=== PATIENT | male | born 1950 | race Caucasian/White ===

== ENCOUNTER 2016-11-10 18:47 | Emergency (ER) | payer MEDICARE, OTHER ==
[~2016-11-10] VITALS: Ht 177.8 cm; Wt 74.8 kg
[2016-11-10] MEDS ORDERED: MYCO500T PO (19:01)
[2016-11-10] MEDS ORDERED: VITA20008 PO (19:01)
[2016-11-10] MEDS ORDERED: GABA-283 PO (19:01)
[2016-11-10] MEDS ORDERED: AMAN100T PO (19:01)
[2016-11-10] MEDS ORDERED: VITA200025 PO (19:01)
[2016-11-10] MEDS ORDERED: BACL10TA2 PO (19:01)
[2016-11-10] MEDS ORDERED: NS 1,000 ML IV ONE (19:45)
[2016-11-10 20:31] LABS: BASO % 0.2 % (0.0-1.0); EOS % 0.6 % (0.0-3.0); LARGE UNSTAINED CELL # 0.1 K/mm3 (0.0-0.4); LARGE UNSTAINED CELL % 1.1 % (0.0-4.0); LYMPH % 12.4 % (24.0-44.0); MEAN CORPUSCULAR HEMOGLOBIN 30.8 pg (27.0-33.0); MEAN CORPUSCULAR HGB CONC 34.1 g/dl (32.0-36.5); MEAN CORPUSCULAR VOLUME 90.2 fl (80.0-96.0); MONO # 0.3 K/mm3 (0.0-0.8); MONO % 3.4 % (0.0-5.0); NEUTROPHILS # 6.8 K/mm3 (1.8-7.7); NEUTROPHILS % 82.3 % (36.0-66.0); PLATELET COUNT, AUTOMATED 226 k/mm3 (150-450); RED CELL DISTRIBUTION WIDTH 13.4 % (11.5-14.5); WHITE BLOOD COUNT 8.3 K/mm3 (4.0-10.0)
[2016-11-10 20:57] LABS: ALBUMIN 3.9 GM/DL (3.2-5.2); ALKALINE PHOSPHATASE 246 U/L (45-117); ALT/SGPT 59 U/L (12-78); ANION GAP 6 MEQ/L (8-16); AST/SGOT 35 U/L (15-37); BILIRUBIN,DIRECT 0.2 MG/DL (0.0-0.2); BLOOD UREA NITROGEN 19 MG/DL (7-18); CARBON DIOXIDE LEVEL 33 MEQ/L (21-32); CHLORIDE LEVEL 103 MEQ/L (98-107); CREATININE FOR GFR 0.98 MG/DL (0.70-1.30); GLOMERULAR FILTRATION RATE > 60.0 (>49); GLUCOSE, FASTING 115 MG/DL (80-110); POTASSIUM SERUM 4.1 MEQ/L (3.5-5.1); SODIUM LEVEL 142 MEQ/L (136-145); TOTAL PROTEIN 6.5 GM/DL (6.4-8.2)
[2016-11-10] MEDS ORDERED: ACETAMINOPHEN TAB 650MG DOSE (2X325MG) PO ONE (22:00)
[2016-11-10 23:30] VITALS: BP 154/94
--- NOTE | 2016-11-11 07:19 | REP ---
Clinical: Altered mental status . Findings: Age-related atrophy, periventricular leukomalacia and microvascular ischemic changes are appreciated. The ventricles and sulci are symmetric. Vick-white differentiation is maintained. There is no evidence for acute intracranial hemorrhage, mass/mass effect, pathology or infarction. No extra-axial fluid collection. Calvarium is intact. Paranasal sinuses and mastoid air cells are clear. Impression: Age related atrophy and microvascular ischemic changes. No acute intracranial hemorrhage, infarction, or mass/mass effect. Signed by Russ Dave MD 11/11/2016 07:10 A
--- NOTE | 2016-11-12 08:38 | ECGEPIP ---
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
== END 2016-11-10 23:32 | disposition home or self-care (01) ==
LOC: M ED 20:15
DX: G40.909 Epilepsy, unspecified, not intractable, without status epilepticus (principal); G35 Multiple sclerosis; Z79.899 Other long term (current) drug therapy; Z88.0 Allergy status to penicillin
CPT/HCPCS: 36415; 70450; 80048; 80076; 82550; 82553; 83605; 84443; 84484; 85025; 93005; 93041; 94760; 99285; G0480

== ENCOUNTER → 2016-11-29 | Outpatient (REF) | payer MEDICARE ==
[~2016-11-29] MED LIST: AMAN100T PO; BACL10TA2 PO; GABA-283 PO; MYCO500T PO; VITA200025 PO; VITA20008 PO
== END ==
LOC: M LAB REF 16:45
PROVIDERS: ATTEND Internal Medicine
DX: G40.309 Generalized idiopathic epilepsy and epileptic syndromes, not intractable, without status epilepticus (principal)

== ENCOUNTER → 2016-12-15 | Outpatient (REF) | payer MEDICARE ==
[~2016-12-15] MED LIST changes: +BACL5TA PO; +BACT800T5 PO; +FLOM5CAP PO; +KEPP250T5 PO; +LEVO25TA5 PO; +MIRA33504 PO; +MYCO1SUS PO; +VITA200015 PO
[2016-12-15 15:57] LABS: BASO % 0.2 % (0.0-1.0); EOS # 0.2 K/mm3 (0.0-0.50); EOS % 1.3 % (0.0-3.0); LARGE UNSTAINED CELL # 0.1 K/mm3 (0.0-0.4); LARGE UNSTAINED CELL % 1.1 % (0.0-4.0); LYMPH # 1.3 K/mm3 (1.5-4.5); LYMPH % 10.2 % (24.0-44.0); MEAN CORPUSCULAR HEMOGLOBIN 30.1 pg (27.0-33.0); MEAN CORPUSCULAR HGB CONC 32.7 g/dl (32.0-36.5); MEAN CORPUSCULAR VOLUME 91.9 fl (80.0-96.0); MONO # 0.6 K/mm3 (0.0-0.8); MONO % 4.5 % (0.0-5.0); NEUTROPHILS # 10.6 K/mm3 (1.8-7.7); NEUTROPHILS % 82.7 % (36.0-66.0); PLATELET COUNT, AUTOMATED 192 k/mm3 (150-450); WHITE BLOOD COUNT 12.8 K/mm3 (4.0-10.0)
[2016-12-15 16:07] LABS: ALBUMIN 3.5 GM/DL (3.2-5.2); ALBUMIN/GLOBULIN RATIO 1.17 (1.00-1.93); ALKALINE PHOSPHATASE 281 U/L (45-117); ALT/SGPT 47 U/L (12-78); ANION GAP 10 MEQ/L (8-16); AST/SGOT 27 U/L (15-37); BILIRUBIN,TOTAL 0.6 MG/DL (0.2-1.0); BLOOD UREA NITROGEN 20 MG/DL (7-18); CALCIUM LEVEL 9.2 MG/DL (8.8-10.2); CARBON DIOXIDE LEVEL 28 MEQ/L (21-32); CHLORIDE LEVEL 101 MEQ/L (98-107); CREATININE FOR GFR 1.31 MG/DL (0.70-1.30); GLOMERULAR FILTRATION RATE 58.3 (>49); GLUCOSE, FASTING 139 MG/DL (80-110); POTASSIUM SERUM 4.7 MEQ/L (3.5-5.1); SODIUM LEVEL 139 MEQ/L (136-145); TOTAL PROTEIN 6.5 GM/DL (6.4-8.2)
[2016-12-15 16:13] LABS: ERYTHROCYTE SEDIMENTATION RATE 13 mm/hr (0-20)
== END ==
LOC: M LABDRAW1 15:31
PROVIDERS: ATTEND Psychiatry & Neurology Neurology
DX: G35 Multiple sclerosis (principal); R56.9 Unspecified convulsions

== ENCOUNTER 2016-12-22 09:23 | Inpatient (IN) | payer MEDICARE ==
[~2016-12-22] VITALS: Ht 177.8 cm; Wt 84.6 kg
[~2016-12-22 09:23] MED LIST changes: -BACL5TA PO; -BACT800T5 PO; -FLOM5CAP PO; -KEPP250T5 PO; -LEVO25TA5 PO; -MIRA33504 PO; -MYCO1SUS PO; -VITA200015 PO
[2016-12-22] MEDS ORDERED: FLOM5CAP PO (09:40)
[2016-12-22] MEDS ORDERED: LEVO25TA5 PO (09:40)
[2016-12-22] MEDS ORDERED: KEPP250T5 PO (09:40)
[2016-12-22] MEDS ORDERED: GABA-283 PO (09:40)
[2016-12-22] MEDS ORDERED: MYCO1SUS PO (09:40)
[2016-12-22 10:18] LABS: BASO % 0.1 % (0.0-1.0); EOS % 0.4 % (0.0-3.0); LARGE UNSTAINED CELL # 0.1 K/mm3 (0.0-0.4); LARGE UNSTAINED CELL % 0.8 % (0.0-4.0); LYMPH # 1.2 K/mm3 (1.5-4.5); LYMPH % 10.5 % (24.0-44.0); MEAN CORPUSCULAR HEMOGLOBIN 29.3 pg (27.0-33.0); MEAN CORPUSCULAR HGB CONC 32.4 g/dl (32.0-36.5); MEAN CORPUSCULAR VOLUME 90.4 fl (80.0-96.0); MONO # 0.4 K/mm3 (0.0-0.8); MONO % 3.9 % (0.0-5.0); NEUTROPHILS # 8.9 K/mm3 (1.8-7.7); NEUTROPHILS % 84.3 % (36.0-66.0); PLATELET COUNT, AUTOMATED 257 k/mm3 (150-450); RED CELL DISTRIBUTION WIDTH 14.3 % (11.5-14.5); WHITE BLOOD COUNT 10.5 K/mm3 (4.0-10.0)
[2016-12-22] MEDS ORDERED: MORPHINE 2 MG/ML 1ML SYRINGE IV ONE ×3 (11:00→13:30)
[2016-12-22] MEDS: NS 1,000 ML IV SCH ×2 (11:04→20:57)
[2016-12-22 11:10] LABS: ANION GAP 6 MEQ/L (8-16); BLOOD UREA NITROGEN 26 MG/DL (7-18); CARBON DIOXIDE LEVEL 29 MEQ/L (21-32); CHLORIDE LEVEL 103 MEQ/L (98-107); CREATININE FOR GFR 1.38 MG/DL (0.70-1.30); GLOMERULAR FILTRATION RATE 54.9 (>49); GLUCOSE, FASTING 112 MG/DL (80-110); POTASSIUM SERUM 4.5 MEQ/L (3.5-5.1); SODIUM LEVEL 138 MEQ/L (136-145)
[2016-12-22 11:11] LABS: ALBUMIN 3.6 GM/DL (3.2-5.2); ALBUMIN/GLOBULIN RATIO 1.06 (1.00-1.93); ALKALINE PHOSPHATASE 252 U/L (45-117); ALT/SGPT 47 U/L (12-78); AST/SGOT 31 U/L (15-37); BILIRUBIN,DIRECT 0.1 MG/DL (0.0-0.2); BILIRUBIN,TOTAL 0.5 MG/DL (0.2-1.0); CALCIUM LEVEL 9.5 MG/DL (8.8-10.2)
--- NOTE | 2016-12-22 11:14 | REP ---
CHEST, TWO VIEWS: HISTORY: Left side pain. A linear density is present in the left lower lobe consistent with atelectasis or scar. The right lung is clear. The heart is normal in size. The pulmonary vasculature is normal in appearance. The bony structure is intact. IMPRESSION: Left lower lobe atelectasis or scar. Signed by Yovany Parsons MD 12/22/2016 11:29 A
[2016-12-22] MEDS ORDERED: ISOVUE-370 76% 100ML VIAL (Q9967) As Ordered ONE (12:25)
--- NOTE | 2016-12-22 13:18 | REP ---
CT pulmonary angiogram: With IV contrast. History: Left chest pain. Comparison studies: Comparison chest x-ray is from this date. Contrast dose: 100 cc's of Isovue [address] technique: Helical scanning is acquired and overlapping 1.5 mm and contiguous 3 mm axial images are reformatted. In addition, a 3-D work station is deployed to generate thick slab maximum intensity projection images in sagittal and coronal imaging projections. CT pulmonary angiographic findings: There is good opacification of the pulmonary arterial tree and there is no CT evidence of pulmonary embolism. The thoracic aorta enhances homogeneously and is normal in course and caliber. Maximal intensity projection images show no evidence of vessel cutoff or filling defect in the pulmonary arterial tree. There is bilateral lower lobe plate-like atelectasis mild in degree. No pleural effusion is seen. No pericardial effusion is seen. No hilar or mediastinal mass or adenopathy is observed. No adrenal lesion is seen. The visualized upper abdominal structures are unremarkable. Bone window settings show no bony destructive lesion. Impression: No CT evidence of pulmonary embolism. No active disease. Signed by Tucker Lopez MD 12/22/2016 03:08 P
--- NOTE | 2016-12-22 13:23 | REP ---
CT abdomen and pelvis with IV but without oral contrast: History: Left-sided pain. CT contrast dose: 100 ml of Isovue [address] findings: There is a small hypervascular liver lesion in the central portion of the posterior segment of the right lobe of the liver. This measures approximately 17 mm in greatest diameter. It is compatible with a hemangioma. No other focal liver lesion is appreciated. Gallbladder shows a focal area of calcification in the anterior wall of the gallbladder. No mass lesion is seen. No adrenal lesion is observed on either side. Spleen is unremarkable. No pancreatic abnormality is observed. The kidneys enhance symmetrically and are morphologically intact. A normal caliber aorta is seen. No retroperitoneal mass or adenopathy is observed. A normal appendix is seen. There is moderate stool throughout the colon proximal to the splenic flexure. No obstructive lesion is seen. Urinary bladder, seminal vesicles, and prostate are unremarkable. No abdominal wall defect is seen. No bony destructive lesion is observed. Impression: Small hepatic hemangioma. Tiny mural calcification in the gallbladder wall. Moderate stool in the proximal colon. Otherwise negative. Signed by Tucker Lopez MD 12/22/2016 03:08 P
[2016-12-22] MEDS ORDERED: KETOROLAC 30 MG/ML VIAL (J1885) IV ONE (14:00)
--- NOTE | 2016-12-22 14:41 | HPEPDOC ---
Medical History and Physical Date of Admission 12/22/16 History and Physical ATTENDING: PCP: CC: abdominal pain HPI: 66yoM with a past medical history significant for progressive MS, seizure disorder. History is taken from . He was seen in ED 11/10/16 for grand mal seizure associated with LOC, jerking movements and urinary incontinence. Following that he was seen by PCP and Keppra 500mg BID was added. He was referred to [facility] for further mgmt and evaluation. Keppra caused sedation and was reduced to 250mg BID. [facility] had requested EEG which was scheduled today and MRI brain. He also experienced an episode of gross hematuria and was seen at with corbett placed. UC neg per . He was started on po Bactrim for prostatitis as per PCP. Corbett was removed 12/16/16 as per [facility] urology. The pt's states that since the seizure he has been weak and fatigued, no seizure activity reported. He has not had urinary complaints. She noticed over the past week or so that he is hallucinating- seeing things that aren't there. This Am he c/o LLQ abdominal pain and had episode of vomitting last PM. He came to ED for evaluation today related to persistent pain. He remained very weak and fatigued. Denies any fevers, chills, VO, CP, SOB, cough, palpitations, Diarrhea. reports has not had a BM in past 4-5 days. Upon presentation to the hospital the patient was found to have abdominal pain, thus the hospitalist team was consulted. PMHx: Seizure disorder. Dr Vanessa Rubio Vitamin D Def Primary progressive MS. Dr Vanessa Rubio GENNY. CPAP Venous insufficiency Urinary retention. [facility] Urology hypothyroid PSHX: denies SOCHX: Resides in: [place]. Uses Power chair. Marital Status: Kids:4 Employment: retired from [employer] Tobacco use: denies ETOH: denies Illicit Drugs: Denies Recent travel: denies Advanced directives: none FAMHX: Mother: Alive, HTN Father: Lung Ca Siblings: 1 brother, 1 sister Alive, well. 1 brother MS Children: Alive, well Unexpected deaths due to medical reasons: None. ROS: As noted in HPI, otherwise 11pt ROS of systems reviewed and unremarkable. PE: GEN: 66yoM, appears stated age. Well-nourished, well developed. No acute distress. Alert and oriented x 3. Pt tired/sleeping, but aroused to voice. HEENT: Normocephalic, atraumatic. Pupils are equal, round, and reactive to light. Extraocular movements are intact. No nystagmus appreciated. Sclera are nonicteric. Conjunctiva without injection. Nose midline. Nasal turbinates without bogginess. EACs both patent BL. TMs both visualized and mcfadden with good cone of light, no bulging or erythema. No facial asymmetry. Moist mucous membranes. Dentition fair. Pharynx pink and moist, no cobblestoning. Neck supple , trachea midline. No lymphadenopathy or thyromegaly appreciated. CHEST: Regular rate and rhythm, +S1, +S2 LUNGS: Clear to auscultation bilaterally. No wheezes, rales, or rhonchi. Breathing appears symmetric and easy. No accessory muscle use. ABD: Round, soft, non-tender, non-distended. +Bowel sounds throughout. No rebound or guarding. No costovertebral angle tenderness. no spine TTP. EXT: Pulses 2+ bilaterally dorsalis pedis and radial. 1-2mm lower extremity edema appreciated. SKIN: [place], dry, warm. Capillary refill <2sec. No rashes. NEURO: Alert and oriented x 3. Cranial nerves III-XII grossly intact. Generalized weakness UE/LEs. CXR: Left lower lobe atelectasis or scar CT: AP. Small hepatic hemangioma. Tiny mural calcification in the gallbladder wall. Moderate stool in the proximal colon. Otherwise negative. CTA No CT evidence of pulmonary embolism. No active disease EKG: SB, NST abn, 56 bpm. BLOOD CULTURES: pending UA/UC pending CT Brain 11/10/16 Age related atrophy and microvascular ischemic changes. No acute intracranial hemorrhage, infarction, or mass/mass effect. LA 1.4. A&P: 66yoM with a past medical history significant for progressive MS, seizure disorder. History is taken from . He was seen in ED 11/10/16 for grand mal seizure associated with LOC, jerking movements and urinary incontinence. Following that he was seen by PCP and Keppra 500mg BID was added. He was referred to [facility] for further mgmt and evaluation. Keppra caused sedation and was reduced to 250mg BID. [facility] had requested EEG which was scheduled today and MRI brain. He also experienced an episode of gross hematuria and was seen at with corbett placed. UC neg per . He was started on po Bactrim for prostatitis as per PCP. Corbett was removed 12/16/16 as per [facility] urology. The pt's states that since the seizure he has been weak and fatigued, no seizure activity reported. He has not had urinary complaints. She noticed over the past week or so that he is hallucinating- seeing things that aren't there. This Am he c/o LLQ abdominal pain and had episode of vomitting last PM. He came to ED for evaluation today related to persistent pain. The patient will be admitted to /S for at least [address] Martinez's service. Pt is discussed with Dr Richardson. 1. Abdominal pain. CT with moderate stool. Bowel care ordered. Zofran prn. S/P IVF 1 liter in ED. UA/UC pending. BC pending. 2. Recent treatment for prostatitis/H/O Urinary retention. Follows with [facility] Urology as outpt. D/Cd Bactrim related to renal function. Add IV Rocephin. UA.UC pending. Monitor for urinary retention, Cont Flomax. Bladder scan. 3. Seizure d/o. HOLD Keppra temporarily and see if this improves status. Seizure precautions. Clt [facility] for any further recommendations- Spoke with Dr Melton. He agrees with holding Keppra. He states Pt can F/U outpt. Discuss with neurology if further concern for abnormal neurological workup. EEG/MRI brain requested and pending. 4. Hallucinations. MRI brain/EEG pending as above. TFT/Ammonia level pending as well. 5. Primary Progressive MS. Continue outpt Baclofen/Amantadine/Gabapentin/ Cellcept. Supportive care. 6. Hypothyroid. Cont supplement. TFT pending. 7. LE edema. Pt with reported h/o chronic venous insufficiency. Pt states this is unchanged. CTA with no PE. CXR no acute changes. SCD/TEDS. Will add LE U /S. 8. JA. 1.31-1.38 from 0.98. Possibly related to po Bactrim. IVF x 1 liter given in ED. D/C bactrim, IV Rocephin added. Monitor labs. DVT prophylaxis. Lovenox. The patient is a Full code. Vital Signs Vital Signs Date Time Temp Pulse Resp B/P (MAP) Pulse Ox O2 Delivery O2 Flow Rate FiO2 12/22/16 14:24 115/68 (84) 12/22/16 14:23 56 99 12/22/16 14:04 16 Room Air 12/22/16 09:24 96.4 Laboratory Data Labs 24H Laboratory Tests 2 12/22/16 10:05: White Blood Count 10.5H, Red Blood Count 5.18, Hemoglobin 15.2, Hematocrit 46.8 , Mean Corpuscular Volume 90.4, Mean Corpuscular Hemoglobin 29.3, Mean Corpuscular Hemoglobin Concent 32.4, Red Cell Distribution Width 14.3, Platelet Count 257, Neutrophils (%) (Auto) 84.3H, Lymphocytes (%) (Auto) 10.5L, Monocytes (%) (Auto) 3.9, Eosinophils (%) (Auto) 0.4, Basophils (%) (Auto) 0.1, Neutrophils # (Auto) 8.9H, Lymphocytes # (Auto) 1.2L, Monocytes # (Auto) 0.4, Eosinophils # (Auto) 0.0, Basophils # (Auto) 0.0, Large Unclassified Cells % 0.8 , Large Unclassified Cells # 0.1, Anion Gap 6L, Glomerular Filtration Rate 54.9 , Calcium Level 9.5, Aspartate Amino Transf (AST/SGOT) 31, Alanine Aminotransferase (ALT/SGPT) 47, Alkaline Phosphatase 252H, Total Bilirubin 0.5, Direct Bilirubin 0.1, Total Creatine Kinase 77, Creatine Kinase MB 5.3H, Creatine Kinase MB Relative Index 6.88H, Troponin I < 0.02, Total Protein 7.0, Albumin 3.6, Albumin/Globulin Ratio 1.06, Lipase 101 12/22/16 10:06: Lactic Acid Level 1.4 CBC/BMP Laboratory Tests 12/22/16 10:05 Red Blood Count 5.18, Mean Corpuscular Volume 90.4, Mean Corpuscular Hemoglobin 29.3, Mean Corpuscular Hemoglobin Concent 32.4, Red Cell Distribution Width 14.3 , Neutrophils (%) (Auto) 84.3 H, Lymphocytes (%) (Auto) 10.5 L, Monocytes (%) ( Auto) 3.9, Eosinophils (%) (Auto) 0.4, Basophils (%) (Auto) 0.1, Neutrophils # ( Auto) 8.9 H, Lymphocytes # (Auto) 1.2 L, Monocytes # (Auto) 0.4, Eosinophils # ( Auto) 0.0, Basophils # (Auto) 0.0 Home Medications Scheduled Amantadine HCl (Amantadine HCl) 100 Mg Tab, 200 MG PO QAM Amantadine HCl (Amantadine HCl) 100 Mg Tab, 100 MG PO QPM Baclofen (Baclofen) 10 Mg Tab, 10 MG PO QAM Baclofen (Baclofen) 10 Mg Tab, 5 MG PO BID TAKES DINNERTIME AND BEDTIME Cholecalciferol (Vitamin D3) 2,000 Unit Tab, 2,000 UNIT PO DAILY Gabapentin (Gabapentin) 400 Mg Cap, 800 MG PO TID Levetiracetam (Keppra) 250 Mg Tab, 250 MG PO BID Levothyroxine Sodium (Synthroid) 25 Mcg Tab, 25 MCG PO DAILY Mycophenolate Mofetil (Mycophenolate Mofetil) 500 Mg Tab, 1,000 MG PO BID Tamsulosin Hydrochloride (Flomax) 0.4 Mg Cap, 0.4 MG PO QHS Trimethoprim/Sulfamethoxazole (Bactrim Ds 800-160 mg) 1 Tab Tab, 1 TAB PO BID ON DAY 17 OF SECOND 10 DAY COURSE Scheduled PRN Polyethylene Glycol (Miralax) 1 Pow Pow, 17 GM PO DAILY PRN for CONSTIPATION Allergies Coded Allergies: Penicillins (Verified Allergy, Unknown, 11/10/16) Nahomy Hsieh Dec 22, 2016 14:41
[2016-12-22] MEDS ORDERED: AMAN100T PO ×2 (15:06)
[2016-12-22] MEDS ORDERED: BACL5TA PO (15:06)
[2016-12-22] MEDS ORDERED: BACL10TA2 PO (15:06)
[2016-12-22] MEDS ORDERED: VITA200015 PO (15:08)
[2016-12-22] MEDS ORDERED: MYCO500T PO (15:11)
[2016-12-22] MEDS ORDERED: BACT800T5 PO (15:11)
[2016-12-22] MEDS ORDERED: MIRA33504 PO (15:12)
[2016-12-22] MEDS ORDERED: MIRALAX *UNIT DOSE* 17GM PACKET PO PRN (15:15)
[2016-12-22 16:28] LABS: THYROXINE (T4) 11.5 UG/DL (4.5-12.0)
--- NOTE | 2016-12-22 17:26 | REP ---
Bilateral lower extremity Duplex Doppler venous ultrasound: Real time compression and duplex Doppler interrogation of the bilateral lower extremity deep venous system is performed. Bilaterally, the common femoral, superficial femoral and popliteal veins are fully compressible with transducer pressure and demonstrate normal spontaneous and phasic flow, without evidence of deep venous thrombosis. Impression: No evidence of deep venous thrombosis of the bilateral lower extremity femoral popliteal venous system. Signed by Micah Vick MD 12/22/2016 05:18 P
--- NOTE | 2016-12-22 17:30 | REP ---
MR BRAIN WITHOUT AND WITH CONTRAST: HISTORY: Confusion. COMPARISON: CT 11/10/2016 Multiple areas of increased signal intensity on T2-weighted images are present in the periventricular and subcortical white matter. Additional areas of increased signal intensity are present in the corpus callosum. There is no intraparenchymal hemorrhage, infarct, mass or midline shift. There is no abnormal enhancement. The ventricular system and cortical sulci as well as subarachnoid space and the posterior fossa are dilated consistent with mild volume loss. There is no extracerebral collection. The sinuses are clear. IMPRESSION: 1. There are multiple areas of increased signal intensity in the periventricular and subcortical white matter and corpus callosum. This represents a combination of demyelinating disease and small vessel ischemic disease. 2. Mild volume loss. Signed by Yovany Parsons MD 12/23/2016 08:23 A
[2016-12-22] MEDS: cefTRIAXone SOD 1 GM in D5W MINI-BAG PLUS 50 ML IV SCH (17:56)
[2016-12-22] MEDS: VITAMIN D 1,000 INTERNATIONAL UNITS TABLET PO SCH (17:57)
[2016-12-22] MEDS: GABAPENTIN 400 MG CAP PO SCH ×2 (17:57→21:00)
[2016-12-22] MEDS: ENOXAPARIN 40 MG/0.4 ML SYRINGE (J1650) SC SCH (17:58)
[2016-12-22] MEDS: ONDANSETRON 4MG/2ML VIAL (J2405) IV PRN (19:58)
[2016-12-22] MEDS ORDERED: KETOROLAC 30 MG/ML VIAL (J1885) IV PRN (20:15)
[2016-12-22] MEDS ORDERED: FLEET ENEMA PR PRN (20:15)
[2016-12-22] MEDS: BACLOFEN 5MG PER 1/2 TABLET PO SCH (20:59)
[2016-12-22] MEDS ORDERED: BISACODYL 10 MG SUPP PR PRN (21:00)
[2016-12-22] MEDS ORDERED: BACTRIM 160MG/800MG DS TAB PO SCH (21:00)
[2016-12-22] MEDS: AMANTADINE 100 MG CAP PO SCH (21:01)
[2016-12-22] MEDS: TAMSULOSIN 0.4 MG CAP PO SCH (21:01)
[2016-12-22] MEDS: MYCOPHENOLATE MOFETIL 250 MG CAP (J7517) PO SCH (21:02)
[2016-12-22 22:00] VITALS: BP 129/76
[2016-12-23 06:00] VITALS: BP 154/80
[2016-12-23] MEDS: LEVOTHYROXINE 25MCG TABLET (0.025MG) PO SCH (06:15)
[2016-12-23] MEDS: NS 1,000 ML IV SCH ×2 (06:17→15:58)
[2016-12-23 06:42] LABS: BASO % 0.2 % (0.0-1.0); EOS # 0.1 K/mm3 (0.0-0.50); EOS % 0.8 % (0.0-3.0); LARGE UNSTAINED CELL # 0.1 K/mm3 (0.0-0.4); LYMPH # 1.3 K/mm3 (1.5-4.5); LYMPH % 8.9 % (24.0-44.0); MEAN CORPUSCULAR HEMOGLOBIN 29.6 pg (27.0-33.0); MEAN CORPUSCULAR HGB CONC 32.4 g/dl (32.0-36.5); MEAN CORPUSCULAR VOLUME 91.5 fl (80.0-96.0); MONO # 0.5 K/mm3 (0.0-0.8); MONO % 3.9 % (0.0-5.0); NEUTROPHILS # 11.4 K/mm3 (1.8-7.7); NEUTROPHILS % 85.2 % (36.0-66.0); PLATELET COUNT, AUTOMATED 197 k/mm3 (150-450); RED CELL DISTRIBUTION WIDTH 14.3 % (11.5-14.5); WHITE BLOOD COUNT 13.4 K/mm3 (4.0-10.0)
[2016-12-23 06:51] LABS: ALBUMIN 3.4 GM/DL (3.2-5.2); ALBUMIN/GLOBULIN RATIO 1.17 (1.00-1.93); BILIRUBIN,TOTAL 0.7 MG/DL (0.2-1.0); CALCIUM LEVEL 8.7 MG/DL (8.8-10.2); CREATININE FOR GFR 1.35 MG/DL (0.70-1.30); GLOMERULAR FILTRATION RATE 56.3 (>49); POTASSIUM SERUM 4.6 MEQ/L (3.5-5.1); TOTAL PROTEIN 6.3 GM/DL (6.4-8.2)
[2016-12-23] MEDS: BACLOFEN 10 MG TAB PO SCH (08:13)
[2016-12-23] MEDS: VITAMIN D 1,000 INTERNATIONAL UNITS TABLET PO SCH (08:13)
[2016-12-23] MEDS: MYCOPHENOLATE MOFETIL 250 MG CAP (J7517) PO SCH ×2 (08:13→21:39)
[2016-12-23] MEDS: AMANTADINE 100 MG CAP PO SCH ×2 (08:13→21:40)
[2016-12-23] MEDS: GABAPENTIN 400 MG CAP PO SCH ×3 (08:13→21:39)
--- NOTE | 2016-12-23 11:49 | ECGEPIP ---
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
[2016-12-23] MEDS ORDERED: MAGNESIUM CITRATE 300 ML BTL PO ONE ×2 (12:30→15:30)
[2016-12-23 14:00] VITALS: BP 130/80
--- NOTE | 2016-12-23 14:55 | IPNPDOC ---
Subjective Date Seen The patient was seen on 12/23/16. Subjective Chief Complaint/HPI The patient is a 66-year-old male admitted with a reason for visit of Abdominal Pain. Events since last encounter pt seen and examined, was sitting in bed still having abd pain, no nausea or vomiting, his was at bedside and she states that he is a lot more sleepy than his baseline, he still had no bowel movements. Objective Physical Examination General Exam: Positive: No Acute Distress Eye Exam: Positive: PERRLA Neck Exam: Positive: Supple, Negative: JVD, thyromegaly Chest Exam: Positive: Clear to auscultation, Normal air movement Heart Exam: Positive: Rate Normal Abdomen Exam: Positive: Normal bowel sounds, Soft, Negative: Tenderness, Hepatospenomegaly Extremity Exam: Negative: Clubbing, Cyanosis, Edema Neuro Exam: Positive: Cranial Nerves 3-12 NL Assessment /Plan Problems (1) Multiple sclerosis Status: Chronic Problem Text: * pt has history of multiple sclerosis, he follows up with dr Rubio * he is on amantadine and cellcept * at baseline per his , he can walk with a waker, give himself a bath, but has been able to do so over the last few weeks and worsened over the last week * had a seizure a few weeks agao and was started on keppra, but he didn't tolerate it well and it was discontinued * it was that his change in mentation was related to his keppra (2) Encephalopathy Status: Acute Problem Text: * maybe due to Keppra but can't rule out other causes including worsening MS vs infection * currently pt is awake oriented X3 but per the pt has been more sleeping and unable to carry a conversation * he has also been having visual hallucinations, states he has been seeing snakes on the bed (3) Constipation Status: Acute Problem Text: * last bowel movement was 6 days ago * pt had a similar event 2 weeks ago and ended up giving him 2 bottles of mag citrate * will start pt on mag citrate now (4) Urinary retention Status: Acute Problem Text: * pt was diagnosed with parostitis per urology, he was started on Bactrim * now on Rocephin * urine culture pending * will continue bladder scan and straight cath if volume is more than 400 (5) Acute prostatitis Status: Acute (6) Seizure Status: Acute Problem Text: * pt had a seizure a few weeks ago and he was started on Keppra * he was taken off of keppra because it was thought that his change in mentation is related to that medication (7) Abdominal pain Status: Acute Problem Text: * likely secondary to constipation * CT abd and pelvis showed moderate stool * will start pt on mag citrate Plan/VTE VTE Prophylaxis Ordered?: Yes VS, I&O, 24H, Fishbone Vital Signs/I&O Vital Signs Date Time Temp Pulse Resp B/P (MAP) Pulse Ox O2 Delivery O2 Flow Rate FiO2 12/23/16 10:41 BIPAP/CPAP 12/23/16 06:00 96.0 63 18 154/80 (104) 94 I&O- Last 24 Hours up to 6 AM 12/23/16 05:59 Intake Total 960 ml Output Total 300 ml Balance 660 ml Laboratory Data 24H LABS Laboratory Tests 2 12/22/16 15:39: Ammonia 18, Thyroid Stimulating Hormone (TSH) 6.000H, Free Thyroxine Index 3.8, Thyroxine (T4) 11.5, Triiodothyronine (T3) Uptake 33 12/22/16 20:03: Urine Appearance CLEAR, Urine Color YELLOW, Urine pH 5.0, Urine Specific [place] >1.060H, Urine Protein NEGATIVE, Urine Glucose (UA) NEGATIVE, Urine Ketones NEGATIVE, Urine Urobilinogen 0.2, Urine Bilirubin NEGATIVE, Urine Leukocyte Esterase NEGATIVE, Urine Blood NEGATIVE, Urine Nitrite NEGATIVE, Urine WBC (Auto) 2, Urine RBC (Auto) 3, Urine Hyaline Casts (Auto) 3, Urine Bacteria (Auto) NEGATIVE, Urine Squamous Epithelial Cells 0, Urine Mucus (Auto) SMALL, Urine Sperm (Auto) 12/23/16 05:57: White Blood Count 13.4H, Red Blood Count 4.77, Hemoglobin 14.1, Hematocrit 43.6 , Mean Corpuscular Volume 91.5, Mean Corpuscular Hemoglobin 29.6, Mean Corpuscular Hemoglobin Concent 32.4, Red Cell Distribution Width 14.3, Platelet Count 197, Neutrophils (%) (Auto) 85.2H, Lymphocytes (%) (Auto) 8.9L, Monocytes (%) (Auto) 3.9, Eosinophils (%) (Auto) 0.8, Basophils (%) (Auto) 0.2, Neutrophils # (Auto) 11.4H, Lymphocytes # (Auto) 1.3L, Monocytes # (Auto) 0.5, Eosinophils # (Auto) 0.1, Basophils # (Auto) 0.0, Large Unclassified Cells % 1.0 , Large Unclassified Cells # 0.1, Anion Gap 7L, Glomerular Filtration Rate 56.3 , Blood Urea Nitrogen 26H, Creatinine 1.35H, Sodium Level 140, Potassium Level 4.6, Chloride Level 105, Carbon Dioxide Level 28, Calcium Level 8.7L, Aspartate Amino Transf (AST/SGOT) 28, Alanine Aminotransferase (ALT/SGPT) 42, Alkaline Phosphatase 220H, Total Bilirubin 0.7, Total Protein 6.3L, Albumin 3.4, Albumin/ Globulin Ratio 1.17 CBC/BMP Laboratory Tests 12/23/16 05:57 Red Blood Count 4.77, Mean Corpuscular Volume 91.5, Mean Corpuscular Hemoglobin 29.6, Mean Corpuscular Hemoglobin Concent 32.4, Red Cell Distribution Width 14.3 , Neutrophils (%) (Auto) 85.2 H, Lymphocytes (%) (Auto) 8.9 L, Monocytes (%) ( Auto) 3.9, Eosinophils (%) (Auto) 0.8, Basophils (%) (Auto) 0.2, Neutrophils # ( Auto) 11.4 H, Lymphocytes # (Auto) 1.3 L, Monocytes # (Auto) 0.5, Eosinophils # (Auto) 0.1, Basophils # (Auto) 0.0, Calcium Level 8.7 L, Aspartate Amino Transf (AST/SGOT) 28, Alanine Aminotransferase (ALT/SGPT) 42, Alkaline Phosphatase 220 H, Total Bilirubin 0.7, Total Protein 6.3 L, Albumin 3.4 Microbiology Microbiology 12/22/16 Blood Culture, Received Pending 12/23/16 Urine Culture, Received Pending MADELYN AGUILERA DO Dec 23, 2016 14:55
[2016-12-23] MEDS: BACLOFEN 5MG PER 1/2 TABLET PO SCH ×2 (17:43→21:39)
[2016-12-23] MEDS: cefTRIAXone SOD 1 GM in D5W MINI-BAG PLUS 50 ML IV SCH (17:43)
[2016-12-23] MEDS: ENOXAPARIN 40 MG/0.4 ML SYRINGE (J1650) SC SCH (17:44)
[2016-12-23] MEDS: TAMSULOSIN 0.4 MG CAP PO SCH (21:39)
[2016-12-23 22:00] VITALS: BP 150/82
[2016-12-24] MEDS ORDERED: PREPARATION H OINTMENT (HEMORRHOID) PR PRN (00:15)
[2016-12-24] MEDS: ACETAMINOPHEN TAB 650MG DOSE (2X325MG) PO PRN (01:06)
[2016-12-24] MEDS: LEVOTHYROXINE 25MCG TABLET (0.025MG) PO SCH (06:06)
[2016-12-24 06:31] LABS: BASO % 0.2 % (0.0-1.0); EOS # 0.2 K/mm3 (0.0-0.50); EOS % 1.1 % (0.0-3.0); LARGE UNSTAINED CELL # 0.1 K/mm3 (0.0-0.4); LARGE UNSTAINED CELL % 0.8 % (0.0-4.0); MEAN CORPUSCULAR HEMOGLOBIN 29.9 pg (27.0-33.0); MEAN CORPUSCULAR HGB CONC 32.5 g/dl (32.0-36.5); MEAN CORPUSCULAR VOLUME 91.8 fl (80.0-96.0); MONO # 0.5 K/mm3 (0.0-0.8); MONO % 3.4 % (0.0-5.0); NEUTROPHILS # 11.7 K/mm3 (1.8-7.7); NEUTROPHILS % 87.5 % (36.0-66.0); PLATELET COUNT, AUTOMATED 185 k/mm3 (150-450); RED CELL DISTRIBUTION WIDTH 14.3 % (11.5-14.5); WHITE BLOOD COUNT 13.3 K/mm3 (4.0-10.0)
[2016-12-24 06:44] LABS: ALBUMIN 3.5 GM/DL (3.2-5.2); ALKALINE PHOSPHATASE 281 U/L (45-117); ALT/SGPT 49 U/L (12-78); ANION GAP 7 MEQ/L (8-16); AST/SGOT 43 U/L (15-37); BLOOD UREA NITROGEN 23 MG/DL (7-18); CARBON DIOXIDE LEVEL 30 MEQ/L (21-32); CHLORIDE LEVEL 103 MEQ/L (98-107); CREATININE FOR GFR 1.02 MG/DL (0.70-1.30); GLOMERULAR FILTRATION RATE > 60.0 (>49); GLUCOSE, FASTING 76 MG/DL (80-110); POTASSIUM SERUM 4.5 MEQ/L (3.5-5.1); SODIUM LEVEL 140 MEQ/L (136-145); TOTAL PROTEIN 6.2 GM/DL (6.4-8.2)
[2016-12-24] MEDS: GABAPENTIN 400 MG CAP PO SCH ×3 (08:37→20:13)
[2016-12-24] MEDS: MYCOPHENOLATE MOFETIL 250 MG CAP (J7517) PO SCH ×2 (08:37→20:12)
[2016-12-24] MEDS: BACLOFEN 10 MG TAB PO SCH (08:37)
[2016-12-24] MEDS: VITAMIN D 1,000 INTERNATIONAL UNITS TABLET PO SCH (08:37)
[2016-12-24] MEDS: AMANTADINE 100 MG CAP PO SCH ×2 (08:37→20:12)
--- NOTE | 2016-12-24 09:43 | EEG ---
DATE OF PROCEDURE: 12/23/2016 REFERRING PHYSICIAN: Dr. Reba Martinez DIAGNOSIS: Seizures. EEG NUMBER: [id number] HISTORY: The patient is a 66-year-old man who was admitted at [facility] with abdominal pain. He has history of progressive multiple sclerosis and seizures. He is currently on amantadine, baclofen, gabapentin, Flomax, morphine, etc. TECHNICAL DESCRIPTION: This digital EEG was recorded by 21 scalp, ear and two EKG electrodes and was reviewed in bipolar and referential montages following reformatting in 10-20 international electrode placement system. INTERPRETATION: The patient was noted to be in awake and drowsy states during this EEG. Resting awake background rhythm consisted of 15 Hz beta activity measuring 10-20 microvolts in amplitude. No sleep was achieved. The patient became drowsy during this EEG. Hyperventilation could not be performed. Photic stimulation remained unremarkable. Electrocardiogram (EKG) revealed normal sinus rhythm. No focal, lateralizing or epileptiform abnormalities were seen. CONCLUSION: This EEG in awake and drowsy states is within normal limits. Excessive beta activity is due to medication effect.
[2016-12-24] MEDS: risperiDONE 0.25 MG TAB PO SCH ×2 (12:00→20:13)
--- NOTE | 2016-12-24 13:36 | IPNPDOC ---
Subjective Date Seen The patient was seen on 12/24/16. Subjective Chief Complaint/HPI The patient is a 66-year-old male admitted with a reason for visit of Abdominal Pain. Events since last encounter pt seen and examined, was responsive early in the morning, but i was called later by nurse stating that pt was agitated, went to see pt, he had his eyes shut wouldn't open them, wouldn't cooperate with exam or answer questions Objective Physical Examination General Exam: Positive: No Acute Distress Eye Exam: Positive: PERRLA Neck Exam: Positive: Supple, Negative: JVD, thyromegaly Chest Exam: Positive: Clear to auscultation, Normal air movement Heart Exam: Positive: Rate Normal Abdomen Exam: Positive: Normal bowel sounds, Soft, Negative: Tenderness, Hepatospenomegaly Extremity Exam: Negative: Clubbing, Cyanosis, Edema Assessment /Plan Problems (1) Encephalopathy Status: Acute Problem Text: * maybe due to Keppra vs other medication but can't rule out other causes including worsening MS such as constipation or infection * pt now uncooperative with exam * he was seen by Neurology who recommended to change some of his medication and start risperidone bid * will continue to monitor pt (2) Multiple sclerosis Status: Chronic Problem Text: * pt has history of multiple sclerosis, he follows up with dr Rubio * he is on amantadine and cellcept for many years * at baseline per his , jocelyn transfer from wheelchair with a walker give himself a bath, but has been able to do so over the last few weeks and worsened over the last week * had a seizure a few weeks ago and was started on keppra, but he didn't tolerate it well and it was discontinued * it was thought that his change in mentation was related to his keppra * MRI of his head showed no acute finding * will order MRI of cervical and thoracic spine per neurology recommendation (3) Constipation Status: Resolved Problem Text: * had 2 bowel movements overnight (4) Urinary retention Status: Acute Problem Text: * pt was diagnosed with parostitis per urology, he was started on Bactrim * Bactrim was discontinued here and he was started on rocephin, received 2 doses * urine culture negative, will d/c antibiotics now * corbett cath was ordered since pt continues to have urinary retention, will need to f/u with urology after discharge (5) Acute prostatitis Status: Acute (6) Seizure Status: Acute Problem Text: * pt had a seizure a few weeks ago and he was started on Keppra * he was taken off of keppra because it was thought that his change in mentation is related to that medication (7) Abdominal pain Status: Resolved Problem Text: * likely secondary to constipation * had resolved after bm last night Plan/VTE VTE Prophylaxis Ordered?: Yes VS, I&O, 24H, Fishbone Vital Signs/I&O Vital Signs Date Time Temp Pulse Resp B/P (MAP) Pulse Ox O2 Delivery O2 Flow Rate FiO2 12/24/16 09:00 BIPAP/CPAP 12/23/16 22:00 96.1 58 18 150/82 (104) 95 I&O- Last 24 Hours up to 6 AM 12/24/16 05:59 Intake Total 1600 ml Output Total 975 ml Balance 625 ml Laboratory Data 24H LABS Laboratory Tests 2 12/24/16 05:50: White Blood Count 13.3H, Red Blood Count 4.99, Hemoglobin 14.9, Hematocrit 45.8 , Mean Corpuscular Volume 91.8, Mean Corpuscular Hemoglobin 29.9, Mean Corpuscular Hemoglobin Concent 32.5, Red Cell Distribution Width 14.3, Platelet Count 185, Neutrophils (%) (Auto) 87.5H, Lymphocytes (%) (Auto) 7.0L, Monocytes (%) (Auto) 3.4, Eosinophils (%) (Auto) 1.1, Basophils (%) (Auto) 0.2, Neutrophils # (Auto) 11.7H, Lymphocytes # (Auto) 1.0L, Monocytes # (Auto) 0.5, Eosinophils # (Auto) 0.2, Basophils # (Auto) 0.0, Large Unclassified Cells % 0.8 , Large Unclassified Cells # 0.1, Anion Gap 7L, Glomerular Filtration Rate > 60.0, Blood Urea Nitrogen 23H, Creatinine 1.02, Sodium Level 140, Potassium Level 4.5, Chloride Level 103, Carbon Dioxide Level 30, Calcium Level 9.0, Aspartate Amino Transf (AST/SGOT) 43H, Alanine Aminotransferase (ALT/SGPT) 49, Alkaline Phosphatase 281H, Total Bilirubin 1.0, Total Protein 6.2L, Albumin 3.5 , Albumin/Globulin Ratio 1.30 CBC/BMP Laboratory Tests 12/24/16 05:50 Red Blood Count 4.99, Mean Corpuscular Volume 91.8, Mean Corpuscular Hemoglobin 29.9, Mean Corpuscular Hemoglobin Concent 32.5, Red Cell Distribution Width 14.3 , Neutrophils (%) (Auto) 87.5 H, Lymphocytes (%) (Auto) 7.0 L, Monocytes (%) ( Auto) 3.4, Eosinophils (%) (Auto) 1.1, Basophils (%) (Auto) 0.2, Neutrophils # ( Auto) 11.7 H, Lymphocytes # (Auto) 1.0 L, Monocytes # (Auto) 0.5, Eosinophils # (Auto) 0.2, Basophils # (Auto) 0.0, Calcium Level 9.0, Aspartate Amino Transf ( AST/SGOT) 43 H, Alanine Aminotransferase (ALT/SGPT) 49, Alkaline Phosphatase 281 H, Total Bilirubin 1.0, Total Protein 6.2 L, Albumin 3.5 Microbiology Microbiology 12/22/16 Blood Culture - Preliminary, Resulted No growth after 24 hours . All specim... 12/23/16 Urine Culture - Final, Complete MADELYN AGUILERA DO Dec 24, 2016 13:36
[2016-12-24 14:00] VITALS: BP 130/75
[2016-12-24] MEDS: BACLOFEN 5MG PER 1/2 TABLET PO SCH ×2 (18:23→20:12)
[2016-12-24] MEDS: ENOXAPARIN 40 MG/0.4 ML SYRINGE (J1650) SC SCH (18:23)
[2016-12-24] MEDS: TAMSULOSIN 0.4 MG CAP PO SCH (20:13)
[2016-12-24 22:00] VITALS: BP 131/67
[2016-12-25 06:00] VITALS: BP 120/67
[2016-12-25] MEDS: LEVOTHYROXINE 25MCG TABLET (0.025MG) PO SCH (06:09)
[2016-12-25 06:30] LABS: BASO % 0.1 % (0.0-1.0); EOS # 0.1 K/mm3 (0.0-0.50); EOS % 1.5 % (0.0-3.0); LARGE UNSTAINED CELL # 0.1 K/mm3 (0.0-0.4); LARGE UNSTAINED CELL % 1.1 % (0.0-4.0); LYMPH # 0.9 K/mm3 (1.5-4.5); LYMPH % 9.2 % (24.0-44.0); MEAN CORPUSCULAR HEMOGLOBIN 30.9 pg (27.0-33.0); MEAN CORPUSCULAR HGB CONC 33.7 g/dl (32.0-36.5); MEAN CORPUSCULAR VOLUME 91.8 fl (80.0-96.0); MONO # 0.5 K/mm3 (0.0-0.8); MONO % 4.9 % (0.0-5.0); NEUTROPHILS # 7.9 K/mm3 (1.8-7.7); NEUTROPHILS % 83.1 % (36.0-66.0); PLATELET COUNT, AUTOMATED 157 k/mm3 (150-450); RED CELL DISTRIBUTION WIDTH 14.1 % (11.5-14.5); WHITE BLOOD COUNT 9.5 K/mm3 (4.0-10.0)
[2016-12-25 06:44] LABS: ALBUMIN 3.1 GM/DL (3.2-5.2); ALBUMIN/GLOBULIN RATIO 0.94 (1.00-1.93); ALKALINE PHOSPHATASE 252 U/L (45-117); ALT/SGPT 44 U/L (12-78); ANION GAP 10 MEQ/L (8-16); AST/SGOT 39 U/L (15-37); BLOOD UREA NITROGEN 19 MG/DL (7-18); CALCIUM LEVEL 8.9 MG/DL (8.8-10.2); CARBON DIOXIDE LEVEL 28 MEQ/L (21-32); CHLORIDE LEVEL 102 MEQ/L (98-107); CREATININE FOR GFR 0.97 MG/DL (0.70-1.30); GLOMERULAR FILTRATION RATE > 60.0 (>49); GLUCOSE, FASTING 75 MG/DL (80-110); POTASSIUM SERUM 4.2 MEQ/L (3.5-5.1); SODIUM LEVEL 140 MEQ/L (136-145); TOTAL PROTEIN 6.4 GM/DL (6.4-8.2)
--- NOTE | 2016-12-25 07:13 | REP ---
MR CERVICAL SPINE WITHOUT AND WITH CONTRAST: HISTORY: Bladder retention. CONTRAST: ProHance 16 mL The examination is limited secondary to motion. Axial postcontrast T1-weighted images were not obtained. A disc bulge is present at the C2-3 level. There is minimal effacement of the thecal sac without spinal cord compression. The C2 neural foramina are ___patent . A disc bulge is present at the C3-4 level. There is minimal effacement of the thecal sac without spinal cord compression. Bilateral uncinate process and left facet hypertrophy are present. These findings produce mild and moderate narrowing of the right and left C3 neural foramina respectively. A disc bulge is present at the C4-5 level. There is minimal effacement of the thecal without spinal cord compression. Bilateral uncinate process and facet hypertrophy are present. These findings produce moderate narrowing of the C4 neural foramina. A disc bulge is present at the C5-6 level. There is minimal effacement of the thecal sac without spinal cord compression. The C5 neural foramina are patent. A disc bulge is present at the C6-7 level. There is minimal effacement of the thecal sac without spinal cord compression. The C6 neural foramina are patent. There is no other disc bulge or herniation. The remaining neural foramina are patent. The spinal cord is normal in signal intensity. There is no definite enhancement with contrast. Normal signal intensity is present in the cervical vertebral bodies. IMPRESSION: There is cervical spondylosis at the C2-3 through C6-7 levels without spinal cord compression. Signed by Yovany Parsons MD 12/26/2016 08:33 A
--- NOTE | 2016-12-25 07:20 | REP ---
MR THORACIC SPINE WITHOUT AND WITH CONTRAST: HISTORY: Bladder retention. CONTRAST: ProHance 16 mL. The examination is limited secondary to motion. There is an increase in amount of epidural fat. This extends from the T2-3 level inferior to the T12-L1 level. There is mild to moderate effacement of the thecal sac without spinal cord compression. A small right paracentral disc protrusion is present at T7-8. There is moderate effacement of the thecal sac secondary to the disc protrusion and epidural fat. A small central disc protrusion is present at the T8-9 level. There is moderate effacement of the thecal sac secondary to the disc protrusion and epidural fat. There is no other disc bulge or herniation. The remaining neural foramina are patent. The spinal cord is normal in signal intensity. There is no definite enhancement with contrast. Normal signal intensity is present in the thoracic or vertebral bodies. IMPRESSION: 1. There is epidural lipomatosis at the T2-3 through T12-L1 levels. There is mild to moderate effacement of the thecal sac without spinal cord compression. 2. Small disc protrusions at the T7-8 and T8-9 levels. Signed by Yovany Parsons MD 12/26/2016 08:33 A
[2016-12-25] MEDS: BACLOFEN 10 MG TAB PO SCH (09:45)
[2016-12-25] MEDS: MYCOPHENOLATE MOFETIL 250 MG CAP (J7517) PO SCH ×2 (09:45→21:56)
[2016-12-25] MEDS: VITAMIN D 1,000 INTERNATIONAL UNITS TABLET PO SCH (09:45)
[2016-12-25] MEDS: AMANTADINE 100 MG CAP PO SCH ×2 (09:45→21:56)
[2016-12-25] MEDS: GABAPENTIN 400 MG CAP PO SCH ×3 (09:46→21:55)
[2016-12-25] MEDS: risperiDONE 0.25 MG TAB PO SCH ×2 (09:46→21:57)
[2016-12-25] MEDS: ONDANSETRON 4MG/2ML VIAL (J2405) IV PRN (12:49)
[2016-12-25] MEDS: ACETAMINOPHEN TAB 650MG DOSE (2X325MG) PO PRN (13:57)
--- NOTE | 2016-12-25 13:59 | IPNPDOC ---
Subjective Date Seen The patient was seen on 12/25/16. Subjective Chief Complaint/HPI The patient is a 66-year-old male admitted with a reason for visit of Abdominal Pain. Events since last encounter pt seen and examined, appears comfortable in bed, per nursing staff pt was awake and talking yesterday after MRI he recognized all his family members, but was still having hallucinations Objective Physical Examination General Exam: Positive: No Acute Distress Eye Exam: Positive: PERRLA Neck Exam: Positive: Supple, Negative: JVD, thyromegaly Chest Exam: Positive: Clear to auscultation, Normal air movement Heart Exam: Positive: Rate Normal Abdomen Exam: Positive: Normal bowel sounds, Soft, Negative: Tenderness, Hepatospenomegaly Extremity Exam: Negative: Clubbing, Cyanosis, Edema Assessment /Plan Problems (1) Encephalopathy Status: Acute Problem Text: * maybe due to Keppra vs other medication but can't rule out other causes including worsening MS or infection * he was seen by Neurology who recommended to change some of his medication and start risperidone bid * will continue to monitor pt * MRI cervical and thorasic spine ordered (2) Multiple sclerosis Status: Chronic Problem Text: * pt has history of multiple sclerosis, he follows up with dr Rubio * he is on amantadine and cellcept for many years * at baseline per his , he can transfer from wheelchair with a walker give himself a bath, but has been able to do so over the last few weeks and worsened over the last week * had a seizure a few weeks ago and was started on keppra, but he didn't tolerate it well and it was discontinued * it was thought that his change in mentation was related to his keppra * MRI of his head showed no acute finding * MRI of cervical and thoracic spine per neurology recommendation (3) Constipation Status: Resolved Problem Text: * had 2 bowel movements 12/23 (4) Urinary retention Status: Acute Problem Text: * pt was diagnosed with parostitis per urology, he was started on Bactrim * Bactrim was discontinued here and he was started on rocephin, received 2 doses * urine culture negative, antibiotics were discontinued * corbett cath was ordered since pt continues to have urinary retention, will need to f/u with urology after discharge (5) Acute prostatitis Status: Acute (6) Seizure Status: Acute Problem Text: * pt had a seizure a few weeks ago and he was started on Keppra * he was taken off of keppra because it was thought that his change in mentation is related to that medication (7) Abdominal pain Status: Resolved Problem Text: * likely secondary to constipation * had resolved after bm Plan/VTE VTE Prophylaxis Ordered?: Yes Plan/Urinary Catheter Reason for insertion/continuin: Acute obstruct/retention VS, I&O, 24H, Fishbone Vital Signs/I&O Vital Signs Date Time Temp Pulse Resp B/P (MAP) Pulse Ox O2 Delivery O2 Flow Rate FiO2 12/25/16 09:00 BIPAP/CPAP 12/25/16 06:00 97.0 66 18 120/67 (84) 97 I&O- Last 24 Hours up to 6 AM 12/25/16 06:00 Intake Total 1020 ml Output Total 1400 ml Balance -380 ml Laboratory Data 24H LABS Laboratory Tests 2 12/25/16 05:46: White Blood Count 9.5, Red Blood Count 4.60, Hemoglobin 14.2, Hematocrit 42.2, Mean Corpuscular Volume 91.8, Mean Corpuscular Hemoglobin 30.9, Mean Corpuscular Hemoglobin Concent 33.7, Red Cell Distribution Width 14.1, Platelet Count 157, Neutrophils (%) (Auto) 83.1H, Lymphocytes (%) (Auto) 9.2L, Monocytes (%) (Auto) 4.9, Eosinophils (%) (Auto) 1.5, Basophils (%) (Auto) 0.1, Neutrophils # (Auto) 7.9H, Lymphocytes # (Auto) 0.9L, Monocytes # (Auto) 0.5, Eosinophils # (Auto) 0.1, Basophils # (Auto) 0.0, Large Unclassified Cells % 1.1 , Large Unclassified Cells # 0.1, Anion Gap 10, Glomerular Filtration Rate > 60.0, Blood Urea Nitrogen 19H, Creatinine 0.97, Sodium Level 140, Potassium Level 4.2, Chloride Level 102, Carbon Dioxide Level 28, Calcium Level 8.9, Aspartate Amino Transf (AST/SGOT) 39H, Alanine Aminotransferase (ALT/SGPT) 44, Alkaline Phosphatase 252H, Total Bilirubin 1.0, Total Protein 6.4, Albumin 3.1L , Albumin/Globulin Ratio 0.94L CBC/BMP Laboratory Tests 12/25/16 05:46 Red Blood Count 4.60, Mean Corpuscular Volume 91.8, Mean Corpuscular Hemoglobin 30.9, Mean Corpuscular Hemoglobin Concent 33.7, Red Cell Distribution Width 14.1 , Neutrophils (%) (Auto) 83.1 H, Lymphocytes (%) (Auto) 9.2 L, Monocytes (%) ( Auto) 4.9, Eosinophils (%) (Auto) 1.5, Basophils (%) (Auto) 0.1, Neutrophils # ( Auto) 7.9 H, Lymphocytes # (Auto) 0.9 L, Monocytes # (Auto) 0.5, Eosinophils # ( Auto) 0.1, Basophils # (Auto) 0.0, Calcium Level 8.9, Aspartate Amino Transf ( AST/SGOT) 39 H, Alanine Aminotransferase (ALT/SGPT) 44, Alkaline Phosphatase 252 H, Total Bilirubin 1.0, Total Protein 6.4, Albumin 3.1 L Microbiology Microbiology 12/22/16 Blood Culture - Preliminary, Resulted No Growth after 48 hours. All Specime... 12/23/16 Urine Culture - Final, Complete MADELYN AGUILERA DO Dec 25, 2016 13:59
[2016-12-25 14:00] VITALS: BP 141/73
[2016-12-25] MEDS: BACLOFEN 5MG PER 1/2 TABLET PO SCH ×2 (18:07→21:57)
[2016-12-25] MEDS: ENOXAPARIN 40 MG/0.4 ML SYRINGE (J1650) SC SCH (18:08)
[2016-12-25 20:50] VITALS: BP 136/80
[2016-12-25] MEDS: TAMSULOSIN 0.4 MG CAP PO SCH (21:55)
[2016-12-25 22:00] VITALS: BP 166/90
[2016-12-26 00:06] VITALS: BP 140/86
[2016-12-26] MEDS: LEVOTHYROXINE 25MCG TABLET (0.025MG) PO SCH (05:36)
[2016-12-26 05:58] LABS: BASO % 0.4 % (0.0-1.0); EOS # 0.2 K/mm3 (0.0-0.50); LARGE UNSTAINED CELL # 0.1 K/mm3 (0.0-0.4); LARGE UNSTAINED CELL % 0.9 % (0.0-4.0); MEAN CORPUSCULAR HEMOGLOBIN 30.6 pg (27.0-33.0); MEAN CORPUSCULAR HGB CONC 34.1 g/dl (32.0-36.5); MEAN CORPUSCULAR VOLUME 89.7 fl (80.0-96.0); MONO # 0.5 K/mm3 (0.0-0.8); MONO % 5.4 % (0.0-5.0); NEUTROPHILS # 7.7 K/mm3 (1.8-7.7); NEUTROPHILS % 81.4 % (36.0-66.0); PLATELET COUNT, AUTOMATED 183 k/mm3 (150-450); RED CELL DISTRIBUTION WIDTH 14.1 % (11.5-14.5); WHITE BLOOD COUNT 9.4 K/mm3 (4.0-10.0)
[2016-12-26 06:00] VITALS: BP 150/98
[2016-12-26 06:33] LABS: ALBUMIN 3.1 GM/DL (3.2-5.2); ALBUMIN/GLOBULIN RATIO 0.86 (1.00-1.93); ALKALINE PHOSPHATASE 303 U/L (45-117); ALT/SGPT 45 U/L (12-78); ANION GAP 8 MEQ/L (8-16); AST/SGOT 46 U/L (15-37); BILIRUBIN,TOTAL 0.9 MG/DL (0.2-1.0); BLOOD UREA NITROGEN 17 MG/DL (7-18); CALCIUM LEVEL 9.5 MG/DL (8.8-10.2); CARBON DIOXIDE LEVEL 28 MEQ/L (21-32); CHLORIDE LEVEL 104 MEQ/L (98-107); CREATININE FOR GFR 0.96 MG/DL (0.70-1.30); GLOMERULAR FILTRATION RATE > 60.0 (>49); GLUCOSE, FASTING 93 MG/DL (80-110); SODIUM LEVEL 140 MEQ/L (136-145); TOTAL PROTEIN 6.7 GM/DL (6.4-8.2)
[2016-12-26 07:03] VITALS: BP 172/94
[2016-12-26] MEDS: risperiDONE 0.25 MG TAB PO SCH ×2 (08:14→20:06)
[2016-12-26] MEDS: GABAPENTIN 400 MG CAP PO SCH ×3 (08:14→20:06)
[2016-12-26] MEDS: VITAMIN D 1,000 INTERNATIONAL UNITS TABLET PO SCH (08:14)
[2016-12-26] MEDS: MYCOPHENOLATE MOFETIL 250 MG CAP (J7517) PO SCH ×2 (08:14→20:06)
[2016-12-26] MEDS: BACLOFEN 10 MG TAB PO SCH (08:14)
[2016-12-26] MEDS: AMANTADINE 100 MG CAP PO SCH ×2 (08:15→20:06)
[2016-12-26 08:19] VITALS: BP 152/88
[2016-12-26 14:00] VITALS: BP 160/82
--- NOTE | 2016-12-26 14:39 | IPNPDOC ---
Date Seen The patient was seen on 12/26/16. Progress Note SUBJECTIVE: Patient is awake oriented to person, year, month, day of the week, but not OBJECTIVE PHYSICAL EXAMINATION: VITAL SIGNS: Please see below. GENERAL: obese man, resting in bed nad HEENT: Face appears symmetric at this time, no elevation in CVP CARDIOVASCULAR: S1S2 regular. RESPIRATORY: CTA b/l. ABDOMINAL: BS+, soft, non tender EXTREMITIES: no clubbing cyanosis or edema NEUROLOGICAL: dorsiflexed b/l LE, spontaneously moves b/l UE LABORATORY DATA: Please see below. MICROBIOLOGY: Please see below. IMAGING: Cervical MRI: There is cervical spondylosis at the C2-3 through C6-7 levels without spinal cord compression Thoracic MRI: 1. There is epidural lipomatosis at the T2-3 through T12-L1 levels. There is mild to moderate effacement of the thecal sac without spinal cord compression. 2. Small disc protrusions at the T7-8 and T8-9 levels. DVT prophylaxis ordered?: Lovenox ASSESSMENT AND PLAN: This is a 66-year-old Man with MS and toxic metabolic encephalopathy. PROBLEMS: (1) Encephalopathy Status: Acute Problem Text: Likely medication adverse effect, neurologies help is greatly appreciated. Pt appears to be improving quite well at this time. Maybe due to Keppra vs other medication will continue to monitor pt. Will need to follow up with Neurology outpatient. (2) Multiple sclerosis Status: Chronic Problem Text: Patient has history of multiple sclerosis, he follows up with dr Rubio.He is on amantadine and cellcept. encephalopathy improving at this time, continue to work with PT until at baseline. MRI of his head, cervical and thoracic spine showed no acute finding.Pt on Neurontin, risperdal, amantadine, baclofen,cellcept (3) Constipation Status: Resolved Problem Text: (4) Urinary retention Status: Acute Problem Text: pt was diagnosed with proctitis per urology, he was started on Bactrim, urine culture here is negative. antibiotics were discontinued. Patient with persistent retention, previously had corbett cath and has been replaced will need to f/u with urology after discharge. Continue with flomax (6) Seizure Status: Acute Problem Text: s/p breakthrough seizure several weeks ago, was on Keppra but taken off of because of concern for toxic metabolic encephalopathy (7) Abdominal pain Status: Resolved Problem Text: secondary to constipation, resolved (8) Hypothyroidism c/w Synthroid DISPOSITION: Clinically improving, suspect d/c within next 24-48 hrs. VS, I&O, 24H, Fishbone Vital Signs/I&O Vital Signs Date Time Temp Pulse Resp B/P (MAP) Pulse Ox O2 Delivery O2 Flow Rate FiO2 12/26/16 08:19 152/88 (109) 12/26/16 08:00 BIPAP/CPAP 12/26/16 06:00 97.3 69 16 95 I&O- Last 24 Hours up to 6 AM 12/26/16 06:00 Intake Total 480 ml Output Total 850 ml Balance -370 ml Laboratory Data 24H LABS Laboratory Tests 2 12/26/16 05:36: White Blood Count 9.4, Red Blood Count 4.76, Hemoglobin 14.6, Hematocrit 42.8, Mean Corpuscular Volume 89.7, Mean Corpuscular Hemoglobin 30.6, Mean Corpuscular Hemoglobin Concent 34.1, Red Cell Distribution Width 14.1, Platelet Count 183, Neutrophils (%) (Auto) 81.4H, Lymphocytes (%) (Auto) 10.0L, Monocytes (%) (Auto) 5.4H, Eosinophils (%) (Auto) 2.0, Basophils (%) (Auto) 0.4 , Neutrophils # (Auto) 7.7, Lymphocytes # (Auto) 1.0L, Monocytes # (Auto) 0.5, Eosinophils # (Auto) 0.2, Basophils # (Auto) 0.0, Large Unclassified Cells % 0.9 , Large Unclassified Cells # 0.1, Anion Gap 8, Glomerular Filtration Rate > 60.0 , Blood Urea Nitrogen 17, Creatinine 0.96, Sodium Level 140, Potassium Level 4.0 , Chloride Level 104, Carbon Dioxide Level 28, Calcium Level 9.5, Aspartate Amino Transf (AST/SGOT) 46H, Alanine Aminotransferase (ALT/SGPT) 45, Alkaline Phosphatase 303H, Total Bilirubin 0.9, Total Protein 6.7, Albumin 3.1L, Albumin/ Globulin Ratio 0.86L CBC/BMP Laboratory Tests 12/26/16 05:36 Red Blood Count 4.76, Mean Corpuscular Volume 89.7, Mean Corpuscular Hemoglobin 30.6, Mean Corpuscular Hemoglobin Concent 34.1, Red Cell Distribution Width 14.1 , Neutrophils (%) (Auto) 81.4 H, Lymphocytes (%) (Auto) 10.0 L, Monocytes (%) ( Auto) 5.4 H, Eosinophils (%) (Auto) 2.0, Basophils (%) (Auto) 0.4, Neutrophils # (Auto) 7.7, Lymphocytes # (Auto) 1.0 L, Monocytes # (Auto) 0.5, Eosinophils # (Auto) 0.2, Basophils # (Auto) 0.0, Calcium Level 9.5, Aspartate Amino Transf ( AST/SGOT) 46 H, Alanine Aminotransferase (ALT/SGPT) 45, Alkaline Phosphatase 303 H, Total Bilirubin 0.9, Total Protein 6.7, Albumin 3.1 L Microbiology Microbiology 12/22/16 Blood Culture - Preliminary, Resulted No Growth after 72 hours. All specime... 12/23/16 Urine Culture - Final, Complete TG MANNING MD Dec 26, 2016 14:39
[2016-12-26] MEDS: ENOXAPARIN 40 MG/0.4 ML SYRINGE (J1650) SC SCH (17:19)
[2016-12-26] MEDS: BACLOFEN 5MG PER 1/2 TABLET PO SCH ×2 (17:19→20:06)
[2016-12-26] MEDS: TAMSULOSIN 0.4 MG CAP PO SCH (20:05)
[2016-12-26 22:00] VITALS: BP 170/86
[2016-12-27] MEDS: LEVOTHYROXINE 25MCG TABLET (0.025MG) PO SCH (05:42)
[2016-12-27 06:00] VITALS: BP 160/78
[2016-12-27 06:34] LABS: BASO % 0.4 % (0.0-1.0); EOS # 0.2 K/mm3 (0.0-0.50); EOS % 1.7 % (0.0-3.0); LARGE UNSTAINED CELL # 0.1 K/mm3 (0.0-0.4); LARGE UNSTAINED CELL % 1.4 % (0.0-4.0); LYMPH # 1.1 K/mm3 (1.5-4.5); MEAN CORPUSCULAR HEMOGLOBIN 30.6 pg (27.0-33.0); MEAN CORPUSCULAR HGB CONC 33.8 g/dl (32.0-36.5); MEAN CORPUSCULAR VOLUME 90.4 fl (80.0-96.0); MONO # 0.5 K/mm3 (0.0-0.8); MONO % 5.6 % (0.0-5.0); NEUTROPHILS # 7.6 K/mm3 (1.8-7.7); NEUTROPHILS % 80.9 % (36.0-66.0); PLATELET COUNT, AUTOMATED 223 k/mm3 (150-450); RED CELL DISTRIBUTION WIDTH 14.2 % (11.5-14.5); WHITE BLOOD COUNT 9.4 K/mm3 (4.0-10.0)
[2016-12-27 07:08] LABS: ALBUMIN 3.1 GM/DL (3.2-5.2); ALBUMIN/GLOBULIN RATIO 1.07 (1.00-1.93); ALKALINE PHOSPHATASE 385 U/L (45-117); ALT/SGPT 90 U/L (12-78); ANION GAP 10 MEQ/L (8-16); AST/SGOT 96 U/L (15-37); BILIRUBIN,TOTAL 0.9 MG/DL (0.2-1.0); BLOOD UREA NITROGEN 20 MG/DL (7-18); CALCIUM LEVEL 8.9 MG/DL (8.8-10.2); CARBON DIOXIDE LEVEL 28 MEQ/L (21-32); CHLORIDE LEVEL 105 MEQ/L (98-107); CREATININE FOR GFR 0.84 MG/DL (0.70-1.30); GAMMA GLUTAMYLTRANSPEPTIDASE 205 U/L (15-85); GLOMERULAR FILTRATION RATE > 60.0 (>49); GLUCOSE, FASTING 89 MG/DL (80-110); POTASSIUM SERUM 4.1 MEQ/L (3.5-5.1); SODIUM LEVEL 143 MEQ/L (136-145)
[2016-12-27] MEDS: MYCOPHENOLATE MOFETIL 250 MG CAP (J7517) PO SCH ×2 (08:58→22:41)
[2016-12-27] MEDS: VITAMIN D 1,000 INTERNATIONAL UNITS TABLET PO SCH (08:58)
[2016-12-27] MEDS: GABAPENTIN 400 MG CAP PO SCH ×3 (08:59→22:42)
[2016-12-27] MEDS: BACLOFEN 10 MG TAB PO SCH (08:59)
[2016-12-27] MEDS: AMANTADINE 100 MG CAP PO SCH ×2 (08:59→22:42)
[2016-12-27] MEDS: risperiDONE 0.25 MG TAB PO SCH ×2 (08:59→22:42)
[2016-12-27 14:00] VITALS: BP 135/65
--- NOTE | 2016-12-27 14:42 | IPNPDOC ---
Date Seen The patient was seen on 12/27/16. Progress Note SUBJECTIVE: Patient is awake oriented to person, year, month, day of the week, but not to location. He is not aware he is in hospital. He denies complaints at this time OBJECTIVE PHYSICAL EXAMINATION: VITAL SIGNS: Please see below. GENERAL: obese man, resting in recliner HEENT: Face appears assymmetric which is chronic I understand, no elevation in CVP CARDIOVASCULAR: S1S2 regular. RESPIRATORY: CTA b/l. ABDOMINAL: BS+, soft, non tender EXTREMITIES: no clubbing cyanosis or edema NEUROLOGICAL: dorsiflexed b/l LE, spontaneously moves b/l UE LABORATORY DATA: Elevated LFTs Please see below. MICROBIOLOGY: Please see below. IMAGING: Cervical MRI: There is cervical spondylosis at the C2-3 through C6-7 levels without spinal cord compression Thoracic MRI: 1. There is epidural lipomatosis at the T2-3 through T12-L1 levels. There is mild to moderate effacement of the thecal sac without spinal cord compression. 2. Small disc protrusions at the T7-8 and T8-9 levels. DVT prophylaxis ordered?: Lovenox to be discontinued and switching to heparin please see below ASSESSMENT AND PLAN: This is a 66-year-old Man with MS and toxic metabolic encephalopathy. PROBLEMS: (1) Encephalopathy Status: Acute Problem Text: Likely medication adverse effect, neurologies help is greatly appreciated. Pt appears to be improving quite well at this time although it is slow progress. This may have been due to Keppra vs other medication will continue to monitor pt. Will need to follow up with Neurology outpatient. Until the patient returns dysfunction baseline he may require subacute rehabilitation placement if this is working on finding this (2) Multiple sclerosis Status: Chronic Problem Text: Patient has history of multiple sclerosis, he follows up with dr Rubio. MRI of his head, cervical and thoracic spine showed no acute finding. Pt on Neurontin, risperdal, amantadine, baclofen,cellcept (3) Constipation Status: Resolved Problem Text: (4) Urinary retention Status: Acute Problem Text: pt was diagnosed with proctitis per urology, he was started on Bactrim, urine culture here is negative. antibiotics were discontinued. Patient with persistent retention, previously had corbett cath and has been replaced will need to f/u with urology after discharge. Continue with flomax (6) Seizure Status: Acute Problem Text: s/p breakthrough seizure several weeks ago, was on Keppra but taken off of because of concern for toxic metabolic encephalopathy no seizure activity during the stay (7) Abdominal pain Status: Resolved Problem Text: secondary to constipation, resolved (8) Hypothyroidism c/w Synthroid (9) abnormal liver function tests may be related Lovenox discontinued this medication and continue to monitor closely DISPOSITION: Clinically improving, DC when medically stable for subacute rehabilitation versus home VS, I&O, 24H, [facility] Vital Signs/I&O Vital Signs Date Time Temp Pulse Resp B/P (MAP) Pulse Ox O2 Delivery O2 Flow Rate FiO2 12/27/16 08:00 BIPAP/CPAP 12/27/16 06:00 97.5 78 21 160/78 (105) 93 I&O- Last 24 Hours up to 6 AM 12/27/16 05:59 Intake Total 1680 ml Output Total 1750 ml Balance -70 ml Laboratory Data 24H LABS Laboratory Tests 2 12/27/16 05:35: White Blood Count 9.4, Red Blood Count 4.64, Hemoglobin 14.2, Hematocrit 41.9L, Mean Corpuscular Volume 90.4, Mean Corpuscular Hemoglobin 30.6, Mean Corpuscular Hemoglobin Concent 33.8, Red Cell Distribution Width 14.2, Platelet Count 223, Neutrophils (%) (Auto) 80.9H, Lymphocytes (%) (Auto) 10.0L, Monocytes (%) (Auto) 5.6H, Eosinophils (%) (Auto) 1.7, Basophils (%) (Auto) 0.4 , Neutrophils # (Auto) 7.6, Lymphocytes # (Auto) 1.1L, Monocytes # (Auto) 0.5, Eosinophils # (Auto) 0.2, Basophils # (Auto) 0.0, Large Unclassified Cells % 1.4 , Large Unclassified Cells # 0.1, Anion Gap 10, Glomerular Filtration Rate > 60.0, Blood Urea Nitrogen 20H, Creatinine 0.84, Sodium Level 143, Potassium Level 4.1, Chloride Level 105, Carbon Dioxide Level 28, Calcium Level 8.9, Aspartate Amino Transf (AST/SGOT) 96H, Alanine Aminotransferase (ALT/SGPT) 90H, Gamma Glutamyl Transpeptidase 205H, Alkaline Phosphatase 385H, Total Bilirubin 0.9, Total Protein 6.0L, Albumin 3.1L, Albumin/Globulin Ratio 1.07 CBC/BMP Laboratory Tests 12/27/16 05:35 Red Blood Count 4.64, Mean Corpuscular Volume 90.4, Mean Corpuscular Hemoglobin 30.6, Mean Corpuscular Hemoglobin Concent 33.8, Red Cell Distribution Width 14.2 , Neutrophils (%) (Auto) 80.9 H, Lymphocytes (%) (Auto) 10.0 L, Monocytes (%) ( Auto) 5.6 H, Eosinophils (%) (Auto) 1.7, Basophils (%) (Auto) 0.4, Neutrophils # (Auto) 7.6, Lymphocytes # (Auto) 1.1 L, Monocytes # (Auto) 0.5, Eosinophils # (Auto) 0.2, Basophils # (Auto) 0.0, Calcium Level 8.9, Aspartate Amino Transf ( AST/SGOT) 96 H, Alanine Aminotransferase (ALT/SGPT) 90 H, Gamma Glutamyl Transpeptidase 205 H, Alkaline Phosphatase 385 H, Total Bilirubin 0.9, Total Protein 6.0 L, Albumin 3.1 L Microbiology Microbiology 12/22/16 Blood Culture - Preliminary, Resulted No Growth after 72 hours. All specime... 12/23/16 Urine Culture - Final, Complete TG MANNING MD Dec 27, 2016 14:42
[2016-12-27] MEDS: HEPARIN SOD (PORCINE) 5000 UNITS/ML VIAL SQ SCH ×2 (15:15→22:42)
[2016-12-27] MEDS: BACLOFEN 5MG PER 1/2 TABLET PO SCH ×2 (16:52→22:41)
[2016-12-27 22:00] VITALS: BP 147/71
[2016-12-27] MEDS: TAMSULOSIN 0.4 MG CAP PO SCH (22:42)
[2016-12-28 06:00] VITALS: BP 136/67
[2016-12-28] MEDS: HEPARIN SOD (PORCINE) 5000 UNITS/ML VIAL SQ SCH ×3 (06:00→22:37)
[2016-12-28] MEDS: LEVOTHYROXINE 25MCG TABLET (0.025MG) PO SCH (06:05)
[2016-12-28 07:14] LABS: BASO % 0.6 % (0.0-1.0); EOS # 0.3 K/mm3 (0.0-0.50); EOS % 3.5 % (0.0-3.0); LARGE UNSTAINED CELL # 0.1 K/mm3 (0.0-0.4); LARGE UNSTAINED CELL % 1.8 % (0.0-4.0); LYMPH # 1.4 K/mm3 (1.5-4.5); MEAN CORPUSCULAR HEMOGLOBIN 29.6 pg (27.0-33.0); MEAN CORPUSCULAR HGB CONC 32.5 g/dl (32.0-36.5); MEAN CORPUSCULAR VOLUME 91.1 fl (80.0-96.0); MONO # 0.5 K/mm3 (0.0-0.8); MONO % 6.3 % (0.0-5.0); NEUTROPHILS # 5.4 K/mm3 (1.8-7.7); NEUTROPHILS % 70.7 % (36.0-66.0); PLATELET COUNT, AUTOMATED 263 k/mm3 (150-450); RED CELL DISTRIBUTION WIDTH 14.1 % (11.5-14.5); WHITE BLOOD COUNT 7.6 K/mm3 (4.0-10.0)
[2016-12-28 07:39] LABS: ALBUMIN 2.8 GM/DL (3.2-5.2); ALBUMIN/GLOBULIN RATIO 0.82 (1.00-1.93); ALKALINE PHOSPHATASE 426 U/L (45-117); ALT/SGPT 101 U/L (12-78); ANION GAP 7 MEQ/L (8-16); AST/SGOT 103 U/L (15-37); BILIRUBIN,TOTAL 0.6 MG/DL (0.2-1.0); BLOOD UREA NITROGEN 22 MG/DL (7-18); CALCIUM LEVEL 9.1 MG/DL (8.8-10.2); CARBON DIOXIDE LEVEL 30 MEQ/L (21-32); CHLORIDE LEVEL 107 MEQ/L (98-107); CREATININE FOR GFR 0.86 MG/DL (0.70-1.30); GLOMERULAR FILTRATION RATE > 60.0 (>49); GLUCOSE, FASTING 83 MG/DL (80-110); POTASSIUM SERUM 4.1 MEQ/L (3.5-5.1); SODIUM LEVEL 144 MEQ/L (136-145); TOTAL PROTEIN 6.2 GM/DL (6.4-8.2)
[2016-12-28] MEDS: BACLOFEN 10 MG TAB PO SCH (08:33)
[2016-12-28] MEDS: GABAPENTIN 400 MG CAP PO SCH ×3 (08:33→20:09)
[2016-12-28] MEDS: risperiDONE 0.25 MG TAB PO SCH ×2 (08:33→20:10)
[2016-12-28] MEDS: AMANTADINE 100 MG CAP PO SCH ×2 (08:33→20:10)
[2016-12-28] MEDS: MYCOPHENOLATE MOFETIL 250 MG CAP (J7517) PO SCH ×2 (08:34→20:08)
[2016-12-28] MEDS: VITAMIN D 1,000 INTERNATIONAL UNITS TABLET PO SCH (08:34)
[2016-12-28 14:00] VITALS: BP 132/61
--- NOTE | 2016-12-28 15:03 | IPNPDOC ---
Date Seen The patient was seen on 12/28/16. Progress Note SUBJECTIVE: Patient is awake oriented to person, year, month, day of the week, and today at least for the first time with me he is oriented to location and situation l. He denies complaints at this time OBJECTIVE PHYSICAL EXAMINATION: VITAL SIGNS: Please see below. GENERAL: obese man, resting in recliner HEENT: Face appears assymmetric which is chronic I understand, no elevation in CVP CARDIOVASCULAR: S1S2 regular. RESPIRATORY: CTA b/l. ABDOMINAL: BS+, soft, non tender EXTREMITIES: no clubbing cyanosis or edema NEUROLOGICAL: dorsiflexed b/l LE, spontaneously moves b/l UE LABORATORY DATA: Elevated LFTs Please see below. MICROBIOLOGY: Please see below. IMAGING: Cervical MRI: There is cervical spondylosis at the C2-3 through C6-7 levels without spinal cord compression Thoracic MRI: 1. There is epidural lipomatosis at the T2-3 through T12-L1 levels. There is mild to moderate effacement of the thecal sac without spinal cord compression. 2. Small disc protrusions at the T7-8 and T8-9 levels. DVT prophylaxis ordered?: Lovenox to be discontinued and switching to heparin please see below ASSESSMENT AND PLAN: This is a 66-year-old Man with MS and toxic metabolic encephalopathy. PROBLEMS: (1) Encephalopathy Status: Acute Problem Text: Likely medication adverse effect, neurologies help is greatly appreciated. Pt appears to be improving quite well at this time although it is slow progress. This may have been due to Keppra vs other medication will continue to monitor pt. Will need to follow up with Neurology outpatient. Until the patient returns to baseline functional status he may require subacute rehabilitation placement if this is working on finding this (2) Multiple sclerosis Status: Chronic Problem Text: Patient has history of multiple sclerosis, he follows up with dr Rubio. MRI of his head, cervical and thoracic spine showed no acute finding. Pt on Neurontin, risperdal, amantadine, baclofen,cellcept (3) Constipation Status: Resolved Problem Text: (4) Urinary retention Status: Acute Problem Text: pt was diagnosed with proctitis per urology, he was started on Bactrim, urine culture here is negative. antibiotics were discontinued. Patient with persistent retention, previously had corbett cath and has been replaced will need to f/u with urology after discharge. Continue with flomax (6) Seizure Status: Acute Problem Text: s/p breakthrough seizure several weeks ago, was on Keppra but taken off of because of concern for toxic metabolic encephalopathy no seizure activity during the stay (7) Abdominal pain Status: Resolved Problem Text: secondary to constipation, resolved (8) Hypothyroidism c/w Synthroid (9) abnormal liver function tests may be related Lovenox discontinued this medication and appears to have plateaued today we'll continue to follow his labs daily DISPOSITION: Clinically improving, DC when medically stable for subacute rehabilitation versus home VS, I&O, 24H, [facility] Vital Signs/I&O Vital Signs Date Time Temp Pulse Resp B/P (MAP) Pulse Ox O2 Delivery O2 Flow Rate FiO2 12/28/16 06:00 96.8 71 19 136/67 (90) 95 Room Air I&O- Last 24 Hours up to 6 AM 12/28/16 06:00 Intake Total 1435 ml Output Total 850 ml Balance 585 ml Laboratory Data 24H LABS Laboratory Tests 2 12/28/16 06:45: White Blood Count 7.6, Red Blood Count 4.78, Hemoglobin 14.2, Hematocrit 43.6, Mean Corpuscular Volume 91.1, Mean Corpuscular Hemoglobin 29.6, Mean Corpuscular Hemoglobin Concent 32.5, Red Cell Distribution Width 14.1, Platelet Count 263, Neutrophils (%) (Auto) 70.7H, Lymphocytes (%) (Auto) 17.0L, Monocytes (%) (Auto) 6.3H, Eosinophils (%) (Auto) 3.5H, Basophils (%) (Auto) 0.6 , Neutrophils # (Auto) 5.4, Lymphocytes # (Auto) 1.4L, Monocytes # (Auto) 0.5, Eosinophils # (Auto) 0.3, Basophils # (Auto) 0.0, Large Unclassified Cells % 1.8 , Large Unclassified Cells # 0.1, Anion Gap 7L, Glomerular Filtration Rate > 60.0, Blood Urea Nitrogen 22H, Creatinine 0.86, Sodium Level 144, Potassium Level 4.1, Chloride Level 107, Carbon Dioxide Level 30, Calcium Level 9.1, Aspartate Amino Transf (AST/SGOT) 103H, Alanine Aminotransferase (ALT/SGPT) 101H , Alkaline Phosphatase 426H, Total Bilirubin 0.6, Total Protein 6.2L, Albumin 2.8L, Albumin/Globulin Ratio 0.82L CBC/BMP Laboratory Tests 12/28/16 06:45 Red Blood Count 4.78, Mean Corpuscular Volume 91.1, Mean Corpuscular Hemoglobin 29.6, Mean Corpuscular Hemoglobin Concent 32.5, Red Cell Distribution Width 14.1 , Neutrophils (%) (Auto) 70.7 H, Lymphocytes (%) (Auto) 17.0 L, Monocytes (%) ( Auto) 6.3 H, Eosinophils (%) (Auto) 3.5 H, Basophils (%) (Auto) 0.6, Neutrophils # (Auto) 5.4, Lymphocytes # (Auto) 1.4 L, Monocytes # (Auto) 0.5, Eosinophils # (Auto) 0.3, Basophils # (Auto) 0.0, Calcium Level 9.1, Aspartate Amino Transf (AST/SGOT) 103 H, Alanine Aminotransferase (ALT/SGPT) 101 H, Alkaline Phosphatase 426 H, Total Bilirubin 0.6, Total Protein 6.2 L, Albumin 2.8 L Microbiology Microbiology 12/22/16 Blood Culture - Final, Complete NO GROWTH AFTER 5 DAYS 12/23/16 Urine Culture - Final, Complete TG MANNING MD Dec 28, 2016 15:02
[2016-12-28] MEDS: BACLOFEN 5MG PER 1/2 TABLET PO SCH ×2 (18:19→20:09)
[2016-12-28] MEDS: TAMSULOSIN 0.4 MG CAP PO SCH (20:09)
[2016-12-28 22:00] VITALS: BP 152/66
[2016-12-29 06:00] VITALS: BP 162/86
[2016-12-29] MEDS: HEPARIN SOD (PORCINE) 5000 UNITS/ML VIAL SQ SCH ×3 (06:04→21:51)
[2016-12-29] MEDS: LEVOTHYROXINE 25MCG TABLET (0.025MG) PO SCH (06:04)
[2016-12-29 06:42] LABS: BASO % 0.4 % (0.0-1.0); EOS # 0.3 K/mm3 (0.0-0.50); EOS % 3.4 % (0.0-3.0); LARGE UNSTAINED CELL # 0.2 K/mm3 (0.0-0.4); LARGE UNSTAINED CELL % 2.5 % (0.0-4.0); LYMPH # 1.4 K/mm3 (1.5-4.5); LYMPH % 17.1 % (24.0-44.0); MEAN CORPUSCULAR HEMOGLOBIN 29.8 pg (27.0-33.0); MEAN CORPUSCULAR HGB CONC 32.8 g/dl (32.0-36.5); MEAN CORPUSCULAR VOLUME 90.6 fl (80.0-96.0); MONO # 0.5 K/mm3 (0.0-0.8); MONO % 6.1 % (0.0-5.0); NEUTROPHILS # 5.8 K/mm3 (1.8-7.7); NEUTROPHILS % 70.4 % (36.0-66.0); PLATELET COUNT, AUTOMATED 267 k/mm3 (150-450); RED CELL DISTRIBUTION WIDTH 13.8 % (11.5-14.5); WHITE BLOOD COUNT 8.3 K/mm3 (4.0-10.0)
[2016-12-29 06:53] LABS: ALBUMIN 2.9 GM/DL (3.2-5.2); ALBUMIN/GLOBULIN RATIO 0.78 (1.00-1.93); ALKALINE PHOSPHATASE 450 U/L (45-117); ALT/SGPT 105 U/L (12-78); ANION GAP 6 MEQ/L (8-16); AST/SGOT 85 U/L (15-37); BILIRUBIN,TOTAL 0.6 MG/DL (0.2-1.0); BLOOD UREA NITROGEN 23 MG/DL (7-18); CALCIUM LEVEL 8.9 MG/DL (8.8-10.2); CARBON DIOXIDE LEVEL 29 MEQ/L (21-32); CHLORIDE LEVEL 104 MEQ/L (98-107); CREATININE FOR GFR 0.84 MG/DL (0.70-1.30); GLOMERULAR FILTRATION RATE > 60.0 (>49); GLUCOSE, FASTING 87 MG/DL (80-110); POTASSIUM SERUM 3.8 MEQ/L (3.5-5.1); SODIUM LEVEL 139 MEQ/L (136-145); TOTAL PROTEIN 6.6 GM/DL (6.4-8.2)
[2016-12-29] MEDS: VITAMIN D 1,000 INTERNATIONAL UNITS TABLET PO SCH (10:15)
[2016-12-29] MEDS: risperiDONE 0.25 MG TAB PO SCH ×2 (10:15→21:51)
[2016-12-29] MEDS: GABAPENTIN 400 MG CAP PO SCH ×3 (10:15→21:51)
[2016-12-29] MEDS: BACLOFEN 10 MG TAB PO SCH (10:15)
[2016-12-29] MEDS: MYCOPHENOLATE MOFETIL 250 MG CAP (J7517) PO SCH ×2 (10:16→21:50)
[2016-12-29] MEDS: AMANTADINE 100 MG CAP PO SCH ×2 (10:16→21:50)
--- NOTE | 2016-12-29 12:21 | IPNPDOC ---
Date Seen The patient was seen on 12/29/16. Progress Note SUBJECTIVE: Patient is awake denies any complaints, recognized me from previous days exams OBJECTIVE PHYSICAL EXAMINATION: VITAL SIGNS: Please see below. GENERAL: obese man, resting in recliner HEENT: Face appears asymmetric which is chronic I understand, no elevation in CVP CARDIOVASCULAR: S1S2 regular. RESPIRATORY: CTA b/l. ABDOMINAL: BS+, soft, non tender EXTREMITIES: no clubbing cyanosis or edema NEUROLOGICAL: dorsiflexed b/l LE, spontaneously moves b/l UE LABORATORY DATA: Elevated LFTs Please see below. MICROBIOLOGY: Please see below. IMAGING: Cervical MRI: There is cervical spondylosis at the C2-3 through C6-7 levels without spinal cord compression Thoracic MRI: 1. There is epidural lipomatosis at the T2-3 through T12-L1 levels. There is mild to moderate effacement of the thecal sac without spinal cord compression. 2. Small disc protrusions at the T7-8 and T8-9 levels. DVT prophylaxis ordered?: Lovenox to be discontinued and switching to heparin please see below ASSESSMENT AND PLAN: This is a 66-year-old Man with MS and toxic metabolic encephalopathy. PROBLEMS: (1) Encephalopathy Status: Acute Problem Text: Likely medication adverse effect, neurologies help is greatly appreciated. Pt appears to be improving quite well at this time although it is slow progress. This may have been due to Keppra vs other medication will continue to monitor pt. Will need to follow up with Neurology outpatient. Until the patient returns to baseline functional status likely requires subacute rehabilitation placement [facility] is working on finding this (2) Multiple sclerosis Status: Chronic Problem Text: Patient has history of multiple sclerosis, he follows up with dr Rubio. MRI of his head, cervical and thoracic spine showed no acute finding. Pt on Neurontin, risperdal, amantadine, baclofen,cellcept (3) Constipation Status: Resolved Problem Text: (4) Urinary retention Status: Acute Problem Text: pt was diagnosed with proctitis per urology, he was started on Bactrim, urine culture here is negative. antibiotics were discontinued. Patient with persistent retention, previously had corbett cath and has been replaced will need to f/u with urology after discharge. Continue with flomax (6) Seizure Status: Acute Problem Text: s/p breakthrough seizure several weeks ago, was on Keppra but taken off of because of concern for toxic metabolic encephalopathy no seizure activity during the stay (7) Abdominal pain Status: Resolved Problem Text: secondary to constipation, resolved (8) Hypothyroidism c/w Synthroid (9) abnormal liver function tests may be related Lovenox discontinued this medication and appears to have plateauedwe'll continue to follow his labs daily DISPOSITION: Clinically improving, DC when medically stable for subacute rehabilitation versus home VS, I&O, [facility] Vital Signs/I&O Vital Signs Date Time Temp Pulse Resp B/P (MAP) Pulse Ox O2 Delivery O2 Flow Rate FiO2 12/29/16 09:00 BIPAP/CPAP 12/29/16 06:00 96.8 71 18 162/86 (111) 93 I&O- Last 24 Hours up to 6 AM 12/29/16 06:00 Intake Total 1180 ml Output Total 1225 ml Balance -45 ml Laboratory Data 24H LABS Laboratory Tests 2 12/29/16 06:16: White Blood Count 8.3, Red Blood Count 4.98, Hemoglobin 14.8, Hematocrit 45.1, Mean Corpuscular Volume 90.6, Mean Corpuscular Hemoglobin 29.8, Mean Corpuscular Hemoglobin Concent 32.8, Red Cell Distribution Width 13.8, Platelet Count 267, Neutrophils (%) (Auto) 70.4H, Lymphocytes (%) (Auto) 17.1L, Monocytes (%) (Auto) 6.1H, Eosinophils (%) (Auto) 3.4H, Basophils (%) (Auto) 0.4 , Neutrophils # (Auto) 5.8, Lymphocytes # (Auto) 1.4L, Monocytes # (Auto) 0.5, Eosinophils # (Auto) 0.3, Basophils # (Auto) 0.0, Large Unclassified Cells % 2.5 , Large Unclassified Cells # 0.2, Anion Gap 6L, Glomerular Filtration Rate > 60.0, Blood Urea Nitrogen 23H, Creatinine 0.84, Sodium Level 139, Potassium Level 3.8, Chloride Level 104, Carbon Dioxide Level 29, Calcium Level 8.9, Aspartate Amino Transf (AST/SGOT) 85H, Alanine Aminotransferase (ALT/SGPT) 105H , Alkaline Phosphatase 450H, Total Bilirubin 0.6, Total Protein 6.6, Albumin 2.9L, Albumin/Globulin Ratio 0.78L CBC/BMP Laboratory Tests 12/29/16 06:16 Red Blood Count 4.98, Mean Corpuscular Volume 90.6, Mean Corpuscular Hemoglobin 29.8, Mean Corpuscular Hemoglobin Concent 32.8, Red Cell Distribution Width 13.8 , Neutrophils (%) (Auto) 70.4 H, Lymphocytes (%) (Auto) 17.1 L, Monocytes (%) ( Auto) 6.1 H, Eosinophils (%) (Auto) 3.4 H, Basophils (%) (Auto) 0.4, Neutrophils # (Auto) 5.8, Lymphocytes # (Auto) 1.4 L, Monocytes # (Auto) 0.5, Eosinophils # (Auto) 0.3, Basophils # (Auto) 0.0, Calcium Level 8.9, Aspartate Amino Transf (AST/SGOT) 85 H, Alanine Aminotransferase (ALT/SGPT) 105 H, Alkaline Phosphatase 450 H, Total Bilirubin 0.6, Total Protein 6.6, Albumin 2.9 L Microbiology Microbiology 12/22/16 Blood Culture - Final, Complete NO GROWTH AFTER 5 DAYS 12/23/16 Urine Culture - Final, Complete TG MANNING MD Dec 29, 2016 12:21
[2016-12-29 14:00] VITALS: BP 172/80
[2016-12-29] MEDS: BACLOFEN 5MG PER 1/2 TABLET PO SCH ×2 (17:29→21:51)
[2016-12-29] MEDS: TAMSULOSIN 0.4 MG CAP PO SCH (21:51)
[2016-12-29 22:00] VITALS: BP 172/86
[2016-12-30 06:00] VITALS: BP 143/72
[2016-12-30] MEDS: LEVOTHYROXINE 25MCG TABLET (0.025MG) PO SCH (06:22)
[2016-12-30] MEDS: HEPARIN SOD (PORCINE) 5000 UNITS/ML VIAL SQ SCH (06:23)
[2016-12-30 07:37] LABS: MEAN CORPUSCULAR HEMOGLOBIN 29.7 pg (27.0-33.0); MEAN CORPUSCULAR HGB CONC 32.9 g/dl (32.0-36.5); MEAN CORPUSCULAR VOLUME 90.1 fl (80.0-96.0); RED CELL DISTRIBUTION WIDTH 13.9 % (11.5-14.5); WHITE BLOOD COUNT 7.3 K/mm3 (4.0-10.0)
[2016-12-30 07:45] LABS: ALBUMIN 2.9 GM/DL (3.2-5.2); ALBUMIN/GLOBULIN RATIO 0.88 (1.00-1.93); ALKALINE PHOSPHATASE 527 U/L (45-117); ALT/SGPT 100 U/L (12-78); ANION GAP 3 MEQ/L (8-16); AST/SGOT 76 U/L (15-37); BILIRUBIN,TOTAL 0.7 MG/DL (0.2-1.0); BLOOD UREA NITROGEN 23 MG/DL (7-18); CALCIUM LEVEL 8.9 MG/DL (8.8-10.2); CARBON DIOXIDE LEVEL 31 MEQ/L (21-32); CHLORIDE LEVEL 104 MEQ/L (98-107); CREATININE FOR GFR 0.82 MG/DL (0.70-1.30); GLOMERULAR FILTRATION RATE > 60.0 (>49); GLUCOSE, FASTING 96 MG/DL (80-110); POTASSIUM SERUM 3.8 MEQ/L (3.5-5.1); SODIUM LEVEL 138 MEQ/L (136-145); TOTAL PROTEIN 6.2 GM/DL (6.4-8.2)
[2016-12-30] MEDS ORDERED: GABA-283 PO (08:48)
[2016-12-30] MEDS ORDERED: RISP0.2515 PO (08:48)
[2016-12-30] MEDS: AMANTADINE 100 MG CAP PO SCH (09:23)
[2016-12-30] MEDS: VITAMIN D 1,000 INTERNATIONAL UNITS TABLET PO SCH (09:23)
[2016-12-30] MEDS: GABAPENTIN 400 MG CAP PO SCH (09:23)
[2016-12-30] MEDS: BACLOFEN 10 MG TAB PO SCH (09:23)
[2016-12-30] MEDS: risperiDONE 0.25 MG TAB PO SCH (09:23)
[2016-12-30] MEDS: MYCOPHENOLATE MOFETIL 250 MG CAP (J7517) PO SCH (10:26)
--- NOTE | 2016-12-31 12:08 | DSES ---
DATE OF ADMISSION: 12/23/2016 DATE OF DISCHARGE: 12/30/2016 DISCHARGE DIAGNOSIS: Toxic metabolic encephalopathy. SECONDARY DIAGNOSES: Multiple sclerosis. Constipation. Urinary retention. Seizure disorder. Hypothyroidism. HOSPITAL COURSE: Patient is a 66-year-old man with a known history of multiple sclerosis who follows with [facility] Neurology presented with confusion, hallucinations, neurology consulted due to hallucinations and mental status changes, encephalopathy secondary to possibly either recent Bactrim use versus Keppra which was recently started for seizure the patient had one month ago. Both of these medications were discontinued and the patient did progressive improve although it was very slowly. The patient was noted to have urinary retention. He has had difficulty with this in the past and had a Valencia catheter in the past. It was replaced at this time. He normally follows with urology and he is being discharged with Valencia catheter in place. During his stay, the patient also was noted to have abnormal liver function tests which progressively worsened while in the hospital. This may have been related to Lovenox use. Upon discontinuation, they appeared to have plateaued and be improving. Subjectively today, the patient reports that he feels well. He is oriented to person. He knows the year, the month, the date, who the president is but he was not aware that he was in the hospital. The previous days, he was unaware that his mental status waxes and wanes. OBJECTIVE: Vital signs: Temperature 96.8, pulse 65, respiratory rate 18, blood pressure 143/72, oxygen saturation 96% on room air. General: He is a pleasant, man sitting up in bed peacefully watching television in no distress. HEENT: Extraocular movements are intact. He has moist mucous membranes. He has a flat affect. Cardiovascular exam: S1, S2. Regular Respiratory exam: Clear. Abdominal exam: Obese. The abdomen is soft. Extremities: He has dorsiflex bilateral lower extremities, spontaneously moves bilateral upper extremities. LABORATORY STUDIES: WBC 7.3, hemoglobin 14, platelet count 305. Chemistry panel 138, potassium 3.8, chloride 104, bicarbonate 31, BUN 23, creatinine 0.8. AST is trending down 76 down from a peak of 103. ALT is 100 trending down from 105. Alkaline phosphatase is still elevated at 527. Urine culture was negative. Blood cultures were negative. Imaging: The patient did have a cervical MRI that revealed spondylosis at C2-3 through C6-7 without cord compression. He also had a thoracic MRI that revealed epidural lipomatosis at the T2-3 through T12-L1 levels. Mild to moderate effacement of the thecal sac without spinal cord compression. Patient also had an MRI of the brain which revealed mild volume loss, multiple areas of increased signal intensity in the periventricular and subcortical white matter in corpus callosum that represents a combination of demyelinating disease and small vessel ischemic disease. Patient did have a vascular ultrasound that revealed no evidence of deep venous thrombosis (DVT) in the bilateral lower extremities. He had a CT of the abdomen and pelvis that revealed moderate stool in the proximal colon. ASSESSMENT AND PLAN: This is a 56-year-old man with resolving toxic metabolic encephalopathy. PROBLEMS: 1. Toxic metabolic encephalopathy likely medication related. Dr. Brand's help is greatly appreciated. He is slowly improving at this time. He continues to work with physical therapy but he is not at his baseline yet and would benefit from subacute rehabilitation where he is being discharged to today. Will need to followup with neurology within 2 weeks. 2. Multiple sclerosis. He follows with Dr. Rubio at [facility]. He is on Neurontin, Risperdal, amantidine, baclofen, , followup with neurology. 3. Constipation, resolved. bowel regimen. 4. Urinary retention. Patient was diagnosed with proctitis as per urology and was started on Bactrim. Cultures here have all been negative and antibiotics have been discontinued. He has had persistent urinary retention. Valencia catheter has been placed and will remain in place. He is to followup with urology in 2 weeks. Continue on Flomax. 5. Seizure disorder. The patient had a seizure several weeks ago and was briefly on Keppra, however this has been discontinued secondary to toxic metabolic encephalopathy. He has had no seizure activity during this stay. 6. Hypothyroidism. Patient is on Synthroid. 7. Abnormal liver function tests likely secondary to Lovenox. Could consider rechecking liver function tests in 1 week. Follow closely with his primary care provider. DISPOSITION: The patient is being discharged to subacute rehabilitation at [facility]. He is to followup with neurology in 2 weeks, followup with urology within 2 weeks along with his primary care physician in 7 days. His activity is as prior to admission. His diet is regular. He is to return to the ER if his symptoms worsen. MEDICATIONS AT THE TIME OF DISCHARGE: - gabapentin 400 mg three times a day - Risperdal 0.25 mg twice a day - amantadine 200 mg every morning, 100 mg every evening - baclofen 10 mg every morning, 5 mg twice a day, dinner time and bedtime - vitamin D3 2000 units daily - Synthroid 25 mcg daily - methylphenidate 1 gram twice a day - MiraLax 17 gram daily as needed for constipation - Flomax 0.4 mg daily at bedtime Greater than 30 minutes spent organizing disposition.
== END 2016-12-30 12:30 | DRG 682 ==
LOC: M ED 10:09 → M ED INP 15:15 → M MSPAV 17:19 → OBSVTOIN 12-23 14:21
PROVIDERS: ADMIT Internal Medicine; ATTEND Internal Medicine
DX: N17.9 Acute kidney failure, unspecified (principal); G93.40 Encephalopathy, unspecified; G35 Multiple sclerosis; K59.00 Constipation, unspecified; E03.9 Hypothyroidism, unspecified; G40.909 Epilepsy, unspecified, not intractable, without status epilepticus; K62.89 Other specified diseases of anus and rectum; R79.89 Other specified abnormal findings of blood chemistry; R33.9 Retention of urine, unspecified; I87.2 Venous insufficiency (chronic) (peripheral); G47.33 Obstructive sleep apnea (adult) (pediatric); Z99.3 Dependence on wheelchair; Z82.8 Family history of other disabilities and chronic diseases leading to disablement, not elsewhere classified; Z88.0 Allergy status to penicillin; Z79.899 Other long term (current) drug therapy; Z99.89 Dependence on other enabling machines and devices

== ENCOUNTER → 2017-01-02 | Outpatient (REF) ==
[~2017-01-02] MED LIST changes: +BACL5TA PO; +BACT800T5 PO; +FLOM5CAP PO; +KEPP250T5 PO; +LEVO25TA5 PO; +MIRA33504 PO; +MYCO1SUS PO; +RISP0.2515 PO; +VITA200015 PO
[2017-01-02 09:26] LABS: MEAN CORPUSCULAR HEMOGLOBIN 29.6 pg (27.0-33.0); MEAN CORPUSCULAR HGB CONC 32.6 g/dl (32.0-36.5); MEAN CORPUSCULAR VOLUME 90.7 fl (80.0-96.0); RED CELL DISTRIBUTION WIDTH 13.6 % (11.5-14.5); WHITE BLOOD COUNT 9.1 K/mm3 (4.0-10.0)
[2017-01-02 10:38] LABS: ANION GAP 9 MEQ/L (8-16); BLOOD UREA NITROGEN 29 MG/DL (7-18); CARBON DIOXIDE LEVEL 28 MEQ/L (21-32); CHLORIDE LEVEL 105 MEQ/L (98-107); CREATININE FOR GFR 0.97 MG/DL (0.70-1.30); GLOMERULAR FILTRATION RATE > 60.0 (>49); GLUCOSE, FASTING 88 MG/DL (80-110); POTASSIUM SERUM 4.1 MEQ/L (3.5-5.1); SODIUM LEVEL 142 MEQ/L (136-145)
== END ==
LOC: SKLAB2 08:00
PROVIDERS: ATTEND Internal Medicine
DX: G35 Multiple sclerosis (principal)

== ENCOUNTER → 2017-01-13 | Outpatient (REF) | payer MEDICARE ==
[~2017-01-13] MED LIST changes: +BACL10TA5 PO; -BACL5TA PO; -RISP0.2515 PO; +RISP0.2516 PO
== END ==
LOC: M LAB REF 16:56
PROVIDERS: ATTEND Urology
DX: R33.9 Retention of urine, unspecified (principal)

== ENCOUNTER → 2017-02-10 | Outpatient (REF) | payer MEDICARE | LOC: M SMT 13:10 | PROVIDERS: ATTEND Nurse Practitioner Women's Health | DX: R35.0 Frequency of micturition (principal) ==

== ENCOUNTER → 2017-10-17 | Outpatient (REF) | payer MEDICARE ==
[2017-10-17 13:26] LABS: BASO % 0.4 % (0.0-1.0); EOS # 0.1 10^3/uL (0.0-0.50); EOS % 1.4 % (0.0-3.0); HEMATOCRIT 47.9 % (42.0-52.0); IMMATURE GRANULOCYTE % 0.7 % (0-3.0); LYMPH # 1.4 10^3/uL (1.5-4.5); LYMPH % 16.7 % (24.0-44.0); MEAN CORPUSCULAR HEMOGLOBIN 27.9 pg (27.0-33.0); MEAN CORPUSCULAR HGB CONC 31.3 g/dl (32.0-36.5); MONO # 0.5 10^3/uL (0.0-0.8); MONO % 6.1 % (0.0-5.0); NEUTROPHILS # 6.4 10^3/uL (1.8-7.7); NEUTROPHILS % 74.7 % (36.0-66.0); PLATELET COUNT, AUTOMATED 246 10^3/uL (150-450); RED BLOOD COUNT 5.38 10^6/uL (4.30-6.10); RED CELL DISTRIBUTION WIDTH 13.7 % (11.5-14.5); WHITE BLOOD COUNT 8.5 10^3/uL (4.0-10.0)
[2017-10-17 13:45] LABS: ALBUMIN 3.7 GM/DL (3.2-5.2); ALBUMIN/GLOBULIN RATIO 1.28 (1.00-1.93); ALKALINE PHOSPHATASE 288 U/L (45-117); ALT/SGPT 43 U/L (12-78); ANION GAP 5 MEQ/L (8-16); AST/SGOT 28 U/L (7-37); BILIRUBIN,TOTAL 0.8 MG/DL (0.2-1.0); BLOOD UREA NITROGEN 22 MG/DL (7-18); CARBON DIOXIDE LEVEL 30 MEQ/L (21-32); CHLORIDE LEVEL 108 MEQ/L (98-107); GLOMERULAR FILTRATION RATE > 60.0 (>49); GLUCOSE, FASTING 104 MG/DL (70-100); POTASSIUM SERUM 4.3 MEQ/L (3.5-5.1); RHEUMATOID FACTOR QUANT < 10.0 IU/ML (<15.0); SODIUM LEVEL 143 MEQ/L (136-145); TOTAL PROTEIN 6.6 GM/DL (6.4-8.2)
[2017-10-17 14:05] LABS: ERYTHROCYTE SEDIMENTATION RATE 5 mm/hr (0-20)
[2017-10-18 14:13] LABS: ANTINUCLEAR ANTIBODIES DIRECT Negative (Negative)
== END ==
LOC: M LABDRAW1 12:06
DX: G35 Multiple sclerosis (principal); R56.9 Unspecified convulsions
CPT/HCPCS: 84443

== ENCOUNTER 2017-10-30 15:03 | Inpatient (IN) | payer MEDICARE ==
[2017-10-30 16:26] LABS: BASO # 0.1 10^3/uL (0.0-0.2); BASO % 0.2 % (0.0-1.0); HEMATOCRIT 51.8 % (42.0-52.0); HEMOGLOBIN 16.8 g/dl (13.5-17.5); IMMATURE GRANULOCYTE % 0.8 % (0-3.0); LYMPH # 0.7 10^3/uL (1.5-4.5); LYMPH % 2.8 % (24.0-44.0); MEAN CORPUSCULAR HEMOGLOBIN 28.9 pg (27.0-33.0); MEAN CORPUSCULAR HGB CONC 32.4 g/dl (32.0-36.5); MEAN CORPUSCULAR VOLUME 89.2 fl (80.0-96.0); MONO # 1.3 10^3/uL (0.0-0.8); MONO % 5.1 % (0.0-5.0); NEUTROPHILS # 23.7 10^3/uL (1.8-7.7); NEUTROPHILS % 91.1 % (36.0-66.0); PLATELET COUNT, AUTOMATED 318 10^3/uL (150-450); RED BLOOD COUNT 5.81 10^6/uL (4.30-6.10); RED CELL DISTRIBUTION WIDTH 13.4 % (11.5-14.5)
[2017-10-30 16:27] LABS: SUSPECT SAMPLE POS FLAG
[2017-10-30 16:37] LABS: INR 0.92; PROTHROMBIN TIME 12.4 SECONDS (12.4-14.5)
[2017-10-30 16:49] LABS: ALBUMIN 4.4 GM/DL (3.2-5.2); ALBUMIN/GLOBULIN RATIO 1.16 (1.00-1.93); ALKALINE PHOSPHATASE 306 U/L (45-117); ALT/SGPT 39 U/L (12-78); AMYLASE 43 U/L (25-115); ANION GAP 7 MEQ/L (8-16); AST/SGOT 28 U/L (7-37); BILIRUBIN,DIRECT 0.2 MG/DL (0.0-0.2); BILIRUBIN,TOTAL 0.7 MG/DL (0.2-1.0); BLOOD UREA NITROGEN 26 MG/DL (7-18); CALCIUM LEVEL 9.7 MG/DL (8.8-10.2); CARBON DIOXIDE LEVEL 30 MEQ/L (21-32); CHLORIDE LEVEL 104 MEQ/L (98-107); CK-MB VALUE MASS 2.7 NG/ML (<3.6); CPK CREATINE PHOSPHOKINASE 81 U/L (39-308); CREATININE FOR GFR 1.18 MG/DL (0.70-1.30); GLOMERULAR FILTRATION RATE > 60.0 (>49); GLUCOSE, FASTING 160 MG/DL (70-100); LIPASE 55 U/L (73-393); MB/CK RELATIVE INDEX 3.33 (< OR =4); POTASSIUM SERUM 4.3 MEQ/L (3.5-5.1); SODIUM LEVEL 141 MEQ/L (136-145); TOTAL PROTEIN 8.2 GM/DL (6.4-8.2); TROPONIN I < 0.02 NG/ML (< 0.10)
[2017-10-30] MEDS: ONDANSETRON 4MG/2ML VIAL (J2405) IV (16:53)
[2017-10-30] MEDS: MORPHINE 4 MG/ML 1ML VIAL/SYRINGE (J2270) IV ×2 (16:53→21:09)
[2017-10-30] MEDS: GASTROGRAFIN SOLUTION 30ML PO ×2 (17:30→18:00)
[2017-10-30] MEDS ORDERED: ISOVUE-370 76% 100ML VIAL (Q9967) As Ordered (18:33)
[2017-10-30 19:58] LABS: KETONE, URINE AUTO RFX TRACE mg/dL (NEGATIVE); MUCUS, URINE RFX SMALL (NEGATIVE); RBC, URINE AUTO RFX 7 /HPF (0-3); SPECIFIC GRAVITY UR AUTO RFX 1.048 (1.002-1.035); SQUAM EPITHELIAL CELL UR AURFX 0 /HPF (0-6); TRANSITIONAL EPITHELIAL AU RFX 2 /HPF
[2017-10-30 20:02] LABS: LEUKOCYTE ESTERASE UR AUTO RFX 3+ (NEGATIVE); NITRITE, URINE AUTO RFX POSITIVE (NEGATIVE); WBC, URINE AUTO RFX TNTC /HPF (0-3)
[2017-10-30] MEDS: KETOROLAC 30 MG/ML VIAL (J1885) IV (20:51)
[2017-10-30] MEDS ORDERED: ACETAMINOPHEN TAB 650MG DOSE (2X325MG) PO (22:45)
[2017-10-30] MEDS ORDERED: MORPHINE 4 MG/ML 1ML VIAL/SYRINGE (J2270) IV ×2 (22:45→23:45)
[2017-10-30] MEDS ORDERED: ONDANSETRON 4MG/2ML VIAL (J2405) IV (22:45)
[2017-10-31 01:13] LABS: LACTIC ACID SEPSIS PROTOCOL 3.1 MMOL/L (0.4-2.0)
[2017-10-31 01:24] LABS: ALKALINE PHOSPHATASE 299 U/L (45-117); GAMMA GLUTAMYLTRANSPEPTIDASE 159 U/L (15-85); STABLE ALKPHOS 130 U/L
[2017-10-31 01:25] LABS: LABILE ALKPHOS 169 U/L
[2017-10-31 01:27] LABS: % LABILE ALKALINE PHOSPHATASE 56.5 %
[2017-10-31] MEDS: MEROPENEM INJ 1 GM in APPROPRIATE DILUENT 1 EA IV ×3 (02:38→17:42)
[2017-10-31] MEDS: GABAPENTIN 400 MG CAP PO ×4 (02:38→21:11)
[2017-10-31] MEDS: AMANTADINE 100 MG CAP PO ×3 (02:38→21:15)
[2017-10-31] MEDS: TAMSULOSIN 0.4 MG CAP PO ×2 (02:38→21:11)
[2017-10-31] MEDS: oxyBUTYnin *DITROPAN XL* 5 MG TABCR PO ×2 (02:38→21:11)
[2017-10-31] MEDS: BACLOFEN 10 MG TAB PO ×4 (02:38→21:11)
[2017-10-31] MEDS: PERCOCET 5MG/325MG TAB PO (02:39)
[2017-10-31] MEDS: SODIUM CHLORIDE 0.9% 1000 ML IV ×2 (04:34→06:37)
[2017-10-31 05:05] LABS: HEMATOCRIT 49.7 % (42.0-52.0); MEAN CORPUSCULAR HEMOGLOBIN 28.5 pg (27.0-33.0); MEAN CORPUSCULAR HGB CONC 32.2 g/dl (32.0-36.5); MEAN CORPUSCULAR VOLUME 88.6 fl (80.0-96.0); PLATELET COUNT, AUTOMATED 264 10^3/uL (150-450); RED BLOOD COUNT 5.61 10^6/uL (4.30-6.10); RED CELL DISTRIBUTION WIDTH 13.7 % (11.5-14.5); WHITE BLOOD COUNT 25.5 10^3/uL (4.0-10.0)
[2017-10-31 05:24] LABS: ALBUMIN 3.5 GM/DL (3.2-5.2); ALBUMIN/GLOBULIN RATIO 0.97 (1.00-1.93); ALKALINE PHOSPHATASE 247 U/L (45-117); ALT/SGPT 43 U/L (12-78); ANION GAP 4 MEQ/L (8-16); AST/SGOT 45 U/L (7-37); BILIRUBIN,TOTAL 0.9 MG/DL (0.2-1.0); BLOOD UREA NITROGEN 26 MG/DL (7-18); CARBON DIOXIDE LEVEL 31 MEQ/L (21-32); CHLORIDE LEVEL 106 MEQ/L (98-107); CREATININE FOR GFR 1.08 MG/DL (0.70-1.30); GLOMERULAR FILTRATION RATE > 60.0 (>49); GLUCOSE, FASTING 115 MG/DL (70-100); SODIUM LEVEL 141 MEQ/L (136-145); TOTAL PROTEIN 7.1 GM/DL (6.4-8.2)
[2017-10-31] MEDS: KETOROLAC 30 MG/ML VIAL (J1885) IV ×2 (06:01→11:03)
[2017-10-31] MEDS: LEVOTHYROXINE 25MCG TABLET (0.025MG) PO (06:02)
[2017-10-31] MEDS: HEPARIN SOD (PORCINE) 5000 UNITS/ML VIAL SC ×3 (06:02→21:11)
[2017-10-31] MEDS: MULTIVITAMINS/MINERALS THERAP 1 TAB PO (08:33)
[2017-10-31] MEDS: VITAMIN D 1,000 INTERNATIONAL UNITS TABLET PO (08:37)
[2017-10-31 09:29] LABS: LACTIC ACID SEPSIS PROTOCOL 1.9 MMOL/L (0.4-2.0)
[2017-10-31] MEDS: SENOKOT S TAB PO ×2 (12:56→21:11)
[2017-10-31] MEDS: MIRALAX *UNIT DOSE* 17GM PACKET PO (15:46)
[2017-10-31] MEDS: FLEET ENEMA PR (16:12)
[2017-10-31] MEDS: MAGNESIUM CITRATE 300 ML BTL PO (19:38)
[2017-11-01] MEDS: LACTULOSE 20 GM/30 ML SYRUP UD PO (00:55)
[2017-11-01] MEDS: MEROPENEM INJ 1 GM in APPROPRIATE DILUENT 1 EA IV ×3 (00:58→17:11)
[2017-11-01 05:20] LABS: HEMATOCRIT 47.9 % (42.0-52.0); HEMOGLOBIN 15.3 g/dl (13.5-17.5); MEAN CORPUSCULAR HEMOGLOBIN 28.3 pg (27.0-33.0); MEAN CORPUSCULAR HGB CONC 31.9 g/dl (32.0-36.5); MEAN CORPUSCULAR VOLUME 88.5 fl (80.0-96.0); PLATELET COUNT, AUTOMATED 225 10^3/uL (150-450); RED BLOOD COUNT 5.41 10^6/uL (4.30-6.10); WHITE BLOOD COUNT 28.4 10^3/uL (4.0-10.0)
[2017-11-01 05:42] LABS: ALBUMIN 3.1 GM/DL (3.2-5.2); ALBUMIN/GLOBULIN RATIO 0.86 (1.00-1.93); ALKALINE PHOSPHATASE 384 U/L (45-117); ALT/SGPT 94 U/L (12-78); ANION GAP 9 MEQ/L (8-16); AST/SGOT 112 U/L (7-37); BILIRUBIN,TOTAL 1.7 MG/DL (0.2-1.0); BLOOD UREA NITROGEN 23 MG/DL (7-18); CALCIUM LEVEL 8.8 MG/DL (8.8-10.2); CARBON DIOXIDE LEVEL 29 MEQ/L (21-32); CHLORIDE LEVEL 107 MEQ/L (98-107); CREATININE FOR GFR 1.07 MG/DL (0.70-1.30); GLOMERULAR FILTRATION RATE > 60.0 (>49); GLUCOSE, FASTING 100 MG/DL (70-100); SODIUM LEVEL 145 MEQ/L (136-145); TOTAL PROTEIN 6.7 GM/DL (6.4-8.2)
[2017-11-01] MEDS: HEPARIN SOD (PORCINE) 5000 UNITS/ML VIAL SC ×3 (06:14→21:21)
[2017-11-01] MEDS: LEVOTHYROXINE 25MCG TABLET (0.025MG) PO (06:15)
[2017-11-01] MEDS: GABAPENTIN 400 MG CAP PO ×3 (08:24→20:30)
[2017-11-01] MEDS: SENOKOT S TAB PO ×2 (08:24→20:30)
[2017-11-01] MEDS: VITAMIN D 1,000 INTERNATIONAL UNITS TABLET PO (08:24)
[2017-11-01] MEDS: MULTIVITAMINS/MINERALS THERAP 1 TAB PO (08:24)
[2017-11-01] MEDS: BACLOFEN 10 MG TAB PO ×3 (08:25→20:26)
[2017-11-01] MEDS: AMANTADINE 100 MG CAP PO ×2 (08:25→20:30)
[2017-11-01] MEDS: KETOROLAC 30 MG/ML VIAL (J1885) IV (10:06)
[2017-11-01] MEDS: MIRALAX *UNIT DOSE* 17GM PACKET PO (20:26)
[2017-11-01] MEDS: oxyBUTYnin *DITROPAN XL* 5 MG TABCR PO (20:30)
[2017-11-01] MEDS: TAMSULOSIN 0.4 MG CAP PO (20:30)
[2017-11-02] MEDS: MEROPENEM INJ 1 GM in APPROPRIATE DILUENT 1 EA IV ×3 (02:29→17:56)
[2017-11-02] MEDS: KETOROLAC 30 MG/ML VIAL (J1885) IV ×2 (04:15→15:01)
[2017-11-02 04:42] LABS: BASO # 0.1 10^3/uL (0.0-0.2); BASO % 0.3 % (0.0-1.0); EOS # 0.2 10^3/uL (0.0-0.50); EOS % 1.1 % (0.0-3.0); HEMATOCRIT 43.8 % (42.0-52.0); HEMOGLOBIN 13.9 g/dl (13.5-17.5); LYMPH # 1.3 10^3/uL (1.5-4.5); LYMPH % 7.8 % (24.0-44.0); MEAN CORPUSCULAR HEMOGLOBIN 28.6 pg (27.0-33.0); MEAN CORPUSCULAR HGB CONC 31.7 g/dl (32.0-36.5); MEAN CORPUSCULAR VOLUME 90.1 fl (80.0-96.0); MONO # 0.8 10^3/uL (0.0-0.8); MONO % 4.5 % (0.0-5.0); NEUTROPHILS # 14.6 10^3/uL (1.8-7.7); NEUTROPHILS % 85.3 % (36.0-66.0); PLATELET COUNT, AUTOMATED 202 10^3/uL (150-450); RED BLOOD COUNT 4.86 10^6/uL (4.30-6.10); RED CELL DISTRIBUTION WIDTH 13.9 % (11.5-14.5); WHITE BLOOD COUNT 17.1 10^3/uL (4.0-10.0)
[2017-11-02 05:01] LABS: ALBUMIN 2.6 GM/DL (3.2-5.2); ALBUMIN/GLOBULIN RATIO 0.74 (1.00-1.93); ALKALINE PHOSPHATASE 443 U/L (45-117); ALT/SGPT 102 U/L (12-78); ANION GAP 5 MEQ/L (8-16); AST/SGOT 110 U/L (7-37); BILIRUBIN,TOTAL 1.6 MG/DL (0.2-1.0); BLOOD UREA NITROGEN 21 MG/DL (7-18); CALCIUM LEVEL 8.7 MG/DL (8.8-10.2); CARBON DIOXIDE LEVEL 30 MEQ/L (21-32); CHLORIDE LEVEL 109 MEQ/L (98-107); CREATININE FOR GFR 1.02 MG/DL (0.70-1.30); GLOMERULAR FILTRATION RATE > 60.0 (>49); GLUCOSE, FASTING 97 MG/DL (70-100); POTASSIUM SERUM 3.9 MEQ/L (3.5-5.1); SODIUM LEVEL 144 MEQ/L (136-145); TOTAL PROTEIN 6.1 GM/DL (6.4-8.2)
[2017-11-02] MEDS: LEVOTHYROXINE 25MCG TABLET (0.025MG) PO (06:31)
[2017-11-02] MEDS: HEPARIN SOD (PORCINE) 5000 UNITS/ML VIAL SC ×3 (06:31→21:05)
[2017-11-02] MEDS ORDERED: PROPOFOL 200 MG/20 ML VIAL As Ordered (08:27)
[2017-11-02] MEDS ORDERED: ROCURONIUM BROMIDE 50 MG/5 ML VIAL As Ordered (08:27)
[2017-11-02] MEDS ORDERED: fentaNYL 100 MCG/2 ML INJECTION (J3010) As Ordered (08:28)
[2017-11-02] MEDS ORDERED: MIDAZOLAM INJ 2 MG/2 ML VIAL (J2250) As Ordered (08:28)
[2017-11-02] MEDS ORDERED: LIDOCAINE 2% INJ 100 MG/5 ML SDV (FOR ANES.) As Ordered (08:29)
[2017-11-02] MEDS ORDERED: GLYCOPYRROLATE INJ 0.2 MG/ML 2 ML VIAL As Ordered (10:18)
[2017-11-02] MEDS ORDERED: NEOSTIGMINE 10 MG/10 ML VIAL (J2710) As Ordered (10:18)
[2017-11-02] MEDS: BUPIVACAINE HCL 0.25% 30 ML VIAL As Ordered (10:30)
[2017-11-02] MEDS ORDERED: METOCLOPRAMIDE INJ 10MG/2ML VIAL (J2765) IV (13:00)
[2017-11-02] MEDS ORDERED: PERCOCET 5MG/325MG TAB PO (13:00)
[2017-11-02] MEDS ORDERED: MEPERIDINE INJ 25 MG/ML VIAL (J2175) IV (13:00)
[2017-11-02] MEDS ORDERED: fentaNYL 100 MCG/2 ML INJECTION (J3010) IV (13:00)
[2017-11-02] MEDS ORDERED: ONDANSETRON 4MG/2ML VIAL (J2405) IV (13:00)
[2017-11-02] MEDS: MIRALAX *UNIT DOSE* 17GM PACKET PO (15:02)
[2017-11-02] MEDS: AMANTADINE 100 MG CAP PO ×2 (15:03→20:15)
[2017-11-02] MEDS: GABAPENTIN 400 MG CAP PO ×3 (15:04→20:15)
[2017-11-02] MEDS: BACLOFEN 10 MG TAB PO ×3 (15:04→20:15)
[2017-11-02] MEDS: VITAMIN D 1,000 INTERNATIONAL UNITS TABLET PO (15:04)
[2017-11-02] MEDS: SENOKOT S TAB PO ×2 (15:04→20:15)
[2017-11-02] MEDS: MULTIVITAMINS/MINERALS THERAP 1 TAB PO (15:05)
[2017-11-02] MEDS: LR 1,000 ML IV (15:05)
[2017-11-02] MEDS: TAMSULOSIN 0.4 MG CAP PO (20:15)
[2017-11-02] MEDS: oxyBUTYnin *DITROPAN XL* 5 MG TABCR PO (20:15)
[2017-11-03] MEDS: MEROPENEM INJ 1 GM in APPROPRIATE DILUENT 1 EA IV ×3 (02:03→19:00)
[2017-11-03] MEDS: LEVOTHYROXINE 25MCG TABLET (0.025MG) PO (05:44)
[2017-11-03] MEDS: HEPARIN SOD (PORCINE) 5000 UNITS/ML VIAL SC ×3 (05:45→21:16)
[2017-11-03 05:53] LABS: HEMATOCRIT 40.3 % (42.0-52.0); HEMOGLOBIN 12.6 g/dl (13.5-17.5); MEAN CORPUSCULAR HEMOGLOBIN 28.2 pg (27.0-33.0); MEAN CORPUSCULAR HGB CONC 31.3 g/dl (32.0-36.5); MEAN CORPUSCULAR VOLUME 90.2 fl (80.0-96.0); PLATELET COUNT, AUTOMATED 184 10^3/uL (150-450); RED BLOOD COUNT 4.47 10^6/uL (4.30-6.10); WHITE BLOOD COUNT 9.3 10^3/uL (4.0-10.0)
[2017-11-03 06:09] LABS: ALBUMIN 2.4 GM/DL (3.2-5.2); ALBUMIN/GLOBULIN RATIO 0.71 (1.00-1.93); ALKALINE PHOSPHATASE 456 U/L (45-117); ALT/SGPT 83 U/L (12-78); ANION GAP 5 MEQ/L (8-16); AST/SGOT 76 U/L (7-37); BILIRUBIN,TOTAL 0.9 MG/DL (0.2-1.0); BLOOD UREA NITROGEN 26 MG/DL (7-18); CALCIUM LEVEL 8.4 MG/DL (8.8-10.2); CARBON DIOXIDE LEVEL 31 MEQ/L (21-32); CHLORIDE LEVEL 107 MEQ/L (98-107); CREATININE FOR GFR 1.03 MG/DL (0.70-1.30); GLOMERULAR FILTRATION RATE > 60.0 (>49); GLUCOSE, FASTING 89 MG/DL (70-100); POTASSIUM SERUM 3.9 MEQ/L (3.5-5.1); SODIUM LEVEL 143 MEQ/L (136-145); TOTAL PROTEIN 5.8 GM/DL (6.4-8.2)
[2017-11-03] MEDS: MULTIVITAMINS/MINERALS THERAP 1 TAB PO (09:25)
[2017-11-03] MEDS: SENOKOT S TAB PO ×2 (09:25→20:12)
[2017-11-03] MEDS: AMANTADINE 100 MG CAP PO ×2 (09:25→20:12)
[2017-11-03] MEDS: VITAMIN D 1,000 INTERNATIONAL UNITS TABLET PO (09:25)
[2017-11-03] MEDS: GABAPENTIN 400 MG CAP PO ×3 (09:26→20:12)
[2017-11-03] MEDS: BACLOFEN 10 MG TAB PO ×3 (09:26→20:12)
[2017-11-03] MEDS: MIRALAX *UNIT DOSE* 17GM PACKET PO (09:26)
[2017-11-03] MEDS: FLEET ENEMA PR (09:26)
[2017-11-03] MEDS: MAGNESIUM CITRATE 300 ML BTL PO (14:20)
[2017-11-03] MEDS: SLF 3 ML SYR IV ×2 (15:11→20:12)
[2017-11-03] MEDS: TAMSULOSIN 0.4 MG CAP PO (20:12)
[2017-11-03] MEDS: oxyBUTYnin *DITROPAN XL* 5 MG TABCR PO (20:12)
[2017-11-04] MEDS: MEROPENEM INJ 1 GM in APPROPRIATE DILUENT 1 EA IV ×3 (01:06→17:25)
[2017-11-04] MEDS: HEPARIN SOD (PORCINE) 5000 UNITS/ML VIAL SC ×3 (05:09→20:46)
[2017-11-04] MEDS: SLF 3 ML SYR IV ×3 (05:09→20:47)
[2017-11-04] MEDS: LEVOTHYROXINE 25MCG TABLET (0.025MG) PO (05:09)
[2017-11-04 05:22] LABS: HEMATOCRIT 41.7 % (42.0-52.0); HEMOGLOBIN 13.3 g/dl (13.5-17.5); MEAN CORPUSCULAR HEMOGLOBIN 28.6 pg (27.0-33.0); MEAN CORPUSCULAR HGB CONC 31.9 g/dl (32.0-36.5); MEAN CORPUSCULAR VOLUME 89.7 fl (80.0-96.0); PLATELET COUNT, AUTOMATED 225 10^3/uL (150-450); RED BLOOD COUNT 4.65 10^6/uL (4.30-6.10); RED CELL DISTRIBUTION WIDTH 13.8 % (11.5-14.5); WHITE BLOOD COUNT 9.5 10^3/uL (4.0-10.0)
[2017-11-04 05:39] LABS: ALBUMIN 2.5 GM/DL (3.2-5.2); ALBUMIN/GLOBULIN RATIO 0.71 (1.00-1.93); ALKALINE PHOSPHATASE 469 U/L (45-117); ALT/SGPT 70 U/L (12-78); ANION GAP 5 MEQ/L (8-16); AST/SGOT 53 U/L (7-37); BILIRUBIN,TOTAL 0.5 MG/DL (0.2-1.0); BLOOD UREA NITROGEN 22 MG/DL (7-18); CALCIUM LEVEL 8.6 MG/DL (8.8-10.2); CARBON DIOXIDE LEVEL 32 MEQ/L (21-32); CHLORIDE LEVEL 110 MEQ/L (98-107); GLOMERULAR FILTRATION RATE > 60.0 (>49); GLUCOSE, FASTING 100 MG/DL (70-100); POTASSIUM SERUM 3.7 MEQ/L (3.5-5.1); SODIUM LEVEL 147 MEQ/L (136-145)
[2017-11-04] MEDS: SENOKOT S TAB PO ×2 (09:00→20:47)
[2017-11-04] MEDS: VITAMIN D 1,000 INTERNATIONAL UNITS TABLET PO (09:00)
[2017-11-04] MEDS: BACLOFEN 10 MG TAB PO ×3 (09:01→20:47)
[2017-11-04] MEDS: GABAPENTIN 400 MG CAP PO ×3 (09:01→20:47)
[2017-11-04] MEDS: AMANTADINE 100 MG CAP PO ×2 (09:01→20:46)
[2017-11-04] MEDS: MULTIVITAMINS/MINERALS THERAP 1 TAB PO (09:01)
[2017-11-04] MEDS ORDERED: NORCO, ANEXSIA 5/325MG TABLET (HYDROcodone/ACETAMINOPHEN) PO (15:30)
[2017-11-04] MEDS: amLODIPine 10 MG TAB PO (17:33)
[2017-11-04] MEDS: oxyBUTYnin *DITROPAN XL* 5 MG TABCR PO (20:47)
[2017-11-04] MEDS: TAMSULOSIN 0.4 MG CAP PO (20:47)
[2017-11-05] MEDS: MEROPENEM INJ 1 GM in APPROPRIATE DILUENT 1 EA IV ×3 (02:11→18:04)
[2017-11-05] MEDS: HEPARIN SOD (PORCINE) 5000 UNITS/ML VIAL SC ×3 (05:55→21:10)
[2017-11-05] MEDS: SLF 3 ML SYR IV ×3 (05:55→21:10)
[2017-11-05] MEDS: LEVOTHYROXINE 25MCG TABLET (0.025MG) PO (05:55)
[2017-11-05 06:58] LABS: HEMATOCRIT 43.7 % (42.0-52.0); HEMOGLOBIN 14.1 g/dl (13.5-17.5); MEAN CORPUSCULAR HEMOGLOBIN 28.3 pg (27.0-33.0); MEAN CORPUSCULAR HGB CONC 32.3 g/dl (32.0-36.5); MEAN CORPUSCULAR VOLUME 87.8 fl (80.0-96.0); PLATELET COUNT, AUTOMATED 220 10^3/uL (150-450); RED BLOOD COUNT 4.98 10^6/uL (4.30-6.10); RED CELL DISTRIBUTION WIDTH 13.9 % (11.5-14.5); WHITE BLOOD COUNT 11.8 10^3/uL (4.0-10.0)
[2017-11-05 07:00] LABS: ADD MANUAL DIFFER YES; DIFF SLIDE NUMBER 53; POS COUNT POS FLAG; POSITIVE MORPH POS FLAG
[2017-11-05 07:12] LABS: ALBUMIN 2.5 GM/DL (3.2-5.2); ALBUMIN/GLOBULIN RATIO 0.66 (1.00-1.93); ALKALINE PHOSPHATASE 501 U/L (45-117); ALT/SGPT 73 U/L (12-78); ANION GAP 7 MEQ/L (8-16); AST/SGOT 59 U/L (7-37); BILIRUBIN,TOTAL 0.6 MG/DL (0.2-1.0); BLOOD UREA NITROGEN 15 MG/DL (7-18); CALCIUM LEVEL 8.3 MG/DL (8.8-10.2); CARBON DIOXIDE LEVEL 28 MEQ/L (21-32); CHLORIDE LEVEL 110 MEQ/L (98-107); CREATININE FOR GFR 0.76 MG/DL (0.70-1.30); GLOMERULAR FILTRATION RATE > 60.0 (>49); GLUCOSE, FASTING 91 MG/DL (70-100); POTASSIUM SERUM 3.6 MEQ/L (3.5-5.1); SODIUM LEVEL 145 MEQ/L (136-145); TOTAL PROTEIN 6.3 GM/DL (6.4-8.2)
[2017-11-05 07:28] LABS: ATYPICAL LYMPH 2 % (0-5); EOSINOPHILS 4 % (0-5); LYMPHOCYTES 12 % (16-52); METAMYELOCYTES 3 % (0-0); MONOCYTES 5 % (0-8); MYELOCYTES 2 % (0-0); NEUTROPHILS 72 % (35-75)
[2017-11-05 07:29] LABS: PLATELET ESTIMATE NORMAL (NORMAL)
[2017-11-05] MEDS: SENOKOT S TAB PO ×2 (09:00→21:12)
[2017-11-05] MEDS: BACLOFEN 10 MG TAB PO ×3 (09:20→21:09)
[2017-11-05] MEDS: MULTIVITAMINS/MINERALS THERAP 1 TAB PO (09:20)
[2017-11-05] MEDS: GABAPENTIN 400 MG CAP PO ×3 (09:20→21:08)
[2017-11-05] MEDS: VITAMIN D 1,000 INTERNATIONAL UNITS TABLET PO (09:21)
[2017-11-05] MEDS: AMANTADINE 100 MG CAP PO ×2 (09:21→21:09)
[2017-11-05] MEDS: oxyBUTYnin *DITROPAN XL* 5 MG TABCR PO (21:09)
[2017-11-05] MEDS: TAMSULOSIN 0.4 MG CAP PO (21:09)
[2017-11-06] MEDS: MEROPENEM INJ 1 GM in APPROPRIATE DILUENT 1 EA IV ×3 (02:26→17:26)
[2017-11-06] MEDS: LEVOTHYROXINE 25MCG TABLET (0.025MG) PO (06:08)
[2017-11-06] MEDS: SLF 3 ML SYR IV ×3 (06:09→21:43)
[2017-11-06] MEDS: HEPARIN SOD (PORCINE) 5000 UNITS/ML VIAL SC ×3 (06:09→21:42)
[2017-11-06 06:39] LABS: HEMATOCRIT 46.1 % (42.0-52.0); HEMOGLOBIN 14.8 g/dl (13.5-17.5); MEAN CORPUSCULAR HEMOGLOBIN 28.4 pg (27.0-33.0); MEAN CORPUSCULAR HGB CONC 32.1 g/dl (32.0-36.5); MEAN CORPUSCULAR VOLUME 88.3 fl (80.0-96.0); PLATELET COUNT, AUTOMATED 229 10^3/uL (150-450); RED BLOOD COUNT 5.22 10^6/uL (4.30-6.10); WHITE BLOOD COUNT 16.8 10^3/uL (4.0-10.0)
[2017-11-06 07:15] LABS: BLOOD UREA NITROGEN 20 MG/DL (7-18); CREATININE FOR GFR 0.87 MG/DL (0.70-1.30); GLOMERULAR FILTRATION RATE > 60.0 (>49); GLUCOSE, FASTING 93 MG/DL (70-100); SODIUM LEVEL 146 MEQ/L (136-145)
[2017-11-06 07:16] LABS: ALBUMIN 2.7 GM/DL (3.2-5.2); ALBUMIN/GLOBULIN RATIO 0.71 (1.00-1.93); ALKALINE PHOSPHATASE 487 U/L (45-117); ALT/SGPT 82 U/L (12-78); ANION GAP 7 MEQ/L (8-16); AST/SGOT 77 U/L (7-37); BILIRUBIN,TOTAL 0.5 MG/DL (0.2-1.0); CALCIUM LEVEL 8.7 MG/DL (8.8-10.2); CARBON DIOXIDE LEVEL 28 MEQ/L (21-32); CHLORIDE LEVEL 111 MEQ/L (98-107); POTASSIUM SERUM 3.8 MEQ/L (3.5-5.1); TOTAL PROTEIN 6.5 GM/DL (6.4-8.2)
[2017-11-06 08:02] LABS: C REACTIVE PROTEIN QUANTITATIV 4.47 MG/DL (0.00-0.30)
[2017-11-06 08:06] LABS: DIFF SLIDE NUMBER 9
[2017-11-06] MEDS: GABAPENTIN 400 MG CAP PO ×3 (09:49→21:42)
[2017-11-06] MEDS: SENOKOT S TAB PO ×2 (09:49→21:42)
[2017-11-06] MEDS: MULTIVITAMINS/MINERALS THERAP 1 TAB PO (09:49)
[2017-11-06] MEDS: AMANTADINE 100 MG CAP PO ×2 (09:49→21:42)
[2017-11-06] MEDS: VITAMIN D 1,000 INTERNATIONAL UNITS TABLET PO (09:49)
[2017-11-06] MEDS: BACLOFEN 10 MG TAB PO ×3 (09:49→21:42)
[2017-11-06 09:54] LABS: BANDS 1 % (< 11); EOSINOPHILS 4 % (0-5); LYMPHOCYTES 15 % (16-52); METAMYELOCYTES 3 % (0-0); MONOCYTES 7 % (0-8); MYELOCYTES 10 % (0-0); NEUTROPHILS 60 % (35-75); PLATELET ESTIMATE NORMAL (NORMAL)
[2017-11-06] MEDS: TAMSULOSIN 0.4 MG CAP PO (21:42)
[2017-11-06] MEDS: oxyBUTYnin *DITROPAN XL* 5 MG TABCR PO (21:42)
[2017-11-07] MEDS: MEROPENEM INJ 1 GM in APPROPRIATE DILUENT 1 EA IV ×3 (02:38→17:13)
[2017-11-07] MEDS: HEPARIN SOD (PORCINE) 5000 UNITS/ML VIAL SC ×3 (06:34→23:27)
[2017-11-07] MEDS: SLF 3 ML SYR IV ×3 (06:34→23:31)
[2017-11-07] MEDS: LEVOTHYROXINE 25MCG TABLET (0.025MG) PO (06:34)
[2017-11-07 06:53] LABS: HEMOGLOBIN 14.1 g/dl (13.5-17.5); MEAN CORPUSCULAR HEMOGLOBIN 28.4 pg (27.0-33.0); MEAN CORPUSCULAR VOLUME 88.7 fl (80.0-96.0); PLATELET COUNT, AUTOMATED 276 10^3/uL (150-450); RED BLOOD COUNT 4.96 10^6/uL (4.30-6.10); RED CELL DISTRIBUTION WIDTH 14.3 % (11.5-14.5); WHITE BLOOD COUNT 15.9 10^3/uL (4.0-10.0)
[2017-11-07 06:55] LABS: ADD MANUAL DIFFER YES; DIFF SLIDE NUMBER 115; POS COUNT POS FLAG; POSITIVE MORPH POS FLAG
[2017-11-07 07:23] LABS: ATYPICAL LYMPH 2 % (0-5); EOSINOPHILS 3 % (0-5); LYMPHOCYTES 15 % (16-52); METAMYELOCYTES 2 % (0-0); MONOCYTES 6 % (0-8); MYELOCYTES 3 % (0-0); NEUTROPHILS 69 % (35-75); PLATELET ESTIMATE NORMAL (NORMAL)
[2017-11-07] MEDS: GABAPENTIN 400 MG CAP PO ×3 (08:40→23:26)
[2017-11-07] MEDS: BACLOFEN 10 MG TAB PO ×3 (08:40→23:26)
[2017-11-07] MEDS: MULTIVITAMINS/MINERALS THERAP 1 TAB PO (08:40)
[2017-11-07] MEDS: VITAMIN D 1,000 INTERNATIONAL UNITS TABLET PO (08:41)
[2017-11-07] MEDS: SENOKOT S TAB PO ×2 (08:41→23:25)
[2017-11-07] MEDS: AMANTADINE 100 MG CAP PO ×2 (08:41→23:25)
[2017-11-07] MEDS: MYCOPHENOLATE MOFETIL 250 MG CAP (J7517) PO (23:25)
[2017-11-07] MEDS: oxyBUTYnin *DITROPAN XL* 5 MG TABCR PO (23:26)
[2017-11-07] MEDS: TAMSULOSIN 0.4 MG CAP PO (23:26)
[2017-11-08] MEDS: MEROPENEM INJ 1 GM in APPROPRIATE DILUENT 1 EA IV ×3 (02:36→17:34)
[2017-11-08] MEDS: LEVOTHYROXINE 25MCG TABLET (0.025MG) PO (06:26)
[2017-11-08] MEDS: SLF 3 ML SYR IV ×4 (06:27→20:15)
[2017-11-08] MEDS: HEPARIN SOD (PORCINE) 5000 UNITS/ML VIAL SC ×3 (06:27→20:14)
[2017-11-08 07:56] LABS: HEMOGLOBIN 13.8 g/dl (13.5-17.5); MEAN CORPUSCULAR HEMOGLOBIN 28.6 pg (27.0-33.0); MEAN CORPUSCULAR HGB CONC 32.1 g/dl (32.0-36.5); MEAN CORPUSCULAR VOLUME 89.2 fl (80.0-96.0); PLATELET COUNT, AUTOMATED 265 10^3/uL (150-450); RED BLOOD COUNT 4.82 10^6/uL (4.30-6.10); RED CELL DISTRIBUTION WIDTH 14.3 % (11.5-14.5); WHITE BLOOD COUNT 12.6 10^3/uL (4.0-10.0)
[2017-11-08 08:09] LABS: ADD MANUAL DIFFER YES; DIFF SLIDE NUMBER 109; POS COUNT POS FLAG; POSITIVE MORPH POS FLAG
[2017-11-08 08:25] LABS: C REACTIVE PROTEIN QUANTITATIV 3.16 MG/DL (0.00-0.30)
[2017-11-08 08:26] LABS: ALBUMIN 2.6 GM/DL (3.2-5.2); ALBUMIN/GLOBULIN RATIO 0.72 (1.00-1.93); ALKALINE PHOSPHATASE 502 U/L (45-117); ALT/SGPT 85 U/L (12-78); ANION GAP 5 MEQ/L (8-16); AST/SGOT 70 U/L (7-37); BILIRUBIN,TOTAL 0.5 MG/DL (0.2-1.0); BLOOD UREA NITROGEN 25 MG/DL (7-18); CALCIUM LEVEL 8.4 MG/DL (8.8-10.2); CARBON DIOXIDE LEVEL 27 MEQ/L (21-32); CHLORIDE LEVEL 111 MEQ/L (98-107); CREATININE FOR GFR 0.79 MG/DL (0.70-1.30); GLOMERULAR FILTRATION RATE > 60.0 (>49); GLUCOSE, FASTING 92 MG/DL (70-100); MAGNESIUM LEVEL 2.2 MG/DL (1.8-2.4); POTASSIUM SERUM 3.9 MEQ/L (3.5-5.1); SODIUM LEVEL 143 MEQ/L (136-145); TOTAL PROTEIN 6.2 GM/DL (6.4-8.2)
[2017-11-08 09:43] LABS: ATYPICAL LYMPH 3 % (0-5); EOSINOPHILS 2 % (0-5); LYMPHOCYTES 15 % (16-52); METAMYELOCYTES 2 % (0-0); MONOCYTES 7 % (0-8); MYELOCYTES 2 % (0-0); NEUTROPHILS 69 % (35-75); PLATELET ESTIMATE NORMAL (NORMAL)
[2017-11-08 09:44] LABS: ANISOCYTOSIS 1+
[2017-11-08] MEDS: GABAPENTIN 400 MG CAP PO ×3 (10:03→20:14)
[2017-11-08] MEDS: VITAMIN D 1,000 INTERNATIONAL UNITS TABLET PO (10:03)
[2017-11-08] MEDS: BACLOFEN 10 MG TAB PO ×3 (10:04→20:14)
[2017-11-08] MEDS: SENOKOT S TAB PO ×2 (10:04→20:14)
[2017-11-08] MEDS: MULTIVITAMINS/MINERALS THERAP 1 TAB PO (10:05)
[2017-11-08] MEDS: AMANTADINE 100 MG CAP PO ×2 (10:05→20:13)
[2017-11-08] MEDS: MYCOPHENOLATE MOFETIL 250 MG CAP (J7517) PO ×2 (10:06→20:14)
[2017-11-08] MEDS: TAMSULOSIN 0.4 MG CAP PO (20:14)
[2017-11-08] MEDS: oxyBUTYnin *DITROPAN XL* 5 MG TABCR PO (20:14)
[2017-11-09] MEDS: MEROPENEM INJ 1 GM in APPROPRIATE DILUENT 1 EA IV ×2 (02:38→09:51)
[2017-11-09] MEDS: LEVOTHYROXINE 25MCG TABLET (0.025MG) PO (05:54)
[2017-11-09] MEDS: SLF 3 ML SYR IV ×3 (05:55→20:43)
[2017-11-09] MEDS: HEPARIN SOD (PORCINE) 5000 UNITS/ML VIAL SC ×3 (05:55→20:42)
[2017-11-09 06:38] LABS: HEMATOCRIT 42.1 % (42.0-52.0); HEMOGLOBIN 13.2 g/dl (13.5-17.5); MEAN CORPUSCULAR HEMOGLOBIN 28.2 pg (27.0-33.0); MEAN CORPUSCULAR HGB CONC 31.4 g/dl (32.0-36.5); PLATELET COUNT, AUTOMATED 283 10^3/uL (150-450); RED BLOOD COUNT 4.68 10^6/uL (4.30-6.10); RED CELL DISTRIBUTION WIDTH 14.1 % (11.5-14.5); WHITE BLOOD COUNT 10.4 10^3/uL (4.0-10.0)
[2017-11-09 06:41] LABS: ADD MANUAL DIFFER YES; DIFF SLIDE NUMBER 63; POS COUNT POS FLAG; POSITIVE MORPH POS FLAG
[2017-11-09 07:00] LABS: ALBUMIN 2.6 GM/DL (3.2-5.2); ALBUMIN/GLOBULIN RATIO 0.74 (1.00-1.93); ALKALINE PHOSPHATASE 506 U/L (45-117); ALT/SGPT 75 U/L (12-78); ANION GAP 6 MEQ/L (8-16); AST/SGOT 54 U/L (7-37); BILIRUBIN,TOTAL 0.5 MG/DL (0.2-1.0); BLOOD UREA NITROGEN 24 MG/DL (7-18); C REACTIVE PROTEIN QUANTITATIV 2.11 MG/DL (0.00-0.30); CALCIUM LEVEL 8.4 MG/DL (8.8-10.2); CARBON DIOXIDE LEVEL 27 MEQ/L (21-32); CHLORIDE LEVEL 112 MEQ/L (98-107); CREATININE FOR GFR 0.75 MG/DL (0.70-1.30); GLOMERULAR FILTRATION RATE > 60.0 (>49); GLUCOSE, FASTING 94 MG/DL (70-100); MAGNESIUM LEVEL 2.2 MG/DL (1.8-2.4); POTASSIUM SERUM 3.9 MEQ/L (3.5-5.1); SODIUM LEVEL 145 MEQ/L (136-145); TOTAL PROTEIN 6.1 GM/DL (6.4-8.2)
[2017-11-09 07:19] LABS: ATYPICAL LYMPH 5 % (0-5); BASOPHILS 2 % (0-4); EOSINOPHILS 2 % (0-5); LYMPHOCYTES 21 % (16-52); METAMYELOCYTES 1 % (0-0); MONOCYTES 4 % (0-8); NEUTROPHILS 65 % (35-75)
[2017-11-09 07:20] LABS: PLATELET ESTIMATE NORMAL (NORMAL)
[2017-11-09] MEDS: SENOKOT S TAB PO ×2 (09:00→20:42)
[2017-11-09] MEDS: MYCOPHENOLATE MOFETIL 250 MG CAP (J7517) PO ×2 (09:49→20:41)
[2017-11-09] MEDS: VITAMIN D 1,000 INTERNATIONAL UNITS TABLET PO (09:49)
[2017-11-09] MEDS: BACLOFEN 10 MG TAB PO ×3 (09:50→20:42)
[2017-11-09] MEDS: GABAPENTIN 400 MG CAP PO ×3 (09:50→20:41)
[2017-11-09] MEDS: MULTIVITAMINS/MINERALS THERAP 1 TAB PO (09:50)
[2017-11-09] MEDS: AMANTADINE 100 MG CAP PO ×2 (09:50→20:42)
[2017-11-09] MEDS: oxyBUTYnin *DITROPAN XL* 5 MG TABCR PO (20:42)
[2017-11-09] MEDS: TAMSULOSIN 0.4 MG CAP PO (20:42)
[2017-11-10 06:05] LABS: BASO # 0.1 10^3/uL (0.0-0.2); BASO % 0.8 % (0.0-1.0); EOS # 0.3 10^3/uL (0.0-0.50); EOS % 2.7 % (0.0-3.0); HEMATOCRIT 41.4 % (42.0-52.0); HEMOGLOBIN 13.1 g/dl (13.5-17.5); IMMATURE GRANULOCYTE % 2.9 % (0-3.0); LYMPH # 2.8 10^3/uL (1.5-4.5); LYMPH % 27.1 % (24.0-44.0); MEAN CORPUSCULAR HEMOGLOBIN 28.5 pg (27.0-33.0); MEAN CORPUSCULAR HGB CONC 31.6 g/dl (32.0-36.5); MONO # 0.7 10^3/uL (0.0-0.8); MONO % 6.9 % (0.0-5.0); NEUTROPHILS # 6.2 10^3/uL (1.8-7.7); NEUTROPHILS % 59.6 % (36.0-66.0); PLATELET COUNT, AUTOMATED 309 10^3/uL (150-450); WHITE BLOOD COUNT 10.3 10^3/uL (4.0-10.0)
[2017-11-10] MEDS: LEVOTHYROXINE 25MCG TABLET (0.025MG) PO (06:18)
[2017-11-10] MEDS: HEPARIN SOD (PORCINE) 5000 UNITS/ML VIAL SC (06:19)
[2017-11-10] MEDS: SLF 3 ML SYR IV (06:19)
[2017-11-10 06:28] LABS: ALBUMIN 2.6 GM/DL (3.2-5.2); ALBUMIN/GLOBULIN RATIO 0.76 (1.00-1.93); ALKALINE PHOSPHATASE 498 U/L (45-117); ALT/SGPT 65 U/L (12-78); ANION GAP 6 MEQ/L (8-16); AST/SGOT 50 U/L (7-37); BILIRUBIN,TOTAL 0.6 MG/DL (0.2-1.0); BLOOD UREA NITROGEN 22 MG/DL (7-18); C REACTIVE PROTEIN QUANTITATIV 1.18 MG/DL (0.00-0.30); CALCIUM LEVEL 8.4 MG/DL (8.8-10.2); CARBON DIOXIDE LEVEL 27 MEQ/L (21-32); CHLORIDE LEVEL 111 MEQ/L (98-107); CREATININE FOR GFR 0.75 MG/DL (0.70-1.30); GLOMERULAR FILTRATION RATE > 60.0 (>49); GLUCOSE, FASTING 88 MG/DL (70-100); MAGNESIUM LEVEL 2.3 MG/DL (1.8-2.4); POTASSIUM SERUM 3.9 MEQ/L (3.5-5.1); SODIUM LEVEL 144 MEQ/L (136-145)
[2017-11-10] MEDS: SENOKOT S TAB PO (09:00)
[2017-11-10] MEDS: AMANTADINE 100 MG CAP PO (09:56)
[2017-11-10] MEDS: BACLOFEN 10 MG TAB PO (09:56)
[2017-11-10] MEDS: MYCOPHENOLATE MOFETIL 250 MG CAP (J7517) PO (09:56)
[2017-11-10] MEDS: VITAMIN D 1,000 INTERNATIONAL UNITS TABLET PO (09:56)
[2017-11-10] MEDS: GABAPENTIN 400 MG CAP PO (09:57)
[2017-11-10] MEDS: MULTIVITAMINS/MINERALS THERAP 1 TAB PO (09:57)
== END 2017-11-10 13:13 | disposition other institution (70) | DRG 854 ==
LOC: M ICU 10-31 04:20 → M PCU 11-02 16:43 → M MS5PR 11-04 18:31 → M ED 15:03 → M ED INP 22:38
PROC: 0FT44ZZ Resection of Gallbladder, Percutaneous Endoscopic Approach (ICD-10-PCS; principal; 2017-11-02 09:58)
DX: A41.9 Sepsis, unspecified organism (principal); N39.0 Urinary tract infection, site not specified; K81.0 Acute cholecystitis; E87.2 Acidosis; G35 Multiple sclerosis; G40.909 Epilepsy, unspecified, not intractable, without status epilepticus; K59.00 Constipation, unspecified; G47.33 Obstructive sleep apnea (adult) (pediatric); Z99.89 Dependence on other enabling machines and devices; E03.9 Hypothyroidism, unspecified; I87.2 Venous insufficiency (chronic) (peripheral); R33.9 Retention of urine, unspecified; Z79.899 Other long term (current) drug therapy; Z88.0 Allergy status to penicillin

== ENCOUNTER → 2017-12-05 | Outpatient (REF) | payer MEDICARE ==
[2017-12-05 18:50] LABS: BASO % 0.2 % (0.0-1.0); EOS # 0.1 10^3/uL (0.0-0.50); EOS % 1.4 % (0.0-3.0); HEMATOCRIT 47.3 % (42.0-52.0); HEMOGLOBIN 15.2 g/dl (13.5-17.5); IMMATURE GRANULOCYTE % 0.5 % (0-3.0); LYMPH # 1.6 10^3/uL (1.5-4.5); LYMPH % 16.8 % (24.0-44.0); MEAN CORPUSCULAR HEMOGLOBIN 29.2 pg (27.0-33.0); MEAN CORPUSCULAR HGB CONC 32.1 g/dl (32.0-36.5); MEAN CORPUSCULAR VOLUME 90.8 fl (80.0-96.0); MONO # 0.6 10^3/uL (0.0-0.8); MONO % 6.4 % (0.0-5.0); NEUTROPHILS # 6.9 10^3/uL (1.8-7.7); NEUTROPHILS % 74.7 % (36.0-66.0); PLATELET COUNT, AUTOMATED 224 10^3/uL (150-450); RED BLOOD COUNT 5.21 10^6/uL (4.30-6.10); WHITE BLOOD COUNT 9.3 10^3/uL (4.0-10.0)
[2017-12-05 19:06] LABS: ALBUMIN 3.5 GM/DL (3.2-5.2); ALKALINE PHOSPHATASE 367 U/L (45-117); ALT/SGPT 69 U/L (12-78); ANION GAP 8 MEQ/L (8-16); AST/SGOT 44 U/L (7-37); BILIRUBIN,TOTAL 0.6 MG/DL (0.2-1.0); BLOOD UREA NITROGEN 21 MG/DL (7-18); CALCIUM LEVEL 8.4 MG/DL (8.8-10.2); CARBON DIOXIDE LEVEL 28 MEQ/L (21-32); CHLORIDE LEVEL 108 MEQ/L (98-107); CREATININE FOR GFR 0.82 MG/DL (0.70-1.30); GLOMERULAR FILTRATION RATE > 60.0 (>49); GLUCOSE, FASTING 140 MG/DL (70-100); POTASSIUM SERUM 3.9 MEQ/L (3.5-5.1); SODIUM LEVEL 144 MEQ/L (136-145); TOTAL PROTEIN 6.2 GM/DL (6.4-8.2)
== END ==
LOC: M LABNEURO 12:55
DX: M62.81 Muscle weakness (generalized) (principal)
CPT/HCPCS: 80053

== ENCOUNTER → 2017-12-06 | Outpatient (REF) | payer MEDICARE ==
[2017-12-06 11:38] LABS: APPEARANCE, URINE CLEAR (CLEAR); BACTERIA, URINE AUTO NEGATIVE (NEGATIVE); BILIRUBIN, URINE AUTO NEGATIVE (NEGATIVE); BLOOD, URINE BLOOD NEGATIVE (NEGATIVE); COLOR, URINE YELLOW (YELLOW); GLUCOSE, URINE (UA) AUTO NEGATIVE (NEGATIVE); KETONE, URINE AUTO NEGATIVE (NEGATIVE); LEUKOCYTE ESTERASE, URINE AUTO NEGATIVE (NEGATIVE); MUCUS, URINE SMALL (NEGATIVE); NITRITE, URINE AUTO NEGATIVE (NEGATIVE); PROTEIN, URINE AUTO NEGATIVE (NEGATIVE); RBC, URINE AUTO 0 /HPF (0-3); SPECIFIC GRAVITY URINE AUTO 1.018 (1.002-1.035); SQUAMOUS EPITHELIAL CELL UR AU 0 /HPF (0-6); UROBILINOGEN, URINE AUTO 0.2 mg/dL (0.0-2.0); WBC, URINE AUTO 0 /HPF (0-3)
== END ==
LOC: M LAB REF 11:07
DX: G35 Multiple sclerosis (principal)
CPT/HCPCS: 81001

== ENCOUNTER → 2018-05-15 | Outpatient (REF) | payer MEDICARE ==
[2018-05-15 18:23] LABS: ESTIMATED AVERAGE GLUCOSE 103 MG/DL (60-110); HEMOGLOBIN A1c 5.2 %
[2018-05-15 18:51] LABS: ALBUMIN 3.6 GM/DL (3.2-5.2); ALBUMIN/GLOBULIN RATIO 1.33 (1.00-1.93); ALKALINE PHOSPHATASE 301 U/L (45-117); ALT/SGPT 49 U/L (12-78); ANION GAP 9 MEQ/L (8-16); AST/SGOT 33 U/L (7-37); BLOOD UREA NITROGEN 18 MG/DL (7-18); CALCIUM LEVEL 8.6 MG/DL (8.8-10.2); CARBON DIOXIDE LEVEL 27 MEQ/L (21-32); CHLORIDE LEVEL 104 MEQ/L (98-107); CREATININE FOR GFR 0.87 MG/DL (0.70-1.30); GLOMERULAR FILTRATION RATE > 60.0 (>49); GLUCOSE, FASTING 57 MG/DL (70-100); POTASSIUM SERUM 4.5 MEQ/L (3.5-5.1); RHEUMATOID FACTOR QUANT < 10.0 IU/ML (<15.0); SODIUM LEVEL 140 MEQ/L (136-145); TOTAL PROTEIN 6.3 GM/DL (6.4-8.2)
[2018-05-15 18:52] LABS: FOLATE 21.8 NG/ML (>5.4); TOTAL 25(OH) VITAMIN D 42.2 NG/ML (30.0-100.0)
[2018-05-15 19:23] LABS: ERYTHROCYTE SEDIMENTATION RATE 2 mm/hr (0-20)
[2018-05-16 11:14] LABS: DRVV SCREEN 46.5 SEC
[2018-05-16 11:17] LABS: PTT LUPUS TYPE ANTICOAG SCREEN 1.1 (0-1.2)
[2018-05-17 11:07] LABS: ALBUMIN % 63.5 % (55.8-66.1); ALPHA-1-GLOBULIN % 3.9 % (2.9-4.9); ALPHA-1-GLOBULINS 0.25 GM/DL (0.17-0.41); ALPHA-2-GLOBULINS 0.68 GM/DL (0.42-0.99); ALPHA-2-GLOBULINS % 10.8 % (7.1-11.8); BETA-1-GLOBULINS % 6.3 % (4.7-7.2); BETA-2-GLOBULINS % 4.7 % (3.2-6.5); GAMMA GLOBULIN % 10.8 % (11.1-18.8); GAMMA GLOBULINS 0.68 GM/DL (0.65-1.58)
[2018-05-19 08:06] LABS: ANCA-ATYPICAL <1:20 titer (Neg:<1:20); ANTI DOUBLE STRAND-DNA AB <1 IU/mL (0-9); ANTINUCLEAR ANTIBODIES DIRECT Negative (Negative); CERULOPLASMIN 25.6 mg/dL (16.0-31.0); COPPER PLASMA 111 ug/dL (72-166); CYTOPLASMIC NEUTROP AB ANCA-C <1:20 titer (Neg:<1:20); LEAD BLOOD ADULT 1 ug/dL (0-4); MERCURY LEVEL None Detected ug/L (0.0-14.9); PERINUCLEAR AB ANCA-P <1:20 titer (Neg:<1:20); SJOGREN'S ANTI SS-A <0.2 AI (0.0-0.9); SJOGREN'S ANTI SS-B <0.2 AI (0.0-0.9); VITAMIN B1 LEVEL WHOLE BLOOD 155.7 nmol/L (66.5-200.0); VITAMIN B6,PYRIDOXAL PHOSPHATE 8.3 ug/L (5.3-46.7); VITAMIN E(ALPHA TOCOPHEROL) 9.1 mg/L (9.0-29.0); VITAMIN E(GAMMA TOCOPHEROL) 0.5 mg/L (0.5-4.9)
== END ==
LOC: M LABNEURO 15:08
DX: G35 Multiple sclerosis (principal); G62.9 Polyneuropathy, unspecified
CPT/HCPCS: 82525

== ENCOUNTER 2018-08-12 17:13 | Emergency (ER) | payer MEDICARE ==
[~2018-08-12] VITALS: Ht 177.8 cm; Wt 84.1 kg
[~2018-08-12 17:13] MED LIST changes: -BACL10TA5 PO; +BACL10TA8 PO; +BACL1TAB8; +FLOM0.4C39 PO; -FLOM5CAP PO; -GABA-283 PO; +GABA-845 PO; +OXYB10TA PO; +SENN1TAB2 PO; +VITMTA PO
[2018-08-12 17:40] LABS: BASO % 0.3 % (0.0-1.0); EOS # 0.1 10^3/uL (0.0-0.50); EOS % 0.9 % (0.0-3.0); HEMATOCRIT 47.8 % (42.0-52.0); HEMOGLOBIN 15.6 g/dl (13.5-17.5); LYMPH # 1.4 10^3/uL (1.5-4.5); MEAN CORPUSCULAR HEMOGLOBIN 28.9 pg (27.0-33.0); MEAN CORPUSCULAR HGB CONC 32.6 g/dl (32.0-36.5); MEAN CORPUSCULAR VOLUME 88.7 fl (80.0-96.0); MONO # 0.4 10^3/uL (0.0-0.8); MONO % 5.1 % (0.0-5.0); NEUTROPHILS # 5.8 10^3/uL (1.8-7.7); NEUTROPHILS % 74.8 % (36.0-66.0); PLATELET COUNT, AUTOMATED 231 10^3/uL (150-450); RED BLOOD COUNT 5.39 10^6/uL (4.30-6.10); WHITE BLOOD COUNT 7.7 10^3/uL (4.0-10.0)
--- NOTE | 2018-08-12 17:46 | REP ---
Clinical: Seizures. Comparison: 11/10/2016 Findings: Age-related atrophy and microvascular ischemic changes are appreciated. The ventricles and sulci are symmetric. Vick-white differentiation is maintained. There is no evidence for acute intracranial hemorrhage, mass/mass effect, pathology or infarction. No extra-axial fluid collection. Calvarium is intact. Paranasal sinuses and mastoid air cells are clear. Impression: Age related atrophy and microvascular ischemic changes. No acute intracranial hemorrhage, infarction, or mass/mass effect. Electronically Signed by Russ Dave MD 08/12/2018 05:37 P
--- NOTE | 2018-08-12 17:54 | REP ---
Clinical: Altered mental status. Comparison: 12/22/2016 . Findings: The mediastinum and cardiac silhouette are stable and within normal limits for portable technique. The lung parrish are clear without acute consolidation, effusion, or pneumothorax. Skeletal structures are intact. Impression: No acute cardiopulmonary process appreciated. Electronically Signed by Russ Dave MD 08/12/2018 05:46 P
[2018-08-12 18:16] LABS: ALBUMIN 3.6 GM/DL (3.2-5.2); ALT/SGPT 56 U/L (12-78); BILIRUBIN,DIRECT 0.2 MG/DL (0.0-0.2); BILIRUBIN,TOTAL 0.8 MG/DL (0.2-1.0); BLOOD UREA NITROGEN 16 MG/DL (7-18); CALCIUM LEVEL 8.7 MG/DL (8.8-10.2); CARBON DIOXIDE LEVEL 28 MEQ/L (21-32); CHLORIDE LEVEL 105 MEQ/L (98-107); CPK CREATINE PHOSPHOKINASE 88 U/L (39-308); CREATININE FOR GFR 1.17 MG/DL (0.70-1.30); GLOMERULAR FILTRATION RATE > 60.0 (>49); GLUCOSE, FASTING 161 MG/DL (70-100); MB/CK RELATIVE INDEX 2.73 (< OR =4); POTASSIUM SERUM 4.6 MEQ/L (3.5-5.1); SODIUM LEVEL 142 MEQ/L (136-145); TOTAL PROTEIN 6.3 GM/DL (6.4-8.2); TROPONIN I < 0.02 NG/ML (< 0.10)
--- NOTE | 2018-08-12 18:26 | ECGEPIP ---
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
[2018-08-12] MEDS ORDERED: IBUPROFEN 400 MG TAB PO ONE (19:15)
[2018-08-12 20:17] LABS: FREE T4 1.31 NG/DL (0.76-1.46)
[2018-08-12] MEDS ORDERED: DEPA500T2 PO (20:18)
[2018-08-12] MEDS ORDERED: VALPROATE SOD INJ 1,000 MG in D5W 50 ML IV ONE (20:30)
[2018-08-12 21:45] VITALS: BP 168/90
== END 2018-08-12 22:01 | disposition home or self-care (01) ==
LOC: EDBD 17:13 → M ED 17:13
DX: R56.9 Unspecified convulsions (principal); G47.33 Obstructive sleep apnea (adult) (pediatric)

== ENCOUNTER → 2018-08-17 | Outpatient (REF) | payer MEDICARE ==
[~2018-08-17] MED LIST changes: +DEPA500T2 PO
== END ==
LOC: M LAB REF 16:28
PROVIDERS: ATTEND Internal Medicine
DX: G40.309 Generalized idiopathic epilepsy and epileptic syndromes, not intractable, without status epilepticus (principal)

== ENCOUNTER → 2018-09-03 | Outpatient (CLI) | payer MEDICARE | LOC: M LAB 16:30 | PROVIDERS: ATTEND Psychiatry & Neurology Neurology | DX: R56.9 Unspecified convulsions (principal); Z51.81 Encounter for therapeutic drug level monitoring ==

== ENCOUNTER → 2018-09-03 | Outpatient (CLI) | payer MEDICARE | LOC: M LAB 16:37 | PROVIDERS: ATTEND Nurse Practitioner Women's Health | DX: Z12.5 Encounter for screening for malignant neoplasm of prostate (principal); R56.9 Unspecified convulsions; Z51.81 Encounter for therapeutic drug level monitoring | CPT/HCPCS: 36415; 80164; G0103 ==

== ENCOUNTER → 2018-09-24 | Outpatient (CLI) | payer MEDICARE ==
[2018-09-24 15:57] LABS: BASO % 0.5 % (0.0-1.0); EOS # 0.2 10^3/uL (0.0-0.50); EOS % 2.8 % (0.0-3.0); HEMATOCRIT 50.5 % (42.0-52.0); HEMOGLOBIN 16.3 g/dl (13.5-17.5); LYMPH # 1.5 10^3/uL (1.5-4.5); LYMPH % 19.3 % (24.0-44.0); MEAN CORPUSCULAR HEMOGLOBIN 29.3 pg (27.0-33.0); MEAN CORPUSCULAR HGB CONC 32.3 g/dl (32.0-36.5); MEAN CORPUSCULAR VOLUME 90.8 fl (80.0-96.0); MONO # 0.7 10^3/uL (0.0-0.8); MONO % 8.3 % (0.0-5.0); NEUTROPHILS # 5.4 10^3/uL (1.8-7.7); NEUTROPHILS % 68.6 % (36.0-66.0); PLATELET COUNT, AUTOMATED 191 10^3/uL (150-450); RED BLOOD COUNT 5.56 10^6/uL (4.30-6.10); WHITE BLOOD COUNT 7.8 10^3/uL (4.0-10.0)
[2018-09-24 16:25] LABS: ALBUMIN 3.7 GM/DL (3.2-5.2); ALT/SGPT 73 U/L (12-78); BILIRUBIN,TOTAL 0.8 MG/DL (0.2-1.0); BLOOD UREA NITROGEN 22 MG/DL (7-18); CARBON DIOXIDE LEVEL 31 MEQ/L (21-32); CHLORIDE LEVEL 105 MEQ/L (98-107); CREATININE FOR GFR 0.91 MG/DL (0.70-1.30); GLOMERULAR FILTRATION RATE > 60.0 (>49); GLUCOSE, FASTING 88 MG/DL (70-100); POTASSIUM SERUM 4.2 MEQ/L (3.5-5.1); SODIUM LEVEL 143 MEQ/L (136-145); TOTAL PROTEIN 6.6 GM/DL (6.4-8.2); VALPROIC ACID (DEPAKOTE) 57.8 UG/ML (50.0-100.0)
== END ==
LOC: M LAB 15:20
PROVIDERS: ATTEND Psychiatry & Neurology Neurology
DX: R56.9 Unspecified convulsions (principal); Z51.81 Encounter for therapeutic drug level monitoring

== ENCOUNTER 2018-10-03 20:25 | Emergency (ER) | payer MEDICARE ==
[2018-10-03] MEDS ORDERED: DIVA500T9 (20:38)
[2018-10-03] MEDS ORDERED: NS 1,000 ML IV SCH (21:00)
[2018-10-03 21:04] LABS: BASO % 0.3 % (0.0-1.0); EOS # 0.2 10^3/uL (0.0-0.50); EOS % 2.3 % (0.0-3.0); HEMATOCRIT 48.7 % (42.0-52.0); HEMOGLOBIN 15.6 g/dl (13.5-17.5); LYMPH # 1.4 10^3/uL (1.5-4.5); LYMPH % 20.8 % (24.0-44.0); MEAN CORPUSCULAR HEMOGLOBIN 29.4 pg (27.0-33.0); MEAN CORPUSCULAR VOLUME 91.7 fl (80.0-96.0); MONO # 0.4 10^3/uL (0.0-0.8); MONO % 5.2 % (0.0-5.0); NEUTROPHILS # 4.9 10^3/uL (1.8-7.7); NEUTROPHILS % 70.8 % (36.0-66.0); PLATELET COUNT, AUTOMATED 209 10^3/uL (150-450); RED BLOOD COUNT 5.31 10^6/uL (4.30-6.10); WHITE BLOOD COUNT 6.9 10^3/uL (4.0-10.0)
--- NOTE | 2018-10-03 21:29 | ECGEPIP ---
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
[2018-10-03 21:37] LABS: ALBUMIN 3.5 GM/DL (3.2-5.2); ALT/SGPT 63 U/L (12-78); BILIRUBIN,DIRECT 0.1 MG/DL (0.0-0.2); BILIRUBIN,TOTAL 0.4 MG/DL (0.2-1.0); BLOOD UREA NITROGEN 26 MG/DL (7-18); CALCIUM LEVEL 8.8 MG/DL (8.8-10.2); CARBON DIOXIDE LEVEL 30 MEQ/L (21-32); CHLORIDE LEVEL 103 MEQ/L (98-107); CPK CREATINE PHOSPHOKINASE 71 U/L (39-308); CREATININE FOR GFR 1.24 MG/DL (0.70-1.30); GLOMERULAR FILTRATION RATE > 60.0 (>49); GLUCOSE, FASTING 112 MG/DL (70-100); MB/CK RELATIVE INDEX 4.79 (< OR =4); POTASSIUM SERUM 4.2 MEQ/L (3.5-5.1); SODIUM LEVEL 141 MEQ/L (136-145); TOTAL PROTEIN 6.7 GM/DL (6.4-8.2); TROPONIN I < 0.02 NG/ML (< 0.10)
[2018-10-03 21:57] LABS: INFLUENZA A AMPLIFICATION NEGATIVE (NEGATIVE); INFLUENZA B AMPLIFICATION NEGATIVE (NEGATIVE)
--- NOTE | 2018-10-03 22:07 | REPVR ---
EXAM: CT Head Without Contrast EXAM DATE/TIME: 10/03/2018 9:15 PM CLINICAL HISTORY: 67 years old, male; Signs and symptoms; Altered mental status/memory loss; Additional info: Altered mentation TECHNIQUE: Imaging protocol: Axial computed tomography images of the head/brain without contrast. Radiation optimization: All CT scans at this facility use at least one of these dose optimization techniques: automated exposure control; mA and/or kV adjustment per patient size (includes targeted exams where dose is matched to clinical indication); or iterative reconstruction. COMPARISON: CT Head without contrast 08/12/2018 5:23 PM FINDINGS: Brain: There is minimal patchy low attenuation of deep white matter. There is mild prominence of the peripheral sulci. Ventricles: There is slight prominence of the central ventricular system. Bones/joints: Unremarkable. No acute fracture. Sinuses: Visualized sinuses are unremarkable. No acute sinusitis. Mastoid air cells: Visualized mastoid air cells are unremarkable. No mastoid effusion. Soft tissues: Unremarkable. IMPRESSION: 1. There has been no change since 08/12/2018. No acute interval intracranial process is identified. 2. Minimal chronic ischemic white matter change and mild atrophy for age. Electronically signed by: Seymour Valdez On 10/03/2018 22:07:34 PM
[2018-10-03] MEDS ORDERED: ACETAMINOPHEN TAB 650MG DOSE (2X325MG) As Ordered ONE (22:08)
[2018-10-03] MEDS ORDERED: ACETAMINOPHEN TAB 650MG DOSE (2X325MG) PO ONE (22:15)
[2018-10-03] MEDS ORDERED: DEPA250T2 PO (22:43)
[2018-10-03] MEDS ORDERED: DIVALPROEX 250MG *ER* TAB PO ONE (22:45)
[2018-10-03 23:00] VITALS: BP 148/86
--- NOTE | 2018-10-04 08:57 | REP ---
CHEST: Single view. There is no evidence of acute infiltrate. No pleural effusion is seen. The heart is normal in size. The mediastinal silhouette is unremarkable. The visualized osseous structures are intact. IMPRESSION: No acute pulmonary disease. Electronically Signed by Micah Vick MD 10/04/2018 03:54 P
== END 2018-10-03 23:26 | disposition home or self-care (01) ==
LOC: M ED 20:25
DX: G40.909 Epilepsy, unspecified, not intractable, without status epilepticus (principal); Z79.899 Other long term (current) drug therapy; Z79.890 Hormone replacement therapy; Z88.0 Allergy status to penicillin

== ENCOUNTER → 2018-10-19 | Outpatient (CLI) | payer MEDICARE ==
[~2018-10-19] MED LIST changes: +CENTCHW3 PO; +CIPR-249 PO; +D200CAP2 PO; +DEPA250T2 PO; +DIVA500T9; +DIVA500T9 PO; +LAMO25TA4 PO; -SENN1TAB2 PO; +SENN1TAB40 PO; +SYNT50TA PO
== END ==
LOC: M LABDRWSH 11:00
PROVIDERS: ATTEND Psychiatry & Neurology Neurology
DX: R56.9 Unspecified convulsions (principal); Z51.81 Encounter for therapeutic drug level monitoring

== ENCOUNTER 2018-11-05 20:09 | Inpatient (IN) | payer MEDICARE ==
[~2018-11-05] VITALS: Ht 180.3 cm; Wt 86.2 kg
[~2018-11-05 20:09] MED LIST changes: -CENTCHW3 PO; -CIPR-249 PO; -D200CAP2 PO; -DIVA500T9 PO; -LAMO25TA4 PO; -SYNT50TA PO
[2018-11-05 22:07] LABS: BASO % 0.3 % (0.0-1.0); EOS # 0.1 10^3/uL (0.0-0.50); EOS % 0.8 % (0.0-3.0); HEMATOCRIT 48.1 % (42.0-52.0); HEMOGLOBIN 15.5 g/dl (13.5-17.5); LYMPH # 1.7 10^3/uL (1.5-4.5); LYMPH % 12.9 % (24.0-44.0); MEAN CORPUSCULAR HEMOGLOBIN 29.5 pg (27.0-33.0); MEAN CORPUSCULAR HGB CONC 32.2 g/dl (32.0-36.5); MEAN CORPUSCULAR VOLUME 91.6 fl (80.0-96.0); MONO # 1.2 10^3/uL (0.0-0.8); MONO % 9.3 % (0.0-5.0); NEUTROPHILS # 9.9 10^3/uL (1.8-7.7); NEUTROPHILS % 75.7 % (36.0-66.0); PLATELET COUNT, AUTOMATED 190 10^3/uL (150-450); RED BLOOD COUNT 5.25 10^6/uL (4.30-6.10); WHITE BLOOD COUNT 13.1 10^3/uL (4.0-10.0)
[2018-11-05 22:35] LABS: VALPROIC ACID (DEPAKOTE) 50.2 UG/ML (50.0-100.0)
[2018-11-05 22:39] LABS: CPK CREATINE PHOSPHOKINASE 69 U/L (39-308); MB/CK RELATIVE INDEX 6.52 (< OR =4); TROPONIN I < 0.02 NG/ML (< 0.10)
[2018-11-05 22:44] LABS: ALBUMIN 3.6 GM/DL (3.2-5.2); ALT/SGPT 92 U/L (12-78); BILIRUBIN,DIRECT 0.2 MG/DL (0.0-0.2); BILIRUBIN,TOTAL 0.7 MG/DL (0.2-1.0); BLOOD UREA NITROGEN 25 MG/DL (7-18); CALCIUM LEVEL 9.2 MG/DL (8.8-10.2); CARBON DIOXIDE LEVEL 28 MEQ/L (21-32); CHLORIDE LEVEL 104 MEQ/L (98-107); CREATININE FOR GFR 0.94 MG/DL (0.70-1.30); GLOMERULAR FILTRATION RATE > 60.0 (>49); GLUCOSE, FASTING 90 MG/DL (70-100); POTASSIUM SERUM 4.3 MEQ/L (3.5-5.1); SODIUM LEVEL 140 MEQ/L (136-145); TOTAL PROTEIN 6.6 GM/DL (6.4-8.2)
[2018-11-05] MEDS ORDERED: CIPROFLOXACIN 400 MG in APPROPRIATE DILUENT 1 EA IV ONE (23:00)
[2018-11-06] MEDS ORDERED: CENTCHW3 PO (00:25)
[2018-11-06] MEDS ORDERED: D200CAP2 PO (00:25)
[2018-11-06] MEDS ORDERED: LAMO25TA4 PO (00:25)
[2018-11-06] MEDS ORDERED: SYNT50TA PO (00:25)
[2018-11-06] MEDS ORDERED: GABA-845 PO (00:25)
[2018-11-06] MEDS ORDERED: DIVA500T9 PO (00:25)
[2018-11-06] MEDS ORDERED: MOM 30ML SUSPENSION UDC PO PRN (00:30)
[2018-11-06] MEDS ORDERED: ACETAMINOPHEN TAB 650MG DOSE (2X325MG) PO PRN (00:30)
--- NOTE | 2018-11-06 00:30 | REPVR ---
EXAM: CT Abdomen and Pelvis Without Contrast EXAM DATE/TIME: 11/05/2018 10:30 PM CLINICAL HISTORY: 67 years old, male; Abdominal pain; Generalized; Patient HX: Urinary symptoms; Additional info: Pyelonephritis TECHNIQUE: Imaging protocol: Axial computed tomography images of the abdomen and pelvis without contrast. Coronal and sagittal reformatted images were created and reviewed. Radiation optimization: All CT scans at this facility use at least one of these dose optimization techniques: automated exposure control; mA and/or kV adjustment per patient size (includes targeted exams where dose is matched to clinical indication); or iterative reconstruction. COMPARISON: CT ABD/PEL W/IV ORAL CONTRAS 10/30/2017 6:46 PM FINDINGS: ABDOMEN: Liver: Normal. No mass. Gallbladder and bile ducts: Surgical clips noted in the gallbladder fossa. The gallbladder is absent. Pancreas: Normal. No ductal dilation. Spleen: Normal. No splenomegaly. Adrenals: Normal. No mass. Kidneys and ureters: 8mm hyperdense cyst in the midportion of the left kidney. No hydronephrosis in either kidney. The most drain in noted in the perinephric fat unchanged from previous. Stomach and bowel: Large amount of stool noted within the transverse, descending and rectosigmoid colon. Appendix: No evidence of appendicitis. PELVIS: Bladder: Unremarkable as visualized. Reproductive: The left testicle is positioned low in the left inguinal canal. ABDOMEN and PELVIS: Intraperitoneal space: Normal. No free air. No significant fluid collection. Bones/joints: No acute fracture. No dislocation. Degenerative changes noted in the thoracolumbar spine. Soft tissues: There is a left inguinal hernia containing fat. Vasculature: Normal. No abdominal aortic aneurysm. Lymph nodes: Normal. No enlarged lymph nodes. IMPRESSION: 1. Left inguinal hernia containing fat. The left testicle is positioned low in the left inguinal canal. 2. Large amount of stool in the transverse, descending and rectosigmoid colon. 3. No acute findings noted in either kidney. No hydronephrosis 4. Subcentimeter hemorrhagic cyst in the midportion of the left kidney without change from previous. COMMENT: Consistent with the [employer]'s Incidental Findings Committee Report (J Am Everett Radiol 2010): Unless the patient's specific circumstances suggest otherwise, any liver lesion 0.5 cm or less, any cystic kidney lesion less than 1.0 cm, and/or any adrenal lesion 1.0 cm or less not otherwise characterized in this report as possessing suspicious or indeterminate imaging features is/are highly likely to be benign and do not require follow-up imaging or biopsy. Electronically signed by: Annmarie Patel On 11/06/2018 00:30:04 AM
[2018-11-06 01:02] LABS: FREE T4 1.69 NG/DL (0.76-1.46)
--- NOTE | 2018-11-06 01:45 | ECGEPIP ---
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
[2018-11-06] MEDS: ENOXAPARIN 40 MG/0.4 ML SYRINGE (J1650) SC SCH ×2 (03:43→21:07)
[2018-11-06] MEDS ORDERED: NS 1,000 ML IV SCH (05:15)
--- NOTE | 2018-11-06 05:40 | HPEPDOC ---
General Date of Admission Nov 06, 2018 at 01:00 Primary Care Physician: Jr Singh Collins Other Providers Neuro: Dr. Yady Rubio Urologist: Vicky Finch NP Pulm: "on the hill" Derm: in [place] Chief Complaint The patient is a 68-year-old male admitted with a reason for visit of Pyelonephritis. History of Present Illness 68-year-old male, with past medical history notable for progressively worsening Multiple Sclerosis and seizure disorder 2/2 MS, presents with after she noticed he was having increased incontinence and brown cloudy urine with pus with urgency and frequency over the past 1-2 weeks. Denies any other sx, including f/c/n/v/abd pain/flank pain. Also, she states normally he is able to take care of himself. He used to ambulate with rolling chair alternating with a walker, and able to go the bathroom and shower himself. However after October 19, he has gradually been declining to the point where he is requiring assistance with his day-to-day a ctivity and now is requiring bed baths. She states she is unable to care for him currently, and is also worried as he has now started to choke on his medications. She notes he had a seizure in July, and again in September despite being on antiepileptics. Since then, he has been more fatigued as his n eurologist has been up-titrating his medications. In the ER, he was noted to have a positive UA. Given concern for acute urinary infection and decline in conditioning, he will be admitted for further management. Home Medications Scheduled Amantadine HCl (Amantadine) 100 Mg Tab, 200 MG PO DAILY, (Reported) Amantadine HCl (Amantadine) 100 Mg Tab, 100 MG PO QHS, (Reported) Baclofen (Baclofen) 10 Mg Tab, 10 MG PO BID, (Reported) Cholecalciferol (Vitamin D3) (Vitamin D3) 2,000 Unit Capsule, 2,000 UNIT PO DAILY, (Reported) Divalproex Sodium (Divalproex Sodium ER) 500 Mg Tab.er.24h, 500 MG PO QHS, (Reported) Folic Acid/Multivit-Min/Lutein (Centrum Silver Chewable Tablet) 1 Each Tab.chew, 1 CHW PO DAILY, (Reported) Gabapentin (Gabapentin) 400 Mg Capsule, 400 MG PO TID, (Reported) Lamotrigine (Lamotrigine) 25 Mg Tablet, 25 MG PO ASDIRECTED, (Reported) 1 TABLET EVERY OTHER DAY FOR A WEEK, THEN 1 TABLET EVERY DAY FOR A WEEK, THEN 1 TABLET TWICE A DAY FOR A WEEK Levothyroxine Sodium (Synthroid) 50 Mcg Tablet, 50 MCG PO DAILY, (Reported) Mycophenolate Mofetil (Mycophenolate Mofetil) 500 Mg Tab, 1,000 MG PO BID, (Reported) Oxybutynin Chloride (Oxybutynin Chloride ER) 10 Mg Tab, 10 MG PO QHS, (Reported) Tamsulosin HCl (Flomax) 0.4 Mg Cap, 0.4 MG PO QHS, (Reported) Allergies Coded Allergies: Penicillins (Verified Allergy, Unknown, 11/05/18) Past Medical History Medical History Multiple sclerosis, diagnosed age 40 Seizure disorder 2/2 MS GENNY on CPAP 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 Socially drink quite decades ago. Currently on disability and lives at home with Review of Systems Other systems Constitutional: Denies fever, chills, weight loss HEENT: Denies headaches, dysphagia. Admits to choking on food Skin: Denies any rashes or lesions Pulmonary: Denies dyspnea, cough, wheezing Cardiac: Denies chest pain, palpitations, edema, lightheadedness GI: Denies nausea, vomiting, abdominal pain, changes in bowels : Admits urgency, frequency, increasing urinary incontinence, brown cloudy urine MSK: Admits worsening weakness throughout over the past few weeks. Denies new aches Neurologic: Admits baseline MS, denies new paresthesias or loss of motor/sensation Physical Examination Other physical findings Vitals: see below General: NAD, A&O, resting comfortably HEENT: NCAT, EOMI, anicteric sclera, Dry membranes CV: RRR, no murmurs, normal S1S2 RESP: CTAB, no w/r/r/ ABD: soft, NT, ND. Benign. Negative CVA tenderness or flank pain/tenderness EXTREMITIES: 2+ radial pulses b/l, able to move all extremities NEURO: baseline weakness from MS: 5/5 UE and 3-4/5 LE b/l Vital Signs Vital Signs Date Time Temp Pulse Resp B/P (MAP) Pulse Ox O2 Delivery O2 Flow Rate FiO2 11/06/18 03:45 154/65 (94) 11/06/18 03:39 56 18 96 Room Air 11/05/18 21:19 95.0 Laboratory Data Labs 24H Laboratory Tests 2 11/05/18 20:34: Urine Color TEDDY, Urine Appearance TURBIDH, Urine pH 5.0, Urine Specific [place] 1.025, Urine Protein 2+H, Urine Glucose (UA) NEGATIVE, Urine Ketones 1+H, Urine Blood 2+H, Urine Nitrite NEGATIVE, Urine Bilirubin NEGATIVE, Urine Urobilinogen 0.2, Urine Leukocyte Esterase 3+H, Urine WBC (Auto) TNTCH, Urine RBC (Auto) 60H, Urine Hyaline Casts (Auto) 0, Urine Bacteria (Auto) 3+H, Urine Squamous Epithelial Cells 2, Urine Mucus (Auto) SMALL, Urine Sperm (Auto) 11/05/18 21:55: Immature Granulocyte % (Auto) 1.0, White Blood Count 13.1H, Red Blood Count 5.25, Hemoglobin 15.5, Hematocrit 48.1, Mean Corpuscular Volume 91.6, Mean Corpuscular Hemoglobin 29.5, Mean Corpuscular Hemoglobin Concent 32.2, Red Cell Distribution Width 14.6H, Platelet Count 190, Neutrophils (%) (Auto) 75.7H, Lymphocytes (%) (Auto) 12.9L, Monocytes (%) (Auto) 9.3H, Eosinophils (%) (Auto) 0.8, Basophils (%) (Auto) 0.3, Neutrophils # (Auto) 9.9H, Lymphocytes # (Auto) 1.7, Monocytes # (Auto) 1.2H, Eosinophils # (Auto) 0.1, Basophils # (Auto) 0.0, Nucleated Red Blood Cells % (auto) 0.0, Anion Gap 8, Glomerular Filtration Rate > 60.0, Lactic Acid Level 0.9, Calcium Level 9.2, Aspartate Amino Transf (AST/SGOT) 71H, Alanine Aminotransferase (ALT/SGPT) 92H, Alkaline Phosphatase 360H, Total Bilirubin 0.7, Direct Bilirubin 0.2, Total Creatine Kinase 69, Creatine Kinase MB 4.0H, Creatine Kinase MB Relative Index 6.52H, Troponin I < 0.02, Total Protein 6.6, Albumin 3.6, Albumin/Globulin Ratio 1.20, Thyroid Stimulating Hormone (TSH) 4.970H, Free Thyroxine 1.69H, Valproic Acid (Depakene) Level 50.2 CBC/BMP Laboratory Tests 11/05/18 21:55 Red Blood Count 5.25, Mean Corpuscular Volume 91.6, Mean Corpuscular Hemoglobin 29.5, Mean Corpuscular Hemoglobin Concent 32.2, Red Cell Distribution Width 14.6 H, Neutrophils (%) (Auto) 75.7 H, Lymphocytes (%) (Auto) 12.9 L, Monocytes (%) (Auto) 9.3 H, Eosinophils (%) (Auto) 0.8, Basophils (%) (Auto) 0.3, Neutrophils # (Auto) 9.9 H, Lymphocytes # (Auto) 1.7, Monocytes # (Auto) 1.2 H, Eosinophils # (Auto) 0.1, Basophils # (Auto) 0.0 Microbiology Microbiology 11/05/18 Blood Culture, Received Pending 11/05/18 Blood Culture, Received Pending 11/05/18 Urine Culture, Received Pending Assessment/Plan UTI Positive UA, urinary urgency & frequency Urine culture pending. Previous cultures have never grown specific organism Given allergy to penicillin, will continue with IV ciprofloxacin Appears dehydrated on exam. Will give gentle IVF for one bag. Reassess after Generalized weakness and deconditioning Likely related to his progressively worsening MS, with added component of acute infection states she is unable to take care of him for the past few weeks Patient has gone from managing his own ADLs to now fully-dependent on others for self-care PFS consulted to assist with home situation PT/OT for functional optimization Dysphagia Per , he has been starting to choke on his medications. This is new for him Placed on aspiration precautions and pending swallow eval Multiple sclerosis diagnosed age 40 Continue home Amantadine Patient follows with neurologist Dr. Yady Rubio. Per patient, she has been readjusting his regimen states titrating his meds has worsened his fatigue. Consider consulting neuro in a.m. Seizure disorder 2/ MS Place on seizure precautions Continue home Lamotrigine & Depakote, levels WNL on admission Started Lamotrigine 11/02 for q2 days for 1 week, then inc to daily for 1 week, then inc to bid after. Will continue per home up-titration GENNY on CPAP Placed on GENNY protocol and encouraged to bring in his CPAP History of basal cell skin cancer, Deal's Ds S/P MOHs Follows with [place] Hypothyroidism Continue home Synthroid TSH and free T4 noted. Will require outpatient follow-up currently stable BPH continue home Flomax & Oxybutynin Venous insufficiency DVT ppx: Lovenox DISPO: Will admit to hospitalist service. PT/OT/PFS. Consider neuro consult in a.m. Plan / VTE VTE Prophylaxis Ordered?: Yes GME ATTESTATION GME ATTESTATION My faculty preceptor for this patient encounter was physically present during the encounter and was fully available. All aspects of the patient interview, examination, medical decision making process, and medical care plan development were reviewed and approved by the faculty preceptor. The faculty preceptor is aware and concurs with the plan as stated in the body of this note and will attest to such by his/her cosignature. DANY CHRISTIE DO Nov 06, 2018 05:40
[2018-11-06] MEDS: LEVOTHYROXINE 50MCG TABLET (0.05MG) PO SCH (06:17)
[2018-11-06 07:26] LABS: HEMATOCRIT 46.5 % (42.0-52.0); MEAN CORPUSCULAR HEMOGLOBIN 30.1 pg (27.0-33.0); MEAN CORPUSCULAR HGB CONC 32.3 g/dl (32.0-36.5); MEAN CORPUSCULAR VOLUME 93.2 fl (80.0-96.0); PLATELET COUNT, AUTOMATED 173 10^3/uL (150-450); RED BLOOD COUNT 4.99 10^6/uL (4.30-6.10); WHITE BLOOD COUNT 13.1 10^3/uL (4.0-10.0)
[2018-11-06 07:57] LABS: BLOOD UREA NITROGEN 23 MG/DL (7-18); CARBON DIOXIDE LEVEL 29 MEQ/L (21-32); CHLORIDE LEVEL 104 MEQ/L (98-107); CREATININE FOR GFR 0.87 MG/DL (0.70-1.30); GLOMERULAR FILTRATION RATE > 60.0 (>49); GLUCOSE, FASTING 79 MG/DL (70-100); SODIUM LEVEL 141 MEQ/L (136-145)
[2018-11-06 07:58] LABS: ALBUMIN 3.2 GM/DL (3.2-5.2); ALT/SGPT 78 U/L (12-78); BILIRUBIN,TOTAL 0.7 MG/DL (0.2-1.0); TOTAL PROTEIN 6.4 GM/DL (6.4-8.2)
[2018-11-06 08:49] VITALS: BP 144/89
[2018-11-06] MEDS: MYCOPHENOLATE MOFETIL 250 MG CAP (J7517) PO SCH ×2 (09:06→21:07)
[2018-11-06] MEDS: AMANTADINE 100 MG CAP PO SCH ×2 (09:06→21:07)
[2018-11-06] MEDS: SENOKOT S TAB PO SCH ×2 (09:07→21:06)
[2018-11-06] MEDS: BACLOFEN 10 MG TAB PO SCH ×2 (09:07→21:06)
[2018-11-06] MEDS: MULTIVITAMINS/MINERALS THERAP 1 TAB PO SCH (09:07)
[2018-11-06] MEDS: GABAPENTIN 400 MG CAP PO SCH ×3 (09:07→21:06)
--- NOTE | 2018-11-06 09:11 | REP ---
CHEST X-RAY: SINGLE VIEW. HISTORY: Weakness. COMPARISON CHEST X-RAY: October 03, 2018 FINDINGS: Today's view is exposed at a lesser level of inspiration. There are increased linear markings in the left base consistent with subsegmental discoid atelectasis. No definite infiltrate is seen. Lung parrish are otherwise clear. Heart is not enlarged. The aorta is somewhat tortuous. IMPRESSION: Low level of inspiration. Atelectatic changes left base. Electronically Signed by Tucker Lopez MD 11/06/2018 08:23 P
--- NOTE | 2018-11-06 09:44 | NUR ---
Recommend continue regular diet, thin liquids. Assist pt for upright position & OOB for meals as tolerated. Please administer medications in applesauce prn. Pt requires full assistance from staff for meals. Dysphagia tx for compensatory strategy training & HEP resistance exercises. Addendum: 11/06/[address] [facility] Amended: Links added.
[2018-11-06] MEDS: CIPROFLOXACIN 400 MG in APPROPRIATE DILUENT 1 EA IV SCH (12:00)
[2018-11-06 14:10] VITALS: BP 144/68
--- NOTE | 2018-11-06 19:39 | IPNPDOC ---
Date Seen The patient was seen on 11/06/18. Progress Note SUBJECTIVE: Patient feeling better this morning and no active seizure activity today. We'll continue treatment for urinary tract infection. Patient states that he had his seizure medication adjusted by Dr. Roque and family had concern that this may have contributed to the weakness. Dr. Durham the neurologist was consulted and repeat appreciate his recommendation. OBJECTIVE Vitals: see below General: NAD, A&O, resting comfortably HEENT: NCAT, EOMI, anicteric sclera, Dry membranes CV: RRR, no murmurs, normal S1S2 RESP: CTAB, no w/r/r/ ABD: soft, NT, ND. Benign. Negative CVA tenderness or flank pain/tenderness EXTREMITIES: 2+ radial pulses b/l, able to move all extremities NEURO: baseline weakness from MS: 11/18 UE and 3-4/ LE b/l LABORATORY DATA, IMAGING STUDIES, MICROBIOLOGY: Please see below. 68-year-old male, with past medical history notable for progressively worsening Multiple Sclerosis and seizure disorder / MS, presented with after she noticed he was having increased incontinence and brown cloudy urine with pus with urgency and frequency over the past 1-2 weeks. Denies any other sx, including f/c/n/v/abd pain/flank pain. Also, she states normally he is able to take care of himself. He used to ambulate with rolling chair alternating with a walker, and able to go the bathroom and shower himself. However after October 19, he has gradually been declining to the point where he is requiring assistance with his day-to-day activity and now is requiring bed baths. She states she is unable to care for him currently, and is also worried as he has now started to choke on his medications. She notes he had a seizure in July, and again in September despite being on antiepileptics. Since then, he has been more fatigued as his neurologist has been up-titrating his medications. In the ER, he was noted to have a positive UA. Given concern for acute urinary infection and decline in conditioning, he will be admitted for further management. Assessment and plan: UTI Positive UA, urinary urgency & frequency Urine culture pending. Previous cultures have never grown specific organism Given allergy to penicillin, will continue with IV ciprofloxacin Stable with antibiotic fluid therapy Generalized weakness and deconditioning Likely related to his progressively worsening MS, with added component of acute infection states she is unable to take care of him for the past few weeks Patient has gone from managing his own ADLs to now fully-dependent on others for self-care PFS consulted to assist with home situation PT/OT for functional optimization Nml walk at home with walker and was able to do this 2 weeks ago Dysphagia Per , he has been starting to choke on his medications. This is new for him Placed on aspiration precautions and swallow eval(regular diet, thin liquids. Assist pt for upright position & OOB for meals as tolerated. Please administer medications in applesauce prn. Pt requires full assistance from staff for meals). Multiple sclerosis diagnosed age 40 Continue home Amantadine Patient follows with neurologist Dr. Yady Rubio. Per patient, she has been readjusting his regimen states titrating his meds has worsened his fatigue. Neuro consult with Dr. Mancera and continue to treat UTI. Seizure disorder / MS Place on seizure precautions Continue home Lamotrigine & Depakote, levels WNL on admission Started Lamotrigine 11/02 for q2 days for 1 week, then inc to daily for 1 week, then inc to bid after. Will continue per home up-titration GENNY on CPAP Placed on GENNY protocol and encouraged to bring in his CPAP History of basal cell skin cancer, Deal's Ds S/P MOHs Follows with [place] Hypothyroidism Continue home Synthroid TSH and free T4 noted. Will require outpatient follow-up currently stable BPH continue home Flomax & Oxybutynin Venous insufficiency DVT ppx: Lovenox VS, I&O, 24H, Fishbone Vital Signs/I&O Vital Signs Date Time Temp Pulse Resp B/P (MAP) Pulse Ox O2 Delivery O2 Flow Rate FiO2 11/06/18 14:10 96.4 56 14 144/68 (93) 96 11/06/18 06:15 Room Air Laboratory Data 24H LABS Laboratory Tests 2 11/05/18 20:34: Urine Color TEDDY, Urine Appearance TURBIDH, Urine pH 5.0, Urine Specific [place] 1.025, Urine Protein 2+H, Urine Glucose (UA) NEGATIVE, Urine Ketones 1+H, Urine Blood 2+H, Urine Nitrite NEGATIVE, Urine Bilirubin NEGATIVE, Urine Urobilinogen 0.2, Urine Leukocyte Esterase 3+H, Urine WBC (Auto) TNTCH, Urine RBC (Auto) 60H, Urine Hyaline Casts (Auto) 0, Urine Bacteria (Auto) 3+H, Urine Squamous Epithelial Cells 2, Urine Mucus (Auto) SMALL, Urine Sperm (Auto) 11/05/18 21:55: Immature Granulocyte % (Auto) 1.0, White Blood Count 13.1H, Red Blood Count 5.25, Hemoglobin 15.5, Hematocrit 48.1, Mean Corpuscular Volume 91.6, Mean Corpuscular Hemoglobin 29.5, Mean Corpuscular Hemoglobin Concent 32.2, Red Cell Distribution Width 14.6H, Platelet Count 190, Neutrophils (%) (Auto) 75.7H, Lymphocytes (%) (Auto) 12.9L, Monocytes (%) (Auto) 9.3H, Eosinophils (%) (Auto) 0.8, Basophils (%) (Auto) 0.3, Neutrophils # (Auto) 9.9H, Lymphocytes # (Auto) 1.7, Monocytes # (Auto) 1.2H, Eosinophils # (Auto) 0.1, Basophils # (Auto) 0.0, Nucleated Red Blood Cells % (auto) 0.0, Anion Gap 8, Glomerular Filtration Rate > 60.0, Lactic Acid Level 0.9, Calcium Level 9.2, Aspartate Amino Transf (AST/SGOT) 71H, Alanine Aminotransferase (ALT/SGPT) 92H, Alkaline Phosphatase 360H, Total Bilirubin 0.7, Direct Bilirubin 0.2, Total Creatine Kinase 69, Creatine Kinase MB 4.0H, Creatine Kinase MB Relative Index 6.52H, Troponin I < 0.02, Total Protein 6.6, Albumin 3.6, Albumin/Globulin Ratio 1.20, Thyroid Stimulating Hormone (TSH) 4.970H, Free Thyroxine 1.69H, Valproic Acid (Depakene) Level 50.2 11/06/18 06:30: Nucleated Red Blood Cells % (auto) 0.0, Anion Gap 8, Glomerular Filtration Rate > 60.0, Calcium Level 9.0, Aspartate Amino Transf (AST/SGOT) 62H, Alanine Aminotransferase (ALT/SGPT) 78, Alkaline Phosphatase 310H, Total Bilirubin 0.7, Total Protein 6.4, Albumin 3.2, Albumin/Globulin Ratio 1.00, Blood Urea Nitrogen 23H, Creatinine 0.87, Sodium Level 141, Potassium Level 4.0, Chloride Level 104, Carbon Dioxide Level 29 CBC/BMP Laboratory Tests 11/05/18 21:55 Red Blood Count 5.25, Mean Corpuscular Volume 91.6, Mean Corpuscular Hemoglobin 29.5, Mean Corpuscular Hemoglobin Concent 32.2, Red Cell Distribution Width 14.6 H, Neutrophils (%) (Auto) 75.7 H, Lymphocytes (%) (Auto) 12.9 L, Monocytes (%) (Auto) 9.3 H, Eosinophils (%) (Auto) 0.8, Basophils (%) (Auto) 0.3, Neutrophils # (Auto) 9.9 H, Lymphocytes # (Auto) 1.7, Monocytes # (Auto) 1.2 H, Eosinophils # (Auto) 0.1, Basophils # (Auto) 0.0 11/06/18 06:30 Red Blood Count 4.99, Mean Corpuscular Volume 93.2, Mean Corpuscular Hemoglobin 30.1, Mean Corpuscular Hemoglobin Concent 32.3, Red Cell Distribution Width 14.6 H, Calcium Level 9.0, Aspartate Amino Transf (AST/SGOT) 62 H, Alanine Aminot ransferase (ALT/SGPT) 78, Alkaline Phosphatase 310 H, Total Bilirubin 0.7, Total Protein 6.4, Albumin 3.2 Microbiology Microbiology 11/05/18 Blood Culture, Received Pending 11/05/18 Blood Culture, Received Pending 11/05/18 Urine Culture, Received Pending MARCIN DOHERTY MD Nov 06, 2018 19:39
[2018-11-06] MEDS: DIVALPROEX 500MG *ER* TAB PO SCH (21:06)
[2018-11-06] MEDS: TAMSULOSIN 0.4 MG CAP PO SCH (21:06)
[2018-11-06] MEDS: lamoTRIgine 25 MG TAB PO SCH (21:07)
[2018-11-06] MEDS: oxyBUTYnin *DITROPAN XL* 5 MG TABCR PO SCH (21:07)
[2018-11-06 22:00] VITALS: BP 150/71
[2018-11-07] MEDS: CIPROFLOXACIN 400 MG in APPROPRIATE DILUENT 1 EA IV SCH ×3 (01:02→23:33)
[2018-11-07 06:00] VITALS: BP 137/80
[2018-11-07] MEDS: LEVOTHYROXINE 50MCG TABLET (0.05MG) PO SCH (06:06)
[2018-11-07 06:07] LABS: HEMATOCRIT 42.6 % (42.0-52.0); HEMOGLOBIN 13.7 g/dl (13.5-17.5); MEAN CORPUSCULAR HEMOGLOBIN 29.5 pg (27.0-33.0); MEAN CORPUSCULAR HGB CONC 32.2 g/dl (32.0-36.5); MEAN CORPUSCULAR VOLUME 91.6 fl (80.0-96.0); PLATELET COUNT, AUTOMATED 183 10^3/uL (150-450); RED BLOOD COUNT 4.65 10^6/uL (4.30-6.10); WHITE BLOOD COUNT 11.5 10^3/uL (4.0-10.0)
[2018-11-07 06:40] LABS: ALBUMIN 3.1 GM/DL (3.2-5.2); ALT/SGPT 88 U/L (12-78); BILIRUBIN,TOTAL 0.6 MG/DL (0.2-1.0); BLOOD UREA NITROGEN 24 MG/DL (7-18); CALCIUM LEVEL 8.7 MG/DL (8.8-10.2); CARBON DIOXIDE LEVEL 30 MEQ/L (21-32); CHLORIDE LEVEL 106 MEQ/L (98-107); CREATININE FOR GFR 0.85 MG/DL (0.70-1.30); GLOMERULAR FILTRATION RATE > 60.0 (>49); GLUCOSE, FASTING 108 MG/DL (70-100); POTASSIUM SERUM 3.6 MEQ/L (3.5-5.1); SODIUM LEVEL 142 MEQ/L (136-145); TOTAL PROTEIN 6.3 GM/DL (6.4-8.2)
[2018-11-07] MEDS: AMANTADINE 100 MG CAP PO SCH ×2 (10:03→20:03)
[2018-11-07] MEDS: BACLOFEN 10 MG TAB PO SCH ×2 (10:03→20:03)
[2018-11-07] MEDS: GABAPENTIN 400 MG CAP PO SCH ×3 (10:03→20:03)
[2018-11-07] MEDS: MULTIVITAMINS/MINERALS THERAP 1 TAB PO SCH (10:03)
[2018-11-07] MEDS: MYCOPHENOLATE MOFETIL 250 MG CAP (J7517) PO SCH ×2 (10:04→20:02)
[2018-11-07] MEDS: SENOKOT S TAB PO SCH ×2 (10:04→20:03)
[2018-11-07 14:00] VITALS: BP 133/67
--- NOTE | 2018-11-07 15:52 | CR ---
DATE OF CONSULTATION: 11/07/2018 REFERRING PROVIDER: Dr. Johnson REASON FOR CONSULTATION: Worsening multiple sclerosis (MS) symptoms, progressive weakness in the legs. Jean Marie Miraomntes is a 68-year-old male with a past medical history significant for primary progressive multiple sclerosis as well as seizure disorder. The patient has been experiencing a 3-4 week decline in overall motor function. He has also been experiencing some visual hallucinations. The patient was diagnosed with significant urinary tract infection (UTI). The patient has been on mycophenolate for immunosuppression for the treatment of his multiple sclerosis at the discretion of [facility]. The patient is currently on divalproex as well as gabapentin for seizure disorder with recent titration of lamotrigine. He is tolerating lamotrigine well without any side effects, he states. Overall the patient states that since being in the hospital and being treated with antibiotics, he is getting better. He has improved strength in his arms and legs. He is able to now swallow well. He was experiencing some dysphagia while at home. REVIEW OF SYSTEMS: A 14-point review of systems obtained and is negative except as per history of present illness (HPI). The patient continues to have significant weakness in the lower extremities with bilateral foot drops. He has a difficult time ambulating and stays in a rolling chair for the most part. He can sometimes use a walker. HOME MEDICATIONS: - amantadine 200 mg by mouth daily, 100 mg by mouth at bedtime - baclofen 10 mg by mouth twice a day - vitamin D3 at 2000 international units (IU) by mouth daily - divalproex sodium ER 500 mg by mouth at bedtime - folic acid one tablet by mouth daily care - gabapentin 400 mg by mouth three times a day - lamotrigine 25 mg by mouth daily. Take as directed. - levothyroxine 50 mcg by mouth daily - mycophenolate 1000 mg by mouth twice a day - oxybutynin 10 mg by mouth at bedtime - tamsulosin 0.4 mg by mouth at bedtime ALLERGIES: PENICILLIN. PAST MEDICAL HISTORY 1. Primary progressive MS. 2. Seizure disorder secondary to MS. 3. Obstructive sleep apnea, on continuous positive airway pressure (CPAP). 4. History of basal cell carcinoma. 5. Deal's disease. 6. Venous insufficiency. 7. Hypothyroidism. 8. BPH. PAST SURGICAL HISTORY: Cholecystectomy 2018. FAMILY HISTORY: Noncontributory. SOCIAL HISTORY: The patient does not use tobacco, alcohol, or illicit drugs. He is stable. Lives at home with his . PHYSICAL EXAMINATION: Blood pressure is 144/89, pulse rate 66, respiratory rate is 18, oxygenation 97% on room air. Temperature is 96.3 degrees Fahrenheit. The patient is alert, oriented to person, place, and time. Speech, language, comprehension, repetition are intact without any aphasia or dysarthria. The patient does have vertical upbeating nystagmus, which is his baseline. He denies any diplopia presently. The patient has reasonable strength in biceps, triceps, deltoid, handgrip. He has weakness in bilateral iliopsoas, grade 2/5, and quadriceps appear to be 5-. Tibialis anterior are present with foot drops in a sustained extension position. Babinski sign is positive on the left, equivocal on the right. Sensory is intact to light touch in all four extremities. Coordination does not reveal any gross ataxia, [id number]. Gait deferred. ASSESSMENT: A 68-year-old male with primary progressive multiple sclerosis and seizure disorder with recent worsening symptoms of weakness, inability to care for self secondary to pseudoexacerbation of multiple sclerosis (MS) secondary to a urinary tract infection. Agree with continuing all antiseizure medications as directed and immunosuppression. Recommend continuing to treat urinary tract infection (UTI) with antibiotics. The patient is already improving. Recommend physical therapy (PT)/occupational therapy (OT) evaluation prior to discharge home. The patient can followup as scheduled with Dr. Yady Rubio within the next 2 weeks. [facility]
--- NOTE | 2018-11-07 18:36 | IPNPDOC ---
Date Seen The patient was seen on 11/07/18. Progress Note SUBJECTIVE: Patient overnight had an episode of confusion with resolution in a.m. Patient's urinary tract infection is being treated with antibiotic with good result. As patient's mentation is awake alert oriented 3. Possibility of delirium is also present. Family was concerned of patient's [place] and confusion was secondary due to medication change. We'll defer further recommendation and assistance to neurology. Patient most likely will require rehabilitation and possible assisted assistance if family is unable to care for patient safely. Patient still weak and unable to ambulate like his previous baseline. OBJECTIVE Vitals: see below General: NAD, A&O, resting comfortably HEENT: NCAT, EOMI, anicteric sclera, Dry membranes CV: RRR, no murmurs, normal S1S2 RESP: CTAB, no w/r/r/ ABD: soft, NT, ND. Benign. Negative CVA tenderness or flank pain/tenderness EXTREMITIES: 2+ radial pulses b/l, able to move all extremities NEURO: baseline weakness from MS: / UE and 3-4/5 LE b/l LABORATORY DATA, IMAGING STUDIES, MICROBIOLOGY: Please see below. 68-year-old male, with past medical history notable for progressively worsening Multiple Sclerosis and seizure disorder 2/2 MS, presented with after she noticed he was having increased incontinence and brown cloudy urine with pus with urgency and frequency over the past 1-2 weeks. Denies any other sx, including f/c/n/v/abd pain/flank pain. Also, she states normally he is able to take care of himself. He used to ambul ate with rolling chair alternating with a walker, and able to go the bathroom and shower himself. However after October 19, he has gradually been declining to the point where he is requiring assistance with his day-to-day activity and now is requiring bed baths. She states she is unable to care for him currently, and is also worried as he has now started to choke on his medications. She notes he had a seizure in July, and again in September despite being on antiepileptics. Since then, he has been more fatigued as his neurologist has been up-titrating his medications. In the ER, he was noted to have a positive UA. Given concern for acute urinary infection and decline in conditioning, he will be admitted for further management. Assessment and plan: UTI Positive UA, urinary urgency & frequency Urine culture showed enterococcus faecalis sensitive to ciprofloxacin, patient currently on ciprofloxacin Stable with antibiotic fluid therapy Generalized weakness and deconditioning Likely related to his progressively worsening MS, with added component of acute infection states she is unable to take care of him for the past few weeks Patient has gone from managing his own ADLs to now fully-dependent on others for self-care PFS consulted to assist with home situation PT/OT for functional optimization Nml walk at home with walker and was able to do this 2 weeks ago Dysphagia Per , he has been starting to choke on his medications. This is new for him Placed on aspiration precautions and swallow eval(regular diet, thin liquids. Assist pt for upright position & OOB for meals as tolerated. Please administer medications in applesauce prn. Pt requires full assistance from staff for meals). Multiple sclerosis diagnosed age 40 Continue home Amantadine Patient follows with neurologist Dr. Yady Rubio. Per patient, she has been readjusting his regimen states titrating his meds has worsened his fatigue. Neuro consult with Dr. Mancera and continue to treat UTI. Can followup as scheduled with Dr. Yady Rubio within the next 2 weeks. ? Delirium and confusion overnight -Treat infection -Reorientation -Neurology on board -Valproic acid level obtained 46.7. Seizure disorder 2/[address] on seizure precautions Continue home Lamotrigine & Depakote, levels WNL on admission Started Lamotrigine 11/02 for q2 days for 1 week, then inc to daily for 1 week, then inc to bid after. Will continue per home up-titration GENNY on CPAP Placed on GENNY protocol and encouraged to bring in his CPAP History of basal cell skin cancer, Deal's Ds S/P MOHs Follows with [facility] Hypothyroidism Continue home Synthroid TSH and free T4 noted. Will require outpatient follow-up currently stable BPH continue home Flomax & Oxybutynin Venous insufficiency DVT ppx: Lovenox VS, I&O, 24H, Fishbone Vital Signs/I&O Vital Signs Date Time Temp Pulse Resp B/P (MAP) Pulse Ox O2 Delivery O2 Flow Rate FiO2 11/07/18 14:00 99.0 99 17 133/67 (89) 96 11/06/18 20:00 Room Air I&O- Last 24 Hours up to 6 AM 11/07/18 06:00 Intake Total 1850 ml Output Total 275 ml Balance 1575 ml Laboratory Data 24H LABS Laboratory Tests 2 11/07/18 05:27: Nucleated Red Blood Cells % (auto) 0.0, Anion Gap 6L, Glomerular Filtration Rate > 60.0, Blood Urea Nitrogen 24H, Creatinine 0.85, Sodium Level 142, Potassium Level 3.6, Chloride Level 106, Carbon Dioxide Level 30, Calcium Level 8.7L, Aspartate Amino Transf (AST/SGOT) 68H, Alanine Aminotransferase (ALT/SGPT) 88H, Alkaline Phosphatase 351H, Total Bilirubin 0.6, Total Protein 6.3L, Albumin 3.1L, Albumin/Globulin Ratio 0.97L 11/07/18 11:54: Valproic Acid (Depakene) Level 46.7L CBC/BMP Laboratory Tests 11/07/18 05:27 Red Blood Count 4.65, Mean Corpuscular Volume 91.6, Mean Corpuscular Hemoglobin 29.5, Mean Corpuscular Hemoglobin Concent 32.2, Red Cell Distribution Width 14.5, Calcium Level 8.7 L, Aspartate Amino Transf (AST/SGOT) 68 H, Alanine Aminotransferase (ALT/SGPT) 88 H, Alkaline Phosphatase 351 H, Total Bilirubin 0.6, Total Protein 6.3 L, Albumin 3.1 L Microbiology Microbiology 11/05/18 Blood Culture - Preliminary, Resulted No growth after 24 hours . All specim... 11/05/18 Blood Culture - Preliminary, Resulted No growth after 24 hours . All specim... 11/05/18 Urine Culture - Final, Complete Enterococcus Faecalis MARCIN DOHERTY MD Nov 07, 2018 18:36
[2018-11-07] MEDS: oxyBUTYnin *DITROPAN XL* 5 MG TABCR PO SCH (20:02)
[2018-11-07] MEDS: DIVALPROEX 500MG *ER* TAB PO SCH (20:03)
[2018-11-07] MEDS: TAMSULOSIN 0.4 MG CAP PO SCH (20:03)
[2018-11-07] MEDS: ENOXAPARIN 40 MG/0.4 ML SYRINGE (J1650) SC SCH (20:04)
[2018-11-07 22:00] VITALS: BP 159/85
[2018-11-08] MEDS: LEVOTHYROXINE 50MCG TABLET (0.05MG) PO SCH (05:36)
[2018-11-08 06:00] VITALS: BP 144/73
[2018-11-08 06:24] LABS: HEMATOCRIT 43.2 % (42.0-52.0); HEMOGLOBIN 13.9 g/dl (13.5-17.5); MEAN CORPUSCULAR HGB CONC 32.2 g/dl (32.0-36.5); MEAN CORPUSCULAR VOLUME 93.1 fl (80.0-96.0); PLATELET COUNT, AUTOMATED 181 10^3/uL (150-450); RED BLOOD COUNT 4.64 10^6/uL (4.30-6.10); WHITE BLOOD COUNT 10.5 10^3/uL (4.0-10.0)
[2018-11-08 06:45] LABS: ALBUMIN 2.9 GM/DL (3.2-5.2); ALT/SGPT 104 U/L (12-78); BILIRUBIN,TOTAL 0.5 MG/DL (0.2-1.0); BLOOD UREA NITROGEN 20 MG/DL (7-18); CALCIUM LEVEL 8.6 MG/DL (8.8-10.2); CARBON DIOXIDE LEVEL 32 MEQ/L (21-32); CHLORIDE LEVEL 106 MEQ/L (98-107); CREATININE FOR GFR 0.88 MG/DL (0.70-1.30); GLOMERULAR FILTRATION RATE > 60.0 (>49); GLUCOSE, FASTING 88 MG/DL (70-100); POTASSIUM SERUM 3.7 MEQ/L (3.5-5.1); SODIUM LEVEL 143 MEQ/L (136-145); TOTAL PROTEIN 6.5 GM/DL (6.4-8.2)
[2018-11-08] MEDS: SENOKOT S TAB PO SCH ×2 (09:10→23:33)
[2018-11-08] MEDS: BACLOFEN 10 MG TAB PO SCH ×2 (09:10→23:35)
[2018-11-08] MEDS: MYCOPHENOLATE MOFETIL 250 MG CAP (J7517) PO SCH ×2 (09:11→23:32)
[2018-11-08] MEDS: AMANTADINE 100 MG CAP PO SCH ×2 (09:11→23:34)
[2018-11-08] MEDS: MULTIVITAMINS/MINERALS THERAP 1 TAB PO SCH (09:12)
[2018-11-08] MEDS: GABAPENTIN 400 MG CAP PO SCH ×3 (09:13→23:34)
--- NOTE | 2018-11-08 12:03 | IPNPDOC ---
Date Seen The patient was seen on 11/08/18. Progress Note SUBJECTIVE: Patient back to baseline in the morning without any confusion. But still overnight as per staff patient had hallucinations. Patient UTI being treated at accordingly to his culture sensitivity. Confusion may be related to delirium and if so would need frequent reorientation. Patients still concerned that it may be related to adjustment of patients seizure medication. Neurology on the case and will await further recommendation. Possible discharge to rehabilitation once medically stabilized and cause for confusion at night evaluated. OBJECTIVE Vitals: see below General: NAD, A&O, resting comfortably HEENT: NCAT, EOMI, anicteric sclera, Dry membranes CV: RRR, no murmurs, normal S1S2 RESP: CTAB, no w/r/r/ ABD: soft, NT, ND. Benign. Negative CVA tenderness or flank pain/tenderness EXTREMITIES: 2+ radial pulses b/l, able to move all extremities NEURO: baseline weakness from MS: 5/5 UE and 3-4/5 LE b/l LABORATORY DATA, IMAGING STUDIES, MICROBIOLOGY: Please see below. 68-year-old male, with past medical history notable for progressively worsening Multiple Sclerosis and seizure disorder 2/ MS, presented with after she noticed he was having increased incontinence and brown cloudy urine with pus with urgency and frequency over the past 1-2 weeks. Denies any other sx, including f/c/n/v/abd pain/flank pain. Also, she states normally he is able to take care of himself. He used to ambulate with rolling chair alternating with a walker, and able to go the bat hroom and shower himself. However after October 19, he has gradually been declining to the point where he is requiring assistance with his day-to-day activity and now is requiring bed baths. She states she is unable to care for him currently, and is also worried as he has now started to choke on his medications. She notes he had a seizure in July, and again in September despite being on antiepileptics. Since then, he has been more fatigued as his neurologist has been up-titrating his medications. In the ER, he was noted to have a positive UA. Given concern for acute urinary infection and decline in conditioning, he will be admitted for further management. Assessment and plan: 68-year-old male, with past medical history notable for progressively worsening Multiple Sclerosis and seizure disorder 2/2 MS, presented with after she noticed he was having increased incontinence and brown cloudy urine with pus with urgency and frequency over the past 1-2 weeks. Patient treated for UTI. Con fusion at night, concern may be related to medication adjustment for seizure. Patient evaluated by Neurology. UTI - Positive UA, urinary urgency & frequency -Urine culture showed enterococcus faecalis sensitive to ciprofloxacin, patient currently on ciprofloxacin -Stable with antibiotic fluid therapy Generalized weakness and deconditioning -Likely related to his progressively worsening MS, with added component of acute infection - states she is unable to take care of him for the past few weeks -Patient has gone from managing his own ADLs to now fully-dependent on others for self-care -PFS consulted to assist with home situation -PT/OT for functional optimization -Nml walk at home with walker and was able to do this 2 weeks ago Dysphagia -Per , he has been starting to choke on his medications. This is new for him -Placed on aspiration precautions and swallow eval(regular diet, thin liquids. Assist pt for upright position & OOB for meals as tolerated. Please administer medications in applesauce prn. Pt requires full assistance from staff for meals). Multiple sclerosis - diagnosed age 40 -Continue home Amantadine -Patient follows with neurologist Dr. Yady Rubio. Per patient, she has been readjusting his regimen - states titrating his meds has worsened his fatigue. -Neuro consult with Dr. Mancera and continue to treat UTI. Can followup as scheduled with Dr. Yady Rubio within the next 2 weeks. ? Delirium and confusion overnight -Treat infection -Reorientation -Neurology on board -Valproic acid level obtained 46.7. Seizure disorder 2/2 MS - Place on seizure precautions -Continue home Lamotrigine & Depakote, levels WNL on admission -Started Lamotrigine 11/02 for q2 days for 1 week, then inc to daily for 1 week, then inc to bid after. Will -continue per home up-titration GENNY on CPAP -Placed on GENNY protocol and encouraged to bring in his CPAP History of basal cell skin cancer, Deal's Ds -S/P MOHs -Follows with [facility] Hypothyroidism -Continue home Synthroid -TSH and free T4 noted. Will require outpatient follow-up -currently stable BPH -continue home Flomax & Oxybutynin Venous insufficiency DVT ppx: Lovenox DISPOSITION: [Rehabilitation once medically stabilized]. VS, I&O, 24H, Fishbone Vital Signs/I&O Vital Signs Date Time Temp Pulse Resp B/P (MAP) Pulse Ox O2 Delivery O2 Flow Rate FiO2 11/08/18 06:00 98.0 61 17 144/73 (96) 95 11/08/18 03:13 Room Air I&O- Last 24 Hours up to 6 AM 11/08/18 06:00 Intake Total 978 ml Output Total 375 ml Balance 603 ml Laboratory Data 24H LABS Laboratory Tests 2 11/08/18 05:57: Nucleated Red Blood Cells % (auto) 0.0, Anion Gap 5L, Glomerular Filtration Rate > 60.0, Blood Urea Nitrogen 20H, Creatinine 0.88, Sodium Level 143, Potassium Level 3.7, Chloride Level 106, Carbon Dioxide Level 32, Calcium Level 8.6L, Aspartate Amino Transf (AST/SGOT) 87H, Alanine Aminotransferase (ALT/SGPT) 104H, Alkaline Phosphatase 406H, Total Bilirubin 0.5, Total Protein 6.5, Albumin 2.9L, Albumin/Globulin Ratio 0.81L CBC/BMP Laboratory Tests 11/08/18 05:57 Red Blood Count 4.64, Mean Corpuscular Volume 93.1, Mean Corpuscular Hemoglobin 30.0, Mean Corpuscular Hemoglobin Concent 32.2, Red Cell Distribution Width 14.6 H, Calcium Level 8.6 L, Aspartate Amino Transf (AST/SGOT) 87 H, Alanine A minotransferase (ALT/SGPT) 104 H, Alkaline Phosphatase 406 H, Total Bilirubin 0.5, Total Protein 6.5, Albumin 2.9 L Microbiology Microbiology 11/05/18 Blood Culture - Preliminary, Resulted No Growth after 48 hours. All Specime... 11/05/18 Blood Culture - Preliminary, Resulted No Growth after 48 hours. All Specime... 11/05/18 Urine Culture - Final, Complete Enterococcus Faecalis MARCIN DOHERTY MD Nov 08, 2018 12:03
[2018-11-08 14:00] VITALS: BP 150/74
[2018-11-08] MEDS: CIPROFLOXACIN 500 MG TAB PO SCH (16:37)
[2018-11-08] MEDS: lamoTRIgine 25 MG TAB PO SCH (21:00)
[2018-11-08 22:00] VITALS: BP 160/75
[2018-11-08] MEDS: TAMSULOSIN 0.4 MG CAP PO SCH (23:34)
[2018-11-08] MEDS: DIVALPROEX 500MG *ER* TAB PO SCH (23:34)
[2018-11-08] MEDS: ENOXAPARIN 40 MG/0.4 ML SYRINGE (J1650) SC SCH (23:35)
[2018-11-08] MEDS: oxyBUTYnin *DITROPAN XL* 5 MG TABCR PO SCH (23:36)
[2018-11-09 06:00] VITALS: BP 152/82
[2018-11-09 06:02] LABS: HEMATOCRIT 42.2 % (42.0-52.0); HEMOGLOBIN 13.5 g/dl (13.5-17.5); MEAN CORPUSCULAR HEMOGLOBIN 29.7 pg (27.0-33.0); PLATELET COUNT, AUTOMATED 206 10^3/uL (150-450); RED BLOOD COUNT 4.54 10^6/uL (4.30-6.10); WHITE BLOOD COUNT 10.1 10^3/uL (4.0-10.0)
[2018-11-09] MEDS: LEVOTHYROXINE 50MCG TABLET (0.05MG) PO SCH (06:10)
[2018-11-09] MEDS: CIPROFLOXACIN 500 MG TAB PO SCH (06:10)
[2018-11-09 06:31] LABS: ALBUMIN 2.9 GM/DL (3.2-5.2); ALT/SGPT 94 U/L (12-78); BILIRUBIN,TOTAL 0.4 MG/DL (0.2-1.0); BLOOD UREA NITROGEN 21 MG/DL (7-18); CALCIUM LEVEL 8.8 MG/DL (8.8-10.2); CARBON DIOXIDE LEVEL 31 MEQ/L (21-32); CHLORIDE LEVEL 107 MEQ/L (98-107); CREATININE FOR GFR 0.84 MG/DL (0.70-1.30); GLOMERULAR FILTRATION RATE > 60.0 (>49); GLUCOSE, FASTING 78 MG/DL (70-100); POTASSIUM SERUM 3.7 MEQ/L (3.5-5.1); SODIUM LEVEL 143 MEQ/L (136-145); TOTAL PROTEIN 6.2 GM/DL (6.4-8.2)
[2018-11-09] MEDS ORDERED: IBUPROFEN 400 MG TAB PO PRN (08:15)
[2018-11-09] MEDS: BACLOFEN 10 MG TAB PO SCH (09:16)
[2018-11-09] MEDS: AMANTADINE 100 MG CAP PO SCH (09:16)
[2018-11-09] MEDS: MULTIVITAMINS/MINERALS THERAP 1 TAB PO SCH (09:16)
[2018-11-09] MEDS: MYCOPHENOLATE MOFETIL 250 MG CAP (J7517) PO SCH (09:16)
[2018-11-09] MEDS: GABAPENTIN 400 MG CAP PO SCH (09:16)
[2018-11-09] MEDS: SENOKOT S TAB PO SCH (09:16)
[2018-11-09] MEDS ORDERED: CIPR-249 PO ×2 (11:28→11:32)
--- NOTE | 2018-11-09 11:59 | DS.PDOC ---
Discharge Summary General Date of Admission Nov 06, 2018 at 01:00 Date of Discharge 11/09/18 Discharge Summary PROCEDURES PERFORMED DURING STAY: [None]. ADMITTING DIAGNOSES: UTI Generalized weakness and deconditioning Dysphagia Multiple sclerosis Delirium and confusion overnight Seizure disorder 2/2 MS History of basal cell skin cancer, Deal's Ds Hypothyroidism BPH DISCHARGE DIAGNOSES: UTI enterococcus faecalis COMPLICATIONS/CHIEF COMPLAINT: Pyelonephritis. HISTORY OF PRESENT ILLNESS: [68-year-old male, with past medical history notable for progressively worsening Multiple Sclerosis and seizure disorder 2/2 MS, presented with after she noticed he was having increased incontinence and brown cloudy urine with pus with urgency and frequency over the past 1-2 weeks. Denies any other sx, including f/c/n/v/abd pain/flank pain. Also, she states normally he is able to take care of himself. He used to ambulate with rolling chair alternating with a walker, and able to go the bathroom and shower himself. However after October 19, he has gradually been declining to the point where he is requiring assistance with his day-to-day activity and now is requiring bed baths. She states she is unable to care for him currently, and is also worried as he has now started to choke on his medications. She notes he had a seizure in July, and again in September despite being on antiepileptics. Since then, he has been more fatigued as his neurologist has been up-titrating his medications. In the ER, he was noted to have a positive UA. Given concern for acute urinary infection and decline in conditioning, he will be admitted for further management.]. HOSPITAL COURSE: [ 68-year-old male, with past medical history notable for progressively worsening Multiple Sclerosis and seizure disorder 2/2 MS, presented with after she noticed he was having increased incontinence and brown cloudy urine with pus with urgency and frequency over the past 1-2 weeks. Patient treated for UTI as mentioned below. Confusion at night, concern may be related to medication adjustment for seizure. Patient evaluated by Neurology, believed to be secondary due to infection. Patient's confusion resolved without any intervention nightly and severity has improved with progressing nights. Patient was admitted to acute rehabilitation unit today. I spoke to rehabilitation physician today who is aware the patient may need a neurology consult in [facility] if his delirium does not improve for possible medication induced or progression of MS confusion. Patient treated for the problems mentioned below. UTI - Positive UA, urinary urgency & frequency -Urine culture showed enterococcus faecalis sensitive to ciprofloxacin, patient currently on ciprofloxacin -Stable with antibiotic fluid therapy Generalized weakness and deconditioning -Likely related to his progressively worsening MS, with added component of acu te infection - states she is unable to take care of him for the past few weeks -Patient has gone from managing his own ADLs to now fully-dependent on others for self-care -PFS consulted to assist with home situation -PT/OT for functional optimization -Nml walk at home with walker and was able to do this 2 weeks ago Dysphagia -Per , he has been starting to choke on his medications. This is new for him -Placed on aspiration precautions and swallow eval(regular diet, thin liquids. Assist pt for upright position & OOB for meals as tolerated. Please administer medications in applesauce prn. Pt requires full assistance from staff for meals). Multiple sclerosis - diagnosed age 40 -Continue home Amantadine -Patient follows with neurologist Dr. Yady Rubio. Per patient, she has been readjusting his regimen - states titrating his meds has worsened his fatigue. -Neuro consult with Dr. Mancera and continue to treat UTI. Can followup as scheduled with Dr. Yady Rubio within the next 2 weeks. ? Delirium and confusion overnight -Treat infection -Reorientation -Neurology on board -Valproic acid level obtained 46.7. Seizure disorder 2/ MS - Place on seizure precautions -Continue home Lamotrigine & Depakote, levels WNL on admission -Started Lamotrigine 11/02 for q2 days for 1 week, then inc to daily for 1 week, then inc to bid after. Will -continue per home up-titration GENNY on CPAP -Placed on GENNY protocol and encouraged to bring in his CPAP History of basal cell skin cancer, Deal's Ds -S/P MOHs -Follows with [place] Hypothyroidism -Continue home Synthroid -TSH and free T4 noted. Will require outpatient follow-up -currently stable BPH -continue home Flomax & Oxybutynin Venous insufficiency ]. DISCHARGE MEDICATIONS: Please see below. ALLERGIES: Please see below. PHYSICAL EXAMINATION ON DISCHARGE: Vitals: see below General: NAD, A&O, resting comfortably HEENT: NCAT, EOMI, anicteric sclera, Dry membranes CV: RRR, no murmurs, normal S1S2 RESP: CTAB, no w/r/r/ ABD: soft, NT, ND. Benign. Negative CVA tenderness or flank pain/tenderness EXTREMITIES: 2+ radial pulses b/l, able to move all extremities NEURO: baseline weakness from MS: 5/5 UE and 3-4/5 LE b/l LABORATORY DATA: Please see below. IMAGING: [Chest x-ray:Low level of inspiration. Atelectatic changes left base. CT abdomen:1. Left inguinal hernia containing fat. The left testicle is positioned low in the left inguinal canal. 2. Large amount of stool in the transverse, descending and rectosigmoid colon. 3. No acute findings noted in either kidney. No hydronephrosis 4. Subcentimeter hemorrhagic cyst in the midportion of the left kidney without change from previous.] PROGNOSIS: [Improved] ACTIVITY: [As tolerated]. DIET: [Regular] DISCHARGE PLAN: [Please follow with recommendation by rehabilitation and consult neurology as needed.] DISPOSITION: Acute rehabilitation. DISCHARGE CONDITION: [Stable]. TIME SPENT ON DISCHARGE: Greater than [30 minutes] minutes. Vital Signs/I&Os Vital Signs Date Time Temp Pulse Resp B/P (MAP) Pulse Ox O2 Delivery O2 Flow Rate FiO2 11/09/18 06:00 97.9 63 17 152/82 (105) 96 11/08/18 03:13 Room Air I&O- Last 24 Hours up to 6 AM 11/09/18 06:00 Intake Total 1102 ml Balance 1102 ml Laboratory Data Labs 24H Laboratory Tests 2 11/09/18 05:34: Nucleated Red Blood Cells % (auto) 0.0, Anion Gap 5L, Glomerular Filtration Rate > 60.0, Blood Urea Nitrogen 21H, Creatinine 0.84, Sodium Level 143, Potassium Level 3.7, Chloride Level 107, Carbon Dioxide Level 31, Calcium Level 8.8, Aspartate Amino Transf (AST/SGOT) 69H, Alanine Aminotransferase (ALT/SGPT) 94H, Alkaline Phosphatase 393H, Total Bilirubin 0.4, Total Protein 6.2L, Albumin 2.9L, Albumin/Globulin Ratio 0.88L CBC/BMP Laboratory Tests 11/09/18 05:34 Red Blood Count 4.54, Mean Corpuscular Volume 93.0, Mean Corpuscular Hemoglobin 29.7, Mean Corpuscular Hemoglobin Concent 32.0, Red Cell Distribution Width 14.5, Calcium Level 8.8, Aspartate Amino Transf (AST/SGOT) 69 H, Alanine Aminotransferase (ALT/SGPT) 94 H, Alkaline Phosphatase 393 H, Total Bilirubin 0 .4, Total Protein 6.2 L, Albumin 2.9 L Microbiology Microbiology 11/05/18 Blood Culture - Preliminary, Resulted No Growth after 72 hours. All specime... 11/05/18 Blood Culture - Preliminary, Resulted No Growth after 72 hours. All specime... 11/05/18 Urine Culture - Final, Complete Enterococcus Faecalis Discharge Medications Scheduled Amantadine HCl (Amantadine) 100 Mg Tab, 200 MG PO DAILY, (Reported) Amantadine HCl (Amantadine) 100 Mg Tab, 100 MG PO QHS, (Reported) Baclofen (Baclofen) 10 Mg Tab, 10 MG PO BID, (Reported) Cholecalciferol (Vitamin D3) (Vitamin D3) 2,000 Unit Capsule, 2,000 UNIT PO DAILY, (Reported) Ciprofloxacin HCl (Cipro) 500 Mg Tablet, 500 MG PO BID@,18 Divalproex Sodium (Divalproex Sodium ER) 500 Mg Tab.er.24h, 500 MG PO QHS, (Reported) Folic Acid/Multivit-Min/Lutein (Centrum Silver Chewable Tablet) 1 Each Tab.chew, 1 CHW PO DAILY, (Reported) Gabapentin (Gabapentin) 400 Mg Capsule, 400 MG PO TID, (Reported) Lamotrigine (Lamotrigine) 25 Mg Tablet, 25 MG PO ASDIRECTED, (Reported) 1 TABLET EVERY OTHER DAY FOR A WEEK, THEN 1 TABLET EVERY DAY FOR A WEEK, THEN 1 TABLET TWICE A DAY FOR A WEEK Levothyroxine Sodium (Synthroid) 50 Mcg Tablet, 50 MCG PO DAILY, (Reported) Mycophenolate Mofetil (Mycophenolate Mofetil) 500 Mg Tab, 1,000 MG PO BID, (Reported) Oxybutynin Chloride (Oxybutynin Chloride ER) 10 Mg Tab, 10 MG PO QHS, (Reported) Tamsulosin HCl (Flomax) 0.4 Mg Cap, 0.4 MG PO QHS, (Reported) Allergies Coded Allergies: Penicillins (Verified Allergy, Unknown, 11/05/18) MARCIN DOEHRTY MD Nov 09, 2018 11:59
[2018-11-09] MEDS ORDERED: lamoTRIgine 25 MG TAB PO SCH (21:00)
== END 2018-11-09 14:02 | disposition home or self-care (01) | DRG 690 ==
LOC: M ED 20:09 → M ED INP 11-06 01:00 → M MSPAV 11-06 14:06
PROVIDERS: ADMIT Internal Medicine; ATTEND Internal Medicine
DX: N39.0 Urinary tract infection, site not specified (principal); G35 Multiple sclerosis; N40.0 Benign prostatic hyperplasia without lower urinary tract symptoms; E03.9 Hypothyroidism, unspecified; G40.909 Epilepsy, unspecified, not intractable, without status epilepticus; R13.10 Dysphagia, unspecified; Z85.828 Personal history of other malignant neoplasm of skin; Z79.899 Other long term (current) drug therapy; Z88.0 Allergy status to penicillin; G47.33 Obstructive sleep apnea (adult) (pediatric); I87.2 Venous insufficiency (chronic) (peripheral)

== ENCOUNTER 2018-11-09 09:03 | Inpatient (IN) | payer MEDICARE ==
[~2018-11-09] VITALS: Ht 180.3 cm; Wt 79.9 kg
[~2018-11-09 09:03] MED LIST changes: +CENTCHW3 PO; +D200CAP2 PO; +DIVA500T9 PO; +LAMO25TA4 PO; +SYNT50TA PO
[2018-11-09] MEDS ORDERED: CIPR-249 PO ×2 (11:28→11:32)
--- NOTE | 2018-11-09 12:07 | HPEPDOC ---
[facility] Medical History & Physical Date of Admission Nov 09, 2018 History and Physical CHIEF COMPLAINT: [Hospitalist consult for medical management] HISTORY OF PRESENT ILLNESS: [68-year-old male, with past medical history notable for progressively worsening Multiple Sclerosis and seizure disorder 2/2 MS, presented with after she noticed he was having increased incontinence and brown cloudy urine with pus with urgency and frequency over the past 1-2 weeks. Patient treated for UTI as mentioned below. Confusion at night, concern may be related to medication adjustment for seizure. Patient evaluated by Neurology, believed to be secondary due to infection. Patient's confusion resolved without any intervention nightly and severity has improved with progressing nights. Patient was admitted to acute rehabilitation unit. Hospital ist consulted for medical management.] PAST MEDICAL HISTORY: Multiple sclerosis, diagnosed age 40 Seizure disorder 2/2 MS GENNY on CPAP History of basal cell skin cancer s/p Mohs Deal's disease Venous insufficiency Hypothyroidism BPH PAST SURGICAL HISTORY: Cholecystectomy 2018 SOCIAL HISTORY: Denies ever smoking. Socially drink quite decades ago. Currently on disability and lives at home with FAMILY HISTORY: Both parents ALLERGIES: Please see below. REVIEW OF SYSTEMS: 12 point review systems negative than those described in HPI HOME MEDICATIONS: Please see below. PHYSICAL EXAMINATION: Vitals: see below General: NAD, A&O, resting comfortably HEENT: NCAT, EOMI, anicteric sclera, Dry membranes CV: RRR, no murmurs, normal S1S2 RESP: CTAB, no w/r/r/ ABD: soft, NT, ND. Benign. Negative CVA tenderness or flank pain/tenderness EXTREMITIES: 2+ radial pulses b/l, able to move all extremities NEURO: baseline weakness from MS: 5/5 UE and 3-4/5 LE b/l LABORATORY DATA: See below. MICROBIOLOGY: Please see below. Assessment and plan: 68-year-old male, with past medical history notable for progressively worsening Multiple Sclerosis and seizure disorder 2/2 MS, presented with after she noticed he was having increased incontinence and brown cloudy urine with pus with urgency and frequency over the past 1-2 weeks. Patient treated for UTI as mentioned below. Confusion at night, concern may be related to medication adjustment for seizure. Patient evaluated by Neurology, believed to be secondary due to infection. Patient's confusion resolved without any intervention nightly and severity has improved with progressing nights. Patient was admitted to acute rehabilitation unit. UTI - Positive UA, urinary urgency & frequency -Urine culture showed enterococcus faecalis sensitive to ciprofloxacin, patient currently on ciprofloxacin from 11/06/18 for total of 10 days. -Stable with antibiotic fluid therapy Generalized weakness and deconditioning -Likely related to his progressively worsening MS, with added component of acute infection -Patient has gone from managing his own ADLs to now fully-dependent on others for self-care -PT/OT for functional optimization -Nml walk at home with walker and was able to do this 2 weeks ago Dysphagia -Per , he has been starting to choke on his medications. This is new for him -Placed on aspiration precautions and swallow eval(regular diet, thin liquids. Assist pt for upright position & OOB for meals as tolerated. Please administer medications in applesauce prn. Pt requires full assistance from staff for meals). Multiple sclerosis - diagnosed age 40 -Continue home Amantadine -Patient follows with neurologist Dr. Yady Rubio. Per patient, she has been readjusting his regimen - states titrating his meds has worsened his fatigue. -Neuro consult with Dr. Mancera when necessary and continue to treat UTI. Can followup as scheduled with Dr. Yady Rubio within the next 2 weeks. Confusion overnight secondary due to infection versus delirium versus medication induced versus progression of MS -Continue to Treat infection -Reorientation -Neurology as needed per rehabilitation -Valproic acid level obtained 46.7. Seizure disorder 2/2 MS - Place on seizure precautions as needed at rehabilitation -Continue home Lamotrigine & Depakote, levels WNL on admission -Started Lamotrigine 11/02 for q2 days for 1 week, then inc to daily for 1 week, then inc to bid after. Will -continue per home up-titration GENNY on CPAP -Placed on GENNY protocol and encouraged to bring in his CPAP during hospitalization History of basal cell skin cancer, Deal's Ds -S/P MOHs -Follows with [place] Hypothyroidism -Continue home Synthroid -TSH and free T4 noted. Will require outpatient follow-up -currently stable BPH -continue home Flomax & Oxybutynin Venous insufficiency DVT prophylaxis as per rehabilitation Home Medications Scheduled Amantadine HCl (Amantadine) 100 Mg Tab, 200 MG PO DAILY Amantadine HCl (Amantadine) 100 Mg Tab, 100 MG PO QHS Baclofen (Baclofen) 10 Mg Tab, 10 MG PO BID Cholecalciferol (Vitamin D3) (Vitamin D3) 2,000 Unit Capsule, 2,000 UNIT PO DAILY Ciprofloxacin HCl (Cipro) 500 Mg Tablet, 500 MG PO BID@,18 Divalproex Sodium (Divalproex Sodium ER) 500 Mg Tab.er.24h, 500 MG PO QHS Folic Acid/Multivit-Min/Lutein (Centrum Silver Chewable Tablet) 1 Each Tab.chew, 1 CHW PO DAILY Gabapentin (Gabapentin) 400 Mg Capsule, 400 MG PO TID Lamotrigine (Lamotrigine) 25 Mg Tablet, 25 MG PO ASDIRECTED 1 TABLET EVERY OTHER DAY FOR A WEEK, THEN 1 TABLET EVERY DAY FOR A WEEK, THEN 1 TABLET TWICE A DAY FOR A WEEK Levothyroxine Sodium (Synthroid) 50 Mcg Tablet, 50 MCG PO DAILY Mycophenolate Mofetil (Mycophenolate Mofetil) 500 Mg Tab, 1,000 MG PO BID Oxybutynin Chloride (Oxybutynin Chloride ER) 10 Mg Tab, 10 MG PO QHS Tamsulosin HCl (Flomax) 0.4 Mg Cap, 0.4 MG PO QHS Allergies Coded Allergies: Penicillins (Verified Allergy, Unknown, 11/05/18) MARCIN DOHERTY MD Nov 09, 2018 12:07
[2018-11-09 14:10] VITALS: BP 158/80
[2018-11-09] MEDS ORDERED: MOM 30ML SUSPENSION UDC PO PRN (14:30)
[2018-11-09] MEDS ORDERED: MAALOX 30 ML SUSP *UDC PO PRN (14:30)
[2018-11-09] MEDS ORDERED: ONDANSETRON 4 MG TAB (S0181) PO PRN (14:30)
[2018-11-09] MEDS ORDERED: BISACODYL 10 MG SUPP PR PRN (14:30)
[2018-11-09] MEDS ORDERED: ACETAMINOPHEN TAB 650MG DOSE (2X325MG) PO PRN (14:30)
--- NOTE | 2018-11-09 14:56 | HPEPDOC ---
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 His Urine culture grew E. coli faecalis, blood cultures were negative, and he was evaluated by speech therapy for concerns regarding dysphagia. It was reported by patients that his MS and seizure mediations had recently been titrated up and that he was more lethargic possible as a result of these changes. Patients mentation and strength gradually improved on antibiotics, his swallowing weakness also improved. He was evaluated by therapy and found to have impairment in gait and ADLs compared to his baseline and deemed medically appropriate for discharge to ARU on 11/09/18. REVIEW OF SYSTEMS: The following is a completed review of systems and has been reviewed. Review of systems otherwise unremarkable. PAIN: Patient self reports no pain EYES: Negative for recent vision loss EARS, NOSE, & THROAT: recent dysphagia resolving with antibiotics, denies rhinorrhea or hearing loss CARDIOVASCULAR: denies chest pain or palpitations PULMONARY: Negative. Denies shortness of breath GASTROINTESTINAL: Negative for diarrhea or constipation GENITOURINARY: denies dysuria, +UTI MUSCULOSKELETAL: generalized weakness NEUROLOGICAL: +MS SKIN: intact, no rash PSYCHIATRIC: Unremarkable All other review of systems found to be negative. PAST MEDICAL HISTORY: as per HPI PAST SURGICAL HISTORY: Cholecystectomy 2018 ALLERGIES: Please see below. MEDICATIONS: Please see below. SOCIAL HISTORY: Lives with , retired, denies ETOH, smoking, or illicit drug use DIET: Regular PHYSICAL EXAMINATION: VITAL SIGNS: Please see below. GENERAL: Pleasant and cooperative. No acute distress. HEENT: PERRL. Extraocular movements intact. Clear conjunctiva CARDIOVASCULAR: Regular rate and rhythm. No murmurs, rubs, or gallops LUNGS: Clear to auscultation bilaterally. No wheezes. No rhonchi ABDOMEN: Soft, nontender, nondistended. Positive bowel sounds. Normal active bowel sounds NEUROLOGICAL: Alert and oriented times three. Cranial nerves II through XII grossly intact. Sensation grossly intact to light touch throughout all 4 limbs + 2 beats clonus right foot depressed reflexes throughout 1/4 MAS tone bilateral biceps EXTREMITIES: 4-\5 strength bilateral upper extremities. 3\5 strength bilateral hip flexion and knee extension, 1/5 ankle DF and EHL SKIN: intact IMAGING: Imaging documentation personally reviewed by record FUNCTIONAL STATUS: Premorbid: Independent with short distances, otherwise uses RW or scooter for community distances, receives assistance from for ADLs On Admission: Mod-Max Assist for functional transfer, standing balance CGx2 assist GOALS: Supervision for functional transfers, Contact Guard-Supervision for ambulation household distances with RW, caregiver training for dressing and bathing, assess for DME needs, medical optimization. ASSESSMENT:68-year-old M with past medical history of MS with seizure d/o who presents status post MS exacerbation in setting of UTI PLAN: 1. 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 Neuro: pmh MS with recent adjustment in medications and exacerbation ins setting of UTI- will need f/u with Dr. Alaniz on discharge, c/u Amantadine -c/u Cellcept for immunosuppression monitored by [facility] -seizure disorder, c/u Gabapentin, Depakote and Lamictal (titrating up eventually to 25mg BID per medicine recs) -recent delirium, monitor and avoid delirogenic medications, optimize sleep-wake cycle, treat infectious source -low tone secondary to chronic use of Baclofen, c/u 3. C[place]diac: no known cardiac hx 4. resp: encourage incentive spirometry and monitor for infection, CPAP at night for GENNY 5. ID: c/u Ciprofloxacin for E. faecalis UTI- medicine consulted 6. : pmh BPH c/u flomax, pmh overactive bladder related to MS c/u Oxybutynin 7. Endo: pmh hypothryoidism c/u Synthroid 8. DVT ppx: Lovenox and TEDs 9. GI ppx: c/u protonix 10. Dispo: TBD POST ADMISSION PHYSICIAN EVALUATION: Medical and functional status: Description of medical status, medical assessment: As above. Rehabilitation diagnosis and current and prior cold morbid medical conditions as above. Risk of complications and plans to mitigate them as above. Description of functional status current status is as above. Prior status as above. Status compared to preadmission: There are no clinically significant differences between the patient's current status and the information described on the preadmission screening document. Treatment plan anticipated: Treatment plan is as described above. Required disciplines including physical therapy, occupational therapy, others as noted above Intensity of services: 3 hours a day, 6 days a week. Special considerations: There are no specific special or safety considerations that would likely preclude immediate implementation of an intensive rehabilitation program or subsequently influence the plan of care. ATTESTATION: Considering all the information above, it is my best judgment that this patient requires intensive rehabilitation therapy as described above and an inpatient hospital environment due to the complexity of nursing, medical, and rehabilitation needs required by the patient. Furthermore, this patient can reasonably be expected to participate in an benefit from an inpatient rehabil itation stay with an interdisciplinary team approach to the delivery of rehabilitation care under the direction and supervision of rehabilitation physician. PROGNOSIS: Good ESTIMATED LENGTH OF STAY:18-21 days. PROJECTED DISCHARGE DESTINATION: Home with family support and any durable medical equipment required to increase functional safety and mobility TIME SPENT COUNSELING AND COORDINATING INITIAL CARE: Greater than 70 minutes. Vital Signs Vital Signs Date Time Temp Pulse Resp B/P (MAP) Pulse Ox O2 Delivery O2 Flow Rate FiO2 11/09/18 14:10 98.2 72 20 158/80 (106) 94 Home Medications Scheduled Amantadine HCl (Amantadine) 100 Mg Tab, 200 MG PO DAILY, (Reported) Amantadine HCl (Amantadine) 100 Mg Tab, 100 MG PO QHS, (Reported) Baclofen (Baclofen) 10 Mg Tab, 10 MG PO BID, (Reported) Cholecalciferol (Vitamin D3) (Vitamin D3) 2,000 Unit Capsule, 2,000 UNIT PO DAILY, (Reported) Ciprofloxacin HCl (Cipro) 500 Mg Tablet, 500 MG PO BID@18 Divalproex Sodium (Divalproex Sodium ER) 500 Mg Tab.er.24h, 500 MG PO QHS, (Reported) Folic Acid/Multivit-Min/Lutein (Centrum Silver Chewable Tablet) 1 Each Tab.chew, 1 CHW PO DAILY, (Reported) Gabapentin (Gabapentin) 400 Mg Capsule, 400 MG PO TID, (Reported) Lamotrigine (Lamotrigine) 25 Mg Tablet, 25 MG PO ASDIRECTED, (Reported) 1 TABLET EVERY OTHER DAY FOR A WEEK, THEN 1 TABLET EVERY DAY FOR A WEEK, THEN 1 TABLET TWICE A DAY FOR A WEEK Levothyroxine Sodium (Synthroid) 50 Mcg Tablet, 50 MCG PO DAILY, (Reported) Mycophenolate Mofetil (Mycophenolate Mofetil) 500 Mg Tab, 1,000 MG PO BID, (Reported) Oxybutynin Chloride (Oxybutynin Chloride ER) 10 Mg Tab, 10 MG PO QHS, (Reported) Tamsulosin HCl (Flomax) 0.4 Mg Cap, 0.4 MG PO QHS, (Reported) Allergies Coded Allergies: Penicillins (Verified Allergy, Unknown, 11/05/18) A-FIB/CHADSVASC A-FIB History Current/History of A-Fib/PAF?: No MALDONADO MIX MD Nov 09, 2018 14:56
[2018-11-09] MEDS: PANTOPRAZOLE 40MG TAB (PROTONIX) PO SCH (17:09)
[2018-11-09] MEDS: CIPROFLOXACIN 500 MG TAB PO SCH (17:09)
[2018-11-09] MEDS: GABAPENTIN 400 MG CAP PO SCH ×2 (17:09→20:24)
[2018-11-09 20:00] VITALS: BP 164/92
[2018-11-09] MEDS: oxyBUTYnin *DITROPAN XL* 5 MG TABCR PO SCH (20:23)
[2018-11-09] MEDS: ENOXAPARIN 40 MG/0.4 ML SYRINGE (J1650) SC SCH (20:23)
[2018-11-09] MEDS: AMANTADINE 100 MG CAP PO SCH (20:23)
[2018-11-09] MEDS: BACLOFEN 10 MG TAB PO SCH (20:23)
[2018-11-09] MEDS: MYCOPHENOLATE MOFETIL 250 MG CAP (J7517) PO SCH (20:23)
[2018-11-09] MEDS: TAMSULOSIN 0.4 MG CAP PO SCH (20:24)
[2018-11-09] MEDS: lamoTRIgine 25 MG TAB PO SCH (20:24)
[2018-11-09] MEDS: DIVALPROEX 500MG *ER* TAB PO SCH (20:24)
[2018-11-09] MEDS: SENOKOT S TAB PO SCH (20:24)
[2018-11-10] MEDS: CIPROFLOXACIN 500 MG TAB PO SCH ×2 (05:19→16:56)
[2018-11-10] MEDS: LEVOTHYROXINE 50MCG TABLET (0.05MG) PO SCH (05:19)
[2018-11-10 06:00] VITALS: BP_SYST 147; BP_SYST 174; BP_DIAS 90
[2018-11-10 06:40] VITALS: BP 160/84
[2018-11-10 06:46] LABS: BASO # 0.1 10^3/uL (0.0-0.2); BASO % 0.7 % (0.0-1.0); EOS # 0.2 10^3/uL (0.0-0.50); EOS % 1.9 % (0.0-3.0); HEMATOCRIT 45.3 % (42.0-52.0); HEMOGLOBIN 14.5 g/dl (13.5-17.5); LYMPH # 1.9 10^3/uL (1.5-4.5); LYMPH % 19.3 % (24.0-44.0); MEAN CORPUSCULAR HEMOGLOBIN 29.5 pg (27.0-33.0); MEAN CORPUSCULAR VOLUME 92.1 fl (80.0-96.0); MONO # 0.8 10^3/uL (0.0-0.8); MONO % 8.4 % (0.0-5.0); NEUTROPHILS # 6.7 10^3/uL (1.8-7.7); NEUTROPHILS % 66.8 % (36.0-66.0); PLATELET COUNT, AUTOMATED 202 10^3/uL (150-450); RED BLOOD COUNT 4.92 10^6/uL (4.30-6.10)
[2018-11-10 07:14] LABS: ALBUMIN 3.1 GM/DL (3.2-5.2); ALT/SGPT 89 U/L (12-78); BILIRUBIN,TOTAL 0.4 MG/DL (0.2-1.0); BLOOD UREA NITROGEN 22 MG/DL (7-18); CALCIUM LEVEL 8.9 MG/DL (8.8-10.2); CARBON DIOXIDE LEVEL 30 MEQ/L (21-32); CHLORIDE LEVEL 108 MEQ/L (98-107); CREATININE FOR GFR 0.88 MG/DL (0.70-1.30); GLOMERULAR FILTRATION RATE > 60.0 (>49); GLUCOSE, FASTING 86 MG/DL (70-100); POTASSIUM SERUM 3.9 MEQ/L (3.5-5.1); SODIUM LEVEL 144 MEQ/L (136-145); TOTAL PROTEIN 6.5 GM/DL (6.4-8.2)
[2018-11-10] MEDS: AMANTADINE 100 MG CAP PO SCH ×2 (09:16→20:40)
[2018-11-10] MEDS: GABAPENTIN 400 MG CAP PO SCH ×3 (09:17→20:39)
[2018-11-10] MEDS: MYCOPHENOLATE MOFETIL 250 MG CAP (J7517) PO SCH ×2 (09:17→20:41)
[2018-11-10] MEDS: SENOKOT S TAB PO SCH ×2 (09:17→20:44)
[2018-11-10] MEDS: BACLOFEN 10 MG TAB PO SCH ×2 (09:17→20:44)
[2018-11-10] MEDS: PANTOPRAZOLE 40MG TAB (PROTONIX) PO SCH (09:17)
[2018-11-10] MEDS: MULTIVITAMINS/MINERALS THERAP 1 TAB PO SCH (09:17)
[2018-11-10] MEDS: NYSTATIN 500,000 U/5 ML SUSP UDC SS SCH ×3 (10:59→20:44)
--- NOTE | 2018-11-10 12:37 | NUR ---
Recommend: Continue regular solids and liquids. Continue med administration as whole pills in applesauce (1 at a time). OOB and full assist. Small bites and sips. Built up utensils. Cup with lid and straw. Addendum: 11/10/18 at 1238 by STAS CHANG [facility] Amended: Links added.
--- NOTE | 2018-11-10 12:41 | NUR ---
Speech production assessed d/t dysarthric characteristics. Observed thrush and lingual tremors. Imprecise production of consonants and low volume. Intelligibility is variable. Please ask Pt to use a loud voice when talking and to use shorter phrases. Speech therapy to target speech production. Addendum: 11/10/18 at 1242 by STAS CHANG [facility] Amended: Links added.
[2018-11-10 14:02] VITALS: BP 157/98
--- NOTE | 2018-11-10 15:35 | IPNPDOC ---
Date Seen The patient was seen on 11/10/18. Progress Note SUBJECTIVE: Patient watch TV today. He's not in acute distress but his tongue showed thrush; thus, will offer nystatin SS. OBJECTIVE PHYSICAL EXAMINATION: Vitals: see below General: NAD, A&O, resting comfortably HEENT: NCAT, EOMI, anicteric sclera, no tracheal deviation CV: RRR, no murmurs, normal S1S2 RESP: CTAB, no w/r/r/ ABD: soft, NT, ND. Benign. Negative CVA tenderness or flank pain/tenderness EXTREMITIES: 2+ radial pulses b/l, able to move all extremities NEURO: baseline weakness from MS: 5/5 UE and 3-4/5 LE b/l LABORATORY DATA, IMAGING STUDIES, MICROBIOLOGY: Please see below. ASSESSMENT AND PLAN: 68-year-old male, with past medical history notable for progressively worsening Multiple Sclerosis and seizure disorder 2/ MS, presented with after she noticed he was having increased incontinence and brown cloudy urine with pus with urgency and frequency over the past 1-2 weeks. Patient treated for UTI as mentioned below. Confusion at night, concern may be related to medication adjustment for seizure. Patient evaluated by Neurology, believed to be secondary due to infection. Patient's confusion resolved without any intervention nightly and severity has improved with progressing nights. Patient was admitted to acute rehabilitation unit. Rehab as per primary team UTI - Positive UA, urinary urgency & frequency -Urine culture showed enterococcus faecalis sensitive to ciprofloxacin, patient currently on ciprofloxacin-for 6 more days -Stable with antibiotic fluid therapy Generalized weakness and deconditioning -as per Rehab team -Likely related to his progressively worsening MS with added component of acute infection -Patient has gone from managing his own ADLs to now fully-dependent on others for self-care -Nml walk at home with walker and was able to do this 2 weeks ago Dysphagia -Per , he has been starting to choke on his medications. This is new for him. -Placed on aspiration precautions and swallow eval rec (regular diet, thin liquids. Assist pt for upright position & OOB for meals as tolerated. Please administer medications in applesauce prn. Pt requires full assistance from staff for meals). Multiple sclerosis - diagnosed age 40 -Continue home Amantadine -Patient follows with neurologist Dr. Yady Rubio. Per patient, she has been readjusting his regimen - states titrating his meds has worsened his fatigue. -Neuro consult with Dr. Mancera when necessary and continue to treat UTI. Can followup as scheduled with Dr. Yady Rubio within the next 2 weeks. Confusion overnight secondary due to infection versus delirium versus medication induced versus progression of MS -Continue to Treat infection -Reorientation -Neurology as needed per rehabilitation -Valproic acid level obtained 46.7. Seizure disorder / MS - Place on seizure precautions as needed at rehabilitation -Continue home Lamotrigine & Depakote, levels WNL on admission -Started Lamotrigine 11/02 for q2 days for 1 week, then inc to daily for 1 week, then inc to bid after. Will -continue per home up-titration GENNY on CPAP -Placed on GENNY protocol and encouraged to bring in his CPAP during hospitalization History of basal cell skin cancer, Deal's Ds -S/P MOHs -Follows with [place] Hypothyroidism -Continue home Synthroid -TSH and free T4 noted. Will require outpatient follow-up -currently stable BPH -continue home Flomax & Oxybutynin Venous insufficiency DVT prophylaxis as per rehabilitation VS, I&O, 24H, Fishbone Vital Signs/I&O Vital Signs Date Time Temp Pulse Resp B/P (MAP) Pulse Ox O2 Delivery O2 Flow Rate FiO2 11/10/18 14:02 97.0 59 18 157/98 (117) 96 I&O- Last 24 Hours up to 6 AM 11/10/18 06:00 Intake Total 210 ml Output Total 350 ml Balance -140 ml Laboratory Data 24H LABS Laboratory Tests 2 11/10/18 06:35: Immature Granulocyte % (Auto) 2.9, White Blood Count 10.0, Red Blood Count 4.92, Hemoglobin 14.5, Hematocrit 45.3, Mean Corpuscular Volume 92.1, Mean Corpuscular Hemoglobin 29.5, Mean Corpuscular Hemoglobin Concent 32.0, Red Cell Distribution Width 14.5, Platelet Count 202, Neutrophils (%) (Auto) 66.8H, Lymphocytes (%) (Auto) 19.3L, Monocytes (%) (Auto) 8.4H, Eosinophils (%) (Auto) 1.9, Basophils (%) (Auto) 0.7, Neutrophils # (Auto) 6.7, Lymphocytes # (Auto) 1.9, Monocytes # (Auto) 0.8, Eosinophils # (Auto) 0.2, Basophils # (Auto) 0.1, Nucleated Red Blood Cells % (auto) 0.0, Anion Gap 6L, Glomerular Filtration Rate > 60.0, Blood Urea Nitrogen 22H, Creatinine 0.88, Sodium Level 144, Potassium Level 3.9, Chloride Level 108H, Carbon Dioxide Level 30, Calcium Level 8.9, Aspartate Amino Transf (AST/SGOT) 62H, Alanine Aminotransferase (ALT/SGPT) 89H, Alkaline Phosphatase 431H, Total Bilirubin 0.4, Total Protein 6.5, Albumin 3.1L, Albumin/Globulin Ratio 0.91L CBC/BMP Laboratory Tests 11/10/18 06:35 Red Blood Count 4.92, Mean Corpuscular Volume 92.1, Mean Corpuscular Hemoglobin 29.5, Mean Corpuscular Hemoglobin Concent 32.0, Red Cell Distribution Width 14.5, Neutrophils (%) (Auto) 66.8 H, Lymphocytes (%) (Auto) 19.3 L, Monocytes (%) (Auto) 8.4 H, Eosinophils (%) (Auto) 1.9, Basophils (%) (Auto) 0.7, Neutrophils # (Auto) 6.7, Lymphocytes # (Auto) 1.9, Monocytes # (Auto) 0.8, Eosinophils # (Auto) 0.2, Basophils # (Auto) 0.1, Calcium Level 8.9, Aspartate Amino Transf (AST/SGOT) 62 H, Alanine Aminotransferase (ALT/SGPT) 89 H, Alkaline Phosphatase 431 H, Total Bilirubin 0.4, Total Protein 6.5, Albumin 3.1 L MARCIN DOHERTY MD Nov 10, 2018 15:35
[2018-11-10 20:00] VITALS: BP 150/76
[2018-11-10] MEDS: DIVALPROEX 500MG *ER* TAB PO SCH (20:38)
[2018-11-10] MEDS: lamoTRIgine 25 MG TAB PO SCH (20:38)
[2018-11-10] MEDS: TAMSULOSIN 0.4 MG CAP PO SCH (20:41)
[2018-11-10] MEDS: oxyBUTYnin *DITROPAN XL* 5 MG TABCR PO SCH (20:44)
[2018-11-10] MEDS: ENOXAPARIN 40 MG/0.4 ML SYRINGE (J1650) SC SCH (20:45)
[2018-11-11] MEDS: CIPROFLOXACIN 500 MG TAB PO SCH ×2 (05:55→16:56)
[2018-11-11] MEDS: LEVOTHYROXINE 50MCG TABLET (0.05MG) PO SCH (05:55)
[2018-11-11 06:00] VITALS: BP 140/70
[2018-11-11] MEDS: NYSTATIN 500,000 U/5 ML SUSP UDC SS SCH ×3 (08:43→21:16)
[2018-11-11] MEDS: BACLOFEN 10 MG TAB PO SCH ×2 (08:43→21:16)
[2018-11-11] MEDS: MULTIVITAMINS/MINERALS THERAP 1 TAB PO SCH (08:43)
[2018-11-11] MEDS: GABAPENTIN 400 MG CAP PO SCH ×3 (08:44→21:16)
[2018-11-11] MEDS: PANTOPRAZOLE 40MG TAB (PROTONIX) PO SCH (08:44)
[2018-11-11] MEDS: AMANTADINE 100 MG CAP PO SCH ×2 (08:45→21:17)
[2018-11-11] MEDS: MYCOPHENOLATE MOFETIL 250 MG CAP (J7517) PO SCH ×2 (08:45→21:16)
[2018-11-11] MEDS: SENOKOT S TAB PO SCH ×2 (08:45→21:17)
[2018-11-11 14:00] VITALS: BP 125/71
--- NOTE | 2018-11-11 15:45 | IPNPDOC ---
Date Seen The patient was seen on 11/11/18. Progress Note SUBJECTIVE: Patient in bed. Patient denies of any acute pain or discomfort at this time. OBJECTIVE PHYSICAL EXAMINATION: Vitals: see below General: NAD, A&O, resting comfortably HEENT: NCAT, EOMI, anicteric sclera, no tracheal deviation CV: RRR, no murmurs, normal S1S2 RESP: CTAB, no w/r/r/ ABD: soft, NT, ND. Benign. Negative CVA tenderness or flank pain/tenderness EXTREMITIES: 2+ radial pulses b/l, able to move all extremities NEURO: baseline weakness from MS: 5/5 UE and 3-4/5 LE b/l LABORATORY DATA, IMAGING STUDIES, MICROBIOLOGY: Please see below. ASSESSMENT AND PLAN: 68-year-old male, with past medical history notable for progressively worsening Multiple Sclerosis and seizure disorder 2/ MS, presented with after she noticed he was having increased incontinence and brown cloudy urine with pus with urgency and frequency over the past 1-2 weeks. Patient treated for UTI as mentioned below. Confusion at night, concern may be related to medication adjustment for seizure. Patient evaluated by Neurology, believed to be secondary due to infection. Patient's confusion resolved without any intervention nightly and severity has improved with progressing nights. Patient was admitted to acute rehabilitation unit. Rehab as per primary team UTI - Positive UA, urinary urgency & frequency -Urine culture showed enterococcus faecalis sensitive to ciprofloxacin, patient currently on ciprofloxacin from 11/06/18 for total of 10 days. -Stable with antibiotic fluid therapy Generalized weakness and deconditioning -as per Rehab team -Likely related to his progressively worsening MS with added component of acute infection -Patient has gone from managing his own ADLs to now fully-dependent on others for self-care -Nml walk at home with walker and was able to do this 2 weeks ago Dysphagia -Per , he has been starting to choke on his medications. This is new for him. -Placed on aspiration precautions and swallow eval rec (regular diet, thin liquids. Assist pt for upright position & OOB for meals as tolerated. Please administer medications in applesauce prn. Pt requires full assistance from staff for meals). Multiple sclerosis - diagnosed age 40 -Continue home Amantadine -Patient follows with neurologist Dr. Yady Rubio. Per patient, she has been readjusting his regimen - states titrating his meds has worsened his fatigue. -Neuro consult with Dr. Mancera when necessary and continue to treat UTI. Can followup as scheduled with Dr. Yady Rubio within the next 2 weeks. Confusion overnight secondary due to infection versus delirium versus medication induced versus progression of MS -Continue to Treat infection -Reorientation -Neurology as needed per rehabilitation -Valproic acid level obtained 46.7. Seizure disorder 2/ MS - Place on seizure precautions as needed at rehabilitation -Continue home Lamotrigine & Depakote, levels WNL on admission -Started Lamotrigine 11/02 for q2 days for 1 week, then inc to daily for 1 week, then inc to bid after. Will -continue per home up-titration GENNY on CPAP -Placed on GENNY protocol and encouraged to bring in his CPAP during hospitalization History of basal cell skin cancer, Deal's Ds -S/P MOHs -Follows with [facility] Hypothyroidism -Continue home Synthroid -TSH and free T4 noted. Will require outpatient follow-up -currently stable BPH -continue home Flomax & Oxybutynin Venous insufficiency DVT prophylaxis as per rehabilitation A-FIB/CHADSVASC A-FIB History Current/History of A-Fib/PAF?: No VS, I&O, 24H, Fishbone Vital Signs/I&O Vital Signs Date Time Temp Pulse Resp B/P (MAP) Pulse Ox O2 Delivery O2 Flow Rate FiO2 11/11/18 14:00 97.0 95 18 125/71 (89) 93 I&O- Last 24 Hours up to 6 AM 11/11/18 06:00 Intake Total 120 ml Output Total 850 ml Balance -730 ml MARCIN DOHERTY MD Nov 11, 2018 15:45
[2018-11-11 20:00] VITALS: BP 158/82
[2018-11-11] MEDS: ENOXAPARIN 40 MG/0.4 ML SYRINGE (J1650) SC SCH (21:16)
[2018-11-11] MEDS: DIVALPROEX 500MG *ER* TAB PO SCH (21:17)
[2018-11-11] MEDS: lamoTRIgine 25 MG TAB PO SCH (21:17)
[2018-11-11] MEDS: TAMSULOSIN 0.4 MG CAP PO SCH (21:17)
[2018-11-11] MEDS: oxyBUTYnin *DITROPAN XL* 5 MG TABCR PO SCH (21:17)
[2018-11-12] MEDS: CIPROFLOXACIN 500 MG TAB PO SCH ×2 (05:30→17:34)
[2018-11-12] MEDS: LEVOTHYROXINE 50MCG TABLET (0.05MG) PO SCH (05:30)
[2018-11-12 06:00] VITALS: BP 142/67
[2018-11-12 06:42] LABS: HEMATOCRIT 43.1 % (42.0-52.0); HEMOGLOBIN 13.5 g/dl (13.5-17.5); MEAN CORPUSCULAR HEMOGLOBIN 29.3 pg (27.0-33.0); MEAN CORPUSCULAR HGB CONC 31.3 g/dl (32.0-36.5); MEAN CORPUSCULAR VOLUME 93.7 fl (80.0-96.0); PLATELET COUNT, AUTOMATED 215 10^3/uL (150-450); WHITE BLOOD COUNT 14.7 10^3/uL (4.0-10.0)
[2018-11-12 07:06] LABS: BLOOD UREA NITROGEN 31 MG/DL (7-18); CALCIUM LEVEL 8.6 MG/DL (8.8-10.2); CARBON DIOXIDE LEVEL 33 MEQ/L (21-32); CHLORIDE LEVEL 108 MEQ/L (98-107); CREATININE FOR GFR 0.86 MG/DL (0.70-1.30); GLOMERULAR FILTRATION RATE > 60.0 (>49); GLUCOSE, FASTING 82 MG/DL (70-100); POTASSIUM SERUM 3.7 MEQ/L (3.5-5.1); SODIUM LEVEL 144 MEQ/L (136-145)
[2018-11-12] MEDS: BACLOFEN 10 MG TAB PO SCH ×2 (09:33→21:26)
[2018-11-12] MEDS: NYSTATIN 500,000 U/5 ML SUSP UDC SS SCH ×3 (09:33→21:25)
[2018-11-12] MEDS: MULTIVITAMINS/MINERALS THERAP 1 TAB PO SCH (09:33)
[2018-11-12] MEDS: SENOKOT S TAB PO SCH ×2 (09:33→21:25)
[2018-11-12] MEDS: GABAPENTIN 400 MG CAP PO SCH ×3 (09:33→21:25)
[2018-11-12] MEDS: PANTOPRAZOLE 40MG TAB (PROTONIX) PO SCH (09:33)
[2018-11-12] MEDS: AMANTADINE 100 MG CAP PO SCH ×2 (09:33→21:26)
--- NOTE | 2018-11-12 10:27 | NUR ---
Cognitive assessment completed w/ CLQT this date. Assessment used informally as pt was unable to complete majority of written tasks d/t impaired fine motor skills. Noted increased processing time and decreased visual & auditory memory. Pt also experienced hallucinations during evaluation, aware. Discussed cognitive status w/ via phone, who states pt "is just not himself," requiring increased processing time and often not responding appropriately to her. She associates these cognitive changes w/ UTI and changes to medication. ELECTRICAL DESIGN TECHNOLOGIST will f/u cognitive tx as UTI clears and medication regimen is adjusted. Addendum: 11/12/[address] [facility] Amended: Links added.
[2018-11-12] MEDS: MYCOPHENOLATE MOFETIL 250 MG CAP (J7517) PO SCH ×2 (12:37→21:26)
[2018-11-12 14:00] VITALS: BP 123/69
--- NOTE | 2018-11-12 15:56 | IPNPDOC ---
Date Seen The patient was seen on 11/12/18. Progress Note SUBJECTIVE: Patient sitting a wheelchair. Actively using his upper extremity to move his lower extremity. Patient denies of any acute distress. No shortness of breath. Continue rehabilitation as per primary team. OBJECTIVE PHYSICAL EXAMINATION: Vitals: see below General: NAD, A&O, resting comfortably HEENT: NCAT, EOMI, anicteric sclera, no tracheal deviation CV: RRR, no murmurs, normal S1S2 RESP: CTAB, no w/r/r/ ABD: soft, NT, ND. Benign. Negative CVA tenderness or flank pain/tenderness EXTREMITIES: 2+ radial pulses b/l, able to move all extremities NEURO: baseline weakness from MS: 5/5 UE and 3-4/5 LE b/l LABORATORY DATA, IMAGING STUDIES, MICROBIOLOGY: Please see below. ASSESSMENT AND PLAN: 68-year-old male, with past medical history notable for progressively worsening Multiple Sclerosis and seizure disorder 2/ MS, presented with after she noticed he was having increased incontinence and brown cloudy urine with pus with urgency and frequency over the past 1-2 weeks. Patient treated for UTI as mentioned below. Confusion at night, concern may be related to medication adjustment for seizure. Patient evaluated by Neurology, believed to be secondary due to infection. Patient's confusion resolved without any intervention nightly and severity has improved with progressing nights. Patient was admitted to acute rehabilitation unit. Rehab as per primary team Leukocytosis, likely reactive from activity -no fever -continue UTI treatment as below UTI - Positive UA, urinary urgency & frequency -Urine culture showed enterococcus faecalis sensitive to ciprofloxacin, patient currently on ciprofloxacin from 11/06/18 for total of 10 days. -Stable with antibiotic fluid therapy Generalized weakness and deconditioning -as per Rehab team -Likely related to his progressively worsening MS with added component of acute infection -Patient has gone from managing his own ADLs to now fully-dependent on others for self-care -Nml walk at home with walker and was able to do this 2 weeks ago Dysphagia -Per , he has been starting to choke on his medications. This is new for him. -Placed on aspiration precautions and swallow eval rec (regular diet, thin liquids. Assist pt for upright position & OOB for meals as tolerated. Please administer medications in applesauce prn. Pt requires full assistance from staff for meals). Multiple sclerosis - diagnosed age 40 -Continue home Amantadine -Patient follows with neurologist Dr. Yady Rubio. Per patient, she has been readjusting his regimen - states titrating his meds has worsened his fatigue. -Neuro consult with Dr. Mancera when necessary and continue to treat UTI. Can followup as scheduled with Dr. Yady Rubio within the next 2 weeks. Confusion overnight secondary due to infection versus delirium versus medication induced versus progression of MS -Continue to Treat infection -Reorientation -Neurology as needed per rehabilitation -Valproic acid level obtained 46.7. Seizure disorder 08/18 MS - Place on seizure precautions as needed at rehabilitation -Continue home Lamotrigine & Depakote, levels WNL on admission -Started Lamotrigine 11/02 for q2 days for 1 week, then inc to daily for 1 week, then inc to bid after. Will -continue per home up-titration GENNY on CPAP -Placed on GENNY protocol and encouraged to bring in his CPAP during hospitalization History of basal cell skin cancer, Deal's Ds -S/P MOHs -Follows with [facility] Hypothyroidism -Continue home Synthroid -TSH and free T4 noted. Will require outpatient follow-up -currently stable BPH -continue home Flomax & Oxybutynin Venous insufficiency DVT prophylaxis as per rehabilitation. A-FIB/CHADSVASC A-FIB History Current/History of A-Fib/PAF?: No VS, I&O, 24H, Fishbone Vital Signs/I&O Vital Signs Date Time Temp Pulse Resp B/P (MAP) Pulse Ox O2 Delivery O2 Flow Rate FiO2 11/12/18 14:00 97.1 64 15 123/69 (87) 98 I&O- Last 24 Hours up to 6 AM 11/12/18 05:59 Intake Total 900 ml Output Total 430 ml Balance 470 ml Laboratory Data 24H LABS Laboratory Tests 2 11/12/18 06:19: Nucleated Red Blood Cells % (auto) 0.0, Anion Gap 3L, Glomerular Filtration Rate > 60.0, Blood Urea Nitrogen 31H, Creatinine 0.86, Sodium Level 144, Potassium Level 3.7, Chloride Level 108H, Carbon Dioxide Level 33H, Calcium Level 8.6L CBC/BMP Laboratory Tests 11/12/18 06:19 Red Blood Count 4.60, Mean Corpuscular Volume 93.7, Mean Corpuscular Hemoglobin 29.3, Mean Corpuscular Hemoglobin Concent 31.3 L, Red Cell Distribution Width 14.6 H, Calcium Level 8.6 L MARCIN DOHERTY MD Nov 12, 2018 15:55
[2018-11-12 20:00] VITALS: BP 151/78
[2018-11-12] MEDS: DIVALPROEX 500MG *ER* TAB PO SCH (21:25)
[2018-11-12] MEDS: lamoTRIgine 25 MG TAB PO SCH (21:25)
[2018-11-12] MEDS: ENOXAPARIN 40 MG/0.4 ML SYRINGE (J1650) SC SCH (21:25)
[2018-11-12] MEDS: TAMSULOSIN 0.4 MG CAP PO SCH (21:25)
[2018-11-12] MEDS: oxyBUTYnin *DITROPAN XL* 5 MG TABCR PO SCH (21:26)
[2018-11-13] MEDS: LEVOTHYROXINE 50MCG TABLET (0.05MG) PO SCH (05:32)
[2018-11-13] MEDS: CIPROFLOXACIN 500 MG TAB PO SCH ×2 (05:32→17:24)
[2018-11-13] MEDS: MYCOPHENOLATE MOFETIL 250 MG CAP (J7517) PO SCH ×2 (08:45→21:05)
[2018-11-13] MEDS: NYSTATIN 500,000 U/5 ML SUSP UDC SS SCH ×3 (08:45→21:08)
[2018-11-13] MEDS: AMANTADINE 100 MG CAP PO SCH (08:46)
[2018-11-13] MEDS: BACLOFEN 10 MG TAB PO SCH ×2 (08:46→21:05)
[2018-11-13] MEDS: PANTOPRAZOLE 40MG TAB (PROTONIX) PO SCH (08:46)
[2018-11-13] MEDS: MULTIVITAMINS/MINERALS THERAP 1 TAB PO SCH (08:46)
[2018-11-13] MEDS: GABAPENTIN 400 MG CAP PO SCH ×3 (08:46→21:05)
[2018-11-13] MEDS: SENOKOT S TAB PO SCH ×2 (08:46→21:05)
[2018-11-13 14:00] VITALS: BP 160/80
--- NOTE | 2018-11-13 14:21 | IPNPDOC ---
Subjective Date Seen The patient was seen on 11/13/18. Subjective Chief Complaint/HPI 68-year-old male, with past medical history notable for progressively worsening Multiple Sclerosis and seizure disorder 2/2 MS, presented with after she noticed he was having increased incontinence and brown cloudy urine with pus with urgency and frequency over the past 1-2 weeks. Events since last encounter Patient has no current complaints. at bedside, reports patient has been increasingly confused and she is also concerned about elevated white blood count of 14 noted yesterday. Concerned elevated white blood count and confusion are related to possibly new acute infectious process. Occupational therapist at bedside working with patient. She reports improvement in his progress.. Objective Physical Examination Other physical findings General: Ill-appearing elderly male with significant debility noted. NAD. Skin: Warm, dry, intact. Cardiovascular: Regular rate and rhythm, no MRG, no jugular venous distention, no edema. Respiratory:CTAB, no accessory muscle use noted. Abdomen: Bowel sounds +, no tenderness, no distention Musculoskeletal: Generalized weakness, unable to sit up without assistance Neurologic: Generalized weakness, alert and oriented to self and place Psychiatric: Appropriate mood and affect, no anxiety or agitation. A-FIB/CHADSVASC A-FIB History Current/History of A-Fib/PAF?: No Current Oral Anticoagulant The: No Age/Risk Factor Scoring CHADSVASC: CHADSVASC Response (Comments) Value Age Risk Factor Age < 65 years old 0 Gender Risk Factor Male 0 Hx of CHF No 0 Hx of HTN No 0 Hx of Stroke/TIA/or VTE No 0 Hx of Diabetes No 0 Hx of Vascular Disease No 0 Total 0 Assessment /Plan Problems (1) Multiple sclerosis Status: Chronic Response to Treatment: Improving Discussed With: Family with Pt Consent Problem Text: -Likely trigger for acute flare is Urinary tract infection -Currently in rehabilitation unit for mobilization and strengthening - diagnosed at age 40 and managed on Amantadine-continue on same -Outpatient follow-up with neurologist Dr. Yady Rubio. Per patient, she has been readjusting his regimen - states titrating his meds has worsened his fatigue. -Neuro consult with Dr. Mancera when necessary and continue to treat UTI. -Can followup as scheduled with Dr. Yady Rubio within the next 2 weeks. (2) Urinary tract infection Status: Acute Problem Text: - Positive UA, urinary urgency & frequency -Urine culture showed enterococcus faecalis sensitive to ciprofloxacin, patient currently on ciprofloxacin from 11/06/18 for total of 10 days. - reports confusion with concern for elevated white blood count. -. We'll Repeat urinalysis and culture -follow findings. -Patient has no signs or symptoms of systemic infectious process (3) Seizure disorder Status: Acute Problem Text: -Seizure disorder 2/2 MS -Continue seizure precautions -Continue home Lamotrigine & Depakote - levels within normal limits on admission -Started Lamotrigine 11/02 for q2 days for 1 week, then inc to daily for 1 week, then inc to bid after. Will -continue per home up-titration (4) Elevated blood pressure reading Status: Acute Problem Text: -Patient likely has undiagnosed hypertension given persistently elevated blood pressures registered this admission -Start on low-dose FIDELIA inhibitor with continued monitoring of blood pressure (5) Encephalopathy Status: Acute Problem Text: -Confusion overnight secondary due to infection versus delirium versus medication induced versus progression of MS -Continue to Treat infection with Cipro -Continue Reorientation -. Repeat urinalysis and culture studies and follow findings to adjust antibiotic therapy if indicated -Neurology follow-up as needed per rehabilitation -Valproic acid level obtained 46.7. (6) BPH with obstruction/lower urinary tract symptoms Status: Chronic Problem Text: -Continue Flomax and oxybutynin -. Recheck urinalysis and culture to assess for new infection Plan/VTE VTE Prophylaxis Ordered?: Yes VS, I&O, 24H, Fishbone Vital Signs/I&O Vital Signs Date Time Temp Pulse Resp B/P (MAP) Pulse Ox O2 Delivery O2 Flow Rate FiO2 11/13/18 14:00 97.5 67 18 160/80 (106) 98 I&O- Last 24 Hours up to 6 AM 11/13/18 06:00 Intake Total 1380 ml Output Total 300 ml Balance 1080 ml REGLA CARR Nov 13, 2018 14:21
--- NOTE | 2018-11-13 15:58 | REP ---
Chest one-view HISTORY: Elevated right Comparison: 10/03/2018 The lungs are clear. The heart is normal in size. The pulmonary vasculature is normal in appearance. Impression: No acute disease. Electronically Signed by Yovany Parsons MD 11/13/2018 03:49 P
--- NOTE | 2018-11-13 16:38 | REP ---
Bilateral lower extremity Duplex Doppler venous ultrasound: Real time compression and duplex Doppler interrogation of the bilateral lower extremity deep venous system is performed. Bilaterally, the common femoral, superficial femoral and popliteal veins are fully compressible with transducer pressure and demonstrate normal spontaneous and phasic flow, without evidence of deep venous thrombosis. Impression: No evidence of deep venous thrombosis of the bilateral lower extremity femoral popliteal venous system. Electronically Signed by Micah Vick MD 11/13/2018 04:29 P
[2018-11-13] MEDS: SALIVA SUBSTITUTE(MOUTHKOTE) BTL MT SCH ×5 (17:00→23:00)
[2018-11-13] MEDS: MAGIC MOUTHWASH SUSPENSION BTL SSP SCH (17:24)
[2018-11-13] MEDS: LISINOPRIL *2.5 MG* TAB PO SCH (18:10)
[2018-11-13 20:00] VITALS: BP 139/76
[2018-11-13] MEDS: ENOXAPARIN 40 MG/0.4 ML SYRINGE (J1650) SC SCH (21:04)
[2018-11-13] MEDS: TAMSULOSIN 0.4 MG CAP PO SCH (21:05)
[2018-11-13] MEDS: lamoTRIgine 25 MG TAB PO SCH (21:05)
[2018-11-13] MEDS: oxyBUTYnin *DITROPAN XL* 5 MG TABCR PO SCH (21:05)
[2018-11-13] MEDS: DIVALPROEX 500MG *ER* TAB PO SCH (21:05)
[2018-11-14] MEDS: SALIVA SUBSTITUTE(MOUTHKOTE) BTL MT SCH ×12 (01:00→23:00)
[2018-11-14 06:00] VITALS: BP 125/65
[2018-11-14] MEDS: LEVOTHYROXINE 50MCG TABLET (0.05MG) PO SCH (06:05)
[2018-11-14] MEDS: CIPROFLOXACIN 500 MG TAB PO SCH ×2 (06:05→17:22)
--- NOTE | 2018-11-14 07:10 | CR ---
DATE OF CONSULTATION: 11/13/2018 REFERRING PHYSICIAN: Dr. Patricia Fabian REASON FOR CONSULTATION: Altered mental status and hallucinations. HISTORY OF PRESENT ILLNESS: Jean Marie Miramontes is a 68-year-old man with a history of primary progressive multiple sclerosis, seizures, obstructive sleep apnea who was brought to [facility] on November 05, 2018 due to dysuria and cloudy urine with worsening weakness. He was found to have elevated white, confusion with visual hallucinations. His urinalysis grew E. coli and blood cultures were negative. He was treated with IV antibiotics followed by oral antibiotics. His mentation and strength gradually improved with antibiotics and his swallowing also improved. He was sent to the rehabilitation unit for inpatient physical therapy. The patient has a history of primary progressive multiple sclerosis since 1991 and has been on CellCept for many years. He had generalized tonic-clonic seizures in 1991 and 2016 and then July and September 2018. He has been taking Depakote and lamotrigine was added. The patient has been taking amantadine for 20 years. The patient started having visual hallucinations at home before he came to [facility]. According to his he saw trucks, plastic sheets, plastic bugs in his room. His remembers that he was watching golf and he suddenly moved his head as if he was trying to avoid getting hit by a golf ball. He saw the golf ball coming out of the TV and flying towards him. He denies any headaches, neck or back pain. He denies any dysphagia, dysarthria, diplopia, falls or loss of consciousness. PAST MEDICAL HISTORY: Primary progressive multiple sclerosis. Generalized tonic-clonic seizures. Sleep apnea. Prostate enlargement. Hypothyroidism. Recent urinary tract infection. Cholecystectomy. HOME MEDICATIONS: - amantadine 200 mg by mouth in the morning in divided doses and 100 mg at night - baclofen 10 mg by mouth twice a day - ciprofloxacin 500 mg by mouth twice a day - Depakote extended-release 500 mg by mouth daily - gabapentin 400 mg by mouth three times a day - lamotrigine 25 mg by mouth three times a day - levothyroxine 50 mcg by mouth daily - CellCept 1000 mg by mouth twice a day - Oxybutynin 10 mg by mouth at bedtime - Flomax 0.4 mg by mouth at bedtime ALLERGIES: 1. PENICILLIN. REVIEW OF SYSTEMS: All systems were reviewed and found be noncontributory except as mentioned in the history of present illness. FAMILY HISTORY: Noncontributory. SOCIAL HISTORY: He denies smoking, alcohol or illicit drugs. He lives with . PHYSICAL EXAMINATION: Temperature 97.9, blood pressure 152/82, temperature 97.9, pulse 63, respiratory rate 17. HEART: Regular rate and rhythm. LUNGS: Clear to auscultation. ABDOMEN: Soft, nontender, nondistended. No pedal edema. No musculoskeletal abnormalities. No rash. No signs of meningeal irritation. The patient is awake, alert, oriented to place, person and time. Normal speech, comprehension and repetition. Extraocular muscles are intact. He has bilateral gaze-evoked nystagmus. Recent and distant memory is intact. Tongue and uvula are midline. No facial weakness. He has decreased rapid finger and hand movements. 5-/5 strength in arms and 3-/5 strength in both legs. Deep tendon flexes are 3+ in legs. His plantars are upgoing. He has decreased cold vibration sensation in his legs. Gait was not tested. ASSESSMENT: 1. Delirium and visual hallucinations likely triggered by urinary tract infection and intake of amantadine during his urinary tract infection. 2. Primary progressive multiple sclerosis. 3. Generalized tonic-clonic seizures. 4. Urinary tract infection. PLAN: 1. Discontinue amantadine and it can be restarted later if needed for apathy and fatigue induced by multiple sclerosis. 2. Continue Depakote and Lamictal at current doses and we can slowly increase them. Once his hallucinations improve I would likely recommend increasing them during his hospital stay. 3. Continue physical therapy and appropriate treatment of his urinary tract infection. 4. Follow with our office within one month after discharge from rehabilitation.
[2018-11-14] MEDS: MULTIVITAMINS/MINERALS THERAP 1 TAB PO SCH (08:22)
[2018-11-14] MEDS: LISINOPRIL *2.5 MG* TAB PO SCH (08:22)
[2018-11-14] MEDS: PANTOPRAZOLE 40MG TAB (PROTONIX) PO SCH (08:23)
[2018-11-14] MEDS: SENOKOT S TAB PO SCH ×2 (08:23→21:47)
[2018-11-14] MEDS: MAGIC MOUTHWASH SUSPENSION BTL SSP SCH ×3 (08:23→17:23)
[2018-11-14] MEDS: BACLOFEN 10 MG TAB PO SCH ×2 (08:23→21:47)
[2018-11-14] MEDS: MYCOPHENOLATE MOFETIL 250 MG CAP (J7517) PO SCH ×2 (08:23→21:47)
[2018-11-14] MEDS: GABAPENTIN 400 MG CAP PO SCH ×3 (08:23→21:46)
[2018-11-14] MEDS: NYSTATIN 500,000 U/5 ML SUSP UDC SS SCH ×3 (08:23→21:46)
[2018-11-14 08:31] LABS: BASO # 0.1 10^3/uL (0.0-0.2); BASO % 0.9 % (0.0-1.0); EOS # 0.2 10^3/uL (0.0-0.50); EOS % 1.9 % (0.0-3.0); HEMATOCRIT 42.1 % (42.0-52.0); HEMOGLOBIN 13.5 g/dl (13.5-17.5); LYMPH # 1.7 10^3/uL (1.5-4.5); LYMPH % 19.4 % (24.0-44.0); MEAN CORPUSCULAR HEMOGLOBIN 30.1 pg (27.0-33.0); MEAN CORPUSCULAR HGB CONC 32.1 g/dl (32.0-36.5); MONO # 0.7 10^3/uL (0.0-0.8); NEUTROPHILS % 68.2 % (36.0-66.0); PLATELET COUNT, AUTOMATED 233 10^3/uL (150-450); RED BLOOD COUNT 4.48 10^6/uL (4.30-6.10); WHITE BLOOD COUNT 8.8 10^3/uL (4.0-10.0)
[2018-11-14 08:58] LABS: BLOOD UREA NITROGEN 31 MG/DL (7-18); CALCIUM LEVEL 8.4 MG/DL (8.8-10.2); CARBON DIOXIDE LEVEL 33 MEQ/L (21-32); CHLORIDE LEVEL 109 MEQ/L (98-107); CREATININE FOR GFR 0.81 MG/DL (0.70-1.30); GLOMERULAR FILTRATION RATE > 60.0 (>49); GLUCOSE, FASTING 85 MG/DL (70-100); POTASSIUM SERUM 3.7 MEQ/L (3.5-5.1); SODIUM LEVEL 145 MEQ/L (136-145)
--- NOTE | 2018-11-14 11:48 | IPNPDOC ---
Subjective Date Seen The patient was seen on 11/14/18. Subjective Chief Complaint/HPI 68-year-old male, with past medical history notable for progressively worsening Multiple Sclerosis and seizure disorder 2/2 MS, presented with after she noticed he was having increased incontinence and brown cloudy urine with pus with urgency and frequency over the past 1-2 weeks. Events since last encounter Patient has no complaints this morning. He is able to state who is, knows where he is, and what year it is appropriately. No overnight issues reported by bedside staff. Oral intake has been poor due to debility. Otherwise, patient denies any pain. Objective Physical Examination Other physical findings General: Ill-appearing elderly male with significant debility, no acute distress noted. Skin: Warm, dry, intact. Cardiovascular: Regular rate and rhythm, no MRG, no jugular venous distention, no edema. Respiratory:CTAB, no accessory muscle use noted. Abdomen: Bowel sounds +, no tenderness, no distention Musculoskeletal: Propped up in bed with pillows, unable to sit up without assistance Neurologic: Generalized weakness, alert and oriented to self, place and time Psychiatric: Appropriate mood and affect, no anxiety or agitation. A-FIB/CHADSVASC A-FIB History Current/History of A-Fib/PAF?: No Age/Risk Factor Scoring CHADSVASC: CHADSVASC Response (Comments) Value Age Risk Factor Age < 65 years old 0 Gender Risk Factor Male 0 Hx of CHF No 0 Hx of HTN No 0 Hx of Stroke/TIA/or VTE No 0 Hx of Diabetes No 0 Hx of Vascular Disease No 0 Total 0 Assessment /Plan Problems (1) Multiple sclerosis Status: Chronic Response to Treatment: Improving Discussed With: Family with Pt Consent Problem Text: -Primary progressive type -Evaluated by neurology,(Dr Aranda) appreciate input and recommendations. -Has recommended amantadine discontinued at this time -Continue Depakote and Lamictal with gradual increase - follow-up in 1 month postdischarge (2) Urinary tract infection Status: Acute Problem Text: -Repeat white blood count normalized today -Mental status also is back to baseline -Continue ciprofloxacin for a total of 10 days, started 11/06/2018 (3) Seizure disorder Status: Acute Problem Text: -Seizure disorder 2/2 MS -Continue seizure precautions -Continue home Lamotrigine & Depakote - levels within normal limits on admission -Neurology on board, follow recommendations for titration of doses (4) Elevated blood pressure reading Status: Acute Problem Text: -Started on lisinopril yesterday -. Blood pressure is improved today -Continue monitoring the unit protocol -Continue lisinopril and monitor tolerance. (5) Encephalopathy Status: Acute Problem Text: -Delirium and visual hallucinations, likely triggered by urinary tract infection and intake of amantadine during urinary tract infection per neurology -. Symptoms are waxing and waning -Amantadine has been discontinued -Continue reorientation (6) BPH with obstruction/lower urinary tract symptoms Status: Chronic Problem Text: -Continue Flomax and oxybutynin -Continue Cipro -Follow repeat urine culture findings Plan/VTE VTE Prophylaxis Ordered?: Yes VS, I&O, 24H, Fishbone Vital Signs/I&O Vital Signs Date Time Temp Pulse Resp B/P (MAP) Pulse Ox O2 Delivery O2 Flow Rate FiO2 11/14/18 08:22 125/65 11/14/18 06:00 97.5 60 17 94 I&O- Last 24 Hours up to 6 AM 11/14/18 06:00 Intake Total 640 ml Output Total 1175 ml Balance -535 ml Laboratory Data 24H LABS Laboratory Tests 2 11/13/18 22:02: Urine Color YELLOW, Urine Appearance CLEAR, Urine pH 5.0, Urine Specific [place] 1.025, Urine Protein NEGATIVE, Urine Glucose (UA) 1+H, Urine Ketones TRACEH, Urine Blood NEGATIVE, Urine Nitrite NEGATIVE, Urine Bilirubin NEGATIVE, Urine Urobilinogen 0.2, Urine Leukocyte Esterase TRACEH, Urine WBC (Auto) 37H, Urine RBC (Auto) 3, Urine Hyaline Casts (Auto) 0, Urine Bacteria (Auto) NEGATIVE, Urine Squamous Epithelial Cells 0, Urine Mucus (Auto) SMALL, Urine Sperm (Auto) 11/14/18 08:09: Immature Granulocyte % (Auto) 1.6, White Blood Count 8.8, Red Blood Count 4.48, Hemoglobin 13.5, Hematocrit 42.1, Mean Corpuscular Volume 94.0, Mean Corpuscular Hemoglobin 30.1, Mean Corpuscular Hemoglobin Concent 32.1, Red Cell Distribution Width 14.3, Platelet Count 233, Neutrophils (%) (Auto) 68.2H, Lymphocytes (%) (Auto) 19.4L, Monocytes (%) (Auto) 8.0H, Eosinophils (%) (Auto) 1.9, Basophils (%) (Auto) 0.9, Neutrophils # (Auto) 6.0, Lymphocytes # (Auto) 1.7, Monocytes # (Auto) 0.7, Eosinophils # (Auto) 0.2, Basophils # (Auto) 0.1, Nucleated Red Blood Cells % (auto) 0.0, Anion Gap 3L, Glomerular Filtration Rate > 60.0, Blood Urea Nitrogen 31H, Creatinine 0.81, Sodium Level 145, Potassium Level 3.7, Chloride Level 109H, Carbon Dioxide Level 33H, Calcium Level 8.4L CBC/BMP Laboratory Tests 11/14/18 08:09 Red Blood Count 4.48, Mean Corpuscular Volume 94.0, Mean Corpuscular Hemoglobin 30.1, Mean Corpuscular Hemoglobin Concent 32.1, Red Cell Distribution Width 14.3 , Neutrophils (%) (Auto) 68.2 H, Lymphocytes (%) (Auto) 19.4 L, Monocytes (%) (Auto) 8.0 H, Eosinophils (%) (Auto) 1.9, Basophils (%) (Auto) 0.9, Neutrophils # (Auto) 6.0, Lymphocytes # (Auto) 1.7, Monocytes # (Auto) 0.7, Eosinophils # (Auto) 0.2, Basophils # (Auto) 0.1, Calcium Level 8.4 L Microbiology Microbiology 11/13/18 Urine Culture, Received Pending REGLA CARR November 14, 2018 11:48
--- NOTE | 2018-11-14 11:59 | IPNPDOC ---
PM&R Progress Note DATE OF SERVICE: Nov 13, 2018 Ticketing Agent Progress Note Subjective: Patient reports he feels fatigued, but denies coughing or urinary symptoms. Per his he continues to have visual hallucinations and is concerned he may still be fighting an infection. REVIEW OF SYSTEMS: The following is a completed review of systems and has been reviewed. Review of systems otherwise unremarkable. PAIN: Patient self reports no pain EYES: Negative for recent vision loss EARS, NOSE, & THROAT: recent dysphagia resolving with antibiotics, denies rhinorrhea or hearing loss CARDIOVASCULAR: denies chest pain or palpitations PULMONARY: Negative. Denies shortness of breath GASTROINTESTINAL: Negative for diarrhea or constipation GENITOURINARY: denies dysuria, +UTI MUSCULOSKELETAL: generalized weakness NEUROLOGICAL: +MS SKIN: intact, no rash PSYCHIATRIC: Unremarkable All other review of systems found to be negative. PHYSICAL EXAMINATION: VITAL SIGNS: Please see below. GENERAL: Pleasant and cooperative. No acute distress. HEENT: PERRL. Extraocular movements intact. Clear conjunctiva, +oral thrush CARDIOVASCULAR: Regular rate and rhythm. No murmurs, rubs, or gallops LUNGS: Clear to auscultation bilaterally. No wheezes. No rhonchi ABDOMEN: Soft, nontender, nondistended. Positive bowel sounds. Normal active bowel sounds NEUROLOGICAL: Alert and oriented times three. Cranial nerves II through XII grossly intact. Sensation grossly intact to light touch throughout all 4 limbs + 2 beats clonus right foot depressed reflexes throughout 1/4 MAS tone bilateral biceps EXTREMITIES: 4-\5 strength bilateral upper extremities. 3\5 strength bilateral hip flexion and knee extension, 1/5 ankle DF and EHL ASSESSMENT:68-year-old M with past medical history of MS with seizure d/o who presents status post MS exacerbation in setting of UTI PLAN: 1. rehab: PT, OT, PLASMA PROCESSOR, assess for DME needs, requiring a lot of assistance with bed mobility, unable to maintain trunk control for eating 2. Neuro: pmh MS with recent adjustment in medications and exacerbation ins setting of UTI- will need f/u with Dr. Alaniz on discharge, c/u Amantadine -c/u Cellcept for immunosuppression monitored by [facility] -seizure disorder, c/u Gabapentin, Depakote and Lamictal (titrating up eventually to 25mg BID per medicine recs) -neurology consulted to consider adjusting MS medications to help reduce visual hallucinations -recent delirium, monitor and avoid delirogenic medications, optimize sleep-wake cycle, treat infectious source -low tone secondary to chronic use of Baclofen, c/u 3. CArdiac: no known cardiac hx 4. resp: encourage incentive spirometry and monitor for infection, CPAP at night for GENNY 5. ID: c/u Ciprofloxacin for E. faecalis UTI- medicine consulted recs appreciated -leukocytosis today, +oral thrush, will start antifungal oral rinse, recheck urine and order CXR 6. : pmh BPH c/u flomax, pmh overactive bladder related to MS c/u Oxybutynin- will add artificial saliva for dry mouth 7. Endo: pmh hypothryoidism c/u Synthroid 8. DVT ppx: Lovenox and TEDs, Dopplers ordered today 9. GI ppx: c/u protonix 10. Dispo: 11/27/18 to home, progressing slowly towards goals Allergies Coded Allergies: Penicillins (Verified Allergy, Unknown, 11/05/18) Vital Signs Vital Signs Date Time Temp Pulse Resp B/P (MAP) Pulse Ox O2 Delivery O2 Flow Rate FiO2 11/14/18 08:22 125/65 11/14/18 06:00 97.5 60 17 94 Laboratory Data CBC/BMP Laboratory Tests 11/14/18 08:09 Red Blood Count 4.48, Mean Corpuscular Volume 94.0, Mean Corpuscular Hemoglobin 30.1, Mean Corpuscular Hemoglobin Concent 32.1, Red Cell Distribution Width 14.3, Neutrophils (%) (Auto) 68.2 H, Lymphocytes (%) (Auto) 19.4 L, Monocytes (%) (Auto) 8.0 H, Eosinophils (%) (Auto) 1.9, Basophils (%) (Auto) 0.9, Neutrophils # (Auto) 6.0, Lymphocytes # (Auto) 1.7, Monocytes # (Auto) 0.7, Eosinophils # (Auto) 0.2, Basophils # (Auto) 0.1, Calcium Level 8.4 L Labs 24H Laboratory Tests 2 11/13/18 22:02: Urine Color YELLOW, Urine Appearance CLEAR, Urine pH 5.0, Urine Specific [place] 1.025, Urine Protein NEGATIVE, Urine Glucose (UA) 1+H, Urine Ketones TRACEH, Urine Blood NEGATIVE, Urine Nitrite NEGATIVE, Urine Bilirubin NEGATIVE, Urine Urobilinogen 0.2, Urine Leukocyte Esterase TRACEH, Urine WBC (Auto) 37H, Urine RBC (Auto) 3, Urine Hyaline Casts (Auto) 0, Urine Bacteria (Auto) NEGATIVE, Urine Squamous Epithelial Cells 0, Urine Mucus (Auto) SMALL, Urine Sperm (Auto) 11/14/18 08:09: Immature Granulocyte % (Auto) 1.6, White Blood Count 8.8, Red Blood Count 4.48, Hemoglobin 13.5, Hematocrit 42.1, Mean Corpuscular Volume 94.0, Mean Corpuscular Hemoglobin 30.1, Mean Corpuscular Hemoglobin Concent 32.1, Red Cell Distribution Width 14.3, Platelet Count 233, Neutrophils (%) (Auto) 68.2H, Lymphocytes (%) (Auto) 19.4L, Monocytes (%) (Auto) 8.0H, Eosinophils (%) (Auto) 1.9, Basophils (%) (Auto) 0.9, Neutrophils # (Auto) 6.0, Lymphocytes # (Auto) 1.7, Monocytes # (Auto) 0.7, Eosinophils # (Auto) 0.2, Basophils # (Auto) 0.1, Nucleated Red Blood Cells % (auto) 0.0, Anion Gap 3L, Glomerular Filtration Rate > 60.0, Blood Urea Nitrogen 31H, Creatinine 0.81, Sodium Level 145, Potassium Level 3.7, Chloride Level 109H, Carbon Dioxide Level 33H, Calcium Level 8.4L Microbiology Microbiology 11/13/18 Urine Culture, Received Pending Current Medications Current Medications Current Medications Acetaminophen (Tylenol Tab) 650 mg Q4HP PRN PO fever/MILD PAIN (PS 1-4); Start 11/09/18 at 14:30 Al Hydrox/Mg Hydrox/Simethicone (Mylanta) 30 ml Q4HP PRN PO DYSPEPSIA; Start 11/09/18 at 14:30 Amantadine HCl (Symmetrel) 100 mg QHS PO Last administered on 11/12/18at 21:26; Start 11/09/18 at 21:00; Stop 11/13/18 at 17:27; Status DC Amantadine HCl (Symmetrel) 200 mg DAILY PO Last administered on 11/13/18at 08:46; Start 11/10/18 at 09:00; Stop 11/13/18 at 17:27; Status DC Baclofen (Lioresal) 10 mg BID PO Last administered on 11/14/18 08:23; Start 11/09/18 at 21:00 Bisacodyl (Dulcolax Suppository) 10 mg DAILYPRN PRN [place] CONSTIPATION; Start 11/09/18 at 14:30 Ciprofloxacin (Cipro) 500 mg BID@06,18 PO Last administered on 11/14/18at 06:05; Start 11/09/18 at 18:00 Divalproex Sodium (Depakote Er) 500 mg QHS PO Last administered on 11/13/18 21:05; Start 11/09/18 at 21:00 Enoxaparin Sodium (Lovenox) 40 mg QHS SC Last administered on 11/13/18 21:04; Start 11/09/18 at 21:00 Gabapentin (Neurontin) 400 mg TID PO Last administered on 11/14/18 08:23; Start 11/09/18 at 16:00 Lamotrigine (LaMICtal) 25 mg BID PO ; Start 11/15/18 at 09:00 Lamotrigine (LaMICtal) 25 mg QHS PO Last administered on 11/13/18 21:05; Start 11/09/18 at 21:00; Stop 11/14/18 at 23:00 Levothyroxine Sodium (Synthroid) 50 mcg DAILY@06 PO Last administered on 11/14/18 06:05; Start 11/10/18 at 06:00 Lidocaine/ Diphenhydr/Alum/ Mg/Simeth (Magic Mouthwash) 5ml AC SSP Last administered on 11/14/18at 08:23; Start 11/13/18 at 17:30 Lisinopril (Prinivil) 2.5 mg DAILY PO Last administered on 11/14/18 08:22; Start 11/13/18 at 16:30 Magnesium Hydroxide (Milk Of Magnesia) 30 ml DAILYPRN PRN PO CONSTIPATION; Start 11/09/18 at 14:30 Multivitamins (Theragram-M) 1 tab DAILY PO Last administered on 11/14/18at 08:22; Start 11/10/18 at 09:00 Mycophenolate Mofetil (Cellcept) 1,000 mg BID PO Last administered on 11/14/18 08:23; Start 11/09/18 at 21:00 Nystatin (Mycostatin) 5 ml TID SS Last administered on 11/14/18 08:23; Start 11/10/18 at 09:00 Ondansetron HCl (Zofran) 4 mg Q6HP PRN PO NAUSEA; Start 11/09/18 at 14:30 Oxybutynin Chloride (Ditropan Xl) 10 mg QHS PO Last administered on 11/13/18 21:05; Start 11/09/18 at 21:00 Pantoprazole Sodium (Protonix) 40 mg DAILY PO Last administered on 11/14/18 08:23; Start 11/09/18 at 09:00 Saliva Substitute (Mouthkote) 1 sprays Q2H MT Last administered on 11/14/18 08:23; Start 11/13/18 at 15:00 Senna/Docusate Sodium (Senokot S) 1 tab BID PO Last administered on 11/14/18 08:23; Start 11/09/18 at 21:00 Tamsulosin HCl (Flomax) 0.4 mg QHS PO Last administered on 11/13/18 21:05; Start 11/09/18 at 21:00 Zinc Oxide (Boudreauxs Butt Paste) sacrum BID TOP ; Start 11/14/18 at 21:00 A-FIB/CHADSVASC A-FIB History Current/History of A-Fib/PAF?: No Current Oral Anticoagulant The: No Age/Risk Factor Scoring CHADSVASC: CHADSVASC Response (Comments) Value Age Risk Factor Age < 65 years old 0 Gender Risk Factor Male 0 Hx of CHF No 0 Hx of HTN No 0 Hx of Stroke/TIA/or VTE No 0 Hx of Diabetes No 0 Hx of Vascular Disease No 0 Total 0 MALDONADO MIX MD November 14, 2018 11:59
--- NOTE | 2018-11-14 12:00 | IPNPDOC ---
PM&R Progress Note DATE OF SERVICE: November 15, 2018 Vice President Education Progress Note Subjective: Patient reports feeling more energized today and is able to feed himself. REVIEW OF SYSTEMS: The following is a completed review of systems and has been reviewed. Review of systems otherwise unremarkable. PAIN: Patient self reports no pain EYES: Negative for recent vision loss EARS, NOSE, & THROAT: recent dysphagia resolving with antibiotics, denies rhi norrhea or hearing loss CARDIOVASCULAR: denies chest pain or palpitations PULMONARY: Negative. Denies shortness of breath GASTROINTESTINAL: Negative for diarrhea or constipation GENITOURINARY: denies dysuria, +UTI MUSCULOSKELETAL: generalized weakness NEUROLOGICAL: +MS SKIN: intact, no rash PSYCHIATRIC: Unremarkable All other review of systems found to be negative. PHYSICAL EXAMINATION: VITAL SIGNS: Please see below. GENERAL: Pleasant and cooperative. No acute distress. HEENT: PERRL. Extraocular movements intact. Clear conjunctiva, +oral thrush CARDIOVASCULAR: Regular rate and rhythm. No murmurs, rubs, or gallops LUNGS: Clear to auscultation bilaterally. No wheezes. No rhonchi ABDOMEN: Soft, nontender, nondistended. Positive bowel sounds. Normal active bowel sounds NEUROLOGICAL: Alert and oriented times three. Cranial nerves II through XII grossly intact. Sensation grossly intact to light touch throughout all 4 limbs + 2 beats clonus right foot depressed reflexes throughout 1/4 MAS tone bilateral biceps EXTREMITIES: 4-\5 strength bilateral upper extremities. 3\5 strength bilateral hip flexion and knee extension, 1/5 ankle DF and EHL ASSESSMENT:68-year-old M with past medical history of MS with seizure d/o who presents status post MS exacerbation in setting of UTI PLAN: 1. 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 Neuro: pmh MS with recent adjustment in medications and exacerbation ins setting of UTI- will need f/u with Dr. Alaniz on discharge -c/u Cellcept for immunosuppression monitored by [facility] -seizure disorder, c/u Gabapentin, Depakote and Lamictal (titrating up eventually to 25mg BID per medicine recs) -neurology consulted to consider adjusting MS medications to help reduce visual hallucinations- Amantadine discontinued -recent delirium, monitor and avoid delirogenic medications, optimize sleep-wake cycle, treat infectious source -low tone secondary to chronic use of Baclofen, c/u 3. CArdiac: no known cardiac hx 4. resp: encourage incentive spirometry and monitor for infection, CPAP at night for GENNY -CXR no acute infiltrates 5. ID: c/u Ciprofloxacin for E. faecalis UTI- medicine consulted recs appreciated -leukocytosis better today, +oral thrush slightly better, c/u antifungal oral rinse 6. : pmh BPH c/u flomax, pmh overactive bladder related to MS c/u Oxybutynin- c/u artificial saliva for dry mouth 7. Endo: pmh hypothryoidism c/u Synthroid 8. DVT ppx: Lovenox and TEDs, Dopplers negative 9. GI ppx: c/u protonix 10. Dispo: 11/27/18 to home, progressing slowly towards goals Allergies Coded Allergies: Penicillins (Verified Allergy, Unknown, 11/05/18) Vital Signs Vital Signs Date Time Temp Pulse Resp B/P (MAP) Pulse Ox O2 Delivery O2 Flow Rate FiO2 11/14/18 08:22 125/65 11/14/18 06:00 97.5 60 17 94 Laboratory Data CBC/BMP Laboratory Tests 11/14/18 08:09 Red Blood Count 4.48, Mean Corpuscular Volume 94.0, Mean Corpuscular Hemoglobin 30.1, Mean Corpuscular Hemoglobin Concent 32.1, Red Cell Distribution Width 14.3, Neutrophils (%) (Auto) 68.2 H, Lymphocytes (%) (Auto) 19.4 L, Monocytes ( %) (Auto) 8.0 H, Eosinophils (%) (Auto) 1.9, Basophils (%) (Auto) 0.9, Neutrophils # (Auto) 6.0, Lymphocytes # (Auto) 1.7, Monocytes # (Auto) 0.7, Eosinophils # (Auto) 0.2, Basophils # (Auto) 0.1, Calcium Level 8.4 L Labs 24H Laboratory Tests 2 11/13/18 22:02: Urine Color YELLOW, Urine Appearance CLEAR, Urine pH 5.0, Urine Specific [place] 1.025, Urine Protein NEGATIVE, Urine Glucose (UA) 1+H, Urine Ketones TRACEH, Urine Blood NEGATIVE, Urine Nitrite NEGATIVE, Urine Bilirubin NEGATIVE, Urine Urobilinogen 0.2, Urine Leukocyte Esterase TRACEH, Urine WBC (Auto) 37H, Urine RBC (Auto) 3, Urine Hyaline Casts (Auto) 0, Urine Bacteria (Auto) NEGATIVE, Urine Squamous Epithelial Cells 0, Urine Mucus (Auto) SMALL, Urine Sperm (Auto) 11/14/18 08:09: Immature Granulocyte % (Auto) 1.6, White Blood Count 8.8, Red Blood Count 4.48, Hemoglobin 13.5, Hematocrit 42.1, Mean Corpuscular Volume 94.0, Mean Corpuscular Hemoglobin 30.1, Mean Corpuscular Hemoglobin Concent 32.1, Red Cell Distribution Width 14.3, Platelet Count 233, Neutrophils (%) (Auto) 68.2H, Lymphocytes (%) (Auto) 19.4L, Monocytes (%) (Auto) 8.0H, Eosinophils (%) (Auto) 1.9, Basophils (%) (Auto) 0.9, Neutrophils # (Auto) 6.0, Lymphocytes # (Auto) 1.7, Monocytes # (Auto) 0.7, Eosinophils # (Auto) 0.2, Basophils # (Auto) 0.1, Nucleated Red Blood Cells % (auto) 0.0, Anion Gap 3L, Glomerular Filtration Rate > 60.0, Blood Urea Nitrogen 31H, Creatinine 0.81, Sodium Level 145, Potassium Level 3.7, Chloride Level 109H, Carbon Dioxide Level 33H, Calcium Level 8.4L Microbiology Microbiology 11/13/18 Urine Culture, Received Pending Current Medications Current Medications Current Medications Acetaminophen (Tylenol Tab) 650 mg Q4HP PRN PO fever/MILD PAIN (PS 1-4); Start 11/09/18 at 14:30 Al Hydrox/Mg Hydrox/Simethicone (Mylanta) 30 ml Q4HP PRN PO DYSPEPSIA; Start 11/09/18 at 14:30 Amantadine HCl (Symmetrel) 100 mg QHS PO Last administered on 11/12/18at 21:26; Start 11/09/18 at 21:00; Stop 11/13/18 at 17:27; Status DC Amantadine HCl (Symmetrel) 200 mg DAILY PO Last administered on 11/13/18at 08:46; Start 11/10/18 at 09:00; Stop 11/13/18 at 17:27; Status DC Baclofen (Lioresal) 10 mg BID PO Last administered on 11/14/18 08:23; Start 11/09/18 at 21:00 Bisacodyl (Dulcolax Suppository) 10 mg DAILYPRN PRN [place] CONSTIPATION; Start 11/09/18 at 14:30 Ciprofloxacin (Cipro) 500 mg BID@06,18 PO Last administered on 11/14/18 06:05; Start 11/09/18 at 18:00 Divalproex Sodium (Depakote Er) 500 mg QHS PO Last administered on 11/13/18 21:05; Start 11/09/18 at 21:00 Enoxaparin Sodium (Lovenox) 40 mg QHS SC Last administered on 11/13/18 21:04; Start 11/09/18 at 21:00 Gabapentin (Neurontin) 400 mg TID PO Last administered on 11/14/18 08:23; Start 11/09/18 at 16:00 Lamotrigine (LaMICtal) 25 mg BID PO ; Start 11/15/18 at 09:00 Lamotrigine (LaMICtal) 25 mg QHS PO Last administered on 11/13/18 21:05; Start 11/09/18 at 21:00; Stop 11/14/18 at 23:00 Levothyroxine Sodium (Synthroid) 50 mcg DAILY@06 PO Last administered on 11/14/18 06:05; Start 11/10/18 at 06:00 Lidocaine/ Diphenhydr/Alum/ Mg/Simeth (Magic Mouthwash) 5ml AC SSP Last administered on 11/14/18 08:23; Start 11/13/18 at 17:30 Lisinopril (Prinivil) 2.5 mg DAILY PO Last administered on 11/14/18 08:22; Start 11/13/18 at 16:30 Magnesium Hydroxide (Milk Of Magnesia) 30 ml DAILYPRN PRN PO CONSTIPATION; Start 11/09/18 at 14:30 Multivitamins (Theragram-M) 1 tab DAILY PO Last administered on 11/14/18 08:22; Start 11/10/18 at 09:00 Mycophenolate Mofetil (Cellcept) 1,000 mg BID PO Last administered on 11/14/18 08:23; Start 11/09/18 at 21:00 Nystatin (Mycostatin) 5 ml TID SS Last administered on 11/14/18 08:23; Start 11/10/18 at 09:00 Ondansetron HCl (Zofran) 4 mg Q6HP PRN PO NAUSEA; Start 11/09/18 at 14:30 Oxybutynin Chloride (Ditropan Xl) 10 mg QHS PO Last administered on 11/13/18 21:05; Start 11/09/18 at 21:00 Pantoprazole Sodium (Protonix) 40 mg DAILY PO Last administered on 11/14/18 08:23; Start 11/09/18 at 09:00 Saliva Substitute (Mouthkote) 1 sprays Q2H MT Last administered on 11/14/18 08:23; Start 11/13/18 at 15:00 Senna/Docusate Sodium (Senokot S) 1 tab BID PO Last administered on 11/14/18 08:23; Start 11/09/18 at 21:00 Tamsulosin HCl (Flomax) 0.4 mg QHS PO Last administered on 11/13/18 21:05; Start 11/09/18 at 21:00 Zinc Oxide (Boudreauxs Butt Paste) sacrum BID TOP ; Start 11/14/18 at 21:00 A-FIB/CHADSVASC A-FIB History Current/History of A-Fib/PAF?: No Age/Risk Factor Scoring CHADSVASC: CHADSVASC Response (Comments) Value Age Risk Factor Age < 65 years old 0 Gender Risk Factor Male 0 Hx of CHF No 0 Hx of HTN No 0 Hx of Stroke/TIA/or VTE No 0 Hx of Diabetes No 0 Hx of Vascular Disease No 0 Total 0 MALDONADO MIX MD November 14, 2018 12:00
[2018-11-14 14:00] VITALS: BP 139/72
[2018-11-14 20:00] VITALS: BP 133/70
[2018-11-14] MEDS: BOUDREAUX'S BUTT PASTE 4OZ TOP SCH (21:46)
[2018-11-14] MEDS: oxyBUTYnin *DITROPAN XL* 5 MG TABCR PO SCH (21:46)
[2018-11-14] MEDS: TAMSULOSIN 0.4 MG CAP PO SCH (21:47)
[2018-11-14] MEDS: lamoTRIgine 25 MG TAB PO SCH (21:47)
[2018-11-14] MEDS: ENOXAPARIN 40 MG/0.4 ML SYRINGE (J1650) SC SCH (21:47)
[2018-11-14] MEDS: DIVALPROEX 500MG *ER* TAB PO SCH (21:53)
[2018-11-15] MEDS: SALIVA SUBSTITUTE(MOUTHKOTE) BTL MT SCH ×12 (01:00→22:37)
[2018-11-15 06:00] VITALS: BP_SYST 120; BP_SYST 139; BP_DIAS 69; BP_DIAS 73
[2018-11-15] MEDS: CIPROFLOXACIN 500 MG TAB PO SCH ×2 (06:17→18:38)
[2018-11-15] MEDS: LEVOTHYROXINE 50MCG TABLET (0.05MG) PO SCH (06:17)
[2018-11-15 07:21] LABS: HEMATOCRIT 42.2 % (42.0-52.0); HEMOGLOBIN 13.2 g/dl (13.5-17.5); MEAN CORPUSCULAR HEMOGLOBIN 29.6 pg (27.0-33.0); MEAN CORPUSCULAR HGB CONC 31.3 g/dl (32.0-36.5); MEAN CORPUSCULAR VOLUME 94.6 fl (80.0-96.0); PLATELET COUNT, AUTOMATED 252 10^3/uL (150-450); RED BLOOD COUNT 4.46 10^6/uL (4.30-6.10); WHITE BLOOD COUNT 8.5 10^3/uL (4.0-10.0)
[2018-11-15] MEDS: MAGIC MOUTHWASH SUSPENSION BTL SSP SCH ×3 (07:30→18:39)
[2018-11-15] MEDS: GABAPENTIN 400 MG CAP PO SCH ×3 (08:29→21:53)
[2018-11-15] MEDS: lamoTRIgine 25 MG TAB PO SCH ×2 (08:29→21:53)
[2018-11-15] MEDS: MULTIVITAMINS/MINERALS THERAP 1 TAB PO SCH (08:29)
[2018-11-15] MEDS: MYCOPHENOLATE MOFETIL 250 MG CAP (J7517) PO SCH ×2 (08:29→21:53)
[2018-11-15] MEDS: NYSTATIN 500,000 U/5 ML SUSP UDC SS SCH ×3 (08:30→21:52)
[2018-11-15] MEDS: BOUDREAUX'S BUTT PASTE 4OZ TOP SCH ×2 (08:30→21:54)
[2018-11-15] MEDS: LISINOPRIL *2.5 MG* TAB PO SCH (08:30)
[2018-11-15] MEDS: SENOKOT S TAB PO SCH ×2 (08:30→21:52)
[2018-11-15] MEDS: BACLOFEN 10 MG TAB PO SCH ×2 (08:30→21:52)
[2018-11-15] MEDS: PANTOPRAZOLE 40MG TAB (PROTONIX) PO SCH (08:30)
[2018-11-15 14:00] VITALS: BP 135/68
--- NOTE | 2018-11-15 17:57 | IPNPDOC ---
Subjective Date Seen The patient was seen on 11/15/18. 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 Was brought to the emergency room by on account of increased incontinence, brown cloudy Pat urine with pus, urgency and frequency for about 2 weeks. He was positive for urinary tract infection and started on ciprofloxacin for treatment of same. Patient, however, has had persistent hallucinations during this hospitalization. Currently in rehabilitation for worsening multiple sclerosis, medical team on board following for management of underlying comorbidities. Events since last encounter Patient offered initially complaints, occupational therapist, at bedside reports patient had recurrence of episodes of hallucination yesterday where he was seen and hearing things. Patient has absolutely no recollection of these events Objective Physical Examination Other physical findings General: no acute distress noted. Skin: Warm, dry, intact. Cardiovascular: Regular rate and rhythm, no MRG, no jugular venous distention, no edema. Respiratory:CTAB, no accessory muscle use noted. Abdomen: Bowel sounds +, no tenderness, no distention Musculoskeletal: Up in wheelchair, able to hold head up partially Neurologic: alert and oriented to self, place and time Psychiatric: Appropriate mood and affect, no anxiety or agitation. A-FIB/CHADSVASC A-FIB History Current/History of A-Fib/PAF?: No Current Oral Anticoagulant The: No Age/Risk Factor Scoring CHADSVASC: CHADSVASC Response (Comments) Value Age Risk Factor Age < 65 years old 0 Gender Risk Factor Male 0 Hx of CHF No 0 Hx of HTN No 0 Hx of Stroke/TIA/or VTE No 0 Hx of Diabetes No 0 Hx of Vascular Disease No 0 Total 0 Assessment /Plan Problems (1) Multiple sclerosis Status: Chronic Response to Treatment: Improving Discussed With: Family with Pt Consent Problem Text: -Primary progressive type -Evaluated by neurology,(Dr Aranda) appreciate input and recommendations. -amantadine still on hold on recommendations of neurology -Continue Depakote and Lamictal with gradual increase - follow-up with neurology 1 month post discharge (2) Urinary tract infection Status: Acute Problem Text: -Repeat urine culture negative for growth. -Should complete a total course of 10 days of ciprofloxacin started 11/06/2018 today (3) Seizure disorder Status: Acute Problem Text: -Seizure disorder 2/2 MS -Continue seizure precautions -Continue home Lamotrigine & Depakote - levels within normal limits on admission -Neurology on board, follow recommendations for titration of doses (4) Elevated blood pressure reading Status: Acute Problem Text: -Continue lisinopril. (5) Encephalopathy Status: Acute Problem Text: -Intermittent episodes of hallucination still persisting -Last dose of Cipro should be tonight, after which patient can be monitored for resolution of symptoms -Urinary tract infection symptoms resolved and treated, given negative. Culture report -Continue reorientation (6) BPH with obstruction/lower urinary tract symptoms Status: Chronic Problem Text: -Continue Flomax and oxybutynin -Complete Cipro today for a total of 10 days Plan/VTE VTE Prophylaxis Ordered?: Yes VS, I&O, 24H, Fishbone Vital Signs/I&O Vital Signs Date Time Temp Pulse Resp B/P (MAP) Pulse Ox O2 Delivery O2 Flow Rate FiO2 11/15/18 14:00 97.1 75 18 135/68 (90) 93 I&O- Last 24 Hours up to 6 AM 11/15/18 06:00 Intake Total 1140 ml Output Total 400 ml Balance 740 ml Laboratory Data 24H LABS Laboratory Tests 2 11/15/18 06:38: Nucleated Red Blood Cells % (auto) 0.0 CBC/BMP Laboratory Tests 11/15/18 06:38 Red Blood Count 4.46, Mean Corpuscular Volume 94.6, Mean Corpuscular Hemoglobin 29.6, Mean Corpuscular Hemoglobin Concent 31.3 L, Red Cell Distribution Width 14.3 Microbiology Microbiology 11/13/18 Urine Culture - Final, Complete REGLA CARR November 15, 2018 17:57
[2018-11-15 20:00] VITALS: BP 132/68
[2018-11-15] MEDS: TAMSULOSIN 0.4 MG CAP PO SCH (21:52)
[2018-11-15] MEDS: ENOXAPARIN 40 MG/0.4 ML SYRINGE (J1650) SC SCH (21:52)
[2018-11-15] MEDS: DIVALPROEX 500MG *ER* TAB PO SCH (21:53)
[2018-11-15] MEDS: oxyBUTYnin *DITROPAN XL* 5 MG TABCR PO SCH (21:53)
[2018-11-16] MEDS: SALIVA SUBSTITUTE(MOUTHKOTE) BTL MT SCH ×12 (00:30→23:00)
[2018-11-16 06:00] VITALS: BP 140/70
[2018-11-16] MEDS: CIPROFLOXACIN 500 MG TAB PO SCH (06:13)
[2018-11-16] MEDS: LEVOTHYROXINE 50MCG TABLET (0.05MG) PO SCH (06:14)
[2018-11-16] MEDS: MAGIC MOUTHWASH SUSPENSION BTL SSP SCH ×3 (07:30→17:11)
[2018-11-16] MEDS: GABAPENTIN 400 MG CAP PO SCH ×3 (08:52→21:23)
[2018-11-16] MEDS: SENOKOT S TAB PO SCH ×2 (08:52→21:22)
[2018-11-16] MEDS: MULTIVITAMINS/MINERALS THERAP 1 TAB PO SCH (08:52)
[2018-11-16] MEDS: NYSTATIN 500,000 U/5 ML SUSP UDC SS SCH ×3 (08:52→21:22)
[2018-11-16] MEDS: BACLOFEN 10 MG TAB PO SCH ×2 (08:52→21:22)
[2018-11-16] MEDS: PANTOPRAZOLE 40MG TAB (PROTONIX) PO SCH (08:52)
[2018-11-16] MEDS: MYCOPHENOLATE MOFETIL 250 MG CAP (J7517) PO SCH ×2 (08:52→21:23)
[2018-11-16] MEDS: BOUDREAUX'S BUTT PASTE 4OZ TOP SCH ×2 (08:53→21:24)
[2018-11-16] MEDS: LISINOPRIL *2.5 MG* TAB PO SCH (08:53)
[2018-11-16] MEDS: lamoTRIgine 25 MG TAB PO SCH ×2 (08:53→21:23)
--- NOTE | 2018-11-16 10:23 | IPNPDOC ---
Subjective Date Seen The patient was seen on 11/16/18. 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 Was brought to the emergency room by on account of increased incontinence, brown cloudy urine with pus, urgency and frequency for about 2 weeks. He was positive for urinary tract infection and started on ciprofloxacin for treatment of same. Patient, however, has had persistent hallucinations during this hospitalization. Currently in rehabilitation for worsening multiple sclerosis, medical team on board following for management of underlying comorb idities. Events since last encounter No overnight events of hallucination. Patient has no complaints today. Evaluated during occupational therapy session shaving at bathroom sink. Denies chills, fever, chest pain, shortness of breath. Objective Physical Examination Other physical findings General: no acute distress noted. Skin: Warm, dry, intact. Cardiovascular: Regular rate and rhythm, no MRG, no jugular venous distention, no edema. Respiratory:CTAB, no accessory muscle use noted. Abdomen: Bowel sounds +, no tenderness, no distention Musculoskeletal: Up in wheelchair, better trunk control noted today Neurologic: alert and oriented to self, place and time Psychiatric: Appropriate mood and affect, no anxiety or agitation. A-FIB/CHADSVASC A-FIB History Current/History of A-Fib/PAF?: No Current Oral Anticoagulant The: No Age/Risk Factor Scoring CHADSVASC: CHADSVASC Response (Comments) Value Age Risk Factor Age < 65 years old 0 Gender Risk Factor Male 0 Hx of CHF No 0 Hx of HTN No 0 Hx of Stroke/TIA/or VTE No 0 Hx of Diabetes No 0 Hx of Vascular Disease No 0 Total 0 Assessment /Plan Problems (1) Multiple sclerosis Status: Chronic Response to Treatment: Improving Discussed With: Family with Pt Consent Problem Text: -Primary progressive type with acute exacerbation triggered by urinary tract infection -Currently in rehabilitation unit for mobilization to baseline -Evaluated by neurology,(Dr Aranda) appreciate input and recommendations. -amantadine on hold on recommendations of neurology -Continued on Depakote and Lamictal with gradual increase - Plan to follow-up with neurology 1 month post discharge (2) Urinary tract infection Status: Acute Problem Text: -Completed a course of antibiotic therapy with Cipro -. Repeat urine culture negative for growth (3) Seizure disorder Status: Acute Problem Text: -Seizure disorder 2/2 MS -Continue seizure precautions -Continue home Lamotrigine & Depakote - levels within normal limits on admission -Neurology on board, follow recommendations for titration of doses (4) Elevated blood pressure reading Status: Acute Problem Text: -Continue lisinopril. 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
[2018-11-16 14:00] VITALS: BP 150/83
--- NOTE | 2018-11-16 14:05 | IPNPDOC ---
PM&R Progress Note DATE OF SERVICE: November 16, 2018 Corporate Controller Progress Note Subjective: Patient reports he feels well, enjoys getting his legs stretched and thinks he is getting stronger. REVIEW OF SYSTEMS: The following is a completed review of systems and has been reviewed. Review of systems otherwise unremarkable. PAIN: Patient self reports no pain EYES: Negative for recent vision loss EARS, NOSE, & THROAT: recent dysphagia resolving with antibiotics, denies rhinorrhea or hearing loss CARDIOVASCULAR: denies chest pain or palpitations PULMONARY: Negative. Denies shortness of breath GASTROINTESTINAL: Negative for diarrhea or constipation GENITOURINARY: denies dysuria, +UTI MUSCULOSKELETAL: generalized weakness NEUROLOGICAL: +MS SKIN: intact, no rash PSYCHIATRIC: Unremarkable All other review of systems found to be negative. PHYSICAL EXAMINATION: VITAL SIGNS: Please see below. GENERAL: Pleasant and cooperative. No acute distress. HEENT: PERRL. Extraocular movements intact. Clear conjunctiva, +oral thrush CARDIOVASCULAR: Regular rate and rhythm. No murmurs, rubs, or gallops LUNGS: Clear to auscultation bilaterally. No wheezes. No rhonchi ABDOMEN: Soft, nontender, nondistended. Positive bowel sounds. Normal active bowel sounds NEUROLOGICAL: Alert and oriented times three. Cranial nerves II through XII grossly intact. Sensation grossly intact to light touch throughout all 4 limbs + 2 beats clonus right foot depressed reflexes throughout 1/4 MAS tone bilateral biceps EXTREMITIES: 4-\5 strength bilateral upper extremities. 3\5 strength bilateral hip flexion and knee extension, 1/5 ankle DF and EHL ASSESSMENT:68-year-old M with past medical history of MS with seizure d/o who presents status post MS exacerbation in setting of UTI PLAN: 1. rehab: PT, OT, QC ANALYST, assess for DME needs, requiring less assistance with bed mobility, better trunk control for eating 2. Neuro: pmh MS with recent adjustment in medications and exacerbation ins setting of UTI- will need f/u with Dr. Alaniz on discharge -c/u Cellcept for immunosuppression monitored by [facility] -seizure disorder, c/u Gabapentin, Depakote and Lamictal (titrating up eventually to 25mg BID per medicine recs) -neurology consulted to consider adjusting MS medications to help reduce visual hallucinations- Amantadine discontinued -recent delirium, monitor and avoid delirogenic medications, optimize sleep-wake cycle, treat infectious source -low tone secondary to chronic use of Baclofen, c/u 3. CArdiac: no known cardiac hx 4. resp: encourage incentive spirometry and monitor for infection, CPAP at night for GENNY -CXR no acute infiltrates 5. ID: s/p course of Ciprofloxacin for E. faecalis UTI- medicine consulted recs appreciated -leukocytosis better today, +oral thrush slightly better, c/u antifungal oral rinse 6. : pmh BPH c/u flomax, pmh overactive bladder related to MS c/u Oxybutynin- c/u artificial saliva for dry mouth 7. Endo: pmh hypothryoidism c/u Synthroid 8. DVT ppx: Lovenox and TEDs, Dopplers negative 9. GI ppx: c/u protonix 10. Dispo: 11/27/18 to home, progressing slowly towards goals Allergies Coded Allergies: Penicillins (Verified Allergy, Unknown, 11/05/18) Vital Signs Vital Signs Date Time Temp Pulse Resp B/P (MAP) Pulse Ox O2 Delivery O2 Flow Rate FiO2 11/16/18 08:53 140/70 11/16/18 06:00 96.7 60 17 97 Microbiology Microbiology 11/13/18 Urine Culture - Final, Complete Current Medications Current Medications Current Medications Acetaminophen (Tylenol Tab) 650 mg Q4HP PRN PO fever/MILD PAIN (PS 1-4); Start 11/09/18 at 14:30 Al Hydrox/Mg Hydrox/Simethicone (Mylanta) 30 ml Q4HP PRN PO DYSPEPSIA; Start 11/09/18 at 14:30 Amantadine HCl (Symmetrel) 100 mg QHS PO Last administered on 11/12/18at 21:26; Start 11/09/18 at 21:00; Stop 11/13/18 at 17:27; Status DC Amantadine HCl (Symmetrel) 200 mg DAILY PO Last administered on 11/13/18at 08:46; Start 11/10/18 at 09:00; Stop 11/13/18 at 17:27; Status DC Baclofen (Lioresal) 10 mg BID PO Last administered on 11/16/18at 08:52; Start 11/09/18 at 21:00 Bisacodyl (Dulcolax Suppository) 10 mg DAILYPRN PRN LA CONSTIPATION; Start 11/09/18 at 14:30 Ciprofloxacin (Cipro) 500 mg BID@06,18 PO Last administered on 11/16/18 06:13; Start 11/09/18 at 18:00; Stop 11/16/18 at 06:01; Status DC Divalproex Sodium (Depakote Er) 500 mg QHS PO Last administered on 11/15/18 21:53; Start 11/09/18 at 21:00 Enoxaparin Sodium (Lovenox) 40 mg QHS SC Last administered on 11/15/18 21:52; Start 11/09/18 at 21:00 Gabapentin (Neurontin) 400 mg TID PO Last administered on 11/16/18 08:52; Start 11/09/18 at 16:00 Lamotrigine (LaMICtal) 25 mg BID PO Last administered on 11/16/18 08:53; Start 11/15/18 at 09:00 Lamotrigine (LaMICtal) 25 mg QHS PO Last administered on 11/14/18 21:47; Start 11/09/18 at 21:00; Stop 11/14/18 at 23:00; Status DC Levothyroxine Sodium (Synthroid) 50 mcg DAILY@06 PO Last administered on 11/16/18 06:14; Start 11/10/18 at 06:00 Lidocaine/ Diphenhydr/Alum/ Mg/Simeth (Magic Mouthwash) 5ml AC SSP Last administered on 11/16/18 12:00; Start 11/13/18 at 17:30 Lisinopril (Prinivil) 2.5 mg DAILY PO Last administered on 11/16/18 08:53; Start 11/13/18 at 16:30 Magnesium Hydroxide (Milk Of Magnesia) 30 ml DAILYPRN PRN PO CONSTIPATION; Start 11/09/18 at 14:30 Miscellaneous (Unresolved Clarification Entry) SEE LABEL COMMENTS DAILY XX ; Start 11/15/18 at 09:00; Stop 11/16/18 at 09:05; Status DC Miscellaneous (Unresolved Clarification Entry) SEE LABEL COMMENTS DAILY XX ; Start 11/16/18 at 09:00; Stop 11/16/18 at 10:52; Status DC Multivitamins (Theragram-M) 1 tab DAILY PO Last administered on 11/16/18 08:52; Start 11/10/18 at 09:00 Mycophenolate Mofetil (Cellcept) 1,000 mg BID PO Last administered on 11/16/18 08:52; Start 11/09/18 at 21:00 Nystatin (Mycostatin) 5 ml TID SS Last administered on 11/16/18 08:52; Start 11/10/18 at 09:00 Ondansetron HCl (Zofran) 4 mg Q6HP PRN PO NAUSEA; Start 11/09/18 at 14:30 Oxybutynin Chloride (Ditropan Xl) 10 mg QHS PO Last administered on 11/15/18 21:53; Start 11/09/18 at 21:00 Pantoprazole Sodium (Protonix) 40 mg DAILY PO Last administered on 11/16/18 08:52; Start 11/09/18 at 09:00 Saliva Substitute (Mouthkote) 1 sprays Q2H MT Last administered on 11/16/18 13:00; Start 11/13/18 at 15:00 Senna/Docusate Sodium (Senokot S) 1 tab BID PO Last administered on 11/16/18 08:52; Start 11/09/18 at 21:00 Tamsulosin HCl (Flomax) 0.4 mg QHS PO Last administered on 11/15/18 21:52; Start 11/09/18 at 21:00 Zinc Oxide (Boudreauxs Butt Paste) sacrum BID TOP Last administered on 11/16/18 08:53; Start 11/14/18 at 21:00 A-FIB/CHADSVASC A-FIB History Current/History of A-Fib/PAF?: No Age/Risk Factor Scoring CHADSVASC: CHADSVASC Response (Comments) Value Age Risk Factor Age < 65 years old 0 Gender Risk Factor Male 0 Hx of CHF No 0 Hx of HTN No 0 Hx of Stroke/TIA/or VTE No 0 Hx of Diabetes No 0 Hx of Vascular Disease No 0 Total 0 MADLONADO MIX MD November 16, 2018 14:05
[2018-11-16 20:00] VITALS: BP 142/75
[2018-11-16] MEDS: TAMSULOSIN 0.4 MG CAP PO SCH (21:22)
[2018-11-16] MEDS: DIVALPROEX 500MG *ER* TAB PO SCH (21:22)
[2018-11-16] MEDS: oxyBUTYnin *DITROPAN XL* 5 MG TABCR PO SCH (21:23)
[2018-11-16] MEDS: ENOXAPARIN 40 MG/0.4 ML SYRINGE (J1650) SC SCH (21:23)
[2018-11-17] MEDS: SALIVA SUBSTITUTE(MOUTHKOTE) BTL MT SCH ×12 (01:00→22:50)
[2018-11-17 06:00] VITALS: BP 122/68
[2018-11-17] MEDS: LEVOTHYROXINE 50MCG TABLET (0.05MG) PO SCH (06:25)
[2018-11-17] MEDS: BACLOFEN 10 MG TAB PO SCH ×2 (08:37→20:44)
[2018-11-17] MEDS: MULTIVITAMINS/MINERALS THERAP 1 TAB PO SCH (08:37)
[2018-11-17] MEDS: GABAPENTIN 400 MG CAP PO SCH ×3 (08:37→20:44)
[2018-11-17] MEDS: SENOKOT S TAB PO SCH ×2 (08:38→20:44)
[2018-11-17] MEDS: PANTOPRAZOLE 40MG TAB (PROTONIX) PO SCH (08:38)
[2018-11-17] MEDS: MYCOPHENOLATE MOFETIL 250 MG CAP (J7517) PO SCH ×2 (08:38→20:44)
[2018-11-17] MEDS: lamoTRIgine 25 MG TAB PO SCH ×2 (08:38→20:43)
[2018-11-17] MEDS: NYSTATIN 500,000 U/5 ML SUSP UDC SS SCH ×3 (08:39→20:43)
[2018-11-17] MEDS: LISINOPRIL *2.5 MG* TAB PO SCH (08:41)
[2018-11-17] MEDS: MAGIC MOUTHWASH SUSPENSION BTL SSP SCH ×3 (08:42→17:47)
[2018-11-17] MEDS: BOUDREAUX'S BUTT PASTE 4OZ TOP SCH ×2 (08:43→20:45)
--- NOTE | 2018-11-17 13:05 | IPNPDOC ---
Subjective Date Seen The patient was seen on 11/17/18. 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 Was brought to the emergency room by on account of increased incontinence, brown cloudy urine with pus, urgency and frequency for about 2 weeks. He was positive for urinary tract infection and started on ciprofloxacin for treatment of same. Patient, however, has had persistent hallucinations during this hospitalization. Currently in rehabilitation for worsening multiple sclerosis, medical team on board following for management of underlying comorb idities. Events since last encounter Patient continues to improve. Today, he tells me there is plan for possible transfer to another rehabilitation facility, which is likely a bit closer to his home. He has no new concerns. He denies further episodes of hallucinations. Discussed with bedside RN also had no report of overnight hallucinations. Objective Physical Examination Other physical findings General: Up to chair at bedside eating lunch, no acute distress noted. Skin: Warm, dry, intact. Cardiovascular: Regular rate and rhythm, no MRG, no jugular venous distention, no edema. Respiratory:CTAB, no accessory muscle use noted. Abdomen: Bowel sounds +, no tenderness, no distention Musculoskeletal: Up in wheelchair, holding head up Neurologic: alert and oriented to self, place and time Psychiatric: Appropriate mood and affect, no anxiety or agitation. A-FIB/CHADSVASC A-FIB History Current/History of A-Fib/PAF?: No Current Oral Anticoagulant The: No Age/Risk Factor Scoring CHADSVASC: CHADSVASC Response (Comments) Value Age Risk Factor Age < 65 years old 0 Gender Risk Factor Male 0 Hx of CHF No 0 Hx of HTN No 0 Hx of Stroke/TIA/or VTE No 0 Hx of Diabetes No 0 Hx of Vascular Disease No 0 Total 0 Assessment /Plan Problems (1) Multiple sclerosis Status: Chronic Response to Treatment: Improving Discussed With: Family with Pt Consent Problem Text: -Primary progressive type with acute exacerbation likely triggered by urinary tract infection -Continued in rehabilitation unit for mobilization to baseline -Evaluated by neurology with recommendations for medication adjustments -(Dr Aranda) appreciate input and recommendations. -amantadine on hold on recommendations of neurology -Continued on Depakote and Lamictal with gradual increase - Advised to follow-up with neurology 1 month post discharge (2) Urinary tract infection Status: Acute Problem Text: -Completed a course of antibiotic therapy with Cipro -. Repeat urine culture was negative for growth (3) Seizure disorder Status: Acute Problem Text: -currently stable -Seizure disorder 2/2 MS -Continue seizure precautions -Continue home Lamotrigine & Depakote - levels within normal limits on admission -Neurology on board, follow recommendations for titration of doses (4) Elevated blood pressure reading Status: Acute Problem Text: -Continue with lisinopril. 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
[2018-11-17 14:00] VITALS: BP 141/77
[2018-11-17 20:00] VITALS: BP 146/79
[2018-11-17] MEDS: TAMSULOSIN 0.4 MG CAP PO SCH (20:43)
[2018-11-17] MEDS: DIVALPROEX 500MG *ER* TAB PO SCH (20:43)
[2018-11-17] MEDS: oxyBUTYnin *DITROPAN XL* 5 MG TABCR PO SCH (20:43)
[2018-11-17] MEDS: ENOXAPARIN 40 MG/0.4 ML SYRINGE (J1650) SC SCH (20:44)
[2018-11-18] MEDS: SALIVA SUBSTITUTE(MOUTHKOTE) BTL MT SCH ×12 (01:00→23:00)
[2018-11-18 05:56] VITALS: BP 104/58
[2018-11-18] MEDS: LEVOTHYROXINE 50MCG TABLET (0.05MG) PO SCH (06:17)
[2018-11-18 06:38] LABS: HEMATOCRIT 41.1 % (42.0-52.0); HEMOGLOBIN 12.9 g/dl (13.5-17.5); MEAN CORPUSCULAR HEMOGLOBIN 29.4 pg (27.0-33.0); MEAN CORPUSCULAR HGB CONC 31.4 g/dl (32.0-36.5); MEAN CORPUSCULAR VOLUME 93.6 fl (80.0-96.0); PLATELET COUNT, AUTOMATED 298 10^3/uL (150-450); RED BLOOD COUNT 4.39 10^6/uL (4.30-6.10); WHITE BLOOD COUNT 9.4 10^3/uL (4.0-10.0)
[2018-11-18 07:06] LABS: BLOOD UREA NITROGEN 31 MG/DL (7-18); CALCIUM LEVEL 8.6 MG/DL (8.8-10.2); CARBON DIOXIDE LEVEL 32 MEQ/L (21-32); CHLORIDE LEVEL 109 MEQ/L (98-107); GLOMERULAR FILTRATION RATE > 60.0 (>49); GLUCOSE, FASTING 84 MG/DL (70-100); POTASSIUM SERUM 4.1 MEQ/L (3.5-5.1); SODIUM LEVEL 145 MEQ/L (136-145)
[2018-11-18] MEDS: BOUDREAUX'S BUTT PASTE 4OZ TOP SCH ×2 (09:00→21:00)
[2018-11-18] MEDS: MYCOPHENOLATE MOFETIL 250 MG CAP (J7517) PO SCH ×2 (09:30→21:00)
[2018-11-18] MEDS: NYSTATIN 500,000 U/5 ML SUSP UDC SS SCH ×3 (09:30→21:00)
[2018-11-18] MEDS: LISINOPRIL *2.5 MG* TAB PO SCH (09:30)
[2018-11-18] MEDS: MULTIVITAMINS/MINERALS THERAP 1 TAB PO SCH (09:31)
[2018-11-18] MEDS: MAGIC MOUTHWASH SUSPENSION BTL SSP SCH ×3 (09:31→16:49)
[2018-11-18] MEDS: lamoTRIgine 25 MG TAB PO SCH ×2 (09:31→21:00)
[2018-11-18] MEDS: PANTOPRAZOLE 40MG TAB (PROTONIX) PO SCH (09:31)
[2018-11-18] MEDS: GABAPENTIN 400 MG CAP PO SCH ×3 (09:31→21:00)
[2018-11-18] MEDS: BACLOFEN 10 MG TAB PO SCH ×2 (09:31→21:00)
[2018-11-18] MEDS: SENOKOT S TAB PO SCH ×2 (09:31→21:00)
--- NOTE | 2018-11-18 13:01 | IPNPDOC ---
Subjective Date Seen The patient was seen on 11/18/18. 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 Was brought to the emergency room by on account of increased incontinence, brown cloudy urine with pus, urgency and frequency for about 2 weeks. He was positive for urinary tract infection and started on ciprofloxacin for treatment of same. Patient, however, has had persistent hallucinations during this hospitalization. Currently in rehabilitation for worsening multiple sclerosis, medical team on board following for management of underlying comorbidities. Events since last encounter Complaints of left foot pain making use of orthotics uncomfortable. Objective Physical Examination Other physical findings General: in bed, NAD noted Skin: Warm, dry, left foot callus to left outer foot pad, with erythema. Cardiovascular: Regular rate and rhythm, no MRG, no jugular venous distention, no edema. Respiratory:CTAB, no accessory muscle use noted. Abdomen: Bowel sounds +, no tenderness, no distention Musculoskeletal: slight spine curvature Neurologic: alert and oriented to self, place and time Psychiatric: Appropriate mood and affect, no anxiety or agitation. 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 -amantadine on hold on recommendations of neurology -Continued on Depakote and Lamictal with gradual increase - Advised to follow-up with neurology 1 month post discharge (3) Urinary tract infection Status: Acute Problem Text: -resolved -Completed a course of antibiotic therapy with Ciprofloxacin - Repeat urine culture was negative for growth (4) Seizure disorder Status: Acute Problem Text: -stable -Seizure disorder 2/2 MS -Continue seizure precautions -Continue home Lamotrigine & Depakote (5) Elevated blood pressure reading Status: Acute Problem Text: -Continue with lisinopril. 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 Problem Text: -Continue Flomax and oxybutynin Plan/VTE VTE Prophylaxis Ordered?: Yes VS, I&O, 24H, Fishbone Vital Signs/I&O Vital Signs Date Time Temp Pulse Resp B/P (MAP) Pulse Ox O2 Delivery O2 Flow Rate FiO2 11/18/18 09:30 115/59 11/18/18 05:56 97.4 56 18 96 I&O- Last 24 Hours up to 6 AM 11/18/18 06:00 Intake Total 660 ml Balance 660 ml Laboratory Data 24H LABS Laboratory Tests 2 11/18/18 06:12: Nucleated Red Blood Cells % (auto) 0.0, Anion Gap 4L, Glomerular Filtration Rate > 60.0, Blood Urea Nitrogen 31H, Creatinine 0.90, Sodium Level 145, Potassium Level 4.1, Chloride Level 109H, Carbon Dioxide Level 32, Calcium Level 8.6L CBC/BMP Laboratory Tests 11/18/18 06:12 Red Blood Count 4.39, Mean Corpuscular Volume 93.6, Mean Corpuscular Hemoglobin 29.4, Mean Corpuscular Hemoglobin Concent 31.4 L, Red Cell Distribution Width 14.5, Calcium Level 8.6 L Microbiology Microbiology 11/13/18 Urine Culture - Final, Complete REGLA CARR November 18, 2018 13:01
[2018-11-18 14:00] VITALS: BP 122/66
[2018-11-18 20:00] VITALS: BP 128/71
[2018-11-18] MEDS: TAMSULOSIN 0.4 MG CAP PO SCH (21:00)
[2018-11-18] MEDS: oxyBUTYnin *DITROPAN XL* 5 MG TABCR PO SCH (21:00)
[2018-11-18] MEDS: DIVALPROEX 500MG *ER* TAB PO SCH (21:00)
[2018-11-18] MEDS: ENOXAPARIN 40 MG/0.4 ML SYRINGE (J1650) SC SCH (21:00)
[2018-11-19] MEDS: SALIVA SUBSTITUTE(MOUTHKOTE) BTL MT SCH ×12 (01:00→23:00)
[2018-11-19] MEDS: LEVOTHYROXINE 50MCG TABLET (0.05MG) PO SCH (05:51)
[2018-11-19 06:00] VITALS: BP 129/86
[2018-11-19] MEDS: MAGIC MOUTHWASH SUSPENSION BTL SSP SCH ×3 (07:44→17:20)
[2018-11-19] MEDS: BACLOFEN 10 MG TAB PO SCH ×2 (08:26→21:41)
[2018-11-19] MEDS: MULTIVITAMINS/MINERALS THERAP 1 TAB PO SCH (08:26)
[2018-11-19] MEDS: GABAPENTIN 400 MG CAP PO SCH ×3 (08:26→21:41)
[2018-11-19] MEDS: SENOKOT S TAB PO SCH ×2 (08:26→21:40)
[2018-11-19] MEDS: PANTOPRAZOLE 40MG TAB (PROTONIX) PO SCH (08:26)
[2018-11-19] MEDS: MYCOPHENOLATE MOFETIL 250 MG CAP (J7517) PO SCH ×2 (08:26→21:41)
[2018-11-19] MEDS: LISINOPRIL *2.5 MG* TAB PO SCH (08:27)
[2018-11-19] MEDS: NYSTATIN 500,000 U/5 ML SUSP UDC SS SCH ×3 (08:27→21:42)
[2018-11-19] MEDS: lamoTRIgine 25 MG TAB PO SCH ×2 (08:27→21:42)
[2018-11-19] MEDS: BOUDREAUX'S BUTT PASTE 4OZ TOP SCH ×2 (08:28→21:43)
--- NOTE | 2018-11-19 10:32 | IPNPDOC ---
PM&R Progress Note DATE OF SERVICE: November 19, 2018 Matlab Developer Progress Note Subjective: Patient reports he feels he is getting a little bit stronger and is wheeling himself to the gym. REVIEW OF SYSTEMS: The following is a completed review of systems and has been reviewed. Review of systems otherwise unremarkable. PAIN: Patient self reports no pain EYES: Negative for recent vision loss EARS, NOSE, & THROAT: recent dysphagia resolving with antibiotics, denies rhinorrhea or hearing loss CARDIOVASCULAR: denies chest pain or palpitations PULMONARY: Negative. Denies shortness of breath GASTROINTESTINAL: Negative for diarrhea or constipation GENITOURINARY: denies dysuria, +UTI MUSCULOSKELETAL: generalized weakness NEUROLOGICAL: +MS SKIN: intact, no rash PSYCHIATRIC: Unremarkable All other review of systems found to be negative. PHYSICAL EXAMINATION: VITAL SIGNS: Please see below. GENERAL: Pleasant and cooperative. No acute distress. HEENT: PERRL. Extraocular movements intact. Clear conjunctiva, +oral thrush CARDIOVASCULAR: Regular rate and rhythm. No murmurs, rubs, or gallops LUNGS: Clear to auscultation bilaterally. No wheezes. No rhonchi ABDOMEN: Soft, nontender, nondistended. Positive bowel sounds. Normal active bowel sounds NEUROLOGICAL: Alert and oriented times three. Cranial nerves II through XII grossly intact. Sensation grossly intact to light touch throughout all 4 limbs + 2 beats clonus right foot depressed reflexes throughout 1/4 MAS tone bilateral biceps EXTREMITIES: 4-\5 strength bilateral upper extremities. 3\5 strength bilateral hip flexion and knee extension, 1/5 ankle DF and EHL ASSESSMENT:68-year-old M with past medical history of MS with seizure d/o who presents status post MS exacerbation in setting of UTI PLAN: 1. 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 Neuro: pmh MS with recent adjustment in medications and exacerbation ins setting of UTI- will need f/u with Dr. Alaniz on discharge -c/u Cellcept for immunosuppression monitored by [facility] -seizure disorder, c/u Gabapentin, Depakote and Lamictal (titrating up per neuro recs) -neurology consulted to consider adjusting MS medications to help reduce visual hallucinations- Amantadine discontinued -recent delirium, monitor and avoid delirogenic medications, optimize sleep-wake cycle, treat infectious source -low tone secondary to chronic use of Baclofen, c/u 3. CArdiac: no known cardiac hx 4. resp: encourage incentive spirometry and monitor for infection, CPAP at night for GENNY -CXR no acute infiltrates 5. ID: s/p Ciprofloxacin for E. faecalis UTI- medicine consulted recs appreciated, repeat UA negative -leukocytosis better today, +oral thrush slightly better, c/u antifungal oral rinse 6. : pmh BPH c/u flomax, pmh overactive bladder related to MS c/u Oxybutynin- c/u artificial saliva for dry mouth 7. Endo: pmh hypothryoidism c/u Synthroid 8. DVT ppx: Lovenox and TEDs, Dopplers negative 9. GI ppx: c/u protonix 10. Dispo: 11/27/18 to home, progressing slowly towards goals Allergies Coded Allergies: Penicillins (Verified Allergy, Unknown, 11/05/18) Vital Signs Vital Signs Date Time Temp Pulse Resp B/P (MAP) Pulse Ox O2 Delivery O2 Flow Rate FiO2 11/19/18 08:27 129/86 11/19/18 06:00 98.5 84 18 94 Microbiology Microbiology 11/13/18 Urine Culture - Final, Complete Current Medications Current Medications Current Medications Acetaminophen (Tylenol Tab) 650 mg Q4HP PRN PO fever/MILD PAIN (PS 1-4); Start 11/09/18 at 14:30 Al Hydrox/Mg Hydrox/Simethicone (Mylanta) 30 ml Q4HP PRN PO DYSPEPSIA; Start 11/09/18 at 14:30 Amantadine HCl (Symmetrel) 100 mg QHS PO Last administered on 11/12/18at 21:26; Start 11/09/18 at 21:00; Stop 11/13/18 at 17:27; Status DC Amantadine HCl (Symmetrel) 200 mg DAILY PO Last administered on 11/13/18at 08:46; Start 11/10/18 at 09:00; Stop 11/13/18 at 17:27; Status DC Baclofen (Lioresal) 10 mg BID PO Last administered on 11/19/18at 08:26; Start 11/09/18 at 21:00 Bisacodyl (Dulcolax Suppository) 10 mg DAILYPRN PRN [place] CONSTIPATION; Start 11/09/18 at 14:30 Ciprofloxacin (Cipro) 500 mg BID@06,18 PO Last administered on 11/16/18 06:13; Start 11/09/18 at 18:00; Stop 11/16/18 at 06:01; Status DC Divalproex Sodium (Depakote Er) 500 mg QHS PO Last administered on 11/18/18 21:00; Start 11/09/18 at 21:00 Enoxaparin Sodium (Lovenox) 40 mg QHS SC Last administered on 11/18/18 21:00; Start 11/09/18 at 21:00 Gabapentin (Neurontin) 400 mg TID PO Last administered on 11/19/18 08:26; Start 11/09/18 at 16:00 Lamotrigine (LaMICtal) 25 mg BID PO Last administered on 11/16/18 08:53; Start 11/15/18 at 09:00; Stop 11/16/18 at 18:13; Status DC Lamotrigine (LaMICtal) 25 mg QHS PO Last administered on 11/14/18 21:47; Start 11/09/18 at 21:00; Stop 11/14/18 at 23:00; Status DC Lamotrigine (LaMICtal) 50 mg BID PO Last administered on 11/19/18 08:27; Start 11/16/18 at 21:00 Levothyroxine Sodium (Synthroid) 50 mcg DAILY@06 PO Last administered on 11/19/18 05:51; Start 11/10/18 at 06:00 Lidocaine/ Diphenhydr/Alum/ Mg/Simeth (Magic Mouthwash) 5ml AC SSP Last administered on 11/19/18 07:44; Start 11/13/18 at 17:30 Lisinopril (Prinivil) 2.5 mg DAILY PO Last administered on 11/19/18 08:27; Start 11/13/18 at 16:30 Magnesium Hydroxide (Milk Of Magnesia) 30 ml DAILYPRN PRN PO CONSTIPATION; Start 11/09/18 at 14:30 Miscellaneous (Unresolved Clarification Entry) SEE LABEL COMMENTS DAILY XX ; Start 11/15/18 at 09:00; Stop 11/16/18 at 09:05; Status DC Miscellaneous (Unresolved Clarification Entry) SEE LABEL COMMENTS DAILY XX ; Start 11/16/18 at 09:00; Stop 11/16/18 at 10:52; Status DC Multivitamins (Theragram-M) 1 tab DAILY PO Last administered on 11/19/18 08:26; Start 11/10/18 at 09:00 Mycophenolate Mofetil (Cellcept) 1,000 mg BID PO Last administered on 11/19/18 08:; Start 11/09/18 at 21:00 Nystatin (Mycostatin) 5 ml TID SS Last administered on 11/19/18 08:; Start 11/10/18 at 09:00 Ondansetron HCl (Zofran) 4 mg Q6HP PRN PO NAUSEA; Start 11/09/18 at 14:30 Oxybutynin Chloride (Ditropan Xl) 10 mg QHS PO Last administered on 11/18/18 21:00; Start 11/09/18 at 21:00 Pantoprazole Sodium (Protonix) 40 mg DAILY PO Last administered on 11/19/18 08:26; Start 11/09/18 at 09:00 Saliva Substitute (Mouthkote) 1 sprays Q2H MT Last administered on 11/19/18 08:27; Start 11/13/18 at 15:00 Senna/Docusate Sodium (Senokot S) 1 tab BID PO Last administered on 11/19/18 08:26; Start 11/09/18 at 21:00 Tamsulosin HCl (Flomax) 0.4 mg QHS PO Last administered on 11/18/18 21:00; Start 11/09/18 at 21:00 Zinc Oxide (Boudreauxs Butt Paste) sacrum BID TOP Last administered on 11/18/18 21:00; Start 11/14/18 at 21:00 A-FIB/CHADSVASC A-FIB History Current/History of A-Fib/PAF?: No Age/Risk Factor Scoring CHADSVASC: CHADSVASC Response (Comments) Value Age Risk Factor Age < 65 years old 0 Gender Risk Factor Male 0 Hx of CHF No 0 Hx of HTN No 0 Hx of Stroke/TIA/or VTE No 0 Hx of Diabetes No 0 Hx of Vascular Disease No 0 Total 0 MALDONADO MIX MD November 19, 2018 10:31
--- NOTE | 2018-11-19 12:20 | IPNPDOC ---
Subjective Date Seen The patient was seen on 11/19/18. 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 Was brought to the emergency room by on account of increased incontinence, brown cloudy urine with pus, urgency and frequency for about 2 weeks. He was positive for urinary tract infection and started on ciprofloxacin for treatment of same. Patient, however, has had persistent hallucinations during this hospitalization. Currently in rehabilitation for worsening multiple sclerosis, medical team on board following for management of underlying comorb idities. Events since last encounter Patient currently has no concerns or complaints. Denies chest pain, denies shortness of breath, pain to left foot pad is resolved Objective Physical Examination Other physical findings General: , NAD noted Skin: Warm, dry, left foot callus to left outer foot pad, with erythema. Cardiovascular: Regular rate and rhythm, no MRG, no jugular venous distention, no edema. Respiratory:CTAB, no accessory muscle use noted. Abdomen: Bowel sounds +, no tenderness, no distention Musculoskeletal: slight spine curvature Neurologic: alert and oriented to self, place and time Psychiatric: Appropriate mood and affect, no anxiety or agitation. 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 Problem Text: -resolved -continue offloading when possible (2) Multiple sclerosis Status: Chronic Response to Treatment: Improving Discussed With: Family with Pt Consent Problem Text: -Primary progressive type with acute exacerbation likely triggered by urinary tract infection -Continued in rehabilitation unit for mobilization to baseline -Evaluated by neurology with recommendations for medication adjustments -amantadine held on recommendations by neurology -Continued on Depakote and Lamictal with gradual increase - Advised to follow-up with neurology 1 month post discharge (3) Urinary tract infection Status: Acute Problem Text: -resolved -Completed a course of antibiotic therapy with Ciprofloxacin - Repeat urine culture was negative for growth (4) Seizure disorder Status: Acute Problem Text: -stable -Seizure disorder 2/2 MS -Continue seizure precautions -Continue Lamotrigine & Depakote (5) Elevated blood pressure reading Status: Acute Problem Text: -started on lisinopril this admit. -continue on same dose -monitor blood pressure per unit protocol (6) Encephalopathy Status: Acute Problem Text: -resolved (7) BPH with obstruction/lower urinary tract symptoms Status: Chronic Problem Text: -Continue Flomax and oxybutynin Plan/VTE VTE Prophylaxis Ordered?: Yes VS, I&O, 24H, Fishbone Vital Signs/I&O Vital Signs Date Time Temp Pulse Resp B/P (MAP) Pulse Ox O2 Delivery O2 Flow Rate FiO2 11/19/18 08:27 129/86 11/19/18 06:00 98.5 84 18 94 I&O- Last 24 Hours up to 6 AM 11/19/18 06:00 Intake Total 1760 ml Output Total 550 ml Balance 1210 ml Laboratory Data Microbiology Microbiology 11/13/18 Urine Culture - Final, Complete REGLA CARRP November 19, 2018 12:20
[2018-11-19 14:00] VITALS: BP_SYST 133
[2018-11-19 20:00] VITALS: BP 132/77
[2018-11-19] MEDS: ENOXAPARIN 40 MG/0.4 ML SYRINGE (J1650) SC SCH (21:40)
[2018-11-19] MEDS: TAMSULOSIN 0.4 MG CAP PO SCH (21:41)
[2018-11-19] MEDS: oxyBUTYnin *DITROPAN XL* 5 MG TABCR PO SCH (21:41)
[2018-11-19] MEDS: DIVALPROEX 500MG *ER* TAB PO SCH (21:41)
[2018-11-20] MEDS: SALIVA SUBSTITUTE(MOUTHKOTE) BTL MT SCH ×12 (00:44→23:00)
[2018-11-20 06:00] VITALS: BP 102/54
[2018-11-20] MEDS: LEVOTHYROXINE 50MCG TABLET (0.05MG) PO SCH (06:02)
[2018-11-20] MEDS: MAGIC MOUTHWASH SUSPENSION BTL SSP SCH ×3 (08:33→17:21)
[2018-11-20] MEDS: NYSTATIN 500,000 U/5 ML SUSP UDC SS SCH ×3 (08:34→20:57)
[2018-11-20] MEDS: GABAPENTIN 400 MG CAP PO SCH ×3 (08:36→20:57)
[2018-11-20] MEDS: MULTIVITAMINS/MINERALS THERAP 1 TAB PO SCH (08:36)
[2018-11-20] MEDS: BACLOFEN 10 MG TAB PO SCH ×2 (08:36→20:57)
[2018-11-20] MEDS: lamoTRIgine 25 MG TAB PO SCH ×2 (08:36→20:57)
[2018-11-20] MEDS: LISINOPRIL *2.5 MG* TAB PO SCH (08:36)
[2018-11-20] MEDS: MYCOPHENOLATE MOFETIL 250 MG CAP (J7517) PO SCH ×2 (08:36→20:57)
[2018-11-20] MEDS: PANTOPRAZOLE 40MG TAB (PROTONIX) PO SCH (08:36)
[2018-11-20] MEDS: SENOKOT S TAB PO SCH ×2 (08:37→20:57)
[2018-11-20] MEDS: BOUDREAUX'S BUTT PASTE 4OZ TOP SCH ×2 (08:38→21:00)
[2018-11-20 14:00] VITALS: BP 122/72
[2018-11-20 20:00] VITALS: BP 140/74
[2018-11-20] MEDS: TAMSULOSIN 0.4 MG CAP PO SCH (20:57)
[2018-11-20] MEDS: oxyBUTYnin *DITROPAN XL* 5 MG TABCR PO SCH (20:57)
[2018-11-20] MEDS: DIVALPROEX 500MG *ER* TAB PO SCH (20:57)
[2018-11-20] MEDS: ENOXAPARIN 40 MG/0.4 ML SYRINGE (J1650) SC SCH (20:58)
[2018-11-21] MEDS: SALIVA SUBSTITUTE(MOUTHKOTE) BTL MT SCH ×12 (01:00→23:00)
[2018-11-21 06:00] VITALS: BP 133/69
[2018-11-21] MEDS: LEVOTHYROXINE 50MCG TABLET (0.05MG) PO SCH (06:18)
[2018-11-21 07:10] LABS: HEMATOCRIT 42.2 % (42.0-52.0); HEMOGLOBIN 13.2 g/dl (13.5-17.5); MEAN CORPUSCULAR HEMOGLOBIN 29.3 pg (27.0-33.0); MEAN CORPUSCULAR HGB CONC 31.3 g/dl (32.0-36.5); MEAN CORPUSCULAR VOLUME 93.8 fl (80.0-96.0); PLATELET COUNT, AUTOMATED 330 10^3/uL (150-450); WHITE BLOOD COUNT 8.6 10^3/uL (4.0-10.0)
[2018-11-21 07:26] LABS: BLOOD UREA NITROGEN 26 MG/DL (7-18); CALCIUM LEVEL 8.5 MG/DL (8.8-10.2); CARBON DIOXIDE LEVEL 31 MEQ/L (21-32); CHLORIDE LEVEL 108 MEQ/L (98-107); CREATININE FOR GFR 0.77 MG/DL (0.70-1.30); GLOMERULAR FILTRATION RATE > 60.0 (>49); GLUCOSE, FASTING 84 MG/DL (70-100); SODIUM LEVEL 143 MEQ/L (136-145)
[2018-11-21] MEDS: PANTOPRAZOLE 40MG TAB (PROTONIX) PO SCH (08:44)
[2018-11-21] MEDS: NYSTATIN 500,000 U/5 ML SUSP UDC SS SCH ×3 (08:44→21:18)
[2018-11-21] MEDS: MULTIVITAMINS/MINERALS THERAP 1 TAB PO SCH (08:44)
[2018-11-21] MEDS: MYCOPHENOLATE MOFETIL 250 MG CAP (J7517) PO SCH ×2 (08:44→21:18)
[2018-11-21] MEDS: GABAPENTIN 400 MG CAP PO SCH ×3 (08:44→21:17)
[2018-11-21] MEDS: lamoTRIgine 25 MG TAB PO SCH ×2 (08:44→21:17)
[2018-11-21] MEDS: SENOKOT S TAB PO SCH ×2 (08:44→21:17)
[2018-11-21] MEDS: BACLOFEN 10 MG TAB PO SCH ×2 (08:44→21:17)
[2018-11-21] MEDS: MAGIC MOUTHWASH SUSPENSION BTL SSP SCH ×3 (08:45→16:02)
[2018-11-21] MEDS: LISINOPRIL *2.5 MG* TAB PO SCH (08:45)
[2018-11-21] MEDS: BOUDREAUX'S BUTT PASTE 4OZ TOP SCH ×2 (08:45→21:18)
[2018-11-21 14:00] VITALS: BP 122/68
[2018-11-21 20:00] VITALS: BP 147/68
[2018-11-21] MEDS: oxyBUTYnin *DITROPAN XL* 5 MG TABCR PO SCH (21:17)
[2018-11-21] MEDS: TAMSULOSIN 0.4 MG CAP PO SCH (21:17)
[2018-11-21] MEDS: DIVALPROEX 500MG *ER* TAB PO SCH (21:17)
[2018-11-21] MEDS: ENOXAPARIN 40 MG/0.4 ML SYRINGE (J1650) SC SCH (21:17)
[2018-11-22] MEDS: SALIVA SUBSTITUTE(MOUTHKOTE) BTL MT SCH ×12 (01:00→23:00)
[2018-11-22 05:30] VITALS: BP 133/68
[2018-11-22] MEDS: LEVOTHYROXINE 50MCG TABLET (0.05MG) PO SCH (06:05)
[2018-11-22] MEDS: NYSTATIN 500,000 U/5 ML SUSP UDC SS SCH ×3 (08:28→21:12)
[2018-11-22] MEDS: LISINOPRIL *2.5 MG* TAB PO SCH (08:28)
[2018-11-22] MEDS: MAGIC MOUTHWASH SUSPENSION BTL SSP SCH ×3 (08:28→16:00)
[2018-11-22] MEDS: PANTOPRAZOLE 40MG TAB (PROTONIX) PO SCH (08:28)
[2018-11-22] MEDS: SENOKOT S TAB PO SCH ×2 (08:28→21:12)
[2018-11-22] MEDS: BACLOFEN 10 MG TAB PO SCH ×2 (08:29→21:10)
[2018-11-22] MEDS: GABAPENTIN 400 MG CAP PO SCH ×3 (08:29→21:10)
[2018-11-22] MEDS: MULTIVITAMINS/MINERALS THERAP 1 TAB PO SCH (08:29)
[2018-11-22] MEDS: BOUDREAUX'S BUTT PASTE 4OZ TOP SCH ×2 (08:29→21:12)
[2018-11-22] MEDS: MYCOPHENOLATE MOFETIL 250 MG CAP (J7517) PO SCH ×2 (08:29→21:11)
[2018-11-22] MEDS: lamoTRIgine 25 MG TAB PO SCH ×2 (08:29→21:11)
--- NOTE | 2018-11-22 10:07 | IPNPDOC ---
PM&R Progress Note DATE OF SERVICE: November 21, 2018 [employer] Teacher Progress Note Subjective: Patient seen in the bathroom brushing his teeth, reporting he feels his energy is getting better. REVIEW OF SYSTEMS: The following is a completed review of systems and has been reviewed. Review of systems otherwise unremarkable. PAIN: Patient self reports no pain EYES: Negative for recent vision loss EARS, NOSE, & THROAT: recent dysphagia resolving with antibiotics, denies rhinorrhea or hearing loss CARDIOVASCULAR: denies chest pain or palpitations PULMONARY: Negative. Denies shortness of breath GASTROINTESTINAL: Negative for diarrhea or constipation GENITOURINARY: denies dysuria, +UTI MUSCULOSKELETAL: generalized weakness NEUROLOGICAL: +MS SKIN: intact, no rash PSYCHIATRIC: Unremarkable All other review of systems found to be negative. PHYSICAL EXAMINATION: VITAL SIGNS: Please see below. GENERAL: Pleasant and cooperative. No acute distress. HEENT: PERRL. Extraocular movements intact. Clear conjunctiva, +oral thrush CARDIOVASCULAR: Regular rate and rhythm. No murmurs, rubs, or gallops LUNGS: Clear to auscultation bilaterally. No wheezes. No rhonchi ABDOMEN: Soft, nontender, nondistended. Positive bowel sounds. Normal active bowel sounds NEUROLOGICAL: Alert and oriented times three. Cranial nerves II through XII grossly intact. Sensation grossly intact to light touch throughout all 4 limbs + 2 beats clonus right foot depressed reflexes throughout 1/4 MAS tone bilateral biceps EXTREMITIES: 4-\5 strength bilateral upper extremities. 3\5 strength bilateral hip flexion and knee extension, 1/5 ankle DF and EHL ASSESSMENT:68-year-old M with past medical history of MS with seizure d/o who presents status post MS exacerbation in setting of UTI PLAN: 1. 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 Neuro: pmh MS with recent adjustment in medications and exacerbation ins setting of UTI- will need f/u with Dr. Alaniz on discharge -c/u Cellcept for immunosuppression monitored by [facility] -seizure disorder, c/u Gabapentin, Depakote and Lamictal (titrating up per neuro recs) -neurology consulted to consider adjusting MS medications to help reduce visual hallucinations- Amantadine discontinued -recent delirium, monitor and avoid delirogenic medications, optimize sleep-wake cycle, treat infectious source -low tone secondary to chronic use of Baclofen, c/u 3. CArdiac: no known cardiac hx 4. resp: encourage incentive spirometry and monitor for infection, CPAP at night for GENNY -CXR no acute infiltrates 5. ID: s/p Ciprofloxacin for E. faecalis UTI- medicine consulted recs appreciated, repeat UA negative -leukocytosis better today, +oral thrush slightly better, c/u antifungal oral rinse 6. : pmh BPH c/u flomax, pmh overactive bladder related to MS c/u Oxybutynin- c/u artificial saliva for dry mouth 7. Endo: pmh hypothryoidism c/u Synthroid 8. DVT ppx: Lovenox and TEDs, Dopplers negative 9. GI ppx: c/u protonix 10. Dispo: 11/27/18 to home, progressing slowly towards goals, will consider SNF as needs him to Mod-I for return to home Allergies Coded Allergies: Penicillins (Verified Allergy, Unknown, 11/05/18) Vital Signs Vital Signs Date Time Temp Pulse Resp B/P (MAP) Pulse Ox O2 Delivery O2 Flow Rate FiO2 11/22/18 08:28 133/68 11/22/18 05:30 98.2 60 17 96 Microbiology Microbiology 11/13/18 Urine Culture - Final, Complete Current Medications Current Medications Current Medications Acetaminophen (Tylenol Tab) 650 mg Q4HP PRN PO fever/MILD PAIN (PS 1-4); Start 11/09/18 at 14:30 Al Hydrox/Mg Hydrox/Simethicone (Mylanta) 30 ml Q4HP PRN PO DYSPEPSIA; Start 11/09/18 at 14:30 Amantadine HCl (Symmetrel) 100 mg QHS PO Last administered on 11/12/18at 21:26; Start 11/09/18 at 21:00; Stop 11/13/18 at 17:27; Status DC Amantadine HCl (Symmetrel) 200 mg DAILY PO Last administered on 11/13/18at 08:46; Start 11/10/18 at 09:00; Stop 11/13/18 at 17:27; Status DC Baclofen (Lioresal) 10 mg BID PO Last administered on 11/22/18at 08:29; Start 11/09/18 at 21:00 Bisacodyl (Dulcolax Suppository) 10 mg DAILYPRN PRN [place] CONSTIPATION; Start 11/09/18 at 14:30 Ciprofloxacin (Cipro) 500 mg BID@06,18 PO Last administered on 11/16/18 06:13; Start 11/09/18 at 18:00; Stop 11/16/18 at 06:01; Status DC Divalproex Sodium (Depakote Er) 500 mg QHS PO Last administered on 11/21/18 21:17; Start 11/09/18 at 21:00 Enoxaparin Sodium (Lovenox) 40 mg QHS SC Last administered on 11/21/18 21:17; Start 11/09/18 at 21:00 Gabapentin (Neurontin) 400 mg TID PO Last administered on 11/22/18 08:29; Start 11/09/18 at 16:00 Lamotrigine (LaMICtal) 25 mg BID PO Last administered on 11/16/18 08:53; Start 11/15/18 at 09:00; Stop 11/16/18 at 18:13; Status DC Lamotrigine (LaMICtal) 25 mg QHS PO Last administered on 11/14/18at 21:47; Start 11/09/18 at 21:00; Stop 11/14/18 at 23:00; Status DC Lamotrigine (LaMICtal) 50 mg BID PO Last administered on 11/22/18 08:29; Start 11/16/18 at 21:00 Levothyroxine Sodium (Synthroid) 50 mcg DAILY@06 PO Last administered on 11/22/18 at 06:05; Start 11/10/18 at 06:00 Lidocaine/ Diphenhydr/Alum/ Mg/Simeth (Magic Mouthwash) 5ml AC SSP Last administered on 11/22/18 08:28; Start 11/13/18 at 17:30 Lisinopril (Prinivil) 2.5 mg DAILY PO Last administered on 11/22/18 08:28; Start 11/13/18 at 16:30 Magnesium Hydroxide (Milk Of Magnesia) 30 ml DAILYPRN PRN PO CONSTIPATION; Start 11/09/18 at 14:30 Miscellaneous (Unresolved Clarification Entry) SEE LABEL COMMENTS DAILY XX ; Start 11/15/18 at 09:00; Stop 11/16/18 at 09:05; Status DC Miscellaneous (Unresolved Clarification Entry) SEE LABEL COMMENTS DAILY XX ; Start 11/16/18 at 09:00; Stop 11/16/18 at 10:52; Status DC Multivitamins (Theragram-M) 1 tab DAILY PO Last administered on 11/22/18 08:29; Start 11/10/18 at 09:00 Mycophenolate Mofetil (Cellcept) 1,000 mg BID PO Last administered on 11/22/18 08:29; Start 11/09/18 at 21:00 Nystatin (Mycostatin) 5 ml TID SS Last administered on 11/22/18 08:28; Start 11/10/18 at 09:00 Ondansetron HCl (Zofran) 4 mg Q6HP PRN PO NAUSEA; Start 11/09/18 at 14:30 Oxybutynin Chloride (Ditropan Xl) 10 mg QHS PO Last administered on 11/21/18 21:17; Start 11/09/18 at 21:00 Pantoprazole Sodium (Protonix) 40 mg DAILY PO Last administered on 11/22/18 08:28; Start 11/09/18 at 09:00 Saliva Substitute (Mouthkote) 1 sprays Q2H MT Last administered on 11/22/18 08:28; Start 11/13/18 at 15:00 Senna/Docusate Sodium (Senokot S) 1 tab BID PO Last administered on 11/22/18 08:28; Start 11/09/18 at 21:00 Tamsulosin HCl (Flomax) 0.4 mg QHS PO Last administered on 11/21/18 21:17; Start 11/09/18 at 21:00 Zinc Oxide (Boudreauxs Butt Paste) sacrum BID TOP Last administered on 11/22/18 08:29; Start 11/14/18 at 21:00 A-FIB/CHADSVASC A-FIB History Current/History of A-Fib/PAF?: No Age/Risk Factor Scoring CHADSVASC: CHADSVASC Response (Comments) Value Age Risk Factor Age < 65 years old 0 Gender Risk Factor Male 0 Hx of CHF No 0 Hx of HTN No 0 Hx of Stroke/TIA/or VTE No 0 Hx of Diabetes No 0 Hx of Vascular Disease No 0 Total 0 MALDONADO MIX MD November 22, 2018 10:06
--- NOTE | 2018-11-22 10:07 | IPNPDOC ---
PM&R Progress Note DATE OF SERVICE: November 22, 2018 Automobile Sales Consultant Progress Note Subjective: Patient reports his hallucination are getting better and was able to take a few steps in therapy. REVIEW OF SYSTEMS: The following is a completed review of systems and has been reviewed. Review of systems otherwise unremarkable. PAIN: Patient self reports no pain EYES: Negative for recent vision loss EARS, NOSE, & THROAT: recent dysphagia resolving with antibiotics, denies rhinorrhea or hearing loss CARDIOVASCULAR: denies chest pain or palpitations PULMONARY: Negative. Denies shortness of breath GASTROINTESTINAL: Negative for diarrhea or constipation GENITOURINARY: denies dysuria, +UTI MUSCULOSKELETAL: generalized weakness NEUROLOGICAL: +MS SKIN: intact, no rash PSYCHIATRIC: Unremarkable All other review of systems found to be negative. PHYSICAL EXAMINATION: VITAL SIGNS: Please see below. GENERAL: Pleasant and cooperative. No acute distress. HEENT: PERRL. Extraocular movements intact. Clear conjunctiva, +oral thrush CARDIOVASCULAR: Regular rate and rhythm. No murmurs, rubs, or gallops LUNGS: Clear to auscultation bilaterally. No wheezes. No rhonchi ABDOMEN: Soft, nontender, nondistended. Positive bowel sounds. Normal active bowel sounds NEUROLOGICAL: Alert and oriented times three. Cranial nerves II through XII grossly intact. Sensation grossly intact to light touch throughout all 4 limbs + 2 beats clonus right foot depressed reflexes throughout 1/4 MAS tone bilateral biceps EXTREMITIES: 4-\5 strength bilateral upper extremities. 3\5 strength bilateral hip flexion and knee extension, 1/5 ankle DF and EHL ASSESSMENT:68-year-old M with past medical history of MS with seizure d/o who presents status post MS exacerbation in setting of UTI PLAN: 1. 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 Neuro: pmh MS with recent adjustment in medications and exacerbation ins setting of UTI- will need f/u with Dr. Alaniz on discharge -c/u Cellcept for immunosuppression monitored by [facility] -seizure disorder, c/u Gabapentin, Depakote and Lamictal (titrating up per neuro recs)- will recheck Depakote and Lamictal levels Monday -neurology consulted to consider adjusting MS medications to help reduce visual hallucinations- Amantadine discontinued -recent delirium, monitor and avoid delirogenic medications, optimize sleep-wake cycle, treat infectious source -low tone secondary to chronic use of Baclofen, c/u 3. CArdiac: no known cardiac hx 4. resp: encourage incentive spirometry and monitor for infection, CPAP at night for GENNY -CXR no acute infiltrates 5. ID: s/p Ciprofloxacin for E. faecalis UTI- medicine consulted recs appreciated, repeat UA negative -leukocytosis better today, +oral thrush slightly better, c/u antifungal oral rinse 6. : pmh BPH c/u flomax, pmh overactive bladder related to MS c/u Oxybutynin- c/u artificial saliva for dry mouth 7. Endo: pmh hypothryoidism c/u Synthroid 8. DVT ppx: Lovenox and TEDs, Dopplers negative 9. GI ppx: c/u protonix 10. Dispo: 11/27/18 to home, progressing slowly towards goals, will consider SNF as needs him to Mod-I for return to home Allergies Coded Allergies: Penicillins (Verified Allergy, Unknown, 11/05/18) Vital Signs Vital Signs Date Time Temp Pulse Resp B/P (MAP) Pulse Ox O2 Delivery O2 Flow Rate FiO2 11/22/18 08:28 133/68 11/22/18 05:30 98.2 60 17 96 Microbiology Microbiology 11/13/18 Urine Culture - Final, Complete Current Medications Current Medications Current Medications Acetaminophen (Tylenol Tab) 650 mg Q4HP PRN PO fever/MILD PAIN (PS 1-4); Start 11/09/18 at 14:30 Al Hydrox/Mg Hydrox/Simethicone (Mylanta) 30 ml Q4HP PRN PO DYSPEPSIA; Start 11/09/18 at 14:30 Amantadine HCl (Symmetrel) 100 mg QHS PO Last administered on 11/12/18at 21:26; Start 11/09/18 at 21:00; Stop 11/13/18 at 17:27; Status DC Amantadine HCl (Symmetrel) 200 mg DAILY PO Last administered on 11/13/18at 08:46; Start 11/10/18 at 09:00; Stop 11/13/18 at 17:27; Status DC Baclofen (Lioresal) 10 mg BID PO Last administered on 11/22/18at 08:29; Start 11/09/18 at 21:00 Bisacodyl (Dulcolax Suppository) 10 mg DAILYPRN PRN OR CONSTIPATION; Start 11/09/18 at 14:30 Ciprofloxacin (Cipro) 500 mg BID@06,18 PO Last administered on 11/16/18 06:13; Start 11/09/18 at 18:00; Stop 11/16/18 at 06:01; Status DC Divalproex Sodium (Depakote Er) 500 mg QHS PO Last administered on 11/21/18 21:17; Start 11/09/18 at 21:00 Enoxaparin Sodium (Lovenox) 40 mg QHS SC Last administered on 11/21/18 21:17; Start 11/09/18 at 21:00 Gabapentin (Neurontin) 400 mg TID PO Last administered on 11/22/18 08:29; Start 11/09/18 at 16:00 Lamotrigine (LaMICtal) 25 mg BID PO Last administered on 11/16/18 08:53; Start 11/15/18 at 09:00; Stop 11/16/18 at 18:13; Status DC Lamotrigine (LaMICtal) 25 mg QHS PO Last administered on 11/14/18 21:47; Start 11/09/18 at 21:00; Stop 11/14/18 at 23:00; Status DC Lamotrigine (LaMICtal) 50 mg BID PO Last administered on 11/22/18 08:29; Start 11/16/18 at 21:00 Levothyroxine Sodium (Synthroid) 50 mcg DAILY@06 PO Last administered on 11/22/18 06:05; Start 11/10/18 at 06:00 Lidocaine/ Diphenhydr/Alum/ Mg/Simeth (Magic Mouthwash) 5ml AC SSP Last administered on 11/22/18 08:28; Start 11/13/18 at 17:30 Lisinopril (Prinivil) 2.5 mg DAILY PO Last administered on 11/22/18 08:28; Start 11/13/18 at 16:30 Magnesium Hydroxide (Milk Of Magnesia) 30 ml DAILYPRN PRN PO CONSTIPATION; Start 11/09/18 at 14:30 Miscellaneous (Unresolved Clarification Entry) SEE LABEL COMMENTS DAILY XX ; Start 11/15/18 at 09:00; Stop 11/16/18 at 09:05; Status DC Miscellaneous (Unresolved Clarification Entry) SEE LABEL COMMENTS DAILY XX ; Start 11/16/18 at 09:00; Stop 11/16/18 at 10:52; Status DC Multivitamins (Theragram-M) 1 tab DAILY PO Last administered on 11/22/18 08:29; Start 11/10/18 at 09:00 Mycophenolate Mofetil (Cellcept) 1,000 mg BID PO Last administered on 11/22/18 08:29; Start 11/09/18 at 21:00 Nystatin (Mycostatin) 5 ml TID SS Last administered on 11/22/18 08:28; Start 11/10/18 at 09:00 Ondansetron HCl (Zofran) 4 mg Q6HP PRN PO NAUSEA; Start 11/09/18 at 14:30 Oxybutynin Chloride (Ditropan Xl) 10 mg QHS PO Last administered on 11/21/18 21:17; Start 11/09/18 at 21:00 Pantoprazole Sodium (Protonix) 40 mg DAILY PO Last administered on 11/22/18 08:28; Start 11/09/18 at 09:00 Saliva Substitute (Mouthkote) 1 sprays Q2H MT Last administered on 11/22/18 08:28; Start 11/13/18 at 15:00 Senna/Docusate Sodium (Senokot S) 1 tab BID PO Last administered on 11/22/18 08:28; Start 11/09/18 at 21:00 Tamsulosin HCl (Flomax) 0.4 mg QHS PO Last administered on 11/21/18 21:17; Start 11/09/18 at 21:00 Zinc Oxide (Boudreauxs Butt Paste) sacrum BID TOP Last administered on 11/22/18 08:29; Start 11/14/18 at 21:00 A-FIB/CHADSVASC A-FIB History Current/History of A-Fib/PAF?: No Age/Risk Factor Scoring CHADSVASC: CHADSVASC Response (Comments) Value Age Risk Factor Age < 65 years old 0 Gender Risk Factor Male 0 Hx of CHF No 0 Hx of HTN No 0 Hx of Stroke/TIA/or VTE No 0 Hx of Diabetes No 0 Hx of Vascular Disease No 0 Total 0 MALDONADO MIX MD November 22, 2018 10:07
[2018-11-22 20:00] VITALS: BP 129/61
[2018-11-22] MEDS: TAMSULOSIN 0.4 MG CAP PO SCH (21:10)
[2018-11-22] MEDS: DIVALPROEX 500MG *ER* TAB PO SCH (21:10)
[2018-11-22] MEDS: ENOXAPARIN 40 MG/0.4 ML SYRINGE (J1650) SC SCH (21:12)
[2018-11-22] MEDS: oxyBUTYnin *DITROPAN XL* 5 MG TABCR PO SCH (21:12)
[2018-11-23] MEDS: SALIVA SUBSTITUTE(MOUTHKOTE) BTL MT SCH ×12 (01:00→23:00)
[2018-11-23 05:45] VITALS: BP 120/58
[2018-11-23] MEDS: LEVOTHYROXINE 50MCG TABLET (0.05MG) PO SCH (05:55)
[2018-11-23 06:26] LABS: BASO # 0.1 10^3/uL (0.0-0.2); BASO % 0.6 % (0.0-1.0); EOS # 0.2 10^3/uL (0.0-0.50); HEMATOCRIT 40.3 % (42.0-52.0); HEMOGLOBIN 12.6 g/dl (13.5-17.5); LYMPH # 2.2 10^3/uL (1.5-4.5); LYMPH % 27.5 % (24.0-44.0); MEAN CORPUSCULAR HEMOGLOBIN 29.5 pg (27.0-33.0); MEAN CORPUSCULAR HGB CONC 31.3 g/dl (32.0-36.5); MEAN CORPUSCULAR VOLUME 94.4 fl (80.0-96.0); MONO # 0.7 10^3/uL (0.0-0.8); MONO % 9.1 % (0.0-5.0); NEUTROPHILS # 4.7 10^3/uL (1.8-7.7); NEUTROPHILS % 57.7 % (36.0-66.0); PLATELET COUNT, AUTOMATED 329 10^3/uL (150-450); RED BLOOD COUNT 4.27 10^6/uL (4.30-6.10); WHITE BLOOD COUNT 8.2 10^3/uL (4.0-10.0)
[2018-11-23 06:45] LABS: BLOOD UREA NITROGEN 22 MG/DL (7-18); CALCIUM LEVEL 8.2 MG/DL (8.8-10.2); CARBON DIOXIDE LEVEL 31 MEQ/L (21-32); CHLORIDE LEVEL 106 MEQ/L (98-107); CREATININE FOR GFR 0.89 MG/DL (0.70-1.30); GLOMERULAR FILTRATION RATE > 60.0 (>49); GLUCOSE, FASTING 86 MG/DL (70-100); POTASSIUM SERUM 4.2 MEQ/L (3.5-5.1); SODIUM LEVEL 143 MEQ/L (136-145)
[2018-11-23] MEDS: MULTIVITAMINS/MINERALS THERAP 1 TAB PO SCH (08:53)
[2018-11-23] MEDS: lamoTRIgine 25 MG TAB PO SCH ×2 (08:53→21:03)
[2018-11-23] MEDS: LISINOPRIL *2.5 MG* TAB PO SCH (08:53)
[2018-11-23] MEDS: NYSTATIN 500,000 U/5 ML SUSP UDC SS SCH ×3 (08:53→21:03)
[2018-11-23] MEDS: PANTOPRAZOLE 40MG TAB (PROTONIX) PO SCH (08:53)
[2018-11-23] MEDS: SENOKOT S TAB PO SCH ×2 (08:53→21:04)
[2018-11-23] MEDS: MYCOPHENOLATE MOFETIL 250 MG CAP (J7517) PO SCH ×2 (08:53→21:03)
[2018-11-23] MEDS: BACLOFEN 10 MG TAB PO SCH ×2 (08:53→21:04)
[2018-11-23] MEDS: GABAPENTIN 400 MG CAP PO SCH ×3 (08:53→21:04)
[2018-11-23] MEDS: MAGIC MOUTHWASH SUSPENSION BTL SSP SCH ×3 (08:54→17:14)
[2018-11-23] MEDS: BOUDREAUX'S BUTT PASTE 4OZ TOP SCH ×2 (08:54→21:05)
[2018-11-23 14:00] VITALS: BP 126/62
[2018-11-23 20:00] VITALS: BP 128/68
[2018-11-23] MEDS: DIVALPROEX 500MG *ER* TAB PO SCH (21:03)
[2018-11-23] MEDS: oxyBUTYnin *DITROPAN XL* 5 MG TABCR PO SCH (21:03)
[2018-11-23] MEDS: TAMSULOSIN 0.4 MG CAP PO SCH (21:03)
[2018-11-23] MEDS: ENOXAPARIN 40 MG/0.4 ML SYRINGE (J1650) SC SCH (21:04)
[2018-11-24] MEDS: SALIVA SUBSTITUTE(MOUTHKOTE) BTL MT SCH ×12 (01:44→23:00)
[2018-11-24] MEDS: LEVOTHYROXINE 50MCG TABLET (0.05MG) PO SCH (05:32)
[2018-11-24 06:00] VITALS: BP 107/59
[2018-11-24] MEDS: MYCOPHENOLATE MOFETIL 250 MG CAP (J7517) PO SCH ×2 (08:36→20:08)
[2018-11-24] MEDS: MULTIVITAMINS/MINERALS THERAP 1 TAB PO SCH (08:36)
[2018-11-24] MEDS: BACLOFEN 10 MG TAB PO SCH ×2 (08:36→20:07)
[2018-11-24] MEDS: lamoTRIgine 25 MG TAB PO SCH ×2 (08:36→20:07)
[2018-11-24] MEDS: NYSTATIN 500,000 U/5 ML SUSP UDC SS SCH ×3 (08:36→20:07)
[2018-11-24] MEDS: GABAPENTIN 400 MG CAP PO SCH ×3 (08:36→20:07)
[2018-11-24] MEDS: PANTOPRAZOLE 40MG TAB (PROTONIX) PO SCH (08:36)
[2018-11-24] MEDS: LISINOPRIL *2.5 MG* TAB PO SCH (08:37)
[2018-11-24] MEDS: SENOKOT S TAB PO SCH ×2 (08:37→20:07)
[2018-11-24] MEDS: MAGIC MOUTHWASH SUSPENSION BTL SSP SCH ×3 (08:44→15:56)
[2018-11-24] MEDS: BOUDREAUX'S BUTT PASTE 4OZ TOP SCH ×2 (08:47→20:13)
[2018-11-24 11:11] VITALS: BP 107/59
[2018-11-24 14:00] VITALS: BP 128/61
[2018-11-24 20:00] VITALS: BP 111/55
[2018-11-24] MEDS: DIVALPROEX 500MG *ER* TAB PO SCH (20:07)
[2018-11-24] MEDS: TAMSULOSIN 0.4 MG CAP PO SCH (20:07)
[2018-11-24] MEDS: ENOXAPARIN 40 MG/0.4 ML SYRINGE (J1650) SC SCH (20:07)
[2018-11-24] MEDS: oxyBUTYnin *DITROPAN XL* 5 MG TABCR PO SCH (20:08)
[2018-11-25] MEDS: SALIVA SUBSTITUTE(MOUTHKOTE) BTL MT SCH ×12 (01:00→23:00)
[2018-11-25] MEDS: LEVOTHYROXINE 50MCG TABLET (0.05MG) PO SCH (05:28)
[2018-11-25 06:00] VITALS: BP 125/59
[2018-11-25] MEDS: MAGIC MOUTHWASH SUSPENSION BTL SSP SCH ×3 (08:39→17:00)
[2018-11-25] MEDS: MYCOPHENOLATE MOFETIL 250 MG CAP (J7517) PO SCH ×2 (08:40→20:16)
[2018-11-25] MEDS: BACLOFEN 10 MG TAB PO SCH ×2 (08:40→20:15)
[2018-11-25] MEDS: PANTOPRAZOLE 40MG TAB (PROTONIX) PO SCH (08:40)
[2018-11-25] MEDS: LISINOPRIL *2.5 MG* TAB PO SCH (08:40)
[2018-11-25] MEDS: MULTIVITAMINS/MINERALS THERAP 1 TAB PO SCH (08:40)
[2018-11-25] MEDS: SENOKOT S TAB PO SCH ×2 (08:40→20:16)
[2018-11-25] MEDS: NYSTATIN 500,000 U/5 ML SUSP UDC SS SCH ×3 (08:40→20:15)
[2018-11-25] MEDS: GABAPENTIN 400 MG CAP PO SCH ×3 (08:40→20:15)
[2018-11-25] MEDS: lamoTRIgine 25 MG TAB PO SCH ×2 (08:40→20:16)
[2018-11-25] MEDS: BOUDREAUX'S BUTT PASTE 4OZ TOP SCH ×2 (08:41→20:22)
[2018-11-25 14:25] VITALS: BP 130/62
[2018-11-25 20:00] VITALS: BP 116/56
[2018-11-25] MEDS: ENOXAPARIN 40 MG/0.4 ML SYRINGE (J1650) SC SCH (20:15)
[2018-11-25] MEDS: oxyBUTYnin *DITROPAN XL* 5 MG TABCR PO SCH (20:16)
[2018-11-25] MEDS: TAMSULOSIN 0.4 MG CAP PO SCH (20:16)
[2018-11-25] MEDS: DIVALPROEX 500MG *ER* TAB PO SCH (20:16)
[2018-11-26] MEDS: SALIVA SUBSTITUTE(MOUTHKOTE) BTL MT SCH ×12 (01:00→23:00)
[2018-11-26] MEDS: LEVOTHYROXINE 50MCG TABLET (0.05MG) PO SCH (05:24)
[2018-11-26 06:00] VITALS: BP 111/55
[2018-11-26] MEDS: MAGIC MOUTHWASH SUSPENSION BTL SSP SCH ×3 (07:30→16:54)
[2018-11-26] MEDS: lamoTRIgine 25 MG TAB PO SCH ×2 (08:12→20:35)
[2018-11-26] MEDS: PANTOPRAZOLE 40MG TAB (PROTONIX) PO SCH (08:12)
[2018-11-26] MEDS: LISINOPRIL *2.5 MG* TAB PO SCH (08:12)
[2018-11-26] MEDS: SENOKOT S TAB PO SCH ×2 (08:12→20:36)
[2018-11-26] MEDS: BACLOFEN 10 MG TAB PO SCH ×2 (08:12→20:34)
[2018-11-26] MEDS: GABAPENTIN 400 MG CAP PO SCH ×3 (08:12→20:34)
[2018-11-26] MEDS: MYCOPHENOLATE MOFETIL 250 MG CAP (J7517) PO SCH ×2 (08:12→20:35)
[2018-11-26] MEDS: NYSTATIN 500,000 U/5 ML SUSP UDC SS SCH ×3 (08:12→20:34)
[2018-11-26] MEDS: MULTIVITAMINS/MINERALS THERAP 1 TAB PO SCH (08:12)
[2018-11-26] MEDS: BOUDREAUX'S BUTT PASTE 4OZ TOP SCH ×2 (08:13→20:37)
--- NOTE | 2018-11-26 11:53 | IPNPDOC ---
PM&R Progress Note DATE OF SERVICE: November 26, 2018 Mop Man Progress Note Subjective: Patient and stating they need patient to be Mod-I from wheelchair level before returning home and agree [facility] might be the best option. REVIEW OF SYSTEMS: The following is a completed review of systems and has been reviewed. Review of systems otherwise unremarkable. PAIN: Patient self reports no pain EYES: Negative for recent vision loss EARS, NOSE, & THROAT: recent dysphagia resolving with antibiotics, denies rhinorrhea or hearing loss CARDIOVASCULAR: denies chest pain or palpitations PULMONARY: Negative. Denies shortness of breath GASTROINTESTINAL: Negative for diarrhea or constipation GENITOURINARY: denies dysuria, +UTI MUSCULOSKELETAL: generalized weakness NEUROLOGICAL: +MS SKIN: intact, no rash PSYCHIATRIC: Unremarkable All other review of systems found to be negative. PHYSICAL EXAMINATION: VITAL SIGNS: Please see below. GENERAL: Pleasant and cooperative. No acute distress. HEENT: PERRL. Extraocular movements intact. Clear conjunctiva, +oral thrush CARDIOVASCULAR: Regular rate and rhythm. No murmurs, rubs, or gallops LUNGS: Clear to auscultation bilaterally. No wheezes. No rhonchi ABDOMEN: Soft, nontender, nondistended. Positive bowel sounds. Normal active bowel sounds NEUROLOGICAL: Alert and oriented times three. Cranial nerves II through XII grossly intact. Sensation grossly intact to light touch throughout all 4 limbs + 2 beats clonus right foot depressed reflexes throughout 1/4 MAS tone bilateral biceps EXTREMITIES: 4-\5 strength bilateral upper extremities. 3\5 strength bilateral hip flexion and knee extension, 1/5 ankle DF and EHL ASSESSMENT:68-year-old M with past medical history of MS with seizure d/o who presents status post MS exacerbation in setting of UTI PLAN: 1. rehab: PT, OT, OUTCOMES MANAGER, assess for DME needs, requiring a lot of assistance with bed mobility, better trunk control for eating, Mod-I for wheelchair propulsion short distances 2. Neuro: pmh MS with recent adjustment in medications and exacerbation ins setting of UTI- will need f/u with Dr. Alaniz on discharge -c/u Cellcept for immunosuppression monitored by [facility] -seizure disorder, c/u Gabapentin, Depakote and Lamictal (titrating up per neuro recs)- will recheck Depakote and Lamictal levels today and discuss results with neuro -neurology consulted to consider adjusting MS medications to help reduce visual hallucinations- Amantadine discontinued -recent delirium, monitor and avoid delirogenic medications, optimize sleep-wake cycle, treat infectious source -low tone secondary to chronic use of Baclofen 3. CArdiac: no known cardiac hx 4. resp: encourage incentive spirometry and monitor for infection, CPAP at night for GENNY -CXR no acute infiltrates 5. ID: s/p Ciprofloxacin for E. faecalis UTI- medicine consulted recs appreciated, repeat UA negative x2 -leukocytosis better today, +oral thrush slightly better, c/u antifungal oral rinse 6. : pmh BPH c/u flomax, pmh overactive bladder related to MS c/u Oxybutynin- c/u artificial saliva for dry mouth 7. Endo: pmh hypothryoidism c/u Synthroid 8. DVT ppx: Lovenox and TEDs, Dopplers negative 9. GI ppx: c/u protonix 10. Dispo: 11/27/18 to home, progressing slowly towards goals, will consider SNF as needs him to Mod-I for return to home Allergies Coded Allergies: Penicillins (Verified Allergy, Unknown, 11/05/18) Vital Signs Vital Signs Date Time Temp Pulse Resp B/P (MAP) Pulse Ox O2 Delivery O2 Flow Rate FiO2 11/26/18 08:12 111/55 11/26/18 06:00 98.1 61 17 96 Current Medications Current Medications Current Medications Acetaminophen (Tylenol Tab) 650 mg Q4HP PRN PO fever/MILD PAIN (PS 1-4); Start 11/09/18 at 14:30 Al Hydrox/Mg Hydrox/Simethicone (Mylanta) 30 ml Q4HP PRN PO DYSPEPSIA; Start 11/09/18 at 14:30 Amantadine HCl (Symmetrel) 100 mg QHS PO Last administered on 11/12/18at 21:26; Start 11/09/18 at 21:00; Stop 11/13/18 at 17:27; Status DC Amantadine HCl (Symmetrel) 200 mg DAILY PO Last administered on 11/13/18at 08:46; Start 11/10/18 at 09:00; Stop 11/13/18 at 17:27; Status DC Baclofen (Lioresal) 10 mg BID PO Last administered on 11/26/18at 08:12; Start 11/09/18 at 21:00 Bisacodyl (Dulcolax Suppository) 10 mg DAILYPRN PRN SD CONSTIPATION; Start 11/09/18 at 14:30 Ciprofloxacin (Cipro) 500 mg BID@06,18 PO Last administered on 11/16/18 06:13; Start 11/09/18 at 18:00; Stop 11/16/18 at 06:01; Status DC Divalproex Sodium (Depakote Er) 500 mg QHS PO Last administered on 11/25/18 20:16; Start 11/09/18 at 21:00 Enoxaparin Sodium (Lovenox) 40 mg QHS SC Last administered on 11/25/18 20:15; Start 11/09/18 at 21:00 Gabapentin (Neurontin) 400 mg TID PO Last administered on 11/26/18 08:12; Start 11/09/18 at 16:00 Lamotrigine (LaMICtal) 25 mg BID PO Last administered on 11/16/18 08:53; Start 11/15/18 at 09:00; Stop 11/16/18 at 18:13; Status DC Lamotrigine (LaMICtal) 25 mg QHS PO Last administered on 11/14/18 21:47; Start 11/09/18 at 21:00; Stop 11/14/18 at 23:00; Status DC Lamotrigine (LaMICtal) 50 mg BID PO Last administered on 11/26/18 08:12; Start 11/16/18 at 21:00 Levothyroxine Sodium (Synthroid) 50 mcg DAILY@06 PO Last administered on 11/26/18 05:24; Start 11/10/18 at 06:00 Lidocaine/ Diphenhydr/Alum/ Mg/Simeth (Magic Mouthwash) 5ml AC SSP Last admi nistered on 11/25/18 17:00; Start 11/13/18 at 17:30 Lisinopril (Prinivil) 2.5 mg DAILY PO Last administered on 11/26/18 08:12; Start 11/13/18 at 16:30 Magnesium Hydroxide (Milk Of Magnesia) 30 ml DAILYPRN PRN PO CONSTIPATION; Start 11/09/18 at 14:30 Miscellaneous (Unresolved Clarification Entry) SEE LABEL COMMENTS DAILY XX ; Start 11/15/18 at 09:00; Stop 11/16/18 at 09:05; Status DC Miscellaneous (Unresolved Clarification Entry) SEE LABEL COMMENTS DAILY XX ; Start 11/16/18 at 09:00; Stop 11/16/18 at 10:52; Status DC Multivitamins (Theragram-M) 1 tab DAILY PO Last administered on 11/26/18 08:12; Start 11/10/18 at 09:00 Mycophenolate Mofetil (Cellcept) 1,000 mg BID PO Last administered on 11/26/18 08:12; Start 11/09/18 at 21:00 Nystatin (Mycostatin) 5 ml TID SS Last administered on 11/26/18 08:12; Start 11/10/18 at 09:00 Ondansetron HCl (Zofran) 4 mg Q6HP PRN PO NAUSEA; Start 11/09/18 at 14:30 Oxybutynin Chloride (Ditropan Xl) 10 mg QHS PO Last administered on 11/25/18 20:16; Start 11/09/18 at 21:00 Pantoprazole Sodium (Protonix) 40 mg DAILY PO Last administered on 11/26/18 08:12; Start 11/09/18 at 09:00 Saliva Substitute (Mouthkote) 1 sprays Q2H MT Last administered on 11/25/18 19:31; Start 11/13/18 at 15:00 Senna/Docusate Sodium (Senokot S) 1 tab BID PO Last administered on 11/25/18 20:16; Start 11/09/18 at 21:00 Tamsulosin HCl (Flomax) 0.4 mg QHS PO Last administered on 11/25/18 20:16; Start 11/09/18 at 21:00 Zinc Oxide (Boudreauxs Butt Paste) sacrum BID TOP Last administered on 11/26/18 08:13; Start 11/14/18 at 21:00 A-FIB/CHADSVASC A-FIB History Current/History of A-Fib/PAF?: No Age/Risk Factor Scoring CHADSVASC: CHADSVASC Response (Comments) Value Age Risk Factor Age < 65 years old 0 Gender Risk Factor Male 0 Hx of CHF No 0 Hx of HTN No 0 Hx of Stroke/TIA/or VTE No 0 Hx of Diabetes No 0 Hx of Vascular Disease No 0 Total 0 MALDONADO MIX MD November 26, 2018 11:53
[2018-11-26 13:33] LABS: BASO # 0.1 10^3/uL (0.0-0.2); BASO % 0.7 % (0.0-1.0); EOS # 0.2 10^3/uL (0.0-0.50); EOS % 1.6 % (0.0-3.0); HEMATOCRIT 44.1 % (42.0-52.0); LYMPH # 1.8 10^3/uL (1.5-4.5); LYMPH % 17.1 % (24.0-44.0); MEAN CORPUSCULAR HGB CONC 31.7 g/dl (32.0-36.5); MEAN CORPUSCULAR VOLUME 94.4 fl (80.0-96.0); MONO # 0.8 10^3/uL (0.0-0.8); MONO % 7.6 % (0.0-5.0); NEUTROPHILS # 7.5 10^3/uL (1.8-7.7); NEUTROPHILS % 69.9 % (36.0-66.0); PLATELET COUNT, AUTOMATED 378 10^3/uL (150-450); RED BLOOD COUNT 4.67 10^6/uL (4.30-6.10); WHITE BLOOD COUNT 10.7 10^3/uL (4.0-10.0)
[2018-11-26 13:57] LABS: BLOOD UREA NITROGEN 22 MG/DL (7-18); CARBON DIOXIDE LEVEL 30 MEQ/L (21-32); CHLORIDE LEVEL 106 MEQ/L (98-107); CREATININE FOR GFR 0.98 MG/DL (0.70-1.30); GLOMERULAR FILTRATION RATE > 60.0 (>49); GLUCOSE, FASTING 102 MG/DL (70-100); POTASSIUM SERUM 4.7 MEQ/L (3.5-5.1); SODIUM LEVEL 141 MEQ/L (136-145); VALPROIC ACID (DEPAKOTE) 43.1 UG/ML (50.0-100.0)
[2018-11-26 14:00] VITALS: BP 133/70
[2018-11-26 20:00] VITALS: BP 142/71
[2018-11-26] MEDS: TAMSULOSIN 0.4 MG CAP PO SCH (20:34)
[2018-11-26] MEDS: oxyBUTYnin *DITROPAN XL* 5 MG TABCR PO SCH (20:35)
[2018-11-26] MEDS: DIVALPROEX 500MG *ER* TAB PO SCH (20:35)
[2018-11-26] MEDS: ENOXAPARIN 40 MG/0.4 ML SYRINGE (J1650) SC SCH (20:36)
[2018-11-27] MEDS: SALIVA SUBSTITUTE(MOUTHKOTE) BTL MT SCH ×12 (01:00→23:00)
[2018-11-27 06:00] VITALS: BP 111/57
[2018-11-27] MEDS: LEVOTHYROXINE 50MCG TABLET (0.05MG) PO SCH (06:05)
[2018-11-27 06:40] LABS: BASO # 0.1 10^3/uL (0.0-0.2); BASO % 0.6 % (0.0-1.0); EOS # 0.2 10^3/uL (0.0-0.50); EOS % 1.8 % (0.0-3.0); HEMATOCRIT 40.1 % (42.0-52.0); HEMOGLOBIN 12.8 g/dl (13.5-17.5); LYMPH # 1.8 10^3/uL (1.5-4.5); LYMPH % 20.7 % (24.0-44.0); MEAN CORPUSCULAR HGB CONC 31.9 g/dl (32.0-36.5); MEAN CORPUSCULAR VOLUME 93.9 fl (80.0-96.0); MONO # 0.7 10^3/uL (0.0-0.8); MONO % 8.3 % (0.0-5.0); NEUTROPHILS # 5.8 10^3/uL (1.8-7.7); NEUTROPHILS % 66.1 % (36.0-66.0); PLATELET COUNT, AUTOMATED 312 10^3/uL (150-450); RED BLOOD COUNT 4.27 10^6/uL (4.30-6.10); WHITE BLOOD COUNT 8.8 10^3/uL (4.0-10.0)
[2018-11-27 07:00] LABS: BLOOD UREA NITROGEN 21 MG/DL (7-18); CALCIUM LEVEL 8.1 MG/DL (8.8-10.2); CARBON DIOXIDE LEVEL 30 MEQ/L (21-32); CHLORIDE LEVEL 107 MEQ/L (98-107); CREATININE FOR GFR 0.85 MG/DL (0.70-1.30); GLOMERULAR FILTRATION RATE > 60.0 (>49); GLUCOSE, FASTING 92 MG/DL (70-100); SODIUM LEVEL 142 MEQ/L (136-145)
[2018-11-27] MEDS: MAGIC MOUTHWASH SUSPENSION BTL SSP SCH ×3 (07:25→16:39)
[2018-11-27] MEDS: MULTIVITAMINS/MINERALS THERAP 1 TAB PO SCH (08:18)
[2018-11-27] MEDS: GABAPENTIN 400 MG CAP PO SCH ×3 (08:18→20:30)
[2018-11-27] MEDS: BACLOFEN 10 MG TAB PO SCH ×3 (08:18→20:30)
[2018-11-27] MEDS: lamoTRIgine 25 MG TAB PO SCH ×2 (08:18→20:29)
[2018-11-27] MEDS: MYCOPHENOLATE MOFETIL 250 MG CAP (J7517) PO SCH ×2 (08:18→20:30)
[2018-11-27] MEDS: NYSTATIN 500,000 U/5 ML SUSP UDC SS SCH ×2 (08:18→15:50)
[2018-11-27] MEDS: PANTOPRAZOLE 40MG TAB (PROTONIX) PO SCH (08:18)
[2018-11-27] MEDS: SENOKOT S TAB PO SCH ×3 (08:18→20:32)
[2018-11-27] MEDS: LISINOPRIL *2.5 MG* TAB PO SCH (08:18)
[2018-11-27] MEDS: BOUDREAUX'S BUTT PASTE 4OZ TOP SCH ×2 (08:20→20:32)
[2018-11-27 14:00] VITALS: BP 118/83
--- NOTE | 2018-11-27 17:45 | IPNPDOC ---
PM&R Progress Note DATE OF SERVICE: November 27, 2018 Procurement Manager Progress Note Subjective: Patient reports he thinks stretching before PT helps his walking. REVIEW OF SYSTEMS: The following is a completed review of systems and has been reviewed. Review of systems otherwise unremarkable. PAIN: Patient self reports no pain EYES: Negative for recent vision loss EARS, NOSE, & THROAT: recent dysphagia resolving with antibiotics, denies rhinorrhea or hearing loss CARDIOVASCULAR: denies chest pain or palpitations PULMONARY: Negative. Denies shortness of breath GASTROINTESTINAL: Negative for diarrhea or constipation GENITOURINARY: denies dysuria, +UTI MUSCULOSKELETAL: generalized weakness NEUROLOGICAL: +MS SKIN: intact, no rash PSYCHIATRIC: Unremarkable All other review of systems found to be negative. PHYSICAL EXAMINATION: VITAL SIGNS: Please see below. GENERAL: Pleasant and cooperative. No acute distress. HEENT: PERRL. Extraocular movements intact. Clear conjunctiva, +oral thrush CARDIOVASCULAR: Regular rate and rhythm. No murmurs, rubs, or gallops LUNGS: Clear to auscultation bilaterally. No wheezes. No rhonchi ABDOMEN: Soft, nontender, nondistended. Positive bowel sounds. Normal active bowel sounds NEUROLOGICAL: Alert and oriented times three. Cranial nerves II through XII grossly intact. Sensation grossly intact to light touch throughout all 4 limbs + 2 beats clonus right foot depressed reflexes throughout 1/4 MAS tone bilateral biceps EXTREMITIES: 4-\5 strength bilateral upper extremities. 3\5 strength bilateral hip flexion and knee extension, 1/5 ankle DF and EHL ASSESSMENT:68-year-old M with past medical history of MS with seizure d/o who presents status post MS exacerbation in setting of UTI PLAN: 1. rehab: PT, OT, SHAREPOINT ENGINEER, assess for DME needs, requiring a lot of assistance with bed mobility, better trunk control for eating, Mod-I for wheelchair propulsion short distances 2. Neuro: pmh MS with recent adjustment in medications and exacerbation ins setting of UTI- will need f/u with Dr. Alaniz on discharge -c/u Cellcept for immunosuppression monitored by [facility] -seizure disorder, c/u Gabapentin, Depakote and Lamictal (titrating up per neuro recs)- Depakote and Lamictal levels ordered, will discuss results with neuro once both have resulted -neurology consulted to consider adjusting MS medications to help reduce visual hallucinations- Amantadine discontinued -recent delirium, monitor and avoid delirogenic medications, optimize sleep-wake cycle, treat infectious source -low tone secondary to chronic use of Baclofen 3. CArdiac: no known cardiac hx 4. resp: encourage incentive spirometry and monitor for infection, CPAP at night for GENNY -CXR no acute infiltrates 5. ID: s/p Ciprofloxacin for E. faecalis UTI- medicine consulted recs appreciated, repeat UA negative x2 -leukocytosis better today, +oral thrush slightly better, c/u antifungal oral rinse 6. : pmh BPH c/u flomax, pmh overactive bladder related to MS c/u Oxybutynin- c/u artificial saliva for dry mouth 7. Endo: pmh hypothryoidism c/u Synthroid 8. DVT ppx: Lovenox and TEDs, Dopplers negative 9. GI ppx: c/u protonix 10. Dispo: to [facility] once bed is available Allergies Coded Allergies: Penicillins (Verified Allergy, Unknown, 11/05/18) Vital Signs Vital Signs Date Time Temp Pulse Resp B/P (MAP) Pulse Ox O2 Delivery O2 Flow Rate FiO2 11/27/18 14:00 97.5 66 18 118/83 (95) 97 Laboratory Data CBC/BMP Laboratory Tests 11/27/18 06:20 Red Blood Count 4.27 L, Mean Corpuscular Volume 93.9, Mean Corpuscular Hemoglobin 30.0, Mean Corpuscular Hemoglobin Concent 31.9 L, Red Cell Distribution Width 14.5, Neutrophils (%) (Auto) 66.1 H, Lymphocytes (%) (Auto) 20.7 L, Monocytes (%) (Auto) 8.3 H, Eosinophils (%) (Auto) 1.8, Basophils (%) (Auto) 0.6, Neutrophils # (Auto) 5.8, Lymphocytes # (Auto) 1.8, Monocytes # (Auto) 0.7, Eosinophils # (Auto) 0.2, Basophils # (Auto) 0.1, Calcium Level 8.1 L Labs 24H Laboratory Tests 2 11/26/18 20:30: Urine Color YELLOW, Urine Appearance CLEAR, Urine pH 6.0, Urine Specific [place] 1.014, Urine Protein NEGATIVE, Urine Glucose (UA) NEGATIVE, Urine Ketones NEGATIVE, Urine Blood NEGATIVE, Urine Nitrite NEGATIVE, Urine Bilirubin NEGATIVE, Urine Urobilinogen 0.2, Urine Leukocyte Esterase NEGATIVE, Urine WBC (Auto) 1, Urine RBC (Auto) 2, Urine Hyaline Casts (Auto) 0, Urine Bacteria (Auto) NEGATIVE, Urine Squamous Epithelial Cells 0, Urine Sperm (Auto) 11/27/18 06:20: Immature Granulocyte % (Auto) 2.5, White Blood Count 8.8, Red Blood Count 4.27L, Hemoglobin 12.8L, Hematocrit 40.1L, Mean Corpuscular Volume 93.9, Mean Corpuscular Hemoglobin 30.0, Mean Corpuscular Hemoglobin Concent 31.9L, Red Cell Distribution Width 14.5, Platelet Count 312, Neutrophils (%) (Auto) 66.1H, Lymphocytes (%) (Auto) 20.7L, Monocytes (%) (Auto) 8.3H, Eosinophils (%) (Auto) 1.8, Basophils (%) (Auto) 0.6, Neutrophils # (Auto) 5.8, Lymphocytes # (Auto) 1.8, Monocytes # (Auto) 0.7, Eosinophils # (Auto) 0.2, Basophils # (Auto) 0.1, Nucleated Red Blood Cells % (auto) 0.0, Anion Gap 5L, Glomerular Filtration Rate > 60.0, Blood Urea Nitrogen 21H, Creatinine 0.85, Sodium Level 142, Potassium Level 4.0, Chloride Level 107, Carbon Dioxide Level 30, Calcium Level 8.1L Current Medications Current Medications Current Medications Acetaminophen (Tylenol Tab) 650 mg Q4HP PRN PO fever/MILD PAIN (PS 1-4); Start 11/09/18 at 14:30 Al Hydrox/Mg Hydrox/Simethicone (Mylanta) 30 ml Q4HP PRN PO DYSPEPSIA; Start 11/09/18 at 14:30 Amantadine HCl (Symmetrel) 100 mg QHS PO Last administered on 11/12/18at 21:26; Start 11/09/18 at 21:00; Stop 11/13/18 at 17:27; Status DC Amantadine HCl (Symmetrel) 200 mg DAILY PO Last administered on 11/13/18at 08:46; Start 11/10/18 at 09:00; Stop 11/13/18 at 17:27; Status DC Baclofen (Lioresal) 10 mg BID PO Last administered on 11/27/18at 08:25; Start 11/09/18 at 21:00 Bisacodyl (Dulcolax Suppository) 10 mg DAILYPRN PRN SC CONSTIPATION; Start 11/09/18 at 14:30 Ciprofloxacin (Cipro) 500 mg BID@06,18 PO Last administered on 11/16/18 06:13; Start 11/09/18 at 18:00; Stop 11/16/18 at 06:01; Status DC Divalproex Sodium (Depakote Er) 500 mg QHS PO Last administered on 11/26/18 20:35; Start 11/09/18 at 21:00 Enoxaparin Sodium (Lovenox) 40 mg QHS SC Last administered on 11/26/18 20:36; Start 11/09/18 at 21:00 Gabapentin (Neurontin) 400 mg TID PO Last administered on 11/27/18 15:50; Start 11/09/18 at 16:00 Lamotrigine (LaMICtal) 25 mg BID PO Last administered on 11/16/18 08:53; Start 11/15/18 at 09:00; Stop 11/16/18 at 18:13; Status DC Lamotrigine (LaMICtal) 25 mg QHS PO Last administered on 11/14/18 21:47; Start 11/09/18 at 21:00; Stop 11/14/18 at 23:00; Status DC Lamotrigine (LaMICtal) 50 mg BID PO Last administered on 11/27/18 08:18; Start 11/16/18 at 21:00 Levothyroxine Sodium (Synthroid) 50 mcg DAILY@06 PO Last administered on 11/27/18 06:05; Start 11/10/18 at 06:00 Lidocaine/ Diphenhydr/Alum/ Mg/Simeth (Magic Mouthwash) 5ml AC SSP Last administered on 11/27/18 16:39; Start 11/13/18 at 17:30 Lisinopril (Prinivil) 2.5 mg DAILY PO Last administered on 11/27/18 08:18; Start 11/13/18 at 16:30 Magnesium Hydroxide (Milk Of Magnesia) 30 ml DAILYPRN PRN PO CONSTIPATION; Start 11/09/18 at 14:30 Miscellaneous (Unresolved Clarification Entry) SEE LABEL COMMENTS DAILY XX ; Start 11/15/18 at 09:00; Stop 11/16/18 at 09:05; Status DC Miscellaneous (Unresolved Clarification Entry) SEE LABEL COMMENTS DAILY XX ; Start 11/16/18 at 09:00; Stop 11/16/18 at 10:52; Status DC Multivitamins (Theragram-M) 1 tab DAILY PO Last administered on 11/27/18 08:18; Start 11/10/18 at 09:00 Mycophenolate Mofetil (Cellcept) 1,000 mg BID PO Last administered on 11/27/18 08:18; Start 11/09/18 at 21:00 Nystatin (Mycostatin) 5 ml TID SS Last administered on 11/27/18 15:50; Start 11/10/18 at 09:00 Ondansetron HCl (Zofran) 4 mg Q6HP PRN PO NAUSEA; Start 11/09/18 at 14:30 Oxybutynin Chloride (Ditropan Xl) 10 mg QHS PO Last administered on 11/26/18 20:35; Start 11/09/18 at 21:00 Pantoprazole Sodium (Protonix) 40 mg DAILY PO Last administered on 11/27/18 08:18; Start 11/09/18 at 09:00 Saliva Substitute (Mouthkote) 1 sprays Q2H MT Last administered on 11/27/18 16:39; Start 11/13/18 at 15:00 Senna/Docusate Sodium (Senokot S) 1 tab BID PO Last administered on 11/25/18 20:16; Start 11/09/18 at 21:00 Tamsulosin HCl (Flomax) 0.4 mg QHS PO Last administered on 11/26/18 20:34; Start 11/09/18 at 21:00 Zinc Oxide (Boudreauxs Butt Paste) sacrum BID TOP Last administered on 11/27/18 08:20; Start 11/14/18 at 21:00 A-FIB/CHADSVASC A-FIB History Current/History of A-Fib/PAF?: No Age/Risk Factor Scoring CHADSVASC: CHADSVASC Response (Comments) Value Age Risk Factor Age < 65 years old 0 Gender Risk Factor Male 0 Hx of CHF No 0 Hx of HTN No 0 Hx of Stroke/TIA/or VTE No 0 Hx of Diabetes No 0 Hx of Vascular Disease No 0 Total 0 MALDONADO MIX MD November 27, 2018 17:45
[2018-11-27 20:00] VITALS: BP 159/67
[2018-11-27] MEDS: oxyBUTYnin *DITROPAN XL* 5 MG TABCR PO SCH (20:29)
[2018-11-27] MEDS: TAMSULOSIN 0.4 MG CAP PO SCH (20:30)
[2018-11-27] MEDS: DIVALPROEX 500MG *ER* TAB PO SCH (20:30)
[2018-11-27] MEDS: ENOXAPARIN 40 MG/0.4 ML SYRINGE (J1650) SC SCH (20:31)
[2018-11-28] MEDS: SALIVA SUBSTITUTE(MOUTHKOTE) BTL MT SCH ×12 (01:00→23:00)
[2018-11-28 06:00] VITALS: BP_SYST 129; BP_DIAS 60; BP_DIAS 61
[2018-11-28] MEDS: LEVOTHYROXINE 50MCG TABLET (0.05MG) PO SCH (06:37)
[2018-11-28] MEDS: lamoTRIgine 25 MG TAB PO SCH ×2 (07:30→21:33)
[2018-11-28] MEDS: MYCOPHENOLATE MOFETIL 250 MG CAP (J7517) PO SCH ×2 (07:30→21:33)
[2018-11-28] MEDS: MULTIVITAMINS/MINERALS THERAP 1 TAB PO SCH (07:30)
[2018-11-28] MEDS: GABAPENTIN 400 MG CAP PO SCH ×3 (07:30→21:33)
[2018-11-28] MEDS: SENOKOT S TAB PO SCH ×2 (07:30→21:33)
[2018-11-28] MEDS: LISINOPRIL *2.5 MG* TAB PO SCH (07:31)
[2018-11-28] MEDS: PANTOPRAZOLE 40MG TAB (PROTONIX) PO SCH (07:31)
[2018-11-28] MEDS: BACLOFEN 10 MG TAB PO SCH ×2 (07:31→21:33)
[2018-11-28] MEDS: MAGIC MOUTHWASH SUSPENSION BTL SSP SCH ×3 (07:31→16:28)
[2018-11-28] MEDS: BOUDREAUX'S BUTT PASTE 4OZ TOP SCH ×2 (07:32→21:34)
[2018-11-28 14:00] VITALS: BP 120/60
[2018-11-28 20:00] VITALS: BP 133/70
[2018-11-28] MEDS: DIVALPROEX 500MG *ER* TAB PO SCH (21:33)
[2018-11-28] MEDS: TAMSULOSIN 0.4 MG CAP PO SCH (21:33)
[2018-11-28] MEDS: oxyBUTYnin *DITROPAN XL* 5 MG TABCR PO SCH (21:33)
[2018-11-28] MEDS: ENOXAPARIN 40 MG/0.4 ML SYRINGE (J1650) SC SCH (21:34)
[2018-11-29] MEDS: SALIVA SUBSTITUTE(MOUTHKOTE) BTL MT SCH ×12 (01:00→23:00)
[2018-11-29 06:00] VITALS: BP 103/51
[2018-11-29] MEDS: LEVOTHYROXINE 50MCG TABLET (0.05MG) PO SCH (06:08)
[2018-11-29] MEDS: MULTIVITAMINS/MINERALS THERAP 1 TAB PO SCH (08:46)
[2018-11-29] MEDS: lamoTRIgine 25 MG TAB PO SCH (08:46)
[2018-11-29] MEDS: MYCOPHENOLATE MOFETIL 250 MG CAP (J7517) PO SCH ×2 (08:46→21:09)
[2018-11-29] MEDS: LISINOPRIL *2.5 MG* TAB PO SCH (08:46)
[2018-11-29] MEDS: GABAPENTIN 400 MG CAP PO SCH ×3 (08:46→21:08)
[2018-11-29] MEDS: PANTOPRAZOLE 40MG TAB (PROTONIX) PO SCH (08:46)
[2018-11-29] MEDS: BACLOFEN 10 MG TAB PO SCH ×2 (08:46→21:08)
[2018-11-29] MEDS: SENOKOT S TAB PO SCH ×2 (08:46→21:08)
[2018-11-29] MEDS: BOUDREAUX'S BUTT PASTE 4OZ TOP SCH ×2 (08:47→21:10)
[2018-11-29] MEDS: MAGIC MOUTHWASH SUSPENSION BTL SSP SCH ×3 (08:47→16:14)
--- NOTE | 2018-11-29 10:29 | IPNPDOC ---
PM&R Progress Note DATE OF SERVICE: November 28, 2018 Creative Services Designer Progress Note Subjective: Patient seen in the gym working on transfers, encouraged to preserve his energy for therapy and postpone wheelchair mobility until after therapy. REVIEW OF SYSTEMS: The following is a completed review of systems and has been reviewed. Review of systems otherwise unremarkable. PAIN: Patient self reports no pain EYES: Negative for recent vision loss EARS, NOSE, & THROAT: recent dysphagia resolving with antibiotics, denies rhinorrhea or hearing loss CARDIOVASCULAR: denies chest pain or palpitations PULMONARY: Negative. Denies shortness of breath GASTROINTESTINAL: Negative for diarrhea or constipation GENITOURINARY: denies dysuria, UTI resolved MUSCULOSKELETAL: generalized weakness NEUROLOGICAL: +MS SKIN: intact, no rash PSYCHIATRIC: Unremarkable All other review of systems found to be negative. PHYSICAL EXAMINATION: VITAL SIGNS: Please see below. GENERAL: Pleasant and cooperative. No acute distress. HEENT: PERRL. Extraocular movements intact. Clear conjunctiva, +oral thrush CARDIOVASCULAR: Regular rate and rhythm. No murmurs, rubs, or gallops LUNGS: Clear to auscultation bilaterally. No wheezes. No rhonchi ABDOMEN: Soft, nontender, nondistended. Positive bowel sounds. Normal active bowel sounds NEUROLOGICAL: Alert and oriented times three. Cranial nerves II through XII grossly intact. Sensation grossly intact to light touch throughout all 4 limbs + 2 beats clonus right foot depressed reflexes throughout 1/4 MAS tone bilateral biceps EXTREMITIES: 4-\5 strength bilateral upper extremities. 3\5 strength bilateral hip flexion and knee extension, 1/5 ankle DF and EHL ASSESSMENT:68-year-old M with past medical history of MS with seizure d/o who presents status post MS exacerbation in setting of UTI PLAN: 1. rehab: PT, OT, [employer], assess for DME needs, requiring a lot of assistance with bed mobility, better trunk control for eating, Mod-I for wheelchair propulsion short distances 2. Neuro: pmh MS with recent adjustment in medications and exacerbation ins setting of UTI- will need f/u with Dr. Alaniz on discharge -c/u Cellcept for immunosuppression monitored by [facility] -seizure disorder, c/u Gabapentin, Depakote and Lamictal (titrating up per neuro recs)- Depakote and Lamictal levels ordered, will discuss results with neuro once both have resulted -neurology consulted to consider adjusting MS medications to help reduce visual hallucinations- Amantadine discontinued -recent delirium, monitor and avoid delirogenic medications, optimize sleep-wake cycle, treat infectious source -low tone secondary to chronic use of Baclofen- will discuss tapering Baclofen with neuro 3. CArdiac: no known cardiac hx 4. resp: encourage incentive spirometry and monitor for infection, CPAP at night for GENNY -CXR no acute infiltrates 5. ID: s/p Ciprofloxacin for E. faecalis UTI- medicine consulted recs appreciated, repeat UA negative x2 -leukocytosis better today, +oral thrush slightly better, c/u antifungal oral rinse 6. : pmh BPH c/u flomax, pmh overactive bladder related to MS c/u Oxybutynin- c/u artificial saliva for dry mouth 7. Endo: pmh hypothryoidism c/u Synthroid 8. DVT ppx: Lovenox and TEDs, Dopplers negative 9. GI ppx: c/u protonix 10. Dispo: to [place] once bed is available Allergies Coded Allergies: Penicillins (Verified Allergy, Unknown, 11/05/18) Vital Signs Vital Signs Date Time Temp Pulse Resp B/P (MAP) Pulse Ox O2 Delivery O2 Flow Rate FiO2 11/29/18 08:46 129/71 11/29/18 06:00 97.8 70 18 94 Current Medications Current Medications Current Medications Acetaminophen (Tylenol Tab) 650 mg Q4HP PRN PO fever/MILD PAIN (PS 1-4); Start 11/09/18 at 14:30 Al Hydrox/Mg Hydrox/Simethicone (Mylanta) 30 ml Q4HP PRN PO DYSPEPSIA; Start 11/09/18 at 14:30 Amantadine HCl (Symmetrel) 100 mg QHS PO Last administered on 11/12/18at 21:26; Start 11/09/18 at 21:00; Stop 11/13/18 at 17:27; Status DC Amantadine HCl (Symmetrel) 200 mg DAILY PO Last administered on 11/13/18at 08:46; Start 11/10/18 at 09:00; Stop 11/13/18 at 17:27; Status DC Baclofen (Lioresal) 10 mg BID PO Last administered on 11/29/18at 08:46; Start 11/09/18 at 21:00 Bisacodyl (Dulcolax Suppository) 10 mg DAILYPRN PRN [place] CONSTIPATION; Start 11/09/18 at 14:30 Ciprofloxacin (Cipro) 500 mg BID@06,18 PO Last administered on 11/16/18 06:13; Start 11/09/18 at 18:00; Stop 11/16/18 at 06:01; Status DC Divalproex Sodium (Depakote Er) 500 mg QHS PO Last administered on 11/28/18 21:33; Start 11/09/18 at 21:00 Enoxaparin Sodium (Lovenox) 40 mg QHS SC Last administered on 11/28/18 21:34; Start 11/09/18 at 21:00 Gabapentin (Neurontin) 400 mg TID PO Last administered on 11/29/18 08:46; Start 11/09/18 at 16:00 Lamotrigine (LaMICtal) 25 mg BID PO Last administered on 11/16/18 08:53; Start 11/15/18 at 09:00; Stop 11/16/18 at 18:13; Status DC Lamotrigine (LaMICtal) 25 mg QHS PO Last administered on 11/14/18 21:47; Start 11/09/18 at 21:00; Stop 11/14/18 at 23:00; Status DC Lamotrigine (LaMICtal) 50 mg BID PO Last administered on 11/29/18 08:46; Start 11/16/18 at 21:00; Stop 11/29/18 at 10:25; Status DC Lamotrigine (LaMICtal) 100 mg BID PO ; Start 11/29/18 at 21:00; Status UNV Levothyroxine Sodium (Synthroid) 50 mcg DAILY@06 PO Last administered on 11/29/18 06:08; Start 11/10/18 at 06:00 Lidocaine/ Diphenhydr/Alum/ Mg/Simeth (Magic Mouthwash) 5ml AC SSP Last administered on 11/29/18 08:47; Start 11/13/18 at 17:30 Lisinopril (Prinivil) 2.5 mg DAILY PO Last administered on 11/29/18 08:46; Start 11/13/18 at 16:30 Magnesium Hydroxide (Milk Of Magnesia) 30 ml DAILYPRN PRN PO CONSTIPATION; Start 11/09/18 at 14:30 Miscellaneous (Unresolved Clarification Entry) SEE LABEL COMMENTS DAILY XX ; Start 11/15/18 at 09:00; Stop 11/16/18 at 09:05; Status DC Miscellaneous (Unresolved Clarification Entry) SEE LABEL COMMENTS DAILY XX ; Start 11/16/18 at 09:00; Stop 11/16/18 at 10:52; Status DC Multivitamins (Theragram-M) 1 tab DAILY PO Last administered on 11/29/18 08:46; Start 11/10/18 at 09:00 Mycophenolate Mofetil (Cellcept) 1,000 mg BID PO Last administered on 11/29/18 08:46; Start 11/09/18 at 21:00 Nystatin (Mycostatin) 5 ml TID SS Last administered on 11/27/18at 15:50; Start 11/10/18 at 09:00; Stop 11/27/18 at 17:45; Status DC Ondansetron HCl (Zofran) 4 mg Q6HP PRN PO NAUSEA; Start 11/09/18 at 14:30 Oxybutynin Chloride (Ditropan Xl) 10 mg QHS PO Last administered on 11/28/18 21:33; Start 11/09/18 at 21:00 Pantoprazole Sodium (Protonix) 40 mg DAILY PO Last administered on 11/29/18 08:46; Start 11/09/18 at 09:00 Saliva Substitute (Mouthkote) 1 sprays Q2H MT Last administered on 11/29/18 08:47; Start 11/13/18 at 15:00 Senna/Docusate Sodium (Senokot S) 1 tab BID PO Last administered on 11/29/18 08:46; Start 11/09/18 at 21:00 Tamsulosin HCl (Flomax) 0.4 mg QHS PO Last administered on 11/28/18 21:33; Start 11/09/18 at 21:00 Zinc Oxide (Boudreauxs Butt Paste) sacrum BID TOP Last administered on 08:47; Start 11/14/18 at 21:00 A-FIB/CHADSVASC A-FIB History Current/History of A-Fib/PAF?: No Age/Risk Factor Scoring CHADSVASC: CHADSVASC Response (Comments) Value Age Risk Factor Age < 65 years old 0 Gender Risk Factor Male 0 Hx of CHF No 0 Hx of HTN No 0 Hx of Stroke/TIA/or VTE No 0 Hx of Diabetes No 0 Hx of Vascular Disease No 0 Total 0 MALDONADO MIX MD November 29, 2018 10:29
--- NOTE | 2018-11-29 10:29 | IPNPDOC ---
PM&R Progress Note DATE OF SERVICE: November 29, 2018 Rear Admiral Progress Note Subjective: Patient seen in the gym and explained the Lamictal medication increase and patient agreed to try tapering baclofen to see if this helps improve his strength for walking and transfers. REVIEW OF SYSTEMS: The following is a completed review of systems and has been reviewed. Review of systems otherwise unremarkable. PAIN: Patient self reports no pain EYES: Negative for recent vision loss EARS, NOSE, & THROAT: recent dysphagia resolving with antibiotics, denies rhinorrhea or hearing loss CARDIOVASCULAR: denies chest pain or palpitations PULMONARY: Negative. Denies shortness of breath GASTROINTESTINAL: Negative for diarrhea or constipation GENITOURINARY: denies dysuria, UTI resolved MUSCULOSKELETAL: generalized weakness NEUROLOGICAL: +MS SKIN: intact, no rash PSYCHIATRIC: Unremarkable All other review of systems found to be negative. PHYSICAL EXAMINATION: VITAL SIGNS: Please see below. GENERAL: Pleasant and cooperative. No acute distress. HEENT: PERRL. Extraocular movements intact. Clear conjunctiva, +oral thrush CARDIOVASCULAR: Regular rate and rhythm. No murmurs, rubs, or gallops LUNGS: Clear to auscultation bilaterally. No wheezes. No rhonchi ABDOMEN: Soft, nontender, nondistended. Positive bowel sounds. Normal active bowel sounds NEUROLOGICAL: Alert and oriented times three. Cranial nerves II through XII grossly intact. Sensation grossly intact to light touch throughout all 4 limbs + 2 beats clonus right foot depressed reflexes throughout 1/4 MAS tone bilateral biceps EXTREMITIES: 4-\5 strength bilateral upper extremities. 3\5 strength bilateral hip flexion and knee extension, 1/5 ankle DF and EHL ASSESSMENT:68-year-old M with past medical history of MS with seizure d/o who presents status post MS exacerbation in setting of UTI PLAN: 1. rehab: PT, OT, [employer], assess for DME needs, requiring a lot of assistance with bed mobility, better trunk control for eating, Mod-I for wheelchair propulsion short distances able to walk CG in the gym a few feet with RW 2. Neuro: pmh MS with recent adjustment in medications and exacerbation ins setting of UTI- will need f/u with Dr. Alaniz on discharge -c/u Cellcept for immunosuppression monitored by [facility] -seizure disorder, c/u Gabapentin, Depakote and Lamictal (titrating up per neuro recs)- Depakote level 43 and Lamictal 4.3- per discussion today with Dr. Stacey peñaloza to increase Lamictal to 100mg BID -neurology consulted to consider adjusting MS medications to help reduce visual hallucinations- Amantadine discontinued -recent delirium, monitor and avoid delirogenic medications, optimize sleep-wake cycle, treat infectious source -low tone secondary to chronic use of Baclofen- discussed with Dr. Stacey peñaloza to taper off to assist with function 3. CArdiac: no known cardiac hx 4. resp: encourage incentive spirometry and monitor for infection, CPAP at night for GENNY -CXR no acute infiltrates 5. ID: s/p Ciprofloxacin for E. faecalis UTI- medicine consulted recs appreciated, repeat UA negative x2 -leukocytosis better today, +oral thrush slightly better, c/u antifungal oral rinse 6. : pmh BPH c/u flomax, pmh overactive bladder related to MS c/u Oxybutynin- c/u artificial saliva for dry mouth 7. Endo: pmh hypothryoidism c/u Synthroid 8. DVT ppx: Lovenox and TEDs, Dopplers negative 9. GI ppx: c/u protonix 10. Dispo: to [place] once bed is available Allergies Coded Allergies: Penicillins (Verified Allergy, Unknown, 11/05/18) Vital Signs Vital Signs Date Time Temp Pulse Resp B/P (MAP) Pulse Ox O2 Delivery O2 Flow Rate FiO2 11/29/18 08:46 129/71 11/29/18 06:00 97.8 70 18 94 Current Medications Current Medications Current Medications Acetaminophen (Tylenol Tab) 650 mg Q4HP PRN PO fever/MILD PAIN (PS 1-4); Start 11/09/18 at 14:30 Al Hydrox/Mg Hydrox/Simethicone (Mylanta) 30 ml Q4HP PRN PO DYSPEPSIA; Start 11/09/18 at 14:30 Amantadine HCl (Symmetrel) 100 mg QHS PO Last administered on 11/12/18at 21:26; Start 11/09/18 at 21:00; Stop 11/13/18 at 17:27; Status DC Amantadine HCl (Symmetrel) 200 mg DAILY PO Last administered on 11/13/18at 08:46; Start 11/10/18 at 09:00; Stop 11/13/18 at 17:27; Status DC Baclofen (Lioresal) 10 mg BID PO Last administered on 11/29/18 08:46; Start 11/09/18 at 21:00 Bisacodyl (Dulcolax Suppository) 10 mg DAILYPRN PRN [place] CONSTIPATION; Start 11/09/18 at 14:30 Ciprofloxacin (Cipro) 500 mg BID@06,18 PO Last administered on 11/16/18 06:13; Start 11/09/18 at 18:00; Stop 11/16/18 at 06:01; Status DC Divalproex Sodium (Depakote Er) 500 mg QHS PO Last administered on 11/28/18 21:33; Start 11/09/18 at 21:00 Enoxaparin Sodium (Lovenox) 40 mg QHS SC Last administered on 11/28/18 21:34; Start 11/09/18 at 21:00 Gabapentin (Neurontin) 400 mg TID PO Last administered on 11/29/18 08:46; Start 11/09/18 at 16:00 Lamotrigine (LaMICtal) 25 mg BID PO Last administered on 11/16/18 08:53; Start 11/15/18 at 09:00; Stop 11/16/18 at 18:13; Status DC Lamotrigine (LaMICtal) 25 mg QHS PO Last administered on 11/14/18 21:47; Start 11/09/18 at 21:00; Stop 11/14/18 at 23:00; Status DC Lamotrigine (LaMICtal) 50 mg BID PO Last administered on 11/29/18 08:46; Start 11/16/18 at 21:00; Stop 11/29/18 at 10:25; Status DC Lamotrigine (LaMICtal) 100 mg BID PO ; Start 11/29/18 at 21:00; Status UNV Levothyroxine Sodium (Synthroid) 50 mcg DAILY@06 PO Last administered on 11/29/18 06:08; Start 11/10/18 at 06:00 Lidocaine/ Diphenhydr/Alum/ Mg/Simeth (Magic Mouthwash) 5ml AC SSP Last administered on 11/29/18 08:47; Start 11/13/18 at 17:30 Lisinopril (Prinivil) 2.5 mg DAILY PO Last administered on 11/29/18 08:46; Start 11/13/18 at 16:30 Magnesium Hydroxide (Milk Of Magnesia) 30 ml DAILYPRN PRN PO CONSTIPATION; Start 11/09/18 at 14:30 Miscellaneous (Unresolved Clarification Entry) SEE LABEL COMMENTS DAILY XX ; Start 11/15/18 at 09:00; Stop 11/16/18 at 09:05; Status DC Miscellaneous (Unresolved Clarification Entry) SEE LABEL COMMENTS DAILY XX ; Start 11/16/18 at 09:00; Stop 11/16/18 at 10:52; Status DC Multivitamins (Theragram-M) 1 tab DAILY PO Last administered on 11/29/18 08:46; Start 11/10/18 at 09:00 Mycophenolate Mofetil (Cellcept) 1,000 mg BID PO Last administered on 11/29/18 08:46; Start 11/09/18 at 21:00 Nystatin (Mycostatin) 5 ml TID SS Last administered on 11/27/18 15:50; Start 11/10/18 at 09:00; Stop 11/27/18 at 17:45; Status DC Ondansetron HCl (Zofran) 4 mg Q6HP PRN PO NAUSEA; Start 11/09/18 at 14:30 Oxybutynin Chloride (Ditropan Xl) 10 mg QHS PO Last administered on 11/28/18 21:33; Start 11/09/18 at 21:00 Pantoprazole Sodium (Protonix) 40 mg DAILY PO Last administered on 11/29/18 08:46; Start 11/09/18 at 09:00 Saliva Substitute (Mouthkote) 1 sprays Q2H MT Last administered on 11/29/18 08:47; Start 11/13/18 at 15:00 Senna/Docusate Sodium (Senokot S) 1 tab BID PO Last administered on 11/29/18 08:46; Start 11/09/18 at 21:00 Tamsulosin HCl (Flomax) 0.4 mg QHS PO Last administered on 11/28/18 21:33; Start 11/09/18 at 21:00 Zinc Oxide (Boudreauxs Butt Paste) sacrum BID TOP Last administered on 5/16/ 19at 08:47; Start 11/14/18 at 21:00 A-FIB/CHADSVASC A-FIB History Current/History of A-Fib/PAF?: No Age/Risk Factor Scoring CHADSVASC: CHADSVASC Response (Comments) Value Age Risk Factor Age < 65 years old 0 Gender Risk Factor Male 0 Hx of CHF No 0 Hx of HTN No 0 Hx of Stroke/TIA/or VTE No 0 Hx of Diabetes No 0 Hx of Vascular Disease No 0 Total 0 MALDONADO MIX MD November 29, 2018 10:29
[2018-11-29 14:00] VITALS: BP 134/67
[2018-11-29 20:00] VITALS: BP 113/57
[2018-11-29] MEDS: TAMSULOSIN 0.4 MG CAP PO SCH (21:08)
[2018-11-29] MEDS: oxyBUTYnin *DITROPAN XL* 5 MG TABCR PO SCH (21:08)
[2018-11-29] MEDS: lamoTRIgine 100MG TAB PO SCH (21:08)
[2018-11-29] MEDS: DIVALPROEX 500MG *ER* TAB PO SCH (21:08)
[2018-11-29] MEDS: ENOXAPARIN 40 MG/0.4 ML SYRINGE (J1650) SC SCH (21:10)
[2018-11-30] MEDS: SALIVA SUBSTITUTE(MOUTHKOTE) BTL MT SCH ×6 (01:00→11:00)
[2018-11-30] MEDS: LEVOTHYROXINE 50MCG TABLET (0.05MG) PO SCH (05:24)
[2018-11-30 06:00] VITALS: BP 124/58
[2018-11-30] MEDS: MYCOPHENOLATE MOFETIL 250 MG CAP (J7517) PO SCH (08:44)
[2018-11-30] MEDS: MAGIC MOUTHWASH SUSPENSION BTL SSP SCH ×2 (08:44→11:21)
[2018-11-30] MEDS: GABAPENTIN 400 MG CAP PO SCH (08:44)
[2018-11-30 08:45] VITALS: BP 124/58
[2018-11-30] MEDS: BACLOFEN 10 MG TAB PO SCH (08:45)
[2018-11-30] MEDS: LISINOPRIL *2.5 MG* TAB PO SCH (08:45)
[2018-11-30] MEDS: lamoTRIgine 100MG TAB PO SCH (08:45)
[2018-11-30] MEDS: SENOKOT S TAB PO SCH (08:45)
[2018-11-30] MEDS: PANTOPRAZOLE 40MG TAB (PROTONIX) PO SCH (08:45)
[2018-11-30] MEDS: MULTIVITAMINS/MINERALS THERAP 1 TAB PO SCH (08:45)
[2018-11-30] MEDS: BOUDREAUX'S BUTT PASTE 4OZ TOP SCH (08:46)
[2018-11-30] MEDS ORDERED: LAMI1TAB7 PO (11:30)
[2018-11-30] MEDS ORDERED: SENN-52 PO (11:30)
[2018-11-30] MEDS ORDERED: BACL10TA2 PO (11:30)
[2018-11-30] MEDS ORDERED: PANT40TA3 PO (11:30)
[2018-11-30] MEDS ORDERED: BISA10SU2 PR (11:30)
[2018-11-30] MEDS ORDERED: LOVE1INJ SC (11:30)
[2018-11-30] MEDS ORDERED: LISI-1046 PO (11:30)
[2018-11-30] MEDS ORDERED: BOUDPST TOP (11:30)
[2018-11-30] MEDS ORDERED: PILL CRUSHER/CUTTER 1 EACH XX PRN (11:45)
[2018-11-30] MEDS ORDERED: BACLOFEN 5MG PER 1/2 TABLET PO SCH (21:00)
== END 2018-11-30 14:00 | DRG 59 ==
LOC: M PM&R 14:08
PROVIDERS: ADMIT Physical Medicine & Rehabilitation; ATTEND Physical Medicine & Rehabilitation
DX: G35 Multiple sclerosis (principal); N39.0 Urinary tract infection, site not specified; G93.40 Encephalopathy, unspecified; G40.409 Other generalized epilepsy and epileptic syndromes, not intractable, without status epilepticus; G47.33 Obstructive sleep apnea (adult) (pediatric); I73.9 Peripheral vascular disease, unspecified; N40.1 Benign prostatic hyperplasia with lower urinary tract symptoms; E03.9 Hypothyroidism, unspecified; R26.89 Other abnormalities of gait and mobility; Z79.899 Other long term (current) drug therapy; Z88.0 Allergy status to penicillin; R13.10 Dysphagia, unspecified; D72.829 Elevated white blood cell count, unspecified

== ENCOUNTER → 2018-12-06 | Outpatient (REF) ==
[~2018-12-06] MED LIST changes: +BISA10SU2 PR; +BOUDPST TOP; +CIPR-249 PO; +LAMI1TAB7 PO; +LISI-1046 PO; +LOVE1INJ SC; +PANT40TA3 PO; +SENN-52 PO
[2018-12-06 08:30] LABS: ALBUMIN 3.4 GM/DL (3.2-5.2); BILIRUBIN,DIRECT 0.1 MG/DL (0.0-0.2); BILIRUBIN,TOTAL 0.5 MG/DL (0.2-1.0); THYROID STIMULATING HORMONE 6.73 uIU/ML (0.358-3.740); TOTAL PROTEIN 5.6 GM/DL (6.4-8.2)
== END ==
LOC: SKLAB5 08:41
PROVIDERS: ATTEND Internal Medicine
DX: I10 Essential (primary) hypertension (principal); G35 Multiple sclerosis; G40.89 Other seizures

== ENCOUNTER → 2019-02-14 | Outpatient (REF) ==
[~2019-02-14] MED LIST changes: -BISA10SU2 PR; +BISA10SU20 PR
[2019-02-14 07:48] LABS: BASO % 0.3 % (0.0-1.0); EOS # 0.2 10^3/uL (0.0-0.50); EOS % 2.4 % (0.0-3.0); HEMATOCRIT 43.5 % (42.0-52.0); LYMPH # 1.7 10^3/uL (1.5-4.5); LYMPH % 27.9 % (24.0-44.0); MEAN CORPUSCULAR HEMOGLOBIN 29.3 pg (27.0-33.0); MEAN CORPUSCULAR HGB CONC 32.2 g/dl (32.0-36.5); MONO # 0.5 10^3/uL (0.0-0.8); MONO % 8.4 % (0.0-5.0); NEUTROPHILS # 3.7 10^3/uL (1.8-7.7); NEUTROPHILS % 59.9 % (36.0-66.0); PLATELET COUNT, AUTOMATED 206 10^3/uL (150-450); RED BLOOD COUNT 4.78 10^6/uL (4.30-6.10); WHITE BLOOD COUNT 6.2 10^3/uL (4.0-10.0)
[2019-02-14 08:11] LABS: VALPROIC ACID (DEPAKOTE) 52.7 UG/ML (50.0-100.0)
[2019-02-14 09:13] LABS: ALBUMIN 3.4 GM/DL (3.2-5.2); ALT/SGPT 30 U/L (12-78); BILIRUBIN,TOTAL 0.4 MG/DL (0.2-1.0); BLOOD UREA NITROGEN 15 MG/DL (7-18); CALCIUM LEVEL 8.5 MG/DL (8.8-10.2); CARBON DIOXIDE LEVEL 31 MEQ/L (21-32); CHLORIDE LEVEL 107 MEQ/L (98-107); CREATININE FOR GFR 0.89 MG/DL (0.70-1.30); GLOMERULAR FILTRATION RATE > 60.0 (>49); GLUCOSE, FASTING 79 MG/DL (70-100); POTASSIUM SERUM 4.2 MEQ/L (3.5-5.1); SODIUM LEVEL 143 MEQ/L (136-145); TOTAL PROTEIN 5.9 GM/DL (6.4-8.2)
== END ==
LOC: SKLAB5 07:38
PROVIDERS: ATTEND Internal Medicine
DX: Z79.899 Other long term (current) drug therapy (principal); G35 Multiple sclerosis

== ENCOUNTER → 2019-05-23 | Outpatient (REF) | payer MEDICARE ==
[~2019-05-23] MED LIST changes: -OXYB10TA PO; +OXYB10TA2 PO; +SENN-53 PO; -SENN1TAB40 PO
[2019-05-23 09:12] LABS: HEMATOCRIT 44.2 % (42.0-52.0); HEMOGLOBIN 13.8 g/dl (13.5-17.5); MEAN CORPUSCULAR HEMOGLOBIN 28.8 pg (27.0-33.0); MEAN CORPUSCULAR HGB CONC 31.2 g/dl (32.0-36.5); MEAN CORPUSCULAR VOLUME 92.3 fl (80.0-96.0); PLATELET COUNT, AUTOMATED 200 10^3/uL (150-450); RED BLOOD COUNT 4.79 10^6/uL (4.30-6.10); WHITE BLOOD COUNT 6.4 10^3/uL (4.0-10.0)
[2019-05-23 09:40] LABS: THYROID STIMULATING HORMONE 8.59 uIU/ML (0.358-3.740); VALPROIC ACID (DEPAKOTE) 50.8 UG/ML (50.0-100.0)
== END ==
LOC: SKLAB5 07:34
PROVIDERS: ATTEND Internal Medicine
DX: R56.9 Unspecified convulsions (principal); D64.9 Anemia, unspecified; E03.9 Hypothyroidism, unspecified

== ENCOUNTER → 2019-06-04 | Outpatient (REF) | payer MEDICARE ==
[2019-06-04 11:26] LABS: HEMATOCRIT 39.9 % (42.0-52.0); MEAN CORPUSCULAR HEMOGLOBIN 29.8 pg (27.0-33.0); MEAN CORPUSCULAR HGB CONC 32.6 g/dl (32.0-36.5); MEAN CORPUSCULAR VOLUME 91.5 fl (80.0-96.0); PLATELET COUNT, AUTOMATED 213 10^3/uL (150-450); RED BLOOD COUNT 4.36 10^6/uL (4.30-6.10); WHITE BLOOD COUNT 13.9 10^3/uL (4.0-10.0)
[2019-06-04 12:05] LABS: ALT/SGPT 32 U/L (12-78); BILIRUBIN,TOTAL 0.4 MG/DL (0.2-1.0); BLOOD UREA NITROGEN 17 MG/DL (7-18); CALCIUM LEVEL 8.4 MG/DL (8.8-10.2); CARBON DIOXIDE LEVEL 30 MEQ/L (21-32); CHLORIDE LEVEL 106 MEQ/L (98-107); CREATININE FOR GFR 1.08 MG/DL (0.70-1.30); GLOMERULAR FILTRATION RATE > 60.0 (>49); GLUCOSE, FASTING 102 MG/DL (70-100); SODIUM LEVEL 142 MEQ/L (136-145); TOTAL 25(OH) VITAMIN D 39.6 NG/ML (30.0-100.0); TOTAL PROTEIN 5.7 GM/DL (6.4-8.2)
[2019-06-04 13:31] LABS: INFLUENZA A AMPLIFICATION NEGATIVE (NEGATIVE); INFLUENZA B AMPLIFICATION NEGATIVE (NEGATIVE)
== END ==
LOC: SKLAB5 10:26
PROVIDERS: ATTEND Internal Medicine
DX: R53.83 Other fatigue (principal); Z79.899 Other long term (current) drug therapy

== ENCOUNTER → 2019-06-05 | Outpatient (REF) | payer MEDICARE ==
[2019-06-05 09:33] LABS: HEMATOCRIT 42.9 % (42.0-52.0); HEMOGLOBIN 13.6 g/dl (13.5-17.5); MEAN CORPUSCULAR HEMOGLOBIN 29.1 pg (27.0-33.0); MEAN CORPUSCULAR HGB CONC 31.7 g/dl (32.0-36.5); MEAN CORPUSCULAR VOLUME 91.9 fl (80.0-96.0); PLATELET COUNT, AUTOMATED 206 10^3/uL (150-450); RED BLOOD COUNT 4.67 10^6/uL (4.30-6.10); WHITE BLOOD COUNT 14.1 10^3/uL (4.0-10.0)
--- NOTE | 2019-06-05 11:19 | REP ---
Two-view chest: 06/05/2019. Indication: Leukocytosis. Fever. Comparison: 11/13/2018. Findings: Poor inspiratory result is noted. Air space consolidation and atelectasis are noted within the left lower lobe. Less conspicuous atelectasis is additionally noted within the right lower lobe with air space consolidation not excluded. New new. Neural new the cardiomediastinal silhouette is unremarkable. There is no significant effusion or pneumothorax. Impression: Bibasilar atelectasis and pneumonia more pronounced on the left. After completion of treatment, follow-up chest x-ray is recommended. Electronically Signed by Temo Wilson DO 06/05/2019 11:11 A
== END ==
LOC: SKLAB5 07:35
PROVIDERS: ATTEND Internal Medicine
DX: D72.829 Elevated white blood cell count, unspecified (principal)

== ENCOUNTER → 2019-06-05 | Outpatient (CLI) | payer MEDICARE | LOC: M RAD 10:38 → M LAB 10:38 | PROVIDERS: ATTEND Internal Medicine | DX: D72.829 Elevated white blood cell count, unspecified (principal) ==

== ENCOUNTER → 2019-06-07 | Outpatient (REF) | payer MEDICARE ==
[2019-06-07 08:01] LABS: BLOOD UREA NITROGEN 25 MG/DL (7-18); CALCIUM LEVEL 8.9 MG/DL (8.8-10.2); CARBON DIOXIDE LEVEL 29 MEQ/L (21-32); CHLORIDE LEVEL 108 MEQ/L (98-107); GLOMERULAR FILTRATION RATE > 60.0 (>49); GLUCOSE, FASTING 84 MG/DL (70-100); POTASSIUM SERUM 4.3 MEQ/L (3.5-5.1); SODIUM LEVEL 142 MEQ/L (136-145)
== END ==
LOC: SKLAB5 10:38
PROVIDERS: ATTEND Internal Medicine
DX: R60.9 Edema, unspecified (principal)

== ENCOUNTER → 2019-06-18 | Outpatient (REF) | payer MEDICARE ==
--- NOTE | 2019-06-18 13:50 | REP ---
Clinical: Follow up pneumonia . Comparison: 06/05/2019 . Technique: PA and lateral. Findings: The mediastinum and cardiac silhouette are normal. The lung parrish demonstrate chronic changes and the previously noted lower lobe infiltrate has resolved. No effusion. No pneumothorax. The skeletal structures are intact and normal. Impression: Chronic changes. Previously noted lower lobe infiltrate resolved. Electronically Signed by Russ Dave MD 06/18/2019 01:42 P
== END ==
LOC: SKLAB5 12:09
PROVIDERS: ATTEND Internal Medicine
DX: J18.9 Pneumonia, unspecified organism (principal)

== ENCOUNTER → 2019-07-22 | Outpatient (REF) | payer MEDICARE ==
[2019-07-22 13:48] LABS: HEMATOCRIT 45.3 % (42.0-52.0); HEMOGLOBIN 13.9 g/dl (13.5-17.5); MEAN CORPUSCULAR HEMOGLOBIN 28.1 pg (27.0-33.0); MEAN CORPUSCULAR HGB CONC 30.7 g/dl (32.0-36.5); MEAN CORPUSCULAR VOLUME 91.5 fl (80.0-96.0); PLATELET COUNT, AUTOMATED 234 10^3/uL (150-450); RED BLOOD COUNT 4.95 10^6/uL (4.30-6.10); WHITE BLOOD COUNT 6.8 10^3/uL (4.0-10.0)
[2019-07-22 14:15] LABS: BLOOD UREA NITROGEN 24 MG/DL (7-18); CALCIUM LEVEL 9.1 MG/DL (8.8-10.2); CARBON DIOXIDE LEVEL 27 MEQ/L (21-32); CHLORIDE LEVEL 107 MEQ/L (98-107); CREATININE FOR GFR 0.98 MG/DL (0.70-1.30); GLOMERULAR FILTRATION RATE > 60.0 (>49); GLUCOSE, FASTING 77 MG/DL (70-100); POTASSIUM SERUM 4.6 MEQ/L (3.5-5.1); SODIUM LEVEL 141 MEQ/L (136-145)
[2019-07-22 14:18] LABS: TOTAL 25(OH) VITAMIN D 43.3 NG/ML (30.0-100.0)
== END ==
LOC: SKLAB5 12:08
PROVIDERS: ATTEND Internal Medicine
DX: R53.83 Other fatigue (principal); R51 Headache

== ENCOUNTER → 2019-07-30 | Outpatient (REF) | payer MEDICARE ==
[~2019-07-30] MED LIST changes: +CIPR IV; -OXYB10TA2 PO; +OXYB10TA23 PO
== END ==
LOC: M LAB REF 09:29
PROVIDERS: ATTEND Dermatology
DX: C44.310 Basal cell carcinoma of skin of unspecified parts of face (principal); D04.61 Carcinoma in situ of skin of right upper limb, including shoulder
CPT/HCPCS: 11102; 11103; 88305; G0463

== ENCOUNTER → 2019-08-07 | Outpatient (REF) | payer MEDICARE ==
[~2019-08-07] MED LIST changes: -CIPR IV
[2019-08-07 07:40] LABS: BLOOD UREA NITROGEN 26 MG/DL (7-18); CALCIUM LEVEL 8.6 MG/DL (8.8-10.2); CARBON DIOXIDE LEVEL 31 MEQ/L (21-32); CHLORIDE LEVEL 107 MEQ/L (98-107); CREATININE FOR GFR 1.19 MG/DL (0.70-1.30); GLOMERULAR FILTRATION RATE > 60.0 (>49); GLUCOSE, FASTING 81 MG/DL (70-100); NT-PRO BNP 166 PG/ML (<125); POTASSIUM SERUM 4.2 MEQ/L (3.5-5.1); SODIUM LEVEL 143 MEQ/L (136-145)
== END ==
LOC: SKLAB5 10:19
PROVIDERS: ATTEND Internal Medicine
DX: Z79.899 Other long term (current) drug therapy (principal)

== ENCOUNTER → 2019-08-08 | Outpatient (REF) | payer MEDICARE ==
[2019-08-08 10:18] LABS: BLOOD UREA NITROGEN 26 MG/DL (7-18); CALCIUM LEVEL 8.6 MG/DL (8.8-10.2); CARBON DIOXIDE LEVEL 30 MEQ/L (21-32); CHLORIDE LEVEL 107 MEQ/L (98-107); GLOMERULAR FILTRATION RATE > 60.0 (>49); GLUCOSE, FASTING 127 MG/DL (70-100); POTASSIUM SERUM 3.8 MEQ/L (3.5-5.1); SODIUM LEVEL 143 MEQ/L (136-145)
== END ==
LOC: SKLAB5 08:09
PROVIDERS: ATTEND Internal Medicine
DX: R60.9 Edema, unspecified (principal)

== ENCOUNTER → 2019-08-09 | Outpatient (REF) | payer MEDICARE ==
[2019-08-09 13:29] LABS: BLOOD UREA NITROGEN 22 MG/DL (7-18); CALCIUM LEVEL 9.1 MG/DL (8.8-10.2); CARBON DIOXIDE LEVEL 30 MEQ/L (21-32); CHLORIDE LEVEL 106 MEQ/L (98-107); CREATININE FOR GFR 1.04 MG/DL (0.70-1.30); GLOMERULAR FILTRATION RATE > 60.0 (>49); GLUCOSE, FASTING 79 MG/DL (70-100); POTASSIUM SERUM 4.2 MEQ/L (3.5-5.1); SODIUM LEVEL 140 MEQ/L (136-145)
== END ==
LOC: SKLAB5 07:55
PROVIDERS: ATTEND Internal Medicine
DX: R60.9 Edema, unspecified (principal)

== ENCOUNTER → 2019-08-15 | Outpatient (REF) | payer MEDICARE ==
[~2019-08-15] MED LIST changes: +CIPR IV
[2019-08-15 13:44] LABS: INFLUENZA A AMPLIFICATION NEGATIVE (NEGATIVE); INFLUENZA B AMPLIFICATION NEGATIVE (NEGATIVE)
== END ==
LOC: SKLAB5 12:48
PROVIDERS: ATTEND Internal Medicine
DX: R53.1 Weakness (principal); R05 Cough

== ENCOUNTER → 2019-08-16 | Outpatient (REF) | payer MEDICARE ==
[2019-08-16 07:48] LABS: BLOOD UREA NITROGEN 21 MG/DL (7-18); CALCIUM LEVEL 8.5 MG/DL (8.8-10.2); CARBON DIOXIDE LEVEL 30 MEQ/L (21-32); CHLORIDE LEVEL 102 MEQ/L (98-107); CREATININE FOR GFR 1.12 MG/DL (0.70-1.30); GLOMERULAR FILTRATION RATE > 60.0 (>49); GLUCOSE, FASTING 87 MG/DL (70-100); POTASSIUM SERUM 3.9 MEQ/L (3.5-5.1); SODIUM LEVEL 140 MEQ/L (136-145)
--- NOTE | 2019-08-16 14:22 | REP ---
PA and lateral chest: Comparison is 12 10/03/2018. There is kyphosis with the patient's chin superimposed over the upper lung parrish. The visualized lung parrish are clear. Cardiac size is normal. The erick, mediastinum, skeletal structures otherwise are unremarkable. Impression:: The visualized lung parrish are clear. The patient's chin superimposed over the upper lungs Electronically Signed by Micah Terrazas MD 08/16/2019 02:14 P
[2019-08-16 14:28] LABS: HEMATOCRIT 48.4 % (42.0-52.0); HEMOGLOBIN 15.1 g/dl (13.5-17.5); MEAN CORPUSCULAR HEMOGLOBIN 28.9 pg (27.0-33.0); MEAN CORPUSCULAR HGB CONC 31.2 g/dl (32.0-36.5); MEAN CORPUSCULAR VOLUME 92.7 fl (80.0-96.0); PLATELET COUNT, AUTOMATED 199 10^3/uL (150-450); RED BLOOD COUNT 5.22 10^6/uL (4.30-6.10); WHITE BLOOD COUNT 11.1 10^3/uL (4.0-10.0)
== END ==
LOC: SKLAB5 06:00
PROVIDERS: ATTEND Internal Medicine
DX: R60.9 Edema, unspecified (principal)

== ENCOUNTER 2019-08-18 13:39 | Emergency (ER) | payer MEDICARE ==
[~2019-08-18] VITALS: Ht 182.9 cm; Wt 88.8 kg
[~2019-08-18 13:39] MED LIST changes: -CIPR IV
[2019-08-18] MEDS ORDERED: IPRATROPIUM 0.5MG/ALBUTEROL 2.5MG INH SOL UD 3ML (DUONEB)(J7620) NEB ONE (14:00)
[2019-08-18 14:12] LABS: BASO # 0.1 10^3/uL (0.0-0.2); BASO % 0.6 % (0.0-1.0); EOS # 0.1 10^3/uL (0.0-0.5); EOS % 1.1 % (0.0-3.0); HEMATOCRIT 42.8 % (42.0-52.0); HEMOGLOBIN 13.1 g/dl (13.5-17.5); LYMPH # 0.8 10^3/uL (1.5-5.0); LYMPH % 9.7 % (24.0-44.0); MEAN CORPUSCULAR HEMOGLOBIN 27.9 pg (27.0-33.0); MEAN CORPUSCULAR HGB CONC 30.6 g/dl (32.0-36.5); MEAN CORPUSCULAR VOLUME 91.3 fl (80.0-96.0); MONO # 0.8 10^3/uL (0.0-0.8); MONO % 9.7 % (0.0-5.0); NEUTROPHILS # 6.1 10^3/uL (1.5-8.5); NEUTROPHILS % 75.4 % (36.0-66.0); PLATELET COUNT, AUTOMATED 200 10^3/uL (150-450); RED BLOOD COUNT 4.69 10^6/uL (4.30-6.10); WHITE BLOOD COUNT 8.1 10^3/uL (4.0-10.0)
[2019-08-18] MEDS ORDERED: NS 1,000 ML IV ONE (14:15)
[2019-08-18 14:24] LABS: ABG BASE EXCESS 9.7 (-2.0-2.0); ABG HCO3 34.6 MEQ/L (22.0-26.0); ABG O2 SATURATION 91.8 % (95.0-99.0); ABG PARTIAL PRESSURE CO2 47.8 mmHg (35.0-45.0); ABG PARTIAL PRESSURE O2 57.7 mmHg (75.0-100.0); ABG STANDARD HCO3 33.3 MEQ/L (22.0-26.0); ABG TOTAL CO2 36.1 MEQ/L (23.0-31.0); ABG pH (ARTERIAL) 7.478 UNITS (7.350-7.450)
--- NOTE | 2019-08-18 14:28 | REP ---
Portable chest, 02:11 p.m., single AP view with the patient sitting: Comparisons are the chest CT dated 12/22/2016 and PA and lateral chest dated 08/16/2019. Lung parrish are clear. The cardiac size is upper normal. The erick, mediastinum, skeletal structures are unremarkable. Impression: Negative portable chest. Electronically Signed by Micah Terrazas MD 08/18/2019 02:19 P
[2019-08-18 14:35] LABS: INFLUENZA A AMPLIFICATION NEGATIVE (NEGATIVE); INFLUENZA B AMPLIFICATION NEGATIVE (NEGATIVE)
[2019-08-18 14:52] LABS: ALBUMIN 3.1 GM/DL (3.2-5.2); ALT/SGPT 39 U/L (12-78); BILIRUBIN,DIRECT 0.2 MG/DL (0.0-0.2); BILIRUBIN,TOTAL 0.5 MG/DL (0.2-1.0); CPK CREATINE PHOSPHOKINASE 353 U/L (39-308); MB/CK RELATIVE INDEX 2.55 (< OR =4); NT-PRO BNP 101 PG/ML (<125); THYROID STIMULATING HORMONE 0.505 uIU/ML (0.358-3.740); THYROXINE (T4) 14.9 UG/DL (4.5-12.0); TOTAL PROTEIN 6.3 GM/DL (6.4-8.2); TROPONIN I < 0.02 NG/ML (< 0.10)
[2019-08-18] MEDS ORDERED: CIPROFLOXACIN 400 MG in IV 1 EA IV ONE (15:15)
[2019-08-18 16:48] VITALS: BP 113/55
[2019-08-18] MEDS ORDERED: CIPR-249 PO (16:54)
[2019-08-18] MEDS ORDERED: CIPR IV (16:54)
--- NOTE | 2019-08-19 12:12 | ECGEPIP ---
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
== END 2019-08-18 17:10 | disposition home or self-care (01) ==
LOC: M ED 13:39
DX: J06.9 Acute upper respiratory infection, unspecified (principal); N39.0 Urinary tract infection, site not specified; Z20.89 Contact with and (suspected) exposure to other communicable diseases; I10 Essential (primary) hypertension; Z79.899 Other long term (current) drug therapy; Z88.0 Allergy status to penicillin
CPT/HCPCS: 36600; 71045; 80047; 80076; 81001; 82550; 82553; 82803; 83605; 83880; 84436; 84443; 84484; 85025; 87040; 87088; 87186; 87502; 93005; 93041; 94640; 96365; 99285; J0744

== ENCOUNTER → 2019-08-21 | Outpatient (REF) | payer MEDICARE ==
[~2019-08-21] MED LIST changes: +CIPR IV
[2019-08-21 13:02] LABS: HEMATOCRIT 46.2 % (42.0-52.0); HEMOGLOBIN 14.2 g/dl (13.5-17.5); MEAN CORPUSCULAR HEMOGLOBIN 28.1 pg (27.0-33.0); MEAN CORPUSCULAR HGB CONC 30.7 g/dl (32.0-36.5); MEAN CORPUSCULAR VOLUME 91.5 fl (80.0-96.0); PLATELET COUNT, AUTOMATED 232 10^3/uL (150-450); RED BLOOD COUNT 5.05 10^6/uL (4.30-6.10); WHITE BLOOD COUNT 8.7 10^3/uL (4.0-10.0)
[2019-08-21 13:23] LABS: BLOOD UREA NITROGEN 21 MG/DL (7-18); CALCIUM LEVEL 8.4 MG/DL (8.8-10.2); CARBON DIOXIDE LEVEL 32 MEQ/L (21-32); CHLORIDE LEVEL 97 MEQ/L (98-107); GLOMERULAR FILTRATION RATE > 60.0 (>49); GLUCOSE, FASTING 125 MG/DL (70-100); POTASSIUM SERUM 3.7 MEQ/L (3.5-5.1); SODIUM LEVEL 137 MEQ/L (136-145); VALPROIC ACID (DEPAKOTE) 58.6 UG/ML (50.0-100.0)
== END ==
LOC: SKLAB5 11:59
PROVIDERS: ATTEND Internal Medicine
DX: G35 Multiple sclerosis (principal)

== ENCOUNTER → 2019-08-28 | Outpatient (REF) | payer MEDICARE | LOC: M LAB REF 09:17 | PROVIDERS: ATTEND Dermatology | DX: C44.310 Basal cell carcinoma of skin of unspecified parts of face (principal) ==

== ENCOUNTER → 2019-09-04 | Outpatient (REF) | payer MEDICARE | LOC: M LAB REF 11:44 | PROVIDERS: ATTEND Dermatology | DX: D04.61 Carcinoma in situ of skin of right upper limb, including shoulder (principal); L90.5 Scar conditions and fibrosis of skin ==

== ENCOUNTER → 2019-09-19 | Outpatient (REF) | payer MEDICARE ==
[2019-09-19 12:10] LABS: FREE T4 1.45 NG/DL (0.76-1.46); THYROID STIMULATING HORMONE 3.83 uIU/ML (0.358-3.740)
== END ==
LOC: SKLAB5 07:56
PROVIDERS: ATTEND Internal Medicine
DX: E03.9 Hypothyroidism, unspecified (principal)

== ENCOUNTER → 2019-10-17 | Outpatient (REF) | payer MEDICARE ==
[2019-10-17 08:23] LABS: BASO % 0.3 % (0.0-1.0); EOS # 0.2 10^3/uL (0.0-0.5); EOS % 3.1 % (0.0-3.0); HEMATOCRIT 42.6 % (42.0-52.0); HEMOGLOBIN 13.6 g/dl (13.5-17.5); LYMPH % 33.6 % (24.0-44.0); MEAN CORPUSCULAR HEMOGLOBIN 29.1 pg (27.0-33.0); MEAN CORPUSCULAR HGB CONC 31.9 g/dl (32.0-36.5); MEAN CORPUSCULAR VOLUME 91.2 fl (80.0-96.0); MONO # 0.6 10^3/uL (0.0-0.8); MONO % 9.4 % (0.0-5.0); NEUTROPHILS # 3.1 10^3/uL (1.5-8.5); NEUTROPHILS % 52.7 % (36.0-66.0); PLATELET COUNT, AUTOMATED 274 10^3/uL (150-450); RED BLOOD COUNT 4.67 10^6/uL (4.30-6.10); WHITE BLOOD COUNT 5.8 10^3/uL (4.0-10.0)
[2019-10-17 08:44] LABS: ALBUMIN 3.3 GM/DL (3.2-5.2); ALT/SGPT 30 U/L (12-78); BILIRUBIN,TOTAL 0.5 MG/DL (0.2-1.0); BLOOD UREA NITROGEN 22 MG/DL (7-18); CALCIUM LEVEL 8.8 MG/DL (8.8-10.2); CARBON DIOXIDE LEVEL 32 MEQ/L (21-32); CHLORIDE LEVEL 104 MEQ/L (98-107); CREATININE FOR GFR 1.04 MG/DL (0.70-1.30); GLOMERULAR FILTRATION RATE > 60.0 (>49); GLUCOSE, FASTING 83 MG/DL (70-100); POTASSIUM SERUM 3.8 MEQ/L (3.5-5.1); SODIUM LEVEL 142 MEQ/L (136-145); TOTAL PROTEIN 6.2 GM/DL (6.4-8.2); VALPROIC ACID (DEPAKOTE) 44.3 UG/ML (50.0-100.0)
== END ==
LOC: SKLAB5 08:09
PROVIDERS: ATTEND Internal Medicine
DX: R56.9 Unspecified convulsions (principal); G35 Multiple sclerosis; Z79.899 Other long term (current) drug therapy

== ENCOUNTER → 2019-11-21 | Outpatient (REF) | payer MEDICARE ==
[2019-11-21 08:28] LABS: HEMATOCRIT 42.9 % (42.0-52.0); HEMOGLOBIN 13.7 g/dl (13.5-17.5); MEAN CORPUSCULAR HGB CONC 31.9 g/dl (32.0-36.5); MEAN CORPUSCULAR VOLUME 90.7 fl (80.0-96.0); PLATELET COUNT, AUTOMATED 273 10^3/uL (150-450); RED BLOOD COUNT 4.73 10^6/uL (4.30-6.10); WHITE BLOOD COUNT 6.7 10^3/uL (4.0-10.0)
== END ==
LOC: SKLAB5 07:30
PROVIDERS: ATTEND Internal Medicine
DX: G35 Multiple sclerosis (principal)

== ENCOUNTER → 2019-11-27 | Outpatient (REF) ==
[~2019-11-27] MED LIST changes: -LISI-1046 PO; +LISI2.5T2 PO
== END ==
LOC: SKLAB5 14:36
PROVIDERS: ATTEND Internal Medicine
DX: Z03.818 Encounter for observation for suspected exposure to other biological agents ruled out (principal)

== ENCOUNTER → 2020-01-02 | Outpatient (REF) | payer MEDICARE ==
--- NOTE | 2020-01-02 15:11 | REP ---
REASON: Pain. There are no priors. Only 4 views were obtained. There is no sunrise view. There is minimal tricompartmental marginal osteophytosis with evidence of patellofemoral and medial compartmental narrowing. There is no acute fracture. Electronically Signed by Spenser Brooks DO 01/02/2020 05:04 P
== END ==
LOC: SKLAB5 12:33
PROVIDERS: ATTEND Internal Medicine
DX: M25.561 Pain in right knee (principal)

== ENCOUNTER → 2020-02-20 | Outpatient (REF) | payer MEDICARE ==
[~2020-02-20] MED LIST changes: +PANT40TA29 PO; -PANT40TA3 PO
[2020-04-29 14:40] LABS: HEMATOCRIT 44.7 % (42.0-52.0); HEMOGLOBIN 14.4 g/dl (13.5-17.5); MEAN CORPUSCULAR HEMOGLOBIN 29.6 pg (27.0-33.0); MEAN CORPUSCULAR HGB CONC 32.2 g/dl (32.0-36.5); MEAN CORPUSCULAR VOLUME 91.8 fl (80.0-96.0); PLATELET COUNT, AUTOMATED 242 10^3/uL (150-450); RED BLOOD COUNT 4.87 10^6/uL (4.30-6.10); WHITE BLOOD COUNT 6.3 10^3/uL (4.0-10.0)
[2020-05-11 16:16] LABS: ALBUMIN 3.8 GM/DL (3.2-5.2); ALT/SGPT 57 U/L (12-78); BILIRUBIN,TOTAL 0.5 MG/DL (0.2-1.0); BLOOD UREA NITROGEN 22 MG/DL (7-18); CALCIUM LEVEL 8.7 MG/DL (8.8-10.2); CARBON DIOXIDE LEVEL 31 MEQ/L (21-32); CHLORIDE LEVEL 103 MEQ/L (98-107); CREATININE FOR GFR 1.08 MG/DL (0.70-1.30); GLOMERULAR FILTRATION RATE > 60.0 (>49); GLUCOSE, FASTING 93 MG/DL (70-100); POTASSIUM SERUM 3.7 MEQ/L (3.5-5.1); SODIUM LEVEL 140 MEQ/L (136-145); TOTAL PROTEIN 6.6 GM/DL (6.4-8.2); VALPROIC ACID (DEPAKOTE) 42.9 UG/ML (50.0-100.0)
== END ==
LOC: SKLAB5 12:02
PROVIDERS: ATTEND Internal Medicine
DX: G35 Multiple sclerosis (principal); G40.909 Epilepsy, unspecified, not intractable, without status epilepticus

== ENCOUNTER → 2020-03-19 | Outpatient (REF) | payer MEDICARE | LOC: SKLAB5 06:37 | PROVIDERS: ATTEND Internal Medicine | DX: G35 Multiple sclerosis (principal); E03.9 Hypothyroidism, unspecified ==

== ENCOUNTER → 2020-05-13 | Outpatient (REF) | payer MEDICARE ==
[2020-05-15 21:07] LABS: Alkaline Phosphatase Iso-Bone 22 % (12-68); Alkaline Phosphatase Iso-Intes 0 % (0-18); Alkaline Phosphatase Iso-Liver 78 % (13-88); TOTAL ALK PHOS 279 IU/L (39-117)
== END ==
LOC: SKLAB5 10:10
PROVIDERS: ATTEND Internal Medicine
DX: R74.8 Abnormal levels of other serum enzymes (principal)

== ENCOUNTER → 2020-05-21 | Outpatient (REF) | payer MEDICARE ==
[2020-05-21 09:07] LABS: HEMATOCRIT 47.4 % (42.0-52.0); MEAN CORPUSCULAR HEMOGLOBIN 29.1 pg (27.0-33.0); MEAN CORPUSCULAR HGB CONC 31.6 g/dl (32.0-36.5); MEAN CORPUSCULAR VOLUME 91.9 fl (80.0-96.0); PLATELET COUNT, AUTOMATED 243 10^3/uL (150-450); RED BLOOD COUNT 5.16 10^6/uL (4.30-6.10); WHITE BLOOD COUNT 5.5 10^3/uL (4.0-10.0)
== END ==
LOC: SKLAB5 08:12
PROVIDERS: ATTEND Internal Medicine
DX: G35 Multiple sclerosis (principal); G40.909 Epilepsy, unspecified, not intractable, without status epilepticus

== ENCOUNTER → 2020-06-03 | Outpatient (REF) | payer MEDICARE | LOC: SKLAB5 06-02 15:34 → EDSTATUS 07-07 14:25 | PROVIDERS: ATTEND Internal Medicine | DX: Z20.828 Contact with and (suspected) exposure to other viral communicable diseases (principal) ==

== ENCOUNTER → 2020-06-10 | Outpatient (REF) | payer MEDICARE | LOC: SKLAB5 08:00 | PROVIDERS: ATTEND Internal Medicine | DX: Z20.828 Contact with and (suspected) exposure to other viral communicable diseases (principal) ==

== ENCOUNTER → 2020-06-10 | Outpatient (REF) | payer MEDICARE | LOC: SKLAB5 07:20 | PROVIDERS: ATTEND Internal Medicine | DX: E03.9 Hypothyroidism, unspecified (principal); Z20.828 Contact with and (suspected) exposure to other viral communicable diseases | CPT/HCPCS: 36415; 84443; U0003 ==

== ENCOUNTER → 2020-06-17 | Outpatient (REF) | payer MEDICARE | LOC: SKLAB5 08:00 | PROVIDERS: ATTEND Internal Medicine | DX: Z20.828 Contact with and (suspected) exposure to other viral communicable diseases (principal) ==

== ENCOUNTER → 2020-06-24 | Outpatient (REF) | payer MEDICARE | LOC: SKLAB5 06:29 | PROVIDERS: ATTEND Family Medicine | DX: Z20.828 Contact with and (suspected) exposure to other viral communicable diseases (principal) ==

== ENCOUNTER → 2020-07-01 | Outpatient (REF) | payer MEDICARE | LOC: SKLAB5 09:01 | PROVIDERS: ATTEND Internal Medicine | DX: Z20.828 Contact with and (suspected) exposure to other viral communicable diseases (principal) ==

== ENCOUNTER → 2020-07-08 | Outpatient (REF) | payer MEDICARE | LOC: SKLAB5 05:50 | PROVIDERS: ATTEND Internal Medicine | DX: Z20.828 Contact with and (suspected) exposure to other viral communicable diseases (principal) ==

== ENCOUNTER → 2020-07-15 | Outpatient (REF) | payer MEDICARE | LOC: SKLAB5 06:23 | PROVIDERS: ATTEND Internal Medicine | DX: Z20.828 Contact with and (suspected) exposure to other viral communicable diseases (principal) ==

== ENCOUNTER → 2020-07-22 | Outpatient (REF) | payer MEDICARE | LOC: SKLAB5 06:53 | PROVIDERS: ATTEND Internal Medicine | DX: Z11.52 Encounter for screening for COVID-19 (principal) ==

== ENCOUNTER → 2020-07-29 | Outpatient (REF) | payer MEDICARE | LOC: SKLAB5 06:32 | PROVIDERS: ATTEND Internal Medicine | DX: Z11.52 Encounter for screening for COVID-19 (principal) ==

== ENCOUNTER → 2020-08-05 | Outpatient (REF) | payer MEDICARE | LOC: SKLAB5 07:09 | PROVIDERS: ATTEND Internal Medicine | DX: Z20.822 Contact with and (suspected) exposure to COVID-19 (principal) ==

== ENCOUNTER → 2020-08-12 | Outpatient (REF) | payer MEDICARE | LOC: SKLAB5 07:15 | PROVIDERS: ATTEND Internal Medicine | DX: Z20.822 Contact with and (suspected) exposure to COVID-19 (principal) ==

== ENCOUNTER → 2020-08-19 | Outpatient (REF) | payer MEDICARE | LOC: SKLAB5 07:16 | PROVIDERS: ATTEND Internal Medicine | DX: Z20.822 Contact with and (suspected) exposure to COVID-19 (principal) ==

== ENCOUNTER → 2020-08-20 | Outpatient (REF) | payer MEDICARE ==
[2020-08-20 11:51] LABS: HEMATOCRIT 45.7 % (42.0-52.0); HEMOGLOBIN 14.5 g/dl (13.5-17.5); MEAN CORPUSCULAR HEMOGLOBIN 28.9 pg (27.0-33.0); MEAN CORPUSCULAR HGB CONC 31.7 g/dl (32.0-36.5); PLATELET COUNT, AUTOMATED 265 10^3/uL (150-450); RED BLOOD COUNT 5.02 10^6/uL (4.30-6.10); WHITE BLOOD COUNT 6.4 10^3/uL (4.0-10.0)
[2020-08-20 12:35] LABS: THYROID STIMULATING HORMONE 1.92 uIU/ML (0.358-3.740); VALPROIC ACID (DEPAKOTE) 47.9 UG/ML (50.0-100.0)
== END ==
LOC: SKLAB5 10:23
PROVIDERS: ATTEND Internal Medicine
DX: G35 Multiple sclerosis (principal); E03.9 Hypothyroidism, unspecified; R56.9 Unspecified convulsions

== ENCOUNTER → 2020-08-26 | Outpatient (REF) | payer MEDICARE | LOC: SKLAB5 06:17 | PROVIDERS: ATTEND Internal Medicine | DX: Z20.822 Contact with and (suspected) exposure to COVID-19 (principal) ==

== ENCOUNTER → 2020-09-02 | Outpatient (REF) | payer MEDICARE | LOC: SKLAB5 06:29 | PROVIDERS: ATTEND Internal Medicine | DX: Z20.822 Contact with and (suspected) exposure to COVID-19 (principal) ==

== ENCOUNTER → 2020-09-09 | Outpatient (REF) | payer MEDICARE | LOC: SKLAB5 08:00 | PROVIDERS: ATTEND Internal Medicine | DX: Z20.822 Contact with and (suspected) exposure to COVID-19 (principal) ==

== ENCOUNTER → 2020-09-17 | Outpatient (REF) | payer MEDICARE | LOC: SKLAB5 05:58 | PROVIDERS: ATTEND Internal Medicine | DX: Z20.822 Contact with and (suspected) exposure to COVID-19 (principal) ==

== ENCOUNTER → 2020-09-23 | Outpatient (REF) | payer MEDICARE | LOC: SKLAB5 06:20 | PROVIDERS: ATTEND Internal Medicine | DX: Z20.822 Contact with and (suspected) exposure to COVID-19 (principal) ==

== ENCOUNTER → 2020-09-30 | Outpatient (REF) | payer MEDICARE | LOC: SKLAB5 07:23 | PROVIDERS: ATTEND Internal Medicine | DX: Z20.822 Contact with and (suspected) exposure to COVID-19 (principal) ==

== ENCOUNTER → 2020-10-02 | Outpatient (REF) | payer MEDICARE ==
[2020-10-02 12:35] LABS: INFLUENZA A AMPLIFICATION NEGATIVE (NEGATIVE); INFLUENZA B AMPLIFICATION NEGATIVE (NEGATIVE)
== END ==
LOC: SKLAB5 11:33
PROVIDERS: ATTEND Internal Medicine
DX: C44.311 Basal cell carcinoma of skin of nose (principal); L57.0 Actinic keratosis; Z11.59 Encounter for screening for other viral diseases

== ENCOUNTER → 2020-10-02 | Outpatient (REF) | payer MEDICARE | LOC: M LAB REF 17:15 | PROVIDERS: ATTEND Dermatology | DX: C44.311 Basal cell carcinoma of skin of nose (principal); L57.0 Actinic keratosis ==

== ENCOUNTER → 2020-10-16 | Outpatient (REF) | payer MEDICARE | LOC: SKLAB5 07:05 | PROVIDERS: ATTEND Internal Medicine | DX: Z20.822 Contact with and (suspected) exposure to COVID-19 (principal) ==

== ENCOUNTER → 2020-10-20 | Outpatient (CLI) | payer MEDICARE ==
--- NOTE | 2020-10-20 15:06 | RADONC.CN ---
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 He is seen for consideration of RT to address this lesion. Diagnosis/Treatment History Oncologic History Fall 2019 noted small ulcerated, intermittently bleeding lesion on the left nasal tip due to COVID held off on evaluation until 2020. He underwent biopsy with Dr. Mcdaniel on 10/02/20 with pathology showing basal cell carcinoma, infiltrating pattern, present at deep tissue edge. Ulceration was present on the specimen. He was offered Moh's resection or referral to RT, he elected the latter. Interval History Here with his supportive . Lives at [facility]. Has limited mobility due to multiple sclerosis. Also has seizure disorder which is well-controlled. He has no complaints of pain at the nasal biopsy site. No further bleeding. He has no post-nasal drip. He has no additional skin concerns at this time. Past Medical History: Multiple sclerosis Seizure disorder GENNY BPH Urinary retention Past Surgical History: Cholecystectomy Family History: Brother multiple sclerosis Father lung cancer Mother colon cancer Social History: Never smoker Never drinker Allergies / Meds Allergies: Coded Allergies: Penicillins (Verified Allergy, Unknown, 11/05/18) Home Meds Active Scripts [cipr] No Conflict Check, 400 MG IV BID for 2 Days, #4 Prov:JASEN LÓPEZP 08/18/19 Ciprofloxacin HCl (Cipro) 500 Mg Tablet, 500 MG PO BID, #10 TAB Prov:JASEN LÓPEZP 08/18/19 Zinc Oxide (Boudreauxs) 16% Oint...g., 0 OZ TOP BID, #1 GRAM Prov:MALDONADO MIX MD 11/30/18 Sennosides/Docusate Sodium (Senna Plus Tablet) 1 Each Tablet, 1 TAB PO BID, #1 TAB Prov:MALDONADO MIX MD 11/30/18 Pantoprazole Sodium (Pantoprazole Sodium) 40 Mg Tablet.dr, 40 MG PO DAILY, #1 TABS Prov:MALDONADO MIX MD 11/30/18 Lamotrigine (Lamictal) 100 Mg Tablet, 100 MG PO BID, #1 TAB Prov:MALDONADO MIX MD 11/30/18 Enoxaparin Sodium (Lovenox) 40 Mg/0.4 Ml Syringe, 40 MG SC QHS, #1 SYRINGE Prov:AMLDONADO MIX MD 11/30/18 Bisacodyl (Bisacodyl) 10 Mg Supp.rect, 10 MG ND DAILYPRN PRN for CONSTIPATION, #1 Prov:MALDONADO MIX MD 11/30/18 Baclofen (Baclofen) 10 Mg Tablet, 5 MG PO BID, #1 TAB Prov:MALDONADO MIX MD 11/30/18 Reported Medications Folic Acid/Multivit-Min/Lutein (Centrum Silver Chewable Tablet) 1 Each Tab.chew, 1 CHW PO DAILY, CHW 11/06/18 Gabapentin (Gabapentin) 400 Mg Capsule, 400 MG PO TID, CAP 11/06/18 Divalproex Sodium (Divalproex Sodium ER) 500 Mg Tab.er.24h, 500 MG PO QHS, TAB 11/06/18 Cholecalciferol (Vitamin D3) (Vitamin D3) 2,000 Unit Capsule, 2000 UNIT PO DAILY, CAP 11/06/18 Levothyroxine Sodium (Synthroid) 50 Mcg Tablet, 50 MCG PO DAILY, TAB 11/06/18 Oxybutynin Chloride (Oxybutynin Chloride ER) 10 Mg Tab, 10 MG PO QHS, TAB 10/30/17 Mycophenolate Mofetil (Mycophenolate Mofetil) 500 Mg Tab, 1000 MG PO BID, TAB 12/22/16 Tamsulosin HCl (Flomax) 0.4 Mg Cap, 0.4 MG PO QHS, CAP 12/22/16 Review of Systems Constitutional: Reports: Weakness; Denies: Chills, Fever Eyes: Denies: Pain HEENT: Denies: Head Aches Pulmonary: Denies: Dyspnea, Cough Cardiovascular: Denies: Chest Pain, Palpitations Gastrointestinal: Denies: Nausea, Abdominal Pain Genitourinary: Reports: Retention Hematologic: Denies: Bleeding Excessively Musculoskeletal: Denies: Neck pain, Back pain Neurological: Reports: Weakness Psych: Reports: Mood Normal Vital Signs Ht 71" Wt 210 lbs P 54 RR 16 BP 135/80 O2 99% Pain 0 Fatigue 0 General Exam: Positive: Alert, Cooperative, No Acute Distress Eye Exam: Positive: PERRLAJERRYMI ENT EXAM: Positive: Atraumatic, Mucous membr. moist/pink, Nares Patent, Other ENT (Left nasal tip with 0.3 cm well-healed surgical site, no residual nodularity, no tenderness on palpation. No cervical adenopathy.) Neck Exam: Positive: Supple Psych Exam: Positive: Mental status NL, Mood NL; Negative: Anxiety Diagnostic and Laboratory Diagnostic Review Radiologic images, relevant labs and pathology reports were personally reviewed and discussed with Mr. Miramontes. Assessment and Plan Impression Mr. 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 He is seen for consideration of RT to address this lesion. Stage BCC nasal tip [id number] stage I Performance Status ECOG 2 Plan We had an extensive discussion with Mr. Miramontes regarding the diagnosis at hand and available therapeutic options. He had a small ulcerated BCC on the left aspect of the nasal tip for which he underwent shave biopsy with Dr. Mcdaniel. On final pathology resection margins were positive. The biopsy site on exam today is well-healed. We discussed that RT is highly effective at exerting local control over small lesions such as this, but that because it is a nasal lesion, hypofractionation is not advised due to fears of chondritis or a poor cosmetic outcome. I recommended 60 Gy in 30 fractions with electrons and custom bolus. We discussed the logistics of receiving radiation therapy in detail including the need for a 1-time planning session. This can occur next week as he is well healed. We discussed that the side effects of treatment are local skin reaction; redness, dry and or moist peeling, and mild pain, as well as epistaxis and nasal dryness. After discussing the risks, benefits and alternatives to radiation therapy, Mr. Miramontes was amenable to pursuing radiotherapy. All questions were answered to the patient's satisfaction. We instructed the patient that if there were any questions,concerns or changes in clinical status in the interim to contact us. Recommendations 60 Gy in 30 fractions with electrons and custom bolus Simulation in the next week Patient resides at [facility], so travel not prohibitive Billing Statement Total time of [31] minutes was spent preparing for the visit [2], obtaining HPI [4], examining the patient [4], reviewing diagnostic tests [1], discussing management options [9], coordinating care [1], and writing this note [9]. DELMY BARCENAS MD Oct 20, 2020 15:06
== END ==
LOC: M ONCR 12:57
PROVIDERS: ATTEND General Practice
DX: C44.311 Basal cell carcinoma of skin of nose (principal); G35 Multiple sclerosis; R56.9 Unspecified convulsions; G47.33 Obstructive sleep apnea (adult) (pediatric); N40.1 Benign prostatic hyperplasia with lower urinary tract symptoms; R33.9 Retention of urine, unspecified; Z79.899 Other long term (current) drug therapy

== ENCOUNTER → 2020-10-20 | Outpatient (REF) | payer MEDICARE ==
[2020-10-20 09:03] LABS: ALBUMIN 3.6 GM/DL (3.2-5.2); ALT/SGPT 64 U/L (12-78); BILIRUBIN,TOTAL 0.4 MG/DL (0.2-1.0); BLOOD UREA NITROGEN 22 MG/DL (7-18); CALCIUM LEVEL 8.9 MG/DL (8.8-10.2); CARBON DIOXIDE LEVEL 30 MEQ/L (21-32); CHLORIDE LEVEL 103 MEQ/L (98-107); CREATININE FOR GFR 1.15 MG/DL (0.70-1.30); GLOMERULAR FILTRATION RATE > 60.0 (>49); GLUCOSE, FASTING 158 MG/DL (70-100); POTASSIUM SERUM 3.4 MEQ/L (3.5-5.1); SODIUM LEVEL 140 MEQ/L (136-145); TOTAL PROTEIN 6.3 GM/DL (6.4-8.2)
== END ==
LOC: SKLAB5 07:32
PROVIDERS: ATTEND Internal Medicine
DX: G35 Multiple sclerosis (principal); Z51.81 Encounter for therapeutic drug level monitoring

== ENCOUNTER → 2020-10-27 | Outpatient (REF) | payer MEDICARE ==
[2020-10-27 09:21] LABS: BLOOD UREA NITROGEN 22 MG/DL (7-18); CALCIUM LEVEL 8.8 MG/DL (8.8-10.2); CARBON DIOXIDE LEVEL 31 MEQ/L (21-32); CHLORIDE LEVEL 103 MEQ/L (98-107); CREATININE FOR GFR 1.06 MG/DL (0.70-1.30); GLOMERULAR FILTRATION RATE > 60.0 (>49); GLUCOSE, FASTING 89 MG/DL (70-100); POTASSIUM SERUM 3.8 MEQ/L (3.5-5.1); SODIUM LEVEL 141 MEQ/L (136-145)
== END ==
LOC: SKLAB5 07:56
PROVIDERS: ATTEND Internal Medicine
DX: E87.6 Hypokalemia (principal)

== ENCOUNTER 2020-11-04 10:21 | Outpatient (RCR) | payer MEDICARE | END 2020-11-13 | LOC: M ONCR 10:21 | PROVIDERS: ATTEND General Practice | DX: C44.311 Basal cell carcinoma of skin of nose (principal) ==

== ENCOUNTER → 2020-11-19 | Outpatient (REF) | payer MEDICARE ==
[2020-11-19 09:16] LABS: HEMATOCRIT 46.6 % (42.0-52.0); HEMOGLOBIN 15.1 g/dl (13.5-17.5); MEAN CORPUSCULAR HEMOGLOBIN 29.6 pg (27.0-33.0); MEAN CORPUSCULAR HGB CONC 32.4 g/dl (32.0-36.5); MEAN CORPUSCULAR VOLUME 91.4 fl (80.0-96.0); PLATELET COUNT, AUTOMATED 246 10^3/uL (150-450); WHITE BLOOD COUNT 6.4 10^3/uL (4.0-10.0)
[2020-11-19 09:53] LABS: THYROID STIMULATING HORMONE 4.18 uIU/ML (0.358-3.740); VALPROIC ACID (DEPAKOTE) 46.2 UG/ML (50.0-100.0)
== END ==
LOC: SKLAB5 06:53
PROVIDERS: ATTEND Internal Medicine
DX: G35 Multiple sclerosis (principal); G40.909 Epilepsy, unspecified, not intractable, without status epilepticus; E03.9 Hypothyroidism, unspecified

== ENCOUNTER 2020-12-11 09:34 | Outpatient (RCR) | payer MEDICARE ==
[~2020-12-11 09:34] MED LIST changes: +GABA-283 PO; -GABA-845 PO
== END 2020-12-14 ==
LOC: M ONCR 09:34
PROVIDERS: ATTEND General Practice
DX: C44.311 Basal cell carcinoma of skin of nose (principal)

== ENCOUNTER → 2020-12-23 | Outpatient (REF) | payer MEDICARE | LOC: SKLAB5 09:21 | PROVIDERS: ATTEND Internal Medicine | DX: J06.9 Acute upper respiratory infection, unspecified (principal) ==

== ENCOUNTER 2020-12-28 09:34 | Outpatient (RCR) | payer MEDICARE | END 2021-01-13 | LOC: M ONCR 09:34 | PROVIDERS: ATTEND General Practice | DX: C44.311 Basal cell carcinoma of skin of nose (principal) ==

== ENCOUNTER → 2021-01-14 | Outpatient (REF) | payer MEDICARE ==
[2021-01-14 10:20] LABS: FREE T4 1.36 NG/DL (0.76-1.46); THYROID STIMULATING HORMONE 4.42 uIU/ML (0.358-3.740)
== END ==
LOC: SKLAB5 09:22
PROVIDERS: ATTEND Internal Medicine
DX: E03.9 Hypothyroidism, unspecified (principal)

== ENCOUNTER → 2021-01-28 | Outpatient (CLI) | payer MEDICARE, MEDICAID ==
--- NOTE | 2021-01-28 10:29 | RADENCPD ---
Date/Time of Encounter Date of Encounter: Jan 28, 2021 Time of Encounter: 10:27 Encounter Saw Jean Marie today now 1 month post completion of RT to his nasal BCC. He is doing well. No complaints related to skin. No bleeding, no pain in the nose. Saw derm yesterday had a number of AK lesions frozen. On exam the nose is pink, there is no residual scabbing or desquamation, no tenderness. There are no lesions. Assessment: CR to treatment. Plan: Will see again in June 2021 and if all is well then can follow PRN. Encouraged sunscreen use on the node and continued moisturization. DELMY BARCENAS MD Jan 28, 2021 10:29
== END ==
LOC: M ONCR 09:56
PROVIDERS: ATTEND General Practice
DX: C44.311 Basal cell carcinoma of skin of nose (principal)

== ENCOUNTER → 2021-02-18 | Outpatient (REF) | payer MEDICARE, MEDICAID ==
[2021-02-18 10:53] LABS: HEMATOCRIT 46.4 % (42.0-52.0); HEMOGLOBIN 14.9 g/dl (13.5-17.5); MEAN CORPUSCULAR HEMOGLOBIN 29.4 pg (27.0-33.0); MEAN CORPUSCULAR HGB CONC 32.1 g/dl (32.0-36.5); MEAN CORPUSCULAR VOLUME 91.5 fl (80.0-96.0); PLATELET COUNT, AUTOMATED 207 10^3/uL (150-450); RED BLOOD COUNT 5.07 10^6/uL (4.30-6.10); WHITE BLOOD COUNT 4.9 10^3/uL (4.0-10.0)
[2021-02-18 11:22] LABS: THYROID STIMULATING HORMONE 3.11 uIU/ML (0.358-3.740); VALPROIC ACID (DEPAKOTE) 35.9 UG/ML (50.0-100.0)
== END ==
LOC: SKLAB5 09:18
PROVIDERS: ATTEND Internal Medicine
DX: G40.909 Epilepsy, unspecified, not intractable, without status epilepticus (principal); E03.9 Hypothyroidism, unspecified

== ENCOUNTER → 2021-03-02 | Outpatient (REF) | payer MEDICARE, MEDICAID ==
[~2021-03-02] MED LIST changes: -LISI2.5T2 PO; +LISI2.5T9 PO
== END ==
LOC: SKLAB5 12:05
PROVIDERS: ATTEND Internal Medicine
DX: Z20.822 Contact with and (suspected) exposure to COVID-19 (principal)

== ENCOUNTER → 2021-03-08 | Outpatient (CLI) | payer MEDICARE, MEDICAID ==
--- NOTE | 2021-03-08 00:54 | REPVR ---
PROCEDURE INFORMATION: Exam: XR Chest Exam date and time: 03/08/2021 12:39 AM Age: 70 years old Clinical indication: Shortness of breath; Additional info: SOB TECHNIQUE: Imaging protocol: XR of the chest. Views: 1 view. COMPARISON: [facility] PORTABLE CHEST X-RAY 08/18/2019 2:10 PM FINDINGS: Lungs: Lungs are diffusely hypoexpanded. No evidence of pulmonary edema. Focal ill-defined opacity at the left lung base, which may represent atelectasis or pneumonia. Pleural spaces: No pleural effusion. No pneumothorax. Heart/Mediastinum: Heart and mediastinal contours are normal, given the degree of inflation. Bones/joints: Osseous structures show no concerning abnormality. Soft tissues: No asymmetry of the extrathoracic soft tissues. IMPRESSION: Hypoexpanded lungs, with focal left basilar opacity that could represent pneumonia or atelectasis Electronically signed by: Benton Cao On 03/08/2021 00:54:06 AM
[2021-03-08 10:36] LABS: HEMATOCRIT 40.8 % (42.0-52.0); HEMOGLOBIN 13.4 g/dl (13.5-17.5); MEAN CORPUSCULAR HEMOGLOBIN 29.8 pg (27.0-33.0); MEAN CORPUSCULAR HGB CONC 32.8 g/dl (32.0-36.5); MEAN CORPUSCULAR VOLUME 90.7 fl (80.0-96.0); PLATELET COUNT, AUTOMATED 244 10^3/uL (150-450)
[2021-03-08 11:11] LABS: ALT/SGPT 72 U/L (12-78); BILIRUBIN,TOTAL 0.8 MG/DL (0.2-1.0); BLOOD UREA NITROGEN 19 MG/DL (7-18); CALCIUM LEVEL 8.6 MG/DL (8.8-10.2); CARBON DIOXIDE LEVEL 33 MEQ/L (21-32); CHLORIDE LEVEL 100 MEQ/L (98-107); CREATININE FOR GFR 1.14 MG/DL (0.70-1.30); GLOMERULAR FILTRATION RATE > 60.0 (>42); GLUCOSE, FASTING 95 MG/DL (70-100); POTASSIUM SERUM 3.2 MEQ/L (3.5-5.1); SODIUM LEVEL 140 MEQ/L (136-145); TOTAL PROTEIN 5.9 GM/DL (6.4-8.2)
== END ==
LOC: M LAB REF 00:08 → SKLAB5 00:08
PROVIDERS: ATTEND Family Medicine
DX: R06.02 Shortness of breath (principal); R91.8 Other nonspecific abnormal finding of lung field

== ENCOUNTER → 2021-03-11 | Outpatient (REF) | payer MEDICARE, MEDICAID ==
[2021-03-11 15:50] LABS: BLOOD UREA NITROGEN 19 MG/DL (7-18); CALCIUM LEVEL 9.6 MG/DL (8.8-10.2); CARBON DIOXIDE LEVEL 32 MEQ/L (21-32); CHLORIDE LEVEL 103 MEQ/L (98-107); CREATININE FOR GFR 1.12 MG/DL (0.70-1.30); GLOMERULAR FILTRATION RATE > 60.0 (>42); GLUCOSE, FASTING 69 MG/DL (70-100); POTASSIUM SERUM 3.7 MEQ/L (3.5-5.1); SODIUM LEVEL 138 MEQ/L (136-145)
== END ==
LOC: SKLAB5 08:04
PROVIDERS: ATTEND Internal Medicine
DX: J18.9 Pneumonia, unspecified organism (principal); E87.6 Hypokalemia

== ENCOUNTER → 2021-04-22 | Outpatient (REF) | payer MEDICARE, MEDICAID ==
[2021-04-22 15:50] LABS: ALBUMIN 3.9 GM/DL (3.2-5.2); ALT/SGPT 61 U/L (12-78); BILIRUBIN,TOTAL 0.5 MG/DL (0.2-1.0); BLOOD UREA NITROGEN 19 MG/DL (7-18); CALCIUM LEVEL 9.2 MG/DL (8.8-10.2); CARBON DIOXIDE LEVEL 26 MEQ/L (21-32); CHLORIDE LEVEL 102 MEQ/L (98-107); CREATININE FOR GFR 1.07 MG/DL (0.70-1.30); GLOMERULAR FILTRATION RATE > 60.0 (>42); GLUCOSE, FASTING 140 MG/DL (70-100); POTASSIUM SERUM 4.1 MEQ/L (3.5-5.1); SODIUM LEVEL 137 MEQ/L (136-145); TOTAL PROTEIN 6.9 GM/DL (6.4-8.2)
== END ==
LOC: SKLAB5 07:05
PROVIDERS: ATTEND Internal Medicine
DX: G35 Multiple sclerosis (principal); G40.909 Epilepsy, unspecified, not intractable, without status epilepticus

== ENCOUNTER → 2021-05-04 | Outpatient (REF) | payer MEDICARE, MEDICAID | LOC: SKLAB5 11:28 | PROVIDERS: ATTEND Internal Medicine | DX: Z20.822 Contact with and (suspected) exposure to COVID-19 (principal) ==

== ENCOUNTER → 2021-05-06 | Outpatient (REF) | payer MEDICARE, MEDICAID | LOC: SKLAB5 09:08 | PROVIDERS: ATTEND Internal Medicine | DX: Z20.822 Contact with and (suspected) exposure to COVID-19 (principal) ==

== ENCOUNTER → 2021-05-10 | Outpatient (REF) | payer MEDICARE, MEDICAID ==
[~2021-05-10] MED LIST changes: +ALBUTEROL 90 MCG/ACT 8GM HFA INHALER INH PRN; +ALBUTEROL SULFATE 2.5 MG/0.5 ML INH NEB SOLN INH PRN; +BAMLANIVIMAB 700 MG, ETESEVIMAB 1,400 MG in NS 250 ML IV ONE; +EPINEPHrine INJ 1 MG/ML 1ML AMP IM PRN; +NS 1,000 ML IV SCH; +diphenhydrAMINE 50MG/ML VIAL (J1200) IV ONE; +diphenhydrAMINE 50MG/ML VIAL (J1200) IV PRN; +methylPREDNISolone 125MG 2ML VIAL IV PRN
== END ==
LOC: SKLAB7 13:45
PROVIDERS: ATTEND Internal Medicine
DX: U07.1 COVID-19 (principal)

== ENCOUNTER → 2021-05-12 | Outpatient (REF) | payer MEDICARE, MEDICAID ==
[~2021-05-12] MED LIST changes: -ALBUTEROL 90 MCG/ACT 8GM HFA INHALER INH PRN; -ALBUTEROL SULFATE 2.5 MG/0.5 ML INH NEB SOLN INH PRN; -BAMLANIVIMAB 700 MG, ETESEVIMAB 1,400 MG in NS 250 ML IV ONE; -EPINEPHrine INJ 1 MG/ML 1ML AMP IM PRN; -NS 1,000 ML IV SCH; -diphenhydrAMINE 50MG/ML VIAL (J1200) IV ONE; -diphenhydrAMINE 50MG/ML VIAL (J1200) IV PRN; -methylPREDNISolone 125MG 2ML VIAL IV PRN
[2021-05-12 11:02] LABS: HEMATOCRIT 43.9 % (42.0-52.0); HEMOGLOBIN 14.3 g/dl (13.5-17.5); MEAN CORPUSCULAR HEMOGLOBIN 29.3 pg (27.0-33.0); MEAN CORPUSCULAR HGB CONC 32.6 g/dl (32.0-36.5); PLATELET COUNT, AUTOMATED 185 10^3/uL (150-450); RED BLOOD COUNT 4.88 10^6/uL (4.30-6.10); WHITE BLOOD COUNT 3.6 10^3/uL (4.0-10.0)
[2021-05-12 11:24] LABS: BLOOD UREA NITROGEN 20 MG/DL (7-18); CALCIUM LEVEL 8.7 MG/DL (8.8-10.2); CARBON DIOXIDE LEVEL 29 MEQ/L (21-32); CHLORIDE LEVEL 103 MEQ/L (98-107); CREATININE FOR GFR 1.21 MG/DL (0.70-1.30); GLOMERULAR FILTRATION RATE > 60.0 (>42); GLUCOSE, FASTING 239 MG/DL (70-100); POTASSIUM SERUM 3.7 MEQ/L (3.5-5.1); SODIUM LEVEL 137 MEQ/L (136-145)
--- NOTE | 2021-05-12 16:21 | REP ---
INDICATION: COVID /LUNG CONGESTION. COMPARISON: Multiple the latest 03/08/2021 TECHNIQUE: Portable FINDINGS: The technique utilized in obtaining the radiograph has magnified the cardiac silhouette and attenuated the interstitial markings. Left basilar curvilinear opacities are again noted and unchanged. Lung parrish are clear and stable. Heart is not enlarged. There is no change in the osseous structures. IMPRESSION: Stable appearing chronic changes without evidence of acute cardiopulmonary disease. <Electronically signed by Spenser Brooks > 05/12/21 [id number]
== END ==
LOC: SKLAB2 06:49
PROVIDERS: ATTEND Internal Medicine
DX: U07.1 COVID-19 (principal); J98.4 Other disorders of lung

== ENCOUNTER → 2021-05-14 | Outpatient (REF) | payer MEDICARE, MEDICAID ==
[2021-05-14 09:43] LABS: HEMATOCRIT 45.1 % (42.0-52.0); HEMOGLOBIN 14.6 g/dl (13.5-17.5); MEAN CORPUSCULAR HEMOGLOBIN 29.1 pg (27.0-33.0); MEAN CORPUSCULAR HGB CONC 32.4 g/dl (32.0-36.5); MEAN CORPUSCULAR VOLUME 89.8 fl (80.0-96.0); PLATELET COUNT, AUTOMATED 202 10^3/uL (150-450); RED BLOOD COUNT 5.02 10^6/uL (4.30-6.10); WHITE BLOOD COUNT 5.7 10^3/uL (4.0-10.0)
[2021-05-14 10:03] LABS: BLOOD UREA NITROGEN 20 MG/DL (7-18); CALCIUM LEVEL 8.6 MG/DL (8.8-10.2); CARBON DIOXIDE LEVEL 28 MEQ/L (21-32); CHLORIDE LEVEL 106 MEQ/L (98-107); CREATININE FOR GFR 0.98 MG/DL (0.70-1.30); GLOMERULAR FILTRATION RATE > 60.0 (>42); GLUCOSE, FASTING 115 MG/DL (70-100); POTASSIUM SERUM 3.8 MEQ/L (3.5-5.1); SODIUM LEVEL 140 MEQ/L (136-145)
== END ==
LOC: SKLAB2 06:52
PROVIDERS: ATTEND Internal Medicine
DX: U07.1 COVID-19 (principal); Z79.899 Other long term (current) drug therapy

== ENCOUNTER → 2021-05-20 | Outpatient (REF) | payer MEDICARE, MEDICAID | LOC: SKLAB5 09:08 | PROVIDERS: ATTEND Internal Medicine | DX: G35 Multiple sclerosis (principal); G40.909 Epilepsy, unspecified, not intractable, without status epilepticus ==

== ENCOUNTER → 2021-06-21 | Outpatient (REF) | payer MEDICARE, MEDICAID ==
[2021-06-21 19:04] LABS: APPEARANCE, URINE CLEAR (CLEAR); BACTERIA, URINE AUTO NEGATIVE (NEGATIVE); BILIRUBIN, URINE AUTO NEGATIVE (NEGATIVE); BLOOD, URINE BLOOD NEGATIVE (NEGATIVE); COLOR, URINE STRAW (YELLOW); GLUCOSE, URINE (UA) AUTO NEGATIVE (NEGATIVE); KETONE, URINE AUTO NEGATIVE (NEGATIVE); LEUKOCYTE ESTERASE, URINE AUTO NEGATIVE (NEGATIVE); NITRITE, URINE AUTO NEGATIVE (NEGATIVE); PROTEIN, URINE AUTO NEGATIVE (NEGATIVE); RBC, URINE AUTO 0 /HPF (0-3); SPECIFIC GRAVITY URINE AUTO 1.004 (1.002-1.035); SQUAMOUS EPITHELIAL CELL UR AU 0 /HPF (0-6); UROBILINOGEN, URINE AUTO 0.2 mg/dL (0.0-2.0); WBC, URINE AUTO 0 /HPF (0-3)
== END ==
LOC: SKLAB5 14:21
PROVIDERS: ATTEND Internal Medicine
DX: M62.830 Muscle spasm of back (principal); M54.50 Low back pain, unspecified; Z79.899 Other long term (current) drug therapy

== ENCOUNTER → 2021-06-25 | Outpatient (REF) | payer MEDICARE, MEDICAID ==
--- NOTE | 2021-06-25 10:42 | REP ---
INDICATION: PAIN LOWER BACK RADIATING TO INNER THIGHS. COMPARISON: None. TECHNIQUE: Five views lumbosacral spine. FINDINGS: There is no compression fracture or malalignment. There is normal lumbar lordosis. There is moderate diffuse spurring. There is minimal narrowing at L3-4 and L4-5 disc spaces. There is sclerosis and spurring at the facets of L4-5 and L5-S1. The posterior elements are intact. IMPRESSION: No fracture or dislocation. Degenerative changes. <Electronically signed by Micah Vick > 06/25/21 [id number]
== END ==
LOC: SKLAB5 08:22
PROVIDERS: ATTEND Internal Medicine
DX: M54.50 Low back pain, unspecified (principal)

== ENCOUNTER → 2021-06-30 | Outpatient (CLI) | payer MEDICARE, MEDICAID ==
--- NOTE | 2021-06-30 12:09 | RADONC ---
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 He completed RT 60 Gy in 30 fractions to the lesion 11/16/20-12/28/20. Diagnosis/Treatment History Oncologic History Fall 2019 noted small ulcerated, intermittently bleeding lesion on the left nasal tip due to COVID held off on evaluation until 2020. He underwent biopsy with Dr. Mcdaniel on 10/02/20 with pathology showing basal cell carcinoma, in filtrating pattern, present at deep tissue edge. Ulceration was present on the specimen. He was offered Moh's resection or referral to RT, he elected the latter. 11/16/20-12/28/20 60 Gy in 30 fractions w/ 6MeV electrons, wax bolus and 3.2 cm circular aperture Interval History Had COVID over the Fall, did well, recovered quickly with monoclonal therapy. He has no residual HI or SOB. No skin complaints. Seeing Dr. Mcdaniel in July 2020. Current Therapy Surveillance Stage BCC nasal tip [id number] stage I Social History: Never smoker Never drinker Allergies / Meds Allergies: Coded Allergies: Penicillins (Verified Allergy, Unknown, 11/05/18) Home Meds Active Scripts [cipr] No Conflict Check, 400 MG IV BID for 2 Days, #4 Prov:JASEN LÓPEZP 08/18/19 Ciprofloxacin HCl (Cipro) 500 Mg Tablet, 500 MG PO BID, #10 TAB Prov:JASEN LÓPEZP 08/18/19 Zinc Oxide (Boudreauxs) 16% Oint...g., 0 OZ TOP BID, #1 GRAM Prov:MALDONADO MIX MD 11/30/18 Sennosides/Docusate Sodium (Senna Plus Tablet) 1 Each Tablet, 1 TAB PO BID, #1 TAB Prov:MALDONADO MIX MD 11/30/18 Pantoprazole Sodium (Pantoprazole Sodium) 40 Mg Tablet.dr, 40 MG PO DAILY, #1 TABS Prov:MALDONADO MIX MD 11/30/18 Lamotrigine (Lamictal) 100 Mg Tablet, 100 MG PO BID, #1 TAB Prov:MALDONADO MIX MD 11/30/18 Enoxaparin Sodium (Lovenox) 40 Mg/0.4 Ml Syringe, 40 MG SC QHS, #1 SYRINGE Prov:MALDONADO MIX MD 11/30/18 Bisacodyl (Bisacodyl) 10 Mg Supp.rect, 10 MG CA DAILYPRN PRN for CONSTIPATION, #1 Prov:MALDONADO MIX MD 11/30/18 Baclofen (Baclofen) 10 Mg Tablet, 5 MG PO BID, #1 TAB Prov:MALDONADO MIX MD 11/30/18 Reported Medications Folic Acid/Multivit-Min/Lutein (Centrum Silver Chewable Tablet) 1 Each Tab.chew, 1 CHW PO DAILY, CHW 11/06/18 Gabapentin (Gabapentin) 400 Mg Capsule, 400 MG PO TID, CAP 11/06/18 Divalproex Sodium (Divalproex Sodium ER) 500 Mg Tab.er.24h, 500 MG PO QHS, TAB 11/06/18 Cholecalciferol (Vitamin D3) (Vitamin D3) 2,000 Unit Capsule, 2000 UNIT PO DAILY, CAP 11/06/18 Levothyroxine Sodium (Synthroid) 50 Mcg Tablet, 50 MCG PO DAILY, TAB 11/06/18 Oxybutynin Chloride (Oxybutynin Chloride ER) 10 Mg Tab, 10 MG PO QHS, TAB 10/30/17 Mycophenolate Mofetil (Mycophenolate Mofetil) 500 Mg Tab, 1000 MG PO BID, TAB 12/22/16 Tamsulosin HCl (Flomax) 0.4 Mg Cap, 0.4 MG PO QHS, CAP 12/22/16 Review of Systems Review of Systems HEENT: Denies: Head Aches Skin: Reports: Lesions (scaly spots right hand) Pulmonary: Denies: Dyspnea, Cough Cardiovascular: Denies: Chest Pain Gastrointestinal: Denies: Abdominal Pain Musculoskeletal: Denies: Neck pain, Back pain Neurological: Reports: Weakness Psych: Reports: Mood Normal Physical Examination Vital Signs Wt 202 lbs T 95.8 P 52 RR 17 BP 119/69 O2 97% Pain 0 Fatigue 0 General Exam: Alert, Cooperative, No Acute Distress Eye Exam: PERRLA, EOMI ENT EXAM: Atraumatic Neck Exam: Supple; Negative: Lymphadenopathy Extremity Exam: Other (Nasal tip with normal appearing skin, no nodularity or scar. Right outer canthus eye lid with small AK. Right hand/wrist with 2 AK s/p cryo); Negative: Edema Neuro Exam: Normal Speech, Cranial Nerves 3-12 NL Psych Exam: Mental status NL Diagnostic and Laboratory Diagnostic Review Radiologic images, relevant labs and pathology reports were personally reviewed and discussed with Mr. Miramontes. Assessment and Plan Impression Assessment Mr. 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 He completed RT 60 Gy in 30 fractions to the lesion 11/16/20-12/28/20. His nasal lesion has resolved completely, good cosmetic outcome, normal appearing nasal skin, no late epistaxis or nasal complaints. He has some small AK, no apparent cancers at this point. Seeing Dr. Mcdaniel for skin check in July 2021, biannual skin exams with Dr. Mcdaniel should be sufficient for follow up. Therefore, follow up with me PRN from this point. Performance Status ECOG 2 Plan Follow up PRN Seeing Dr. Mcdaniel regularly Mr. Miramontes was encouraged to call with questions or concerns in the interim period. Billing Statement Total time of [21] minutes was spent preparing for the visit [1], obtaining HPI [6], examining the patient [3], reviewing diagnostic tests [0], discussing management options [5], coordinating care [0], and writing this note [6]. DELMY BARCENAS MD Jun 30, 2021 12:09
== END ==
LOC: M ONCR 11:11
PROVIDERS: ATTEND General Practice
DX: C44.311 Basal cell carcinoma of skin of nose (principal); G35 Multiple sclerosis; Z92.3 Personal history of irradiation; Z86.16 Personal history of COVID-19; Z88.0 Allergy status to penicillin; Z79.899 Other long term (current) drug therapy

== ENCOUNTER → 2021-09-27 | Outpatient (REF) | payer MEDICARE, MEDICAID ==
[2021-09-27 11:45] LABS: HEMATOCRIT 43.1 % (42.0-52.0); MEAN CORPUSCULAR HEMOGLOBIN 29.2 pg (27.0-33.0); MEAN CORPUSCULAR HGB CONC 32.5 g/dl (32.0-36.5); MEAN CORPUSCULAR VOLUME 89.8 fl (80.0-96.0); PLATELET COUNT, AUTOMATED 257 10^3/uL (150-450); WHITE BLOOD COUNT 6.6 10^3/uL (4.0-10.0)
[2021-09-27 12:14] LABS: BLOOD UREA NITROGEN 25 MG/DL (7-18); CALCIUM LEVEL 8.7 MG/DL (8.8-10.2); CARBON DIOXIDE LEVEL 31 MEQ/L (21-32); CHLORIDE LEVEL 105 MEQ/L (98-107); CREATININE FOR GFR 0.97 MG/DL (0.70-1.30); GLOMERULAR FILTRATION RATE > 60.0 (>42); GLUCOSE, FASTING 86 MG/DL (70-100); POTASSIUM SERUM 3.9 MEQ/L (3.5-5.1); SODIUM LEVEL 140 MEQ/L (136-145); THYROID STIMULATING HORMONE 0.144 uIU/ML (0.358-3.740)
== END ==
LOC: SKLAB5 08:24
PROVIDERS: ATTEND Internal Medicine
DX: E03.9 Hypothyroidism, unspecified (principal)

== ENCOUNTER → 2021-10-28 | Outpatient (REF) | payer MEDICARE, MEDICAID ==
[2021-10-28 16:42] LABS: ALBUMIN 3.6 GM/DL (3.2-5.2); ALT/SGPT 42 U/L (12-78); BILIRUBIN,TOTAL 0.4 MG/DL (0.2-1.0); BLOOD UREA NITROGEN 15 MG/DL (7-18); CARBON DIOXIDE LEVEL 30 MEQ/L (21-32); CHLORIDE LEVEL 106 MEQ/L (98-107); CREATININE FOR GFR 0.82 MG/DL (0.70-1.30); GLOMERULAR FILTRATION RATE > 60.0 (>42); GLUCOSE, FASTING 115 MG/DL (70-100); POTASSIUM SERUM 4.3 MEQ/L (3.5-5.1); SODIUM LEVEL 142 MEQ/L (136-145)
== END ==
LOC: SKLAB5 07:00
PROVIDERS: ATTEND Internal Medicine
DX: Z51.81 Encounter for therapeutic drug level monitoring (principal); G35 Multiple sclerosis

== ENCOUNTER → 2021-12-02 | Outpatient (REF) | payer MEDICARE, MEDICAID ==
[2021-12-02 13:52] LABS: HEMATOCRIT 45.7 % (42.0-52.0); MEAN CORPUSCULAR HEMOGLOBIN 29.2 pg (27.0-33.0); MEAN CORPUSCULAR HGB CONC 32.8 g/dl (32.0-36.5); MEAN CORPUSCULAR VOLUME 88.9 fl (80.0-96.0); PLATELET COUNT, AUTOMATED 268 10^3/uL (150-450); RED BLOOD COUNT 5.14 10^6/uL (4.30-6.10); WHITE BLOOD COUNT 7.8 10^3/uL (4.0-10.0)
== END ==
LOC: SKLAB5 12:22
PROVIDERS: ATTEND Internal Medicine
DX: G35 Multiple sclerosis (principal); G40.909 Epilepsy, unspecified, not intractable, without status epilepticus

== ENCOUNTER → 2022-01-04 | Outpatient (REF) | payer MEDICARE, MEDICAID ==
[2022-01-04 08:04] LABS: ALBUMIN 3.3 GM/DL (3.2-5.2); BILIRUBIN,DIRECT 0.1 MG/DL (0.0-0.2); BILIRUBIN,TOTAL 0.4 MG/DL (0.2-1.0); THYROID STIMULATING HORMONE 0.553 uIU/ML (0.358-3.740); TOTAL PROTEIN 5.8 GM/DL (6.4-8.2)
== END ==
LOC: SKLAB5 07:00
PROVIDERS: ATTEND Internal Medicine
DX: E03.9 Hypothyroidism, unspecified (principal)

== ENCOUNTER → 2022-02-01 | Outpatient (REF) | payer MEDICARE, MEDICAID ==
[2022-02-01 08:34] LABS: HEMATOCRIT 42.7 % (42.0-52.0); HEMOGLOBIN 14.1 g/dl (13.5-17.5); MEAN CORPUSCULAR HEMOGLOBIN 29.8 pg (27.0-33.0); MEAN CORPUSCULAR VOLUME 90.3 fl (80.0-96.0); PLATELET COUNT, AUTOMATED 225 10^3/uL (150-450); RED BLOOD COUNT 4.73 10^6/uL (4.30-6.10); WHITE BLOOD COUNT 6.4 10^3/uL (4.0-10.0)
== END ==
LOC: SKLAB5 07:00
PROVIDERS: ATTEND Internal Medicine
DX: G35 Multiple sclerosis (principal); G40.909 Epilepsy, unspecified, not intractable, without status epilepticus

== ENCOUNTER → 2022-03-01 | Outpatient (REF) | payer MEDICARE, MEDICAID ==
[2022-03-01 09:55] LABS: HEMATOCRIT 45.1 % (42.0-52.0); HEMOGLOBIN 14.3 g/dl (13.5-17.5); MEAN CORPUSCULAR HEMOGLOBIN 28.9 pg (27.0-33.0); MEAN CORPUSCULAR HGB CONC 31.7 g/dl (32.0-36.5); MEAN CORPUSCULAR VOLUME 91.1 fl (80.0-96.0); PLATELET COUNT, AUTOMATED 231 10^3/uL (150-450); RED BLOOD COUNT 4.95 10^6/uL (4.30-6.10); WHITE BLOOD COUNT 6.2 10^3/uL (4.0-10.0)
== END ==
LOC: SKLAB5 07:00
PROVIDERS: ATTEND Internal Medicine
DX: G35 Multiple sclerosis (principal); G40.909 Epilepsy, unspecified, not intractable, without status epilepticus

== ENCOUNTER → 2022-03-24 | Outpatient (REF) | payer MEDICARE, MEDICAID | LOC: SKLAB5 10:40 | PROVIDERS: ATTEND Internal Medicine | DX: G40.909 Epilepsy, unspecified, not intractable, without status epilepticus (principal) ==

== ENCOUNTER → 2022-03-25 | Outpatient (REF) | payer MEDICARE, MEDICAID ==
[2022-03-25 12:24] LABS: BASO % 0.3 % (0.0-1.0); EOS # 0.1 10^3/uL (0.0-0.5); EOS % 1.7 % (0.0-3.0); HEMATOCRIT 44.5 % (42.0-52.0); HEMOGLOBIN 14.4 g/dl (13.5-17.5); LYMPH # 1.9 10^3/uL (1.5-5.0); LYMPH % 30.5 % (24.0-44.0); MEAN CORPUSCULAR HEMOGLOBIN 29.7 pg (27.0-33.0); MEAN CORPUSCULAR HGB CONC 32.4 g/dl (32.0-36.5); MEAN CORPUSCULAR VOLUME 91.8 fl (80.0-96.0); MONO # 0.5 10^3/uL (0.0-0.8); MONO % 7.2 % (2.0-8.0); NEUTROPHILS # 3.8 10^3/uL (1.5-8.5); NEUTROPHILS % 59.5 % (36.0-66.0); PLATELET COUNT, AUTOMATED 239 10^3/uL (150-450); RED BLOOD COUNT 4.85 10^6/uL (4.30-6.10); WHITE BLOOD COUNT 6.4 10^3/uL (4.0-10.0)
[2022-03-25 13:06] LABS: ALBUMIN 3.7 GM/DL (3.2-5.2); ALT/SGPT 26 U/L (12-78); BILIRUBIN,TOTAL 0.5 MG/DL (0.2-1.0); BLOOD UREA NITROGEN 20 MG/DL (7-18); CALCIUM LEVEL 8.9 MG/DL (8.8-10.2); CARBON DIOXIDE LEVEL 30 MEQ/L (21-32); CHLORIDE LEVEL 104 MEQ/L (98-107); CREATININE FOR GFR 0.94 MG/DL (0.70-1.30); GLOMERULAR FILTRATION RATE > 60.0 (>42); GLUCOSE, FASTING 80 MG/DL (70-100); SODIUM LEVEL 139 MEQ/L (136-145); TOTAL PROTEIN 6.3 GM/DL (6.4-8.2)
[2022-03-31 06:16] LABS: VITAMIN B12 LEVEL 477 PG/ML (247-911)
[2022-03-31 15:08] LABS: FOLATE 11.9 ng/mL (>3.0); HEPATITIS B SURFACE ANTIBODY Non Reactive (.)
[2022-04-02 12:08] LABS: HERPES ZOSTER, VARICELLA IgG 505 index (Immune >165); JC VIRUS DNA PCR WHOLE BLOOD Negative (Negative); VITAMIN B1 LEVEL WHOLE BLOOD 166.3 nmol/L (66.5-200.0); VITAMIN B6,PYRIDOXAL PHOSPHATE 4.7 ug/L (3.4-65.2); VITAMIN E(ALPHA TOCOPHEROL) 14.2 mg/L (9.0-29.0); VITAMIN E(GAMMA TOCOPHEROL) 0.6 mg/L (0.5-4.9)
== END ==
LOC: SKLAB5 07:00
PROVIDERS: ATTEND Nurse Practitioner Adult Health
DX: G62.9 Polyneuropathy, unspecified (principal); Z79.899 Other long term (current) drug therapy

== ENCOUNTER → 2022-04-01 | Outpatient (CLI) | payer MEDICARE, MEDICAID | LOC: M SFHCDERM 11:20 | PROVIDERS: ATTEND Nurse Practitioner Family | DX: C44.619 Basal cell carcinoma of skin of left upper limb, including shoulder (principal) ==

== ENCOUNTER → 2022-04-05 | Outpatient (REF) | payer MEDICARE, MEDICAID ==
[2022-04-05 12:19] LABS: ALBUMIN 3.6 GM/DL (3.2-5.2); BILIRUBIN,DIRECT 0.2 MG/DL (0.0-0.2); BILIRUBIN,TOTAL 0.5 MG/DL (0.2-1.0); THYROID STIMULATING HORMONE 1.67 uIU/ML (0.358-3.740); TOTAL PROTEIN 6.1 GM/DL (6.4-8.2)
== END ==
LOC: SKLAB5 11:44
PROVIDERS: ATTEND Internal Medicine
DX: E05.90 Thyrotoxicosis, unspecified without thyrotoxic crisis or storm (principal); Z79.899 Other long term (current) drug therapy

== ENCOUNTER → 2022-05-03 | Outpatient (REF) | payer MEDICARE, MEDICAID ==
[2022-05-03 09:42] LABS: ALBUMIN 3.8 GM/DL (3.2-5.2); ALT/SGPT 23 U/L (12-78); BILIRUBIN,TOTAL 0.5 MG/DL (0.2-1.0); BLOOD UREA NITROGEN 14 MG/DL (7-18); CALCIUM LEVEL 8.8 MG/DL (8.8-10.2); CARBON DIOXIDE LEVEL 28 MEQ/L (21-32); CHLORIDE LEVEL 105 MEQ/L (98-107); CREATININE FOR GFR 1.05 MG/DL (0.70-1.30); GLOMERULAR FILTRATION RATE > 60.0 (>42); GLUCOSE, FASTING 93 MG/DL (70-100); POTASSIUM SERUM 3.9 MEQ/L (3.5-5.1); SODIUM LEVEL 141 MEQ/L (136-145); TOTAL PROTEIN 6.3 GM/DL (6.4-8.2)
== END ==
LOC: SKLAB5 09:22
PROVIDERS: ATTEND Internal Medicine
DX: G35 Multiple sclerosis (principal); Z79.899 Other long term (current) drug therapy

== ENCOUNTER → 2022-05-12 | Outpatient (REF) | payer MEDICARE, MEDICAID ==
[~2022-05-12] MED LIST changes: +DEPA250T32 PO
[2022-05-12 12:21] LABS: HEMATOCRIT 42.5 % (42.0-52.0); HEMOGLOBIN 13.8 g/dl (13.5-17.5); MEAN CORPUSCULAR HEMOGLOBIN 30.1 pg (27.0-33.0); MEAN CORPUSCULAR HGB CONC 32.5 g/dl (32.0-36.5); MEAN CORPUSCULAR VOLUME 92.6 fl (80.0-96.0); PLATELET COUNT, AUTOMATED 223 10^3/uL (150-450); RED BLOOD COUNT 4.59 10^6/uL (4.30-6.10); WHITE BLOOD COUNT 6.9 10^3/uL (4.0-10.0)
[2022-05-12 12:51] LABS: ALBUMIN 3.6 GM/DL (3.2-5.2); ALT/SGPT 25 U/L (12-78); BILIRUBIN,TOTAL 0.8 MG/DL (0.2-1.0); BLOOD UREA NITROGEN 20 MG/DL (7-18); CALCIUM LEVEL 8.7 MG/DL (8.8-10.2); CARBON DIOXIDE LEVEL 29 MEQ/L (21-32); CHLORIDE LEVEL 106 MEQ/L (98-107); CREATININE FOR GFR 0.98 MG/DL (0.70-1.30); GLOMERULAR FILTRATION RATE > 60.0 (>42); GLUCOSE, FASTING 93 MG/DL (70-100); POTASSIUM SERUM 4.3 MEQ/L (3.5-5.1); SODIUM LEVEL 141 MEQ/L (136-145)
[2022-05-12 19:35] LABS: APPEARANCE, URINE MANUAL CLEAR (CLEAR); COLOR, URINE MANUAL YELLOW (YELLOW); GLUCOSE, URINE (UA) MANUAL NEGATIVE (NEGATIVE); KETONE, URINE MANUAL 1+ mg/dL (NEGATIVE); PROTEIN, URINE MANUAL TRACE mg/dL (NEGATIVE); SPECIFIC GRAVITY,URINE MANUAL 1.025 (1.002-1.035); UROBILINOGEN, URINE MANUAL NORMAL (NORMAL)
[2022-05-12 19:36] LABS: BILIRUBIN, URINE MANUAL 1+ (NEGATIVE); BLOOD URINE MANUAL NEGATIVE (NEGATIVE); LEUKOCYTE ESTERASE, URINE MAN NEGATIVE (NEGATIVE); NITRITE, URINE MANUAL NEGATIVE (NEGATIVE)
[2022-05-12 20:02] LABS: SQUAMOUS EPITHELIAL CELL URINE SMALL AMOUNT /hpf (SMALL AMT)
[2022-05-12 20:03] LABS: BACTERIA, URINE NONE SEEN; HYALINE CAST, URINE NONE SEEN /lpf (0-1); MUCUS, URINE LARGE AMOUNT (NEGATIVE)
== END ==
LOC: SKLAB5 11:00
PROVIDERS: ATTEND Nurse Practitioner Adult Health
DX: R41.82 Altered mental status, unspecified (principal); R53.83 Other fatigue

== ENCOUNTER → 2022-05-13 | Outpatient (REF) | payer MEDICARE, MEDICAID | LOC: SKLAB5 10:06 | PROVIDERS: ATTEND Nurse Practitioner Adult Health | DX: R53.83 Other fatigue (principal); Z53.8 Procedure and treatment not carried out for other reasons ==

== ENCOUNTER 2022-05-14 12:06 | Emergency (ER) | payer MEDICARE, MEDICAID ==
[~2022-05-14] VITALS: Ht 157.5 cm; Wt 83.2 kg
[~2022-05-14 12:06] MED LIST changes: -DEPA250T32 PO
[2022-05-14 13:23] LABS: BASO % 0.3 % (0.0-1.0); EOS # 0.2 10^3/uL (0.0-0.5); EOS % 3.2 % (0.0-3.0); HEMATOCRIT 41.5 % (42.0-52.0); HEMOGLOBIN 13.5 g/dl (13.5-17.5); LYMPH # 1.8 10^3/uL (1.5-5.0); LYMPH % 29.1 % (24.0-44.0); MEAN CORPUSCULAR HEMOGLOBIN 30.2 pg (27.0-33.0); MEAN CORPUSCULAR HGB CONC 32.5 g/dl (32.0-36.5); MEAN CORPUSCULAR VOLUME 92.8 fl (80.0-96.0); MONO # 0.5 10^3/uL (0.0-0.8); MONO % 8.1 % (2.0-8.0); NEUTROPHILS # 3.7 10^3/uL (1.5-8.5); NEUTROPHILS % 58.7 % (36.0-66.0); PLATELET COUNT, AUTOMATED 204 10^3/uL (150-450); RED BLOOD COUNT 4.47 10^6/uL (4.30-6.10); WHITE BLOOD COUNT 6.3 10^3/uL (4.0-10.0)
[2022-05-14 13:52] LABS: CK-MB VALUE MASS 4.4 NG/ML (<3.6); MB/CK RELATIVE INDEX 2.77 (< OR =4)
[2022-05-14 13:58] LABS: ALBUMIN 3.3 GM/DL (3.2-5.2); ALT/SGPT 26 U/L (12-78); BILIRUBIN,DIRECT 0.2 MG/DL (0.0-0.2); BILIRUBIN,TOTAL 0.4 MG/DL (0.2-1.0); BLOOD UREA NITROGEN 16 MG/DL (7-18); CALCIUM LEVEL 8.6 MG/DL (8.8-10.2); CARBON DIOXIDE LEVEL 31 MEQ/L (21-32); CHLORIDE LEVEL 105 MEQ/L (98-107); FREE T4 1.69 NG/DL (0.76-1.46); GLOMERULAR FILTRATION RATE > 60.0 (>42); GLUCOSE, FASTING 99 MG/DL (70-100); POTASSIUM SERUM 3.9 MEQ/L (3.5-5.1); SODIUM LEVEL 139 MEQ/L (136-145); THYROID STIMULATING HORMONE 0.565 uIU/ML (0.358-3.740); VALPROIC ACID (DEPAKOTE) 91.4 UG/ML (50.0-100.0)
[2022-05-14 14:00] LABS: RSV AMPLIFICATION NEGATIVE (NEGATIVE)
[2022-05-14] MEDS ORDERED: DEPA250T32 PO (14:24)
[2022-05-14 14:41] VITALS: BP 133/69
== END 2022-05-14 14:52 | disposition home or self-care (01) ==
LOC: M ED 12:06 → EDBD 12:06 → M ED 14:52
DX: S09.90XA Unspecified injury of head, initial encounter (principal); W05.0XXA Fall from non-moving wheelchair, initial encounter; Y92.121 Bathroom in nursing home as the place of occurrence of the external cause; G35 Multiple sclerosis; R53.83 Other fatigue; R00.1 Bradycardia, unspecified; R56.9 Unspecified convulsions; E03.9 Hypothyroidism, unspecified; N40.0 Benign prostatic hyperplasia without lower urinary tract symptoms; M54.50 Low back pain, unspecified; Z88.0 Allergy status to penicillin; Z79.899 Other long term (current) drug therapy; Z79.890 Hormone replacement therapy

== ENCOUNTER → 2022-05-16 | Outpatient (REF) | payer MEDICARE, MEDICAID ==
[~2022-05-16] MED LIST changes: +DEPA250T32 PO
[2022-05-16 13:31] LABS: TOTAL 25(OH) VITAMIN D 65.2 NG/ML (30.0-100.0)
== END ==
LOC: SKLAB5 11:47
PROVIDERS: ATTEND Nurse Practitioner Adult Health
DX: R53.83 Other fatigue (principal); Z79.899 Other long term (current) drug therapy

== ENCOUNTER → 2022-06-03 | Outpatient (REF) | payer MEDICARE, MEDICAID ==
[2022-06-03 07:59] LABS: HEMATOCRIT 40.9 % (42.0-52.0); HEMOGLOBIN 13.1 g/dl (13.5-17.5); MEAN CORPUSCULAR HEMOGLOBIN 30.2 pg (27.0-33.0); MEAN CORPUSCULAR VOLUME 94.2 fl (80.0-96.0); PLATELET COUNT, AUTOMATED 212 10^3/uL (150-450); RED BLOOD COUNT 4.34 10^6/uL (4.30-6.10); WHITE BLOOD COUNT 6.4 10^3/uL (4.0-10.0)
== END ==
LOC: SKLAB5 11:31
PROVIDERS: ATTEND Nurse Practitioner Adult Health
DX: G35 Multiple sclerosis (principal); G40.909 Epilepsy, unspecified, not intractable, without status epilepticus

== ENCOUNTER → 2022-06-21 | Outpatient (REF) | payer MEDICARE, MEDICAID | LOC: SKLAB5 22:27 | PROVIDERS: ATTEND Internal Medicine | DX: G40.909 Epilepsy, unspecified, not intractable, without status epilepticus (principal) ==

== ENCOUNTER → 2022-06-22 | Outpatient (REF) | payer MEDICARE, MEDICAID ==
[2022-06-22 13:53] LABS: HEMATOCRIT 41.6 % (42.0-52.0); HEMOGLOBIN 13.4 g/dl (13.5-17.5); MEAN CORPUSCULAR HEMOGLOBIN 30.1 pg (27.0-33.0); MEAN CORPUSCULAR HGB CONC 32.2 g/dl (32.0-36.5); MEAN CORPUSCULAR VOLUME 93.5 fl (80.0-96.0); PLATELET COUNT, AUTOMATED 221 10^3/uL (150-450); RED BLOOD COUNT 4.45 10^6/uL (4.30-6.10); WHITE BLOOD COUNT 6.1 10^3/uL (4.0-10.0)
[2022-06-22 14:18] LABS: BLOOD UREA NITROGEN 13 MG/DL (9-23); CALCIUM LEVEL 8.6 MG/DL (8.3-10.6); CARBON DIOXIDE LEVEL 30 MMOL/L (20-31); CHLORIDE LEVEL 104 MMOL/L (98-107); CREATININE FOR GFR 1.05 MG/DL (0.70-1.30); GLOMERULAR FILTRATION RATE > 60.0 (>42); GLUCOSE, FASTING 107 MG/DL (74-106); POTASSIUM SERUM 4.1 MMOL/L (3.5-5.1); SODIUM LEVEL 139 MMOL/L (136-145)
[2022-06-22 14:20] LABS: VITAMIN B12 LEVEL 514 PG/ML (211-911)
[2022-06-22 16:14] LABS: APPEARANCE, URINE MANUAL CLEAR (CLEAR); BILIRUBIN, URINE MANUAL NEGATIVE (NEGATIVE); BLOOD URINE MANUAL NEGATIVE (NEGATIVE); COLOR, URINE MANUAL LT YELLOW (YELLOW); GLUCOSE, URINE (UA) MANUAL NEGATIVE (NEGATIVE); KETONE, URINE MANUAL NEGATIVE (NEGATIVE); LEUKOCYTE ESTERASE, URINE MAN NEGATIVE (NEGATIVE); NITRITE, URINE MANUAL NEGATIVE (NEGATIVE); PROTEIN, URINE MANUAL NEGATIVE (NEGATIVE); UROBILINOGEN, URINE MANUAL NORMAL (NORMAL)
== END ==
LOC: SKLAB5 15:53
PROVIDERS: ATTEND Nurse Practitioner Adult Health
DX: R41.82 Altered mental status, unspecified (principal); G35 Multiple sclerosis; R53.83 Other fatigue

== ENCOUNTER → 2022-06-22 | Outpatient (REF) | payer MEDICARE, MEDICAID | LOC: SKLAB5 12:47 | PROVIDERS: ATTEND Physician Assistant | DX: R41.82 Altered mental status, unspecified (principal); G35 Multiple sclerosis; R53.83 Other fatigue ==

== ENCOUNTER → 2022-07-05 | Outpatient (REF) | payer MEDICARE, MEDICAID ==
[2022-07-01 08:23] LABS: ALBUMIN 3.3 G/DL (3.2-5.2); BILIRUBIN,DIRECT 0.2 MG/DL (<0.4); BILIRUBIN,TOTAL 0.5 MG/DL (0.3-1.2); TOTAL PROTEIN 5.6 G/DL (5.7-8.2)
[2022-07-01 08:25] LABS: THYROID STIMULATING HORMONE 1.055 uIU/ML (0.55-4.78)
== END ==
LOC: SKLAB5 10:55
PROVIDERS: ATTEND Nurse Practitioner Adult Health
DX: E03.9 Hypothyroidism, unspecified (principal); Z79.899 Other long term (current) drug therapy

== ENCOUNTER → 2022-07-26 | Outpatient (CLI) | payer MEDICARE ==
[~2022-07-26] MED LIST changes: +PROHANCE 279.3MG/ML 15ML VIAL As Ordered ONE; +PROHANCE 279.3MG/ML 5ML VIAL As Ordered ONE
== END ==
LOC: M RAD 10:17
PROVIDERS: ATTEND Psychiatry & Neurology Neurology
DX: G40.89 Other seizures (principal); I63.81 Other cerebral infarction due to occlusion or stenosis of small artery; I67.82 Cerebral ischemia; G31.9 Degenerative disease of nervous system, unspecified; J34.9 Unspecified disorder of nose and nasal sinuses; H61.92 Disorder of left external ear, unspecified
CPT/HCPCS: 70553; A9576

== ENCOUNTER → 2022-07-26 | Outpatient (CLI) | payer MEDICARE ==
[~2022-07-26] MED LIST changes: -PROHANCE 279.3MG/ML 15ML VIAL As Ordered ONE; -PROHANCE 279.3MG/ML 5ML VIAL As Ordered ONE
== END ==
LOC: M LAB 10:23
PROVIDERS: ATTEND Internal Medicine
DX: R56.9 Unspecified convulsions (principal)

== ENCOUNTER → 2022-09-02 | Outpatient (REF) | payer MEDICARE, MEDICAID ==
[2022-09-02 08:30] LABS: HEMATOCRIT 41.6 % (42.0-52.0); HEMOGLOBIN 13.4 g/dl (13.5-17.5); MEAN CORPUSCULAR HEMOGLOBIN 30.3 pg (27.0-33.0); MEAN CORPUSCULAR HGB CONC 32.2 g/dl (32.0-36.5); MEAN CORPUSCULAR VOLUME 94.1 fl (80.0-96.0); PLATELET COUNT, AUTOMATED 215 10^3/uL (150-450); RED BLOOD COUNT 4.42 10^6/uL (4.30-6.10); WHITE BLOOD COUNT 6.3 10^3/uL (4.0-10.0)
== END ==
LOC: SKLAB5 13:56
PROVIDERS: ATTEND Nurse Practitioner Adult Health
DX: G35 Multiple sclerosis (principal); R56.9 Unspecified convulsions

== ENCOUNTER → 2022-09-30 | Outpatient (REF) | payer MEDICARE, MEDICAID ==
[2022-09-30 09:11] LABS: ALBUMIN 3.6 G/DL (3.2-5.2); BILIRUBIN,DIRECT 0.2 MG/DL (<0.4); BILIRUBIN,TOTAL 0.5 MG/DL (0.3-1.2); TOTAL PROTEIN 5.5 G/DL (5.7-8.2)
== END ==
LOC: SKLAB5 09:33
PROVIDERS: ATTEND Nurse Practitioner Adult Health
DX: Z79.899 Other long term (current) drug therapy (principal)

== ENCOUNTER → 2022-10-21 | Outpatient (REF) | payer MEDICARE, MEDICAID | LOC: SKLAB5 12:39 | PROVIDERS: ATTEND Nurse Practitioner Adult Health | DX: M43.07 Spondylolysis, lumbosacral region (principal); M25.551 Pain in right hip ==

== ENCOUNTER → 2022-11-04 | Outpatient (REF) | payer MEDICARE, MEDICAID ==
[2022-11-04 10:00] LABS: ALBUMIN 4.1 G/DL (3.2-5.2); ALKALINE PHOSPHATASE 146 U/L (46-116); ALT/SGPT 15 U/L (7.0-40); AST/SGOT 17 U/L (<34); BILIRUBIN,TOTAL 0.5 MG/DL (0.3-1.2); BLOOD UREA NITROGEN 20 MG/DL (9-23); CALCIUM LEVEL 8.6 MG/DL (8.3-10.6); CARBON DIOXIDE LEVEL 29 MMOL/L (20-31); CHLORIDE LEVEL 105 MMOL/L (98-107); CREATININE FOR GFR 0.92 MG/DL (0.70-1.30); GLOMERULAR FILTRATION RATE > 60.0 (>42); GLUCOSE, FASTING 85 MG/DL (74-106); POTASSIUM SERUM 4.4 MMOL/L (3.5-5.1); SODIUM LEVEL 141 MMOL/L (136-145); TOTAL PROTEIN 5.7 G/DL (5.7-8.2)
== END ==
LOC: SKLAB5 09:20
PROVIDERS: ATTEND Nurse Practitioner Adult Health
DX: Z79.899 Other long term (current) drug therapy (principal); G40.909 Epilepsy, unspecified, not intractable, without status epilepticus

== ENCOUNTER → 2022-12-02 | Outpatient (REF) | payer MEDICARE, MEDICAID ==
[2022-12-02 10:35] LABS: HEMATOCRIT 41.3 % (42.0-52.0); HEMOGLOBIN 13.4 g/dl (13.5-17.5); MEAN CORPUSCULAR HEMOGLOBIN 30.8 pg (27.0-33.0); MEAN CORPUSCULAR HGB CONC 32.4 g/dl (32.0-36.5); MEAN CORPUSCULAR VOLUME 94.9 fl (80.0-96.0); PLATELET COUNT, AUTOMATED 199 10^3/uL (150-450); RED BLOOD COUNT 4.35 10^6/uL (4.30-6.10); WHITE BLOOD COUNT 6.2 10^3/uL (4.0-10.0)
== END ==
LOC: SKLAB5 11:08
PROVIDERS: ATTEND Nurse Practitioner Adult Health
DX: G35 Multiple sclerosis (principal); G40.909 Epilepsy, unspecified, not intractable, without status epilepticus

== ENCOUNTER → 2022-12-30 | Outpatient (REF) | payer MEDICARE, MEDICAID ==
[2022-12-30 08:57] LABS: ALBUMIN 3.9 G/DL (3.2-5.2); BILIRUBIN,DIRECT 0.2 MG/DL (<0.4); BILIRUBIN,TOTAL 0.7 MG/DL (0.3-1.2); THYROID STIMULATING HORMONE 2.251 uIU/ML (0.55-4.78); TOTAL PROTEIN 5.8 G/DL (5.7-8.2)
== END ==
LOC: SKLAB5 09:40
PROVIDERS: ATTEND Nurse Practitioner Adult Health
DX: E03.9 Hypothyroidism, unspecified (principal)

== ENCOUNTER → 2023-01-24 | Outpatient (REF) | payer MEDICARE, MEDICAID ==
[2023-01-24 13:52] LABS: HEMATOCRIT 42.4 % (42.0-52.0); HEMOGLOBIN 14.1 g/dl (13.5-17.5); MEAN CORPUSCULAR HEMOGLOBIN 30.3 pg (27.0-33.0); MEAN CORPUSCULAR HGB CONC 33.3 g/dl (32.0-36.5); MEAN CORPUSCULAR VOLUME 91.2 fl (80.0-96.0); PLATELET COUNT, AUTOMATED 236 10^3/uL (150-450); RED BLOOD COUNT 4.65 10^6/uL (4.30-6.10)
== END ==
LOC: SKLAB5 13:12
PROVIDERS: ATTEND Nurse Practitioner
DX: K62.5 Hemorrhage of anus and rectum (principal)

== ENCOUNTER → 2023-01-25 | Outpatient (CLI) | payer MEDICARE, MEDICAID ==
[~2023-01-25] MED LIST changes: +GASTROGRAFIN SOLUTION 30ML As Ordered ONE; +ISOVUE-370 76% 100ML VIAL As Ordered ONE
[2023-01-25 10:10] LABS: BLOOD UREA NITROGEN 13 MG/DL (9-23); CALCIUM LEVEL 9.1 MG/DL (8.3-10.6); CARBON DIOXIDE LEVEL 29 MMOL/L (20-31); CHLORIDE LEVEL 103 MMOL/L (98-107); CREATININE FOR GFR 0.83 MG/DL (0.70-1.30); GLOMERULAR FILTRATION RATE > 60.0 (>42); GLUCOSE, FASTING 86 MG/DL (74-106); POTASSIUM SERUM 4.1 MMOL/L (3.5-5.1); SODIUM LEVEL 140 MMOL/L (136-145)
== END ==
LOC: M RAD 09:06
PROVIDERS: ATTEND Nurse Practitioner Adult Health
DX: N28.1 Cyst of kidney, acquired (principal); D18.09 Hemangioma of other sites; R10.32 Left lower quadrant pain
CPT/HCPCS: 36415; 74177; 80048; G0103; Q9963; Q9967

== ENCOUNTER → 2023-01-30 | Outpatient (REF) | payer MEDICARE, MEDICAID ==
[2023-01-23 18:02] LABS: BLOOD UREA NITROGEN 15 MG/DL (9-23); CALCIUM LEVEL 9.3 MG/DL (8.3-10.6); CARBON DIOXIDE LEVEL 29 MMOL/L (20-31); CHLORIDE LEVEL 101 MMOL/L (98-107); GLOMERULAR FILTRATION RATE > 60.0 (>42); GLUCOSE, FASTING 87 MG/DL (74-106); POTASSIUM SERUM 4.4 MMOL/L (3.5-5.1); SODIUM LEVEL 135 MMOL/L (136-145)
[~2023-01-30] MED LIST changes: -GASTROGRAFIN SOLUTION 30ML As Ordered ONE; -ISOVUE-370 76% 100ML VIAL As Ordered ONE
== END ==
LOC: SKLAB5 15:30
PROVIDERS: ATTEND Nurse Practitioner Adult Health
DX: Z01.812 Encounter for preprocedural laboratory examination (principal)

== ENCOUNTER → 2023-01-30 | Outpatient (REF) | payer MEDICARE, MEDICAID | LOC: SKLAB5 15:31 | PROVIDERS: ATTEND Nurse Practitioner Adult Health | DX: Z12.5 Encounter for screening for malignant neoplasm of prostate (principal); K62.5 Hemorrhage of anus and rectum; Z53.8 Procedure and treatment not carried out for other reasons ==

== ENCOUNTER → 2023-03-03 | Outpatient (REF) | payer MEDICARE, MEDICAID ==
[~2023-03-03] MED LIST changes: -GABA-283 PO; +GABA-284 PO
[2023-03-03 06:52] LABS: HEMATOCRIT 40.4 % (42.0-52.0); HEMOGLOBIN 13.2 g/dl (13.5-17.5); MEAN CORPUSCULAR HEMOGLOBIN 30.3 pg (27.0-33.0); MEAN CORPUSCULAR HGB CONC 32.7 g/dl (32.0-36.5); MEAN CORPUSCULAR VOLUME 92.9 fl (80.0-96.0); PLATELET COUNT, AUTOMATED 215 10^3/uL (150-450); RED BLOOD COUNT 4.35 10^6/uL (4.30-6.10); WHITE BLOOD COUNT 6.5 10^3/uL (4.0-10.0)
== END ==
LOC: SKLAB5 07:00
PROVIDERS: ATTEND Nurse Practitioner Adult Health
DX: G35 Multiple sclerosis (principal); G40.909 Epilepsy, unspecified, not intractable, without status epilepticus

== ENCOUNTER → 2023-03-17 | Outpatient (REF) | payer MEDICARE | LOC: M SFHCDERM 17:36 | PROVIDERS: ATTEND Nurse Practitioner Family | DX: C44.212 Basal cell carcinoma of skin of right ear and external auricular canal (principal) ==

== ENCOUNTER → 2023-03-31 | Outpatient (REF) | payer MEDICARE ==
[2023-03-31 09:26] LABS: ALBUMIN 3.7 G/DL (3.2-5.2); BILIRUBIN,DIRECT 0.2 MG/DL (<0.4); BILIRUBIN,TOTAL 0.5 MG/DL (0.3-1.2); TOTAL PROTEIN 5.9 G/DL (5.7-8.2)
[2023-03-31 09:27] LABS: THYROID STIMULATING HORMONE 1.479 uIU/ML (0.55-4.78)
== END ==
LOC: SKLAB5 08:44
PROVIDERS: ATTEND Nurse Practitioner Adult Health
DX: E03.9 Hypothyroidism, unspecified (principal)

== ENCOUNTER → 2023-04-21 | Outpatient (CLI) | payer MEDICARE | LOC: M ONCR 10:43 | PROVIDERS: ATTEND General Practice | DX: C44.311 Basal cell carcinoma of skin of nose (principal); C44.219 Basal cell carcinoma of skin of left ear and external auricular canal; Z92.3 Personal history of irradiation; G35 Multiple sclerosis; Z88.0 Allergy status to penicillin; Z79.899 Other long term (current) drug therapy; Z80.0 Family history of malignant neoplasm of digestive organs; Z80.1 Family history of malignant neoplasm of trachea, bronchus and lung ==

== ENCOUNTER → 2023-05-05 | Outpatient (REF) | payer MEDICARE, MEDICAID ==
[2023-05-06 12:24] LABS: BLOOD UREA NITROGEN 16 MG/DL (7-21); CALCIUM LEVEL 8.9 MG/DL (8.8-10.2); CARBON DIOXIDE LEVEL 27 MEQ/L (22-30); CHLORIDE LEVEL 103 MEQ/L (98-107); CREATININE FOR GFR 0.9 MG/DL (0.7-1.5); GLOMERULAR FILTRATION RATE > 60.0 (>42); GLUCOSE, FASTING 86 MG/DL; POTASSIUM SERUM 4.2 MEQ/L (3.6-5.0); SODIUM LEVEL 144 MEQ/L (134-153)
[2023-05-06 12:25] LABS: ALBUMIN 4.2 G/DL (3.9-5.0); ALKALINE PHOSPHATASE 208 U/L (40-129); ALT/SGPT 17 U/L (1-41); AST/SGOT 24 U/L (5-40); BILIRUBIN,TOTAL < 0.7 MG/DL (0.2-1.3); TOTAL PROTEIN 5.9 G/DL (6.3-8.2)
== END ==
LOC: SKLAB5 07:00
PROVIDERS: ATTEND Nurse Practitioner Adult Health
DX: Z51.81 Encounter for therapeutic drug level monitoring (principal); G35 Multiple sclerosis

== ENCOUNTER 2023-05-12 10:27 | Outpatient (RCR) | payer MEDICARE | END 2023-05-16 | LOC: M ONCR 10:27 | PROVIDERS: ATTEND General Practice | DX: Z51.0 Encounter for antineoplastic radiation therapy (principal); C44.219 Basal cell carcinoma of skin of left ear and external auricular canal ==

== ENCOUNTER 2023-05-26 08:06 | Day surgery (SDC) | payer MEDICARE, MEDICAID ==
[~2023-05-26] VITALS: Ht 180.3 cm; Wt 82.1 kg
[~2023-05-26 08:06] MED LIST changes: +ACET650T15 PO; +ARTIDRO4 OU; +CENTCHW4 PO; +DIVA250T67 PO; +DULC10SU2 PR; +FURO40TA2 PO; +GABA-1171 PO; +HYDR26CR RC; +LAMO100T3 PO; +LEVO112T2 PO; +LIDO1ADH20 TP; +MAPA500C PO; +MOM30SS PO; +NS 1,000 ML IV ONE; +OXYB-54 PO; +POTA10CA60 PO; +SENO8.6T10 PO; +TAMS1CAP17 PO; +VITA1CAP25 PO
[2023-05-26] MEDS ORDERED: propofoL 200 MG/20 ML VIAL As Ordered ONE ×2 (09:30→09:40)
[2023-05-26 10:00] VITALS: TEMP 96.2
[2023-05-26] MEDS ORDERED: ePHEDrine SULFATE 25 MG/5 ML(5MG/ML) SYRINGE As Ordered ONE (10:10)
[2023-05-26 10:26] VITALS: BP 115/63; O2SAT 94
== END 2023-05-26 10:35 | disposition home or self-care (01) ==
LOC: M OPP 08:06
PROVIDERS: ATTEND Internal Medicine Gastroenterology
DX: D12.6 Benign neoplasm of colon, unspecified (principal); K57.30 Diverticulosis of large intestine without perforation or abscess without bleeding; K64.8 Other hemorrhoids; K63.89 Other specified diseases of intestine; R60.0 Localized edema; E03.9 Hypothyroidism, unspecified; F32.A Depression, unspecified; G35 Multiple sclerosis; G47.30 Sleep apnea, unspecified; N40.0 Benign prostatic hyperplasia without lower urinary tract symptoms; G40.909 Epilepsy, unspecified, not intractable, without status epilepticus; E55.9 Vitamin D deficiency, unspecified; Z92.3 Personal history of irradiation; Z88.0 Allergy status to penicillin; Z79.890 Hormone replacement therapy; Z79.899 Other long term (current) drug therapy; Z80.1 Family history of malignant neoplasm of trachea, bronchus and lung; Z80.0 Family history of malignant neoplasm of digestive organs; Z82.69 Family history of other diseases of the musculoskeletal system and connective tissue

== ENCOUNTER → 2023-06-15 | Outpatient (RCR) | payer MEDICARE ==
[~2023-06-15] MED LIST changes: -NS 1,000 ML IV ONE
== END ==
LOC: M ONCR 05-17 10:40
PROVIDERS: ATTEND General Practice
DX: Z51.0 Encounter for antineoplastic radiation therapy (principal); C44.219 Basal cell carcinoma of skin of left ear and external auricular canal

== ENCOUNTER → 2023-06-30 | Outpatient (REF) | payer MEDICARE ==
[2023-06-30 08:10] LABS: ALBUMIN 3.5 G/DL (3.2-5.2); BILIRUBIN,DIRECT 0.2 MG/DL (<0.4); BILIRUBIN,TOTAL 0.4 MG/DL (0.3-1.2); TOTAL PROTEIN 5.6 G/DL (5.7-8.2)
[2023-06-30 08:12] LABS: THYROID STIMULATING HORMONE 0.92 uIU/ML (0.55-4.78)
== END ==
LOC: SKLAB5 10:38
PROVIDERS: ATTEND Nurse Practitioner Adult Health
DX: G35 Multiple sclerosis (principal); E03.9 Hypothyroidism, unspecified

== ENCOUNTER → 2023-07-20 | Outpatient (CLI) | payer MEDICARE | LOC: M ONCR 10:02 | PROVIDERS: ATTEND General Practice | DX: C44.219 Basal cell carcinoma of skin of left ear and external auricular canal (principal); G35 Multiple sclerosis; Z79.899 Other long term (current) drug therapy; Z85.828 Personal history of other malignant neoplasm of skin; Z88.0 Allergy status to penicillin; Z92.3 Personal history of irradiation ==

== ENCOUNTER → 2023-08-18 | Outpatient (REF) | payer MEDICARE, MEDICAID | LOC: M SFHCDERM 17:47 | PROVIDERS: ATTEND Nurse Practitioner Family | DX: C44.319 Basal cell carcinoma of skin of other parts of face (principal); C44.219 Basal cell carcinoma of skin of left ear and external auricular canal ==

== ENCOUNTER → 2023-09-01 | Outpatient (REF) | payer MEDICARE, MEDICAID ==
[~2023-09-01] MED LIST changes: -BISA10SU20 PR; +BISA10SU59 PR
== END ==
LOC: SKLAB5 10:46
PROVIDERS: ATTEND Nurse Practitioner Adult Health
DX: R56.9 Unspecified convulsions (principal)

== ENCOUNTER → 2023-09-29 | Outpatient (CLI) | payer MEDICARE | LOC: M ONCR 08:25 | PROVIDERS: ATTEND General Practice | DX: C44.319 Basal cell carcinoma of skin of other parts of face (principal); G35 Multiple sclerosis; Z71.2 Person consulting for explanation of examination or test findings; Z79.890 Hormone replacement therapy; Z79.899 Other long term (current) drug therapy; Z88.0 Allergy status to penicillin; Z88.1 Allergy status to other antibiotic agents; Z92.3 Personal history of irradiation ==

== ENCOUNTER → 2023-10-03 | Outpatient (REF) | payer MEDICARE, MEDICAID | LOC: SKLAB5 11:02 | PROVIDERS: ATTEND Nurse Practitioner Adult Health | DX: E03.9 Hypothyroidism, unspecified (principal); G35 Multiple sclerosis; Z79.899 Other long term (current) drug therapy; Z53.8 Procedure and treatment not carried out for other reasons ==

== ENCOUNTER 2023-10-11 10:28 | Outpatient (RCR) | payer MEDICARE | END 2023-10-15 | LOC: M ONCR 10:28 | PROVIDERS: ATTEND General Practice | DX: Z51.0 Encounter for antineoplastic radiation therapy (principal); C44.311 Basal cell carcinoma of skin of nose ==

== ENCOUNTER → 2023-10-11 | Outpatient (REF) | payer MEDICARE ==
[2023-10-11 10:05] LABS: ALBUMIN 3.7 G/DL (3.2-5.2); ALKALINE PHOSPHATASE 184 U/L (46-116); ALT/SGPT 17 U/L (7.0-40); AST/SGOT 9 U/L (<34); BILIRUBIN,DIRECT 0.2 MG/DL (<0.4); BILIRUBIN,TOTAL 0.6 MG/DL (0.3-1.2); BLOOD UREA NITROGEN 17 MG/DL (9-23); CALCIUM LEVEL 8.7 MG/DL (8.3-10.6); CARBON DIOXIDE LEVEL 31 MMOL/L (20-31); CHLORIDE LEVEL 104 MMOL/L (98-107); CREATININE FOR GFR 0.96 MG/DL (0.70-1.30); GLOMERULAR FILTRATION RATE > 60.0 (>42); GLUCOSE, FASTING 81 MG/DL (74-106); POTASSIUM SERUM 4.1 MMOL/L (3.5-5.1); SODIUM LEVEL 142 MMOL/L (136-145); TOTAL PROTEIN 5.8 G/DL (5.7-8.2)
[2023-10-11 10:06] LABS: THYROID STIMULATING HORMONE 1.726 uIU/ML (0.55-4.78)
== END ==
LOC: SKLAB5 08:24
PROVIDERS: ATTEND Nurse Practitioner Adult Health
DX: G35 Multiple sclerosis (principal); E03.9 Hypothyroidism, unspecified; Z79.899 Other long term (current) drug therapy

== ENCOUNTER 2023-11-01 09:00 | Outpatient (RCR) | payer MEDICARE ==
[~2023-11-01 09:00] MED LIST changes: -POTA10CA60 PO; +POTA10CA70 PO
== END 2023-11-14 ==
LOC: M ONCR 09:00
PROVIDERS: ATTEND General Practice
DX: Z51.0 Encounter for antineoplastic radiation therapy (principal); C44.219 Basal cell carcinoma of skin of left ear and external auricular canal

== ENCOUNTER → 2023-12-01 | Outpatient (CLI) | payer MEDICARE | LOC: M ONCR 09:56 | PROVIDERS: ATTEND General Practice | DX: C44.310 Basal cell carcinoma of skin of unspecified parts of face (principal); Z92.3 Personal history of irradiation; L58.9 Radiodermatitis, unspecified; W88.8XXA Exposure to other ionizing radiation, initial encounter ==

== ENCOUNTER → 2023-12-27 | Outpatient (CLI) | payer MEDICARE | LOC: M ONCR 10:40 | PROVIDERS: ATTEND General Practice | DX: Z08 Encounter for follow-up examination after completed treatment for malignant neoplasm (principal); Z85.828 Personal history of other malignant neoplasm of skin; Z92.3 Personal history of irradiation; Z88.0 Allergy status to penicillin; Z88.1 Allergy status to other antibiotic agents; Z79.890 Hormone replacement therapy; Z79.899 Other long term (current) drug therapy ==

== ENCOUNTER → 2024-01-02 | Outpatient (REF) | payer MEDICARE ==
[2024-01-02 13:39] LABS: HEMATOCRIT 41.9 % (42.0-52.0); HEMOGLOBIN 14.1 g/dl (13.5-17.5); MEAN CORPUSCULAR HGB CONC 33.7 g/dl (32.0-36.5); MEAN CORPUSCULAR VOLUME 92.1 fl (80.0-96.0); PLATELET COUNT, AUTOMATED 209 10^3/uL (150-450); RED BLOOD COUNT 4.55 10^6/uL (4.30-6.10); WHITE BLOOD COUNT 6.1 10^3/uL (4.0-10.0)
[2024-01-02 14:08] LABS: VALPROIC ACID (DEPAKOTE) 59.7 UG/ML (50.0-100.0)
[2024-01-02 14:12] LABS: THYROID STIMULATING HORMONE 0.932 uIU/ML (0.55-4.78)
== END ==
LOC: SKLAB5 07:00
PROVIDERS: ATTEND Internal Medicine
DX: G35 Multiple sclerosis (principal); G40.909 Epilepsy, unspecified, not intractable, without status epilepticus; E03.9 Hypothyroidism, unspecified; Z79.899 Other long term (current) drug therapy

== ENCOUNTER → 2024-03-05 | Outpatient (REF) | payer MEDICARE, MEDICAID, BC | LOC: SKLAB5 07:00 | PROVIDERS: ATTEND Internal Medicine | DX: Z12.5 Encounter for screening for malignant neoplasm of prostate (principal) | CPT/HCPCS: 36415; G0103 ==

== ENCOUNTER → 2024-04-02 | Outpatient (REF) | payer MEDICARE, MEDICAID, BC ==
[2024-04-02 14:25] LABS: HEMATOCRIT 44.6 % (42.0-52.0); HEMOGLOBIN 14.7 g/dl (13.5-17.5); MEAN CORPUSCULAR HEMOGLOBIN 31.1 pg (27.0-33.0); MEAN CORPUSCULAR VOLUME 94.3 fl (80.0-96.0); PLATELET COUNT, AUTOMATED 223 10^3/uL (150-450); RED BLOOD COUNT 4.73 10^6/uL (4.30-6.10); WHITE BLOOD COUNT 7.8 10^3/uL (4.0-10.0)
[2024-04-02 14:51] LABS: VALPROIC ACID (DEPAKOTE) 60.3 UG/ML (50.0-100.0)
[2024-04-02 14:56] LABS: ALBUMIN 3.8 G/DL (3.2-5.2); ALKALINE PHOSPHATASE 158 U/L (46-116); ALT/SGPT 18 U/L (7.0-40); AST/SGOT 19 U/L (<34); BILIRUBIN,DIRECT 0.2 MG/DL (<0.4); BILIRUBIN,TOTAL 0.6 MG/DL (0.3-1.2); BLOOD UREA NITROGEN 13 MG/DL (9-23); CALCIUM LEVEL 9.4 MG/DL (8.3-10.6); CARBON DIOXIDE LEVEL 30 MMOL/L (20-31); CHLORIDE LEVEL 105 MMOL/L (98-107); CREATININE FOR GFR 0.94 MG/DL (0.70-1.30); GLOMERULAR FILTRATION RATE > 60.0 (>42); GLUCOSE, FASTING 76 MG/DL (74-106); POTASSIUM SERUM 4.1 MMOL/L (3.5-5.1); SODIUM LEVEL 140 MMOL/L (136-145); TOTAL PROTEIN 6.2 G/DL (5.7-8.2)
[2024-04-02 14:58] LABS: THYROID STIMULATING HORMONE 1.316 uIU/ML (0.55-4.78)
== END ==
LOC: SKLAB5 07:00
PROVIDERS: ATTEND Internal Medicine
DX: G35 Multiple sclerosis (principal); G40.909 Epilepsy, unspecified, not intractable, without status epilepticus; E03.9 Hypothyroidism, unspecified; Z51.81 Encounter for therapeutic drug level monitoring

== ENCOUNTER → 2024-05-02 | Outpatient (CLI) | payer MEDICARE | LOC: M ONCR 09:56 | PROVIDERS: ATTEND General Practice | DX: Z08 Encounter for follow-up examination after completed treatment for malignant neoplasm (principal); Z85.828 Personal history of other malignant neoplasm of skin; Z92.3 Personal history of irradiation; Z86.16 Personal history of COVID-19; Z88.0 Allergy status to penicillin; Z88.1 Allergy status to other antibiotic agents; Z79.890 Hormone replacement therapy; Z79.899 Other long term (current) drug therapy ==

== ENCOUNTER → 2024-07-19 | Outpatient (REF) | payer MEDICARE, MEDICAID ==
[2024-07-19 10:25] LABS: HEMATOCRIT 43.8 % (42.0-52.0); HEMOGLOBIN 14.6 g/dl (13.5-17.5); MEAN CORPUSCULAR HEMOGLOBIN 31.4 pg (27.0-33.0); MEAN CORPUSCULAR HGB CONC 33.3 g/dl (32.0-36.5); MEAN CORPUSCULAR VOLUME 94.2 fl (80.0-96.0); PLATELET COUNT, AUTOMATED 190 10^3/uL (150-450); RED BLOOD COUNT 4.65 10^6/uL (4.30-6.10); WHITE BLOOD COUNT 6.5 10^3/uL (4.0-10.0)
[2024-07-19 10:51] LABS: VALPROIC ACID (DEPAKOTE) 40.2 UG/ML (50.0-100.0)
[2024-07-19 10:56] LABS: THYROID STIMULATING HORMONE 0.876 uIU/ML (0.55-4.78)
== END ==
LOC: SKLAB5 07:00
PROVIDERS: ATTEND Internal Medicine
DX: E03.9 Hypothyroidism, unspecified (principal); G40.909 Epilepsy, unspecified, not intractable, without status epilepticus; G35 Multiple sclerosis

== ENCOUNTER → 2024-08-01 | Outpatient (CLI) | payer MEDICARE, MEDICAID ==
[~2024-08-01] MED LIST changes: +PROHANCE 279.3MG/ML 15ML VIAL As Ordered ONE; +PROHANCE 279.3MG/ML 5ML VIAL As Ordered ONE
== END ==
LOC: M RAD 12:30
PROVIDERS: ATTEND Psychiatry & Neurology Neurology
DX: G35 Multiple sclerosis (principal)
CPT/HCPCS: 70553; A9576

== ENCOUNTER → 2024-08-07 | Outpatient (CLI) | payer MEDICARE, MEDICAID | LOC: M RAD 14:31 | PROVIDERS: ATTEND Psychiatry & Neurology Neurology | DX: G35 Multiple sclerosis (principal) | CPT/HCPCS: 72156; 72157; A9576 ==

== ENCOUNTER → 2024-09-16 | Outpatient (REF) | payer MEDICARE, MEDICAID ==
[~2024-09-16] MED LIST changes: -MYCO1SUS PO; -PROHANCE 279.3MG/ML 15ML VIAL As Ordered ONE; -PROHANCE 279.3MG/ML 5ML VIAL As Ordered ONE; +[UNRECOGNIZED DRUG - CODE] PO
[2024-09-16 12:04] LABS: BASO % 0.3 % (0.0-1.0); EOS # 0.1 10^3/uL (0.0-0.5); EOS % 1.5 % (0.0-3.0); HEMATOCRIT 44.9 % (42.0-52.0); HEMOGLOBIN 14.7 g/dl (13.5-17.5); LYMPH % 25.4 % (24.0-44.0); MEAN CORPUSCULAR HEMOGLOBIN 30.9 pg (27.0-33.0); MEAN CORPUSCULAR HGB CONC 32.7 g/dl (32.0-36.5); MEAN CORPUSCULAR VOLUME 94.3 fl (80.0-96.0); MONO # 0.5 10^3/uL (0.0-0.8); NEUTROPHILS # 5.2 10^3/uL (1.5-8.5); NEUTROPHILS % 66.3 % (36.0-66.0); PLATELET COUNT, AUTOMATED 224 10^3/uL (150-450); RED BLOOD COUNT 4.76 10^6/uL (4.30-6.10); WHITE BLOOD COUNT 7.8 10^3/uL (4.0-10.0)
[2024-09-16 12:30] LABS: VALPROIC ACID (DEPAKOTE) 41.9 UG/ML (50.0-100.0)
[2024-09-16 12:32] LABS: ALBUMIN 3.8 G/DL (3.2-5.2); ALKALINE PHOSPHATASE 146 U/L (40-129); ALT/SGPT 16 U/L (7.0-40); AST/SGOT 21 U/L (<34); BILIRUBIN,TOTAL 0.6 MG/DL (0.3-1.2); BLOOD UREA NITROGEN 14 MG/DL (9-23); CALCIUM LEVEL 8.9 MG/DL (8.3-10.6); CARBON DIOXIDE LEVEL 29 MMOL/L (20-31); CHLORIDE LEVEL 106 MMOL/L (98-107); CREATININE FOR GFR 0.87 MG/DL (0.70-1.30); GLOMERULAR FILTRATION RATE > 60.0 (>42); GLUCOSE, FASTING 134 MG/DL (74-106); POTASSIUM SERUM 4.2 MMOL/L (3.5-5.1); SODIUM LEVEL 144 MMOL/L (136-145); TOTAL PROTEIN 6.4 G/DL (5.7-8.2)
[2024-09-16 12:40] LABS: FOLATE 18.66 NG/ML (>5.4); HEPATITIS B SURFACE ANTIBODY NEGATIVE (POSITIVE); THYROID STIMULATING HORMONE 1.436 uIU/ML (0.55-4.78); TOTAL 25(OH) VITAMIN D 49.9 NG/ML (20.0-100.0); VITAMIN B12 LEVEL 708 PG/ML (211-911)
[2024-09-17 14:32] LABS: HERPES ZOSTER, VARICELLA IgG 2.96 S/CO (>=1.00)
[2024-09-18 08:07] LABS: ALBUMIN SPEP 4.1 g/dL (3.8-4.8); ALPHA-1-GLOBULINS SO 0.2 g/dL (0.2-0.3); ALPHA-2-GLOBULINS SO 0.5 g/dL (0.5-0.9); BETA 2 GLOBULIN 0.3 g/dL (0.2-0.5); BETA-GLOBULIN SO 0.3 g/dL (0.4-0.6); GAMMA GLOBULINS SO 0.5 g/dL (0.8-1.7)
[2024-09-19 10:39] LABS: Hexagonal Phase Phospholipid Negative (Negative); PTT-LA 41 sec (<=40); dRVVT 41 sec (<=45)
[2024-09-19 14:02] LABS: LAMOTRIGINE (LAMICTAL) 8.4 mcg/mL (2.5-15.0)
[2024-09-19 19:28] LABS: VITAMIN E(ALPHA TOCOPHEROL) 14.2 mg/L (5.7-19.9); VITAMIN E(GAMMA TOCOPHEROL) < 1.0 mg/L (<=4.3)
== END ==
LOC: SKLAB5 07:00
PROVIDERS: ATTEND Internal Medicine
DX: G35 Multiple sclerosis (principal); G40.909 Epilepsy, unspecified, not intractable, without status epilepticus; Z79.899 Other long term (current) drug therapy; Z11.59 Encounter for screening for other viral diseases

== ENCOUNTER → 2024-11-14 | Outpatient (REF) | payer MEDICARE, MEDICAID ==
[~2024-11-14] MED LIST changes: -FLOM0.4C39 PO; +TAMS-18 PO
[2024-11-14 07:37] LABS: HEMATOCRIT 42.1 % (42.0-52.0); HEMOGLOBIN 13.9 g/dl (13.5-17.5); MEAN CORPUSCULAR HEMOGLOBIN 31.2 pg (27.0-33.0); MEAN CORPUSCULAR VOLUME 94.6 fl (80.0-96.0); PLATELET COUNT, AUTOMATED 172 10^3/uL (150-450); RED BLOOD COUNT 4.45 10^6/uL (4.30-6.10); WHITE BLOOD COUNT 6.8 10^3/uL (4.0-10.0)
[2024-11-14 08:06] LABS: THYROID STIMULATING HORMONE 0.932 uIU/ML (0.55-4.78)
[2024-11-14 08:07] LABS: ALBUMIN 3.5 G/DL (3.2-5.2); ALKALINE PHOSPHATASE 147 U/L (40-129); ALT/SGPT 21 U/L (7.0-40); AST/SGOT 20 U/L (<34); BILIRUBIN,DIRECT 0.2 MG/DL (<0.4); BILIRUBIN,TOTAL 0.5 MG/DL (0.3-1.2); BLOOD UREA NITROGEN 13 MG/DL (9-23); CALCIUM LEVEL 8.6 MG/DL (8.3-10.6); CARBON DIOXIDE LEVEL 30 MMOL/L (20-31); CHLORIDE LEVEL 105 MMOL/L (98-107); CREATININE FOR GFR 0.84 MG/DL (0.70-1.30); GLOMERULAR FILTRATION RATE > 90.0 (>42); GLUCOSE, FASTING 79 MG/DL (74-106); SODIUM LEVEL 142 MMOL/L (136-145); TOTAL PROTEIN 5.7 G/DL (5.7-8.2)
[2024-11-14 08:21] LABS: VALPROIC ACID (DEPAKOTE) 48.3 UG/ML (50.0-100.0)
== END ==
LOC: SKLAB5 07:00
PROVIDERS: ATTEND Internal Medicine
DX: G35 Multiple sclerosis (principal); I10 Essential (primary) hypertension; Z51.81 Encounter for therapeutic drug level monitoring; G40.909 Epilepsy, unspecified, not intractable, without status epilepticus

== ENCOUNTER → 2025-03-13 | Outpatient (REF) | payer MEDICARE, MEDICAID, BC ==
[~2025-03-13] MED LIST changes: +ACET-1515 PO; -ACET650T15 PO; +DEPA250T PO; -DEPA250T2 PO; -DEPA250T32 PO; +DIVA-65 PO; +LAMO-18 PO; -LAMO25TA4 PO
[2025-03-13 09:31] LABS: PLATELET COUNT, AUTOMATED 198 10^3/uL (150-450)
[2025-03-13 09:56] LABS: ALT/SGPT 20.0 U/L (7.0-40); AST/SGOT 21.0 U/L (<34)
== END ==
LOC: SKLAB5 07:00
PROVIDERS: ATTEND Internal Medicine
DX: G35 Multiple sclerosis (principal); G40.909 Epilepsy, unspecified, not intractable, without status epilepticus; E03.9 Hypothyroidism, unspecified

== ENCOUNTER → 2025-06-16 | Outpatient (REF) | payer MEDICARE, MEDICAID, BC | LOC: SKLAB5 14:28 | PROVIDERS: ATTEND Internal Medicine | DX: G40.909 Epilepsy, unspecified, not intractable, without status epilepticus (principal); Z79.899 Other long term (current) drug therapy ==